=== PATIENT | male | born 1970 | race Caucasian/White ===

== ENCOUNTER 2019-04-23 01:29 | Day surgery (SDC) | payer OTHER, SELFPAY ==
[2019-04-16 14:53] VITALS: BMI 29.8
--- NOTE | 2019-04-21 15:24 | P.PNAN_ITS ---
Anes - Eval Pre Procedure Procedure: Operation Date: 04/23/19 11:00 Proposed Procedures p Colonoscopy - Leonel Kim MD Date/Time: 04/21/19 15:24 Pre Op Diagnosis: Abnormal Stool Patient Data Age: 49 Gender: M Height: 6 ft Weight: 99.79 kg Allergies Allergy/AdvReac Type Severity Reaction Status Date / Time No Known Allergies Allergy Unknown Verified 04/16/19 15:09 Home Medications Medication Instructions Recorded Confirmed Type albuterol sulfate [ProAir HFA] 1 inhalation INHALATION Q4-6H PRN 03/03/19 02/0 05/31 Rx #18 gm hydrocodone-acetaminophen 1 tablet PO Q6H PRN 03/03/19 04/16/19 History meloxicam 15 mg DAILY 03/03/19 04/16/19 History Patient hx anesthesia problems: none Family hx anesthesia problems: none PMFSH Past Medical History Medical History (Updated 04/21/19 @ 15:23 by Nani Alvarado CRNA) Bronchitis Chronic pain Chronic, continuous use of opioids No significant past medical history Obesity Surgical History Surgical History History of orthopedic surgery bilateral knees surgery,right hand Hx of tonsillectomy Social History Social History (Updated 04/21/19 @ 15:24 by Nani Alvarado CRNA) Smoking packs per day: 1 Smoking cigarettes per day: 20.0 Smoking status: Current every day smoker Tobacco type: cigarettes Alcohol intake: current Substance use: current Substance use type: opiates Exam Day of Procedure 04/21/19 15:24
[2019-04-23 09:58] VITALS: BP 128/89; PULSE 85; TEMP 36.3; O2SAT 99
[2019-04-23] MEDS: LACTATED RINGERS 1,000 ML 150 ML IV CONT (10:10)
--- NOTE | 2019-04-23 10:56 | P.CONGI_ITS ---
Assessment and Plan Additional Plan This is a 49-year-old white male patient seen in evaluation at the request of Dr. Hemal Grey, patient presents for screening colonoscopy. He states his current weight appetite bowel movements are normal. He denies any blood in his stools. He denies abdominal pain. His weight has remained stable. Family history is significant his mother had colon polyps as an outpatient patient had a cologuard test that was positive. He presents today for screening colonoscopy. Past medical history is significant for arthritis in his knees. Current medications include hydrocortisone. Meloxicam. And albuterol. No known medical allergies. Physical exam reveals patient to be alert. Oriented x3. HEENT exam unremarkable. He is anicteric. Lungs are clear to auscultation and percussion. Heart is without murmur or extra sounds. Abdominal exam bowel sounds are present soft nontender with no organomegaly. Digital external rectal exam. Impression 1. Neoplasia screening. advised because of age. 2. Positive: ColoGuard test. Suggest higher chance of having polyps. 3. Family history of colon polyps in mother, Plan is for screening colonoscopy to be performed. GI Consult Note Consult date/time: 04/23/19 10:56 HPI: Fernie Rees is a 49 year old male [facility] Past Medical History Medical History (Updated 04/21/19 @ 15:23 by Nani Alvarado CRNA) Bronchitis Chronic pain Chronic, continuous use of opioids No significant past medical history Obesity Surgical History Surgical History History of orthopedic surgery bilateral knees surgery,right hand Hx of tonsillectomy Social History Social History (Updated 04/21/19 @ 15:24 by Nani Alvarado CRNA) Smoking packs per day: 1 Smoking cigarettes per day: 20.0 Smoking status: Current every day smoker Tobacco type: cigarettes Alcohol intake: current Substance use: current Substance use type: opiates Meds Home Medications and Allergies Home Medications Medication Instructions Recorded Confirmed Type albuterol sulfate [ProAir HFA] 1 inhalation INHALATION Q4-6H PRN 03/03/19 04/16/19 Rx #18 gm hydrocodone-acetaminophen 1 tablet PO Q6H PRN 03/03/19 04/16/19 History meloxicam 15 mg DAILY 03/03/19 04/16/19 History Allergies Allergy/AdvReac Type Severity Reaction Status Date / Time No Known Allergies Allergy Unknown Verified 04/23/19 09:58 Vital Signs Vital Signs - 24 hr 04/23/19 09:58 Temperature 36.3 C L Pulse Rate 85 Blood Pressure 128/89 Pulse Oximetry 99
--- NOTE | 2019-04-23 10:58 | WPDANESEFPP ---
Anes - Eval Final PreProcedure Day of Procedure 04/23/19 10:58 Patient weight: obese Heart: regular rate and rhythm Lungs: clear to auscultation Airway: Mallampati scale class 1 and other (dentures) Neurological: alert and oriented Last oral intake: >/= 8 hours ASA classification: III Emergent: no Anesthetic plan: proceed Anesthesia type and monitoring: general GIVS and standard monitoring Informed Consent: The patient's anesthetic plan and its attendant risks and benefits were discussed with the patient/family/POA. Questions were solicited and answers provided to the satisfaction of the patient/family/POA.
[2019-04-23] MEDS: SIMETHICONE ORAL SUSPENSION 20 MG/0.3 ML 30 ML BOTTLE 0.6 ML IRRIGATION (11:31)
[2019-04-23 11:45] VITALS: BP 100/62; PULSE 72; RESP 21; O2SAT 100
[2019-04-23 11:55] VITALS: BP 110/65; PULSE 83; RESP 26; O2SAT 99
[2019-04-23 12:05] VITALS: BP 111/69; PULSE 73; RESP 19; O2SAT 100
== END 2019-04-23 12:16 | disposition home or self-care (01) ==
PROVIDERS: PCP Family Medicine; Visit Provider Internal Medicine Gastroenterology
PROC: 0DJD8ZZ Inspection of Lower Intestinal Tract, Via Natural or Artificial Opening Endoscopic (ICD-10-PCS; CPT 45378; principal; 2019-04-23 11:00)
DX: Z12.11 Encounter for screening for malignant neoplasm of colon (principal); K63.5 Polyp of colon; K62.1 Rectal polyp; K64.8 Other hemorrhoids; R19.5 Other fecal abnormalities; Z83.71 Family history of colonic polyps; G89.29 Other chronic pain; Z79.891 Long term (current) use of opiate analgesic; F17.210 Nicotine dependence, cigarettes, uncomplicated
CPT/HCPCS: 45385; 88305; J2704; J7120

== ENCOUNTER 2020-09-18 16:07 | Emergency (ER) | payer OTHER, SELFPAY ==
[2020-09-18 16:15] VITALS: BP 127/82; PULSE 79; RESP 18; TEMP 36.6; O2SAT 100
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
== END 2020-09-18 16:55 | disposition home or self-care (01) ==
PROVIDERS: Emergency Provider Nurse Practitioner Family
DX: S05.01XA Injury of conjunctiva and corneal abrasion without foreign body, right eye, initial encounter (principal); X58.XXXA Exposure to other specified factors, initial encounter; H11.31 Conjunctival hemorrhage, right eye; F17.210 Nicotine dependence, cigarettes, uncomplicated
CPT/HCPCS: 99213; A9270; G0463

== ENCOUNTER 2021-03-17 15:39 | Outpatient (CLI) | payer OTHER, SELFPAY ==
--- NOTE | ~2021-03-17 | CT_ITS ---
EXAMINATION: CT lung screening DATE: 03/17/2021 15:51 INDICATION: Encounter for screening for malignant neoplasm of respirator TECHNIQUE: Computed tomography (CT) of the chest was performed without intravenous contrast. Addition al 3D reconstructions utilizing coronal maximum intensity projection (MIP) were performed. Automated exposure control and iterative reconstruction technique were employed. The dose-length product was 19 8.85 mGy-cm. COMPARISON: None FINDINGS: Tiny calcified nodule in the left upper lobe consistent with old granulomatous disease. Additional 2 mm noncalcified left upper lobe nodule on series 4, image 31. No other larger pulmonary nodules, pulm onary edema or pleural effusion. Heart size is normal. Small amount of atherosclerotic coronary arter y calcification. No pericardial effusion. Thoracic aorta is normal in caliber. No pathologically enla rged thoracic lymphadenopathy. Visualized upper abdomen is unremarkable. Mild upper thoracic levocurv ature. Chronic appearing mild anterior wedging of several lower thoracic vertebral bodies with modera te spondylosis. IMPRESSION: 1. Lung-RADS category 2: Benign appearance or behavior. Continue annual screening with noncontrast lo w-dose chest CT in 12 months. Reviewed, dictated and finalized at location B. E HAND IMPRESSION: 1. Lung-RADS category 2: Benign appearance or behavior. Continue annual screeni ng with noncontrast low-dose chest CT in 12 months.
== END 2021-03-17 15:40 ==
LOC: MICIMG 15:40
PROVIDERS: PCP Family Medicine; Visit Provider Family Medicine
DX: Z12.2 Encounter for screening for malignant neoplasm of respiratory organs (principal); F17.210 Nicotine dependence, cigarettes, uncomplicated
CPT/HCPCS: 71271

== ENCOUNTER 2021-03-23 16:45 | Emergency (ER) | payer OTHER, SELFPAY ==
[2021-03-23 17:01] VITALS: BP 125/64; PULSE 81; RESP 20; TEMP 36.8; O2SAT 98
--- NOTE | 2021-03-23 17:07 | ED.GENADULT ---
HPI - General Adult General Chief complaint: Upper Respiratory Infection Stated complaint: Body Aches,Headache,Shortness of Breath Source: patient Mode of arrival: ambulatory Limitations: no limitations History of Present Illness HPI narrative: 51 y/o male. PMHx HLD, Chronic Pain Sx. Presents to [facility] this evening with acute complaints of nasal congestion and cough, as well as S[place]CLA[place] when he has a coughing fit . He endorses intermittent dyspnea, without chest pain, palpitations, edema. Denies fever, chills, body aches. No sore throat, otalgia. Client tells me he 'gets this once a year around this time from working outside in cold weather'. He is a daily ciagrette smoker. No additional acute c/o illness upon PE. Related Data Home Medications Medication Instructions Recorded Confirmed hydrocodone-acetaminophen 1 tablet PO Q6H PRN 03/03/19 03/23/21 meloxicam 15 mg PO DAILY 03/03/19 03/23/21 atorvastatin 20 mg PO DAILY 09/18/20 03/23/21 Allergies Allergy/AdvReac Type Severity Reaction Status Date / Time No Known Allergies Allergy Unknown Verified 03/23/21 17:05 Review of Systems Review of Systems: CONSTITUTIONAL: Denies fever, chills, sweats. SINCLAIR. EYES: Denies visual changes, redness, discharge. ENT: Positive rhinorrhea, congestion. No sore throat, otalgia. CARDIOVASCULAR: Denies chest pain, palpitations, edema. RESPIRATORY: Denies dyspnea, wheezing. Positive cough. GASTROINTESTINAL: Denies abdominal pain, nausea, vomiting, diarrhea. GENITOURINARY: Denies dysuria, hematuria, abnormal discharge SKIN: Denies rash or itching. MUSCULOSKELETAL: Denies acute back pain, joint pain, or myalgia. NEUROLOGIC: Denies numbness, or focal weakness. PSYCHIATRIC: Denies anxiety or depression. All systems reviewed & are unremarkable except as noted in HPI and below PMFSH Past Medical History Medical History Bronchitis Chronic pain Chronic, continuous use of opioids No significant past medical history Obesity Surgical History Surgical History History of orthopedic surgery bilateral knees surgery,right hand Hx of tonsillectomy Family History Family History Father Patient's father is Social History Social History Smoking packs per day: 1 Smoking cigarettes per day: 20.0 Smoking status: Current every day smoker Tobacco type: cigarettes Alcohol intake: current Substance use: current Substance use type: opiates Gender identity (if verbalized by the patient): Male Exam Narrative: GENERAL: This is a well-nourished, well-developed adult, in no apparent distress. HEAD: normocephalic, atraumatic. EYES: PERRL. Sclera clear/white. EARS: External ears normal, auditory canals clear and without drainage, TMs normal. NOSE: External nose normal. Positive Rhinorrhea, no obstruction, nares patent. THROAT: Mucous membranes moist, posterior pharynx erythematous. No exudates. NECK: Neck supple, non-tender without lymphadenopathy, masses or thyromegaly. CARDIOVASCULAR: Regular rate and rhythm without murmurs, gallops, or rubs. RESPIRATORY: Upper airway Rhonchi, cleared with cough. Breath sounds equal bilaterally. No wheezes, rales. . GASTROINTESTINAL: Abdomen soft, non-tender, nondistended. Bowel sounds are active. No guarding. SKIN: warm, intact with no suspicious lesions or rash, good texture and turgor. NEURO: Alert, active, and age appropriate. No focal neurologic deficits. EXTREMITIES: Negative. Course Course Level of Care: Express Care Visit Vital Signs Vital signs: Vital Signs Temperature 36.8 C 03/23/21 17:01 Pulse Rate 81 03/23/21 17:01 Respiratory Rate 20 03/23/21 17:01 Blood Pressure 125/64 03/23/21 17:01 Pulse Oximetry
== END 2021-03-23 17:28 | disposition home or self-care (01) ==
PROVIDERS: Emergency Provider Nurse Practitioner Adult Health; PCP Family Medicine
DX: U07.1 COVID-19 (principal); E66.9 Obesity, unspecified; Z68.44 Body mass index [BMI] 60.0-69.9, adult; F17.210 Nicotine dependence, cigarettes, uncomplicated
CPT/HCPCS: 87426; 99213; C9803; G0463

== ENCOUNTER 2021-05-19 07:14 | Outpatient (CLI) | payer OTHER, SELFPAY ==
--- NOTE | ~2021-05-19 | XR_ITS ---
EXAMINATION: XR shoulder LT min 2V DATE: 05/19/2021 07:34 INDICATION: Left shoulder pain. TECHNIQUE: 4 views of left shoulder were obtained. COMPARISON: Left shoulder radiographs 04/14/2012 FINDINGS: Bone alignment is normal. No fracture. There is mild osteoarthritis of glenohumeral joint a nd acromioclavicular joint. IMPRESSION: 1. Mild polyarticular osteoarthritis. Reviewed, dictated and finalized at location A. [employer] TE[employer]
== END 2021-05-19 07:15 | disposition home or self-care (01) ==
LOC: ANHIMG 07:18
PROVIDERS: PCP Family Medicine; Visit Provider Physician Assistant
DX: M19.012 Primary osteoarthritis, left shoulder (principal)
CPT/HCPCS: 73030

== ENCOUNTER 2021-05-21 10:29 | Outpatient (CLI) | payer OTHER, SELFPAY ==
--- NOTE | ~2021-05-21 | XR_ITS ---
EXAMINATION: XR lg joint inject/asp w image DATE: 05/21/2021 11:24 INDICATION: Left shoulder pain. TECHNIQUE: A time-out was performed to verify the patient's name, date of , and procedure to b e performed. The procedure including the risks, benefits, and alternatives was discussed with the pat ient. Risks discussed included bleeding and infection. The patient understood the risks and agreed to proceed. The skin overlying the left glenohumeral joint was prepped and draped in usual sterile fas hion. Anesthetic was administered with 1% lidocaine subcutaneously. A 22 G needle was advanced unde r fluoroscopic guidance into the joint. Injection of 1 mL of Omnipaque 240 confirmed intra-articular position of the needle. Subsequently, injectate consisting of 3 mL 1% lidocaine and 1 mL 40 mg/mL t riamcinolone was instilled. The needle was removed and the entry site was cleaned and dressed. Ther e were no immediate complications. Fluoroscopy exposure time was 0.1 minutes. The total number of mahesh ges was 2. FINDINGS: Real-time fluoroscopy demonstrates the needle in the left glenohumeral joint. Patient's alyse n prior to procedure:06/21. Patient's pain following the procedure: 04/23. IMPRESSION: 1. Fluoroscopy guided left glenohumeral joint injection of local anesthetic and steroid with decrease in the patient's presenting pain. Reviewed, dictated and finalized at location A. SIVE GRINDER
== END 2021-05-21 10:30 | disposition home or self-care (01) ==
LOC: ANHIMG 10:31
PROVIDERS: PCP Family Medicine; Visit Provider Physician Assistant
DX: M25.512 Pain in left shoulder (principal)
CPT/HCPCS: 20610; 77002; J3301; Q9966

== ENCOUNTER 2021-08-28 15:22 | Outpatient (CLI) | payer OTHER, SELFPAY ==
--- NOTE | ~2021-08-28 | MR_ITS ---
EXAMINATION: MR shoulder LT wo con DATE: 08/28/2021 16:23 INDICATION: Left shoulder pain. Loss of range of motion. No injury. TECHNIQUE: Magnetic resonance imaging (MRI) of the left shoulder was performed without intravenous co ntrast. Sequences included axial PD-weighted FS FSE, coronal oblique PD-weighted FS FSE and T2-weight ed FS FSE, and sagittal oblique T2-weighted FS FSE and T1-weighted FSE. COMPARISON: X-ray left shoulder 05/19/2021 FINDINGS: Coracoacromial arch: Type II acromion. Minimal acromial tip enthesopathy. Mild AC joint hypertrophy. Rotator cuff: 5 mm full-thickness tear in the anterior fibers of the supraspinatus tendon. Interstitial tear at the muscular tendinous junction of the supraspinatus. Abnormal signal within the supraspinatus and infra spinous. Infraspinatus, teres minor, and subscapularis are intact. Biceps tendon and glenoid labrum: Intact. Fluid: Small glenohumeral fluid. Moderate volume subacromial subdeltoid fluid. Bones/cartilage: No focal marrow lesion or edema. Mild cartilage thinning at the glenohumeral joint. IMPRESSION: 1. 5 mm full-thickness tear in the anterior fibers of the supraspinous tendon. Focal supraspinatus in terstitial tear. Superior cuff tendinopathy. 2. Moderate subacromial subdeltoid bursitis. Reviewed, dictated and finalized at location K. IMPRESSION: 1. 5 mm full-thickness tear in the anterior fibers of the supraspinous tendon. Focal supraspinatus interstitial tear. Superior cuff tendinopathy. 2. Moderate subacromial subdeltoid bursitis.
== END 2021-08-28 15:23 | disposition home or self-care (01) ==
PROVIDERS: PCP Family Medicine
DX: M25.512 Pain in left shoulder (principal); S46.812A Strain of other muscles, fascia and tendons at shoulder and upper arm level, left arm, initial encounter; M75.52 Bursitis of left shoulder
CPT/HCPCS: 73221

== ENCOUNTER 2021-09-24 14:15 | Outpatient (CLI) | payer OTHER, SELFPAY ==
--- NOTE | ~2021-09-24 | XR_ITS ---
XR chest 2V DATE: 09/24/2021 14:37 INDICATION: Preoperative evaluation for shoulder surgery TECHNIQUE: PA and lateral views COMPARISON: 03/17/2021 CT lung screening 2 view chest FINDINGS: Normal heart size. No hilar or mediastinal enlargement. Possible 7 mm and 8 mm lower lung nodules on the left. CT thorax is recommended. No pulmonary infiltrate or consolidation, pleural effusion or pulmonary vascular congestion or pneumo thorax is noted. IMPRESSION: Suspected 7 and 8 mm left lower lung pulmonary nodules; CT thorax is recommended. Reviewed, dictated and finalized at location A. IMPRESSION: Suspected 7 and 8 mm left lower lung pulmonary nodules; CT thorax i s recommended.
== END 2021-09-24 14:16 | disposition home or self-care (01) ==
LOC: ANHIMG 14:19
PROVIDERS: PCP Family Medicine; Visit Provider Family Medicine
DX: Z01.818 Encounter for other preprocedural examination (principal); R91.8 Other nonspecific abnormal finding of lung field
CPT/HCPCS: 71046

== ENCOUNTER 2021-10-12 13:44 | Outpatient (CLI) | payer OTHER, SELFPAY ==
--- NOTE | ~2021-10-12 | CT_ITS ---
EXAMINATION:CT diagnostic chest wo con DATE: 10/12/2021 15:08 INDICATION: Pulmonary nodules. Abnormal chest radiographs. TECHNIQUE: Computed tomography (CT) of the chest was performed without intravenous contrast. Automate d exposure control and iterative reconstruction technique were employed. The dose-length product (DLP ) was 260.77 mGy-cm. COMPARISON: Chest CT 03/17/2021, chest 2 views 09/24/2021 FINDINGS: A calcified left lung nodule is consistent with old granulomatous disease. There is a 3 mm nodule in left upper lobe, likely benign. No pleural effusion. The heart size is normal. There are co ronary artery calcifications. No pericardial effusion. There is a benign bone island in left seventh rib correlating with the chest radiograph finding. There is mild chronic anterior wedging of multiple vertebral bodies. IMPRESSION: 1. No evidence of malignancy. Reviewed, dictated and finalized at location A.
== END 2021-10-12 13:45 | disposition home or self-care (01) ==
PROVIDERS: PCP Family Medicine; Visit Provider Family Medicine
DX: R91.8 Other nonspecific abnormal finding of lung field (principal)
CPT/HCPCS: 71250

== ENCOUNTER 2022-06-02 13:08 | Outpatient (CLI) | payer OTHER, SELFPAY ==
--- NOTE | ~2022-06-02 | XR_ITS ---
EXAMINATION: XR lg joint inject/asp w image DATE: 06/02/2022 14:32 INDICATION: Left shoulder joint injection 8 months post rotator cuff repair TECHNIQUE: A time-out was performed to verify the patient's name, date of , and procedure to b e performed. The procedure including the risks, benefits, and alternatives was discussed with the pat ient. Risks discussed included bleeding and infection. The patient understood the risks and agreed to proceed. The skin overlying the rotator cuff interval of the left glenohumeral joint was prepped an d draped in usual sterile fashion. Anesthetic was administered with 1% lidocaine subcutaneously. A 22 G needle was advanced under fluoroscopic guidance into the joint. Injection of 1 mL of Omnipaque 240 confirmed intra-articular position of the needle. Subsequently 5 mm of 1% lidocaine was instille d. Washout of contrast was seen confirming intra-articular administration. The needle was removed and the entry site was cleaned and dressed. There were no immediate complications. Fluoroscopy exposure time was 0.2 minutes. The total number of images was 2. Total DAP was 0.735 Gycm^2 FINDINGS: Real-time fluoroscopy demonstrates the needle in the left glenohumeral joint. Patient's alyse n prior to procedure:/10. Patient's pain following the procedure: 05/21. IMPRESSION: 1. Successful left glenohumeral joint injection of 5 mL 1% lidocaine with partial decrease in the pat ient's presenting pain. Reviewed, dictated and finalized at location A. IMPRESSION: 1. Successful left glenohumeral joint injection of 5 mL 1% lidocaine with parti al decrease in the patient's presenting pain.
--- NOTE | ~2022-06-02 | XR_ITS ---
Left Knee Technique: AP, lateral, and sunrise views were obtained. Clinical History: Pain Findings: No fracture or dislocation is seen. Osseous alignment is anatomic. Minimal patellar spurrin g noted. Soft tissues are unremarkable. No joint effusion is seen. Impression: Minimal patellar spurring. Reviewed, dictated and finalized at location . Impression: Minimal patellar spurring.
== END 2022-06-02 13:09 | disposition home or self-care (01) ==
PROVIDERS: PCP Family Medicine
DX: M25.561 Pain in right knee (principal); M25.512 Pain in left shoulder; Z98.890 Other specified postprocedural states
CPT/HCPCS: 20610; 73564; 77002; Q9966

== ENCOUNTER 2022-08-29 09:44 | Outpatient (CLI) | payer OTHER, SELFPAY ==
--- NOTE | ~2022-08-29 | MR_ITS ---
MRI of the left shoulder Technique: Axial proton-density fat-sat images, coronal proton density fat-sat and T2 fat-sat images, and sagittal T1-weighted and T2 fat-sat images were acquired. Clinical History: Pain COMPARISON: 08/28/2021 Findings: There is moderate degenerative change at the AC joint, probable interval subacromial decomp ression since the prior exam. Coracoclavicular, coracoacromial, coracohumeral ligaments appear intact . There is evidence of prior rotator cuff repair surgery. There is recurrent full-thickness tear at the midportion of the supraspinatus tendon, with full-thickness tear measuring 0.9 x 0.9 cm in extent. T here is postoperative change versus severe tendinosis of the distal supraspinatus tendon. Infraspinat us tendon is intact, without partial or full-thickness tear. There is moderate to advanced distal ten dinosis. Subscapularis tendon is intact, with mild tendinosis. Tendon of the long head of the biceps is intact. No definite labral tear identified. Inferior glenohumeral ligament is intact. There is glenohumeral joint effusion, with fluid passing th rough the rotator cuff defect into the subacromial/subdeltoid bursa. No muscle atrophy or edema. No d egenerative change at the glenohumeral joint. Impression: Status post interval rotator cuff repair surgery, with recurrent full-thickness tear at the midportio n of the supraspinatus tendon measuring 0.9 x 0.9 cm. Severe tendinosis versus postoperative change of the distal supraspinatus tendon. Additional tendinos is of the subscapularis and infraspinatus tendons. Moderate degenerative change at the AC joint with evidence of interval subacromial decompression. Reviewed, dictated and finalized at [facility]. Impression: Status post interval rotator cuff repair surgery, with recurrent full-thickness tear at the midportion of the supraspinatus tendon measuring 0.9 x 0.9 cm. Severe tendinosis versus postoperative change of the distal supraspinatus tendo n. Additional tendinosis of the subscapularis and infraspinatus tendons. Moderate degenerative change at the AC joint with evidence of interval subacrom ial decompression.
--- NOTE | ~2022-08-29 | MR_ITS ---
MRI of the left knee Clinical history: Pain Technique: Coronal proton density and proton density-weighted images, sagittal proton-density and T2 fat-sat images, and axial proton-density fat-saturated images were acquired. Findings: Anterior and posterior cruciate ligaments are intact. Medial collateral ligament and the la teral collateral ligament complex are intact. Popliteus tendon is intact. Lateral meniscus is intact, without evidence of tear. There is complex tearing of the posterior horn of the medial meniscus extending into the body segment. There is grade 4 chondral lesion at the patellar apex with subchondral cystic change/reactive marrow edema. There is additional high-grade chondromalacia along the medial patellar facet. Femoral trochle ar cartilage is intact. Articular cartilage in the medial and lateral compartments is well preserved. Extensor mechanism is intact. No significant joint effusion. Tiny Amaya's cyst present. Impression: Complex tearing of the posterior horn and body of the medial meniscus. High-grade chondromalacia patella, as detailed above. Tiny Amaya's cyst. Reviewed, dictated and finalized at location . Impression: Complex tearing of the posterior horn and body of the medial meniscus. High-grade chondromalacia patella, as detailed above. Tiny Amaya's cyst.
== END 2022-08-29 09:45 | disposition home or self-care (01) ==
PROVIDERS: PCP Family Medicine
DX: S83.242A Other tear of medial meniscus, current injury, left knee, initial encounter (principal); M71.22 Synovial cyst of popliteal space [Baker], left knee; M22.42 Chondromalacia patellae, left knee; X58.XXXA Exposure to other specified factors, initial encounter
CPT/HCPCS: 73221; 73721

== ENCOUNTER 2023-03-24 14:01 | Outpatient (CLI) | payer OTHER, SELFPAY ==
--- NOTE | ~2023-03-24 | CT_ITS ---
Clinical Indication: Hemoptysis CT Scan of the Chest with and without Contrast: Technique: Contiguous sections were acquired throughout the chest prior to and following intravenous administration of 75 cc of Omnipaque 350. Dose reduction technique was used on this scan by utilizing automated exposure control and iterative reconstruction technique. The dose-length product (DLP) was 951.87 mGy-cm. COMPARISON: 10/12/2021 Findings: There is no evidence of any significant mediastinal, hilar or axillary lymphadenopathy. No large cent ral pulmonary embolus seen. There is no evidence of aortic dissection or aneurysm. There is no evidence of pleural or pericardial effusion. The lungs are clear. No pulmonary nodules or infiltrates are noted. Images through the upper abdomen reveal no abnormalities. Impression: No significant abnormality seen. Reviewed, dictated and finalized at [facility]. NESS AREA MANAGER Impression: No significant abnormality seen.
== END 2023-03-24 14:02 | disposition home or self-care (01) ==
PROVIDERS: PCP Family Medicine; Visit Provider Family Medicine
DX: R04.2 Hemoptysis (principal)
CPT/HCPCS: 71270; Q9967

== ENCOUNTER 2024-03-03 08:17 | Outpatient (CLI) | payer OTHER, SELFPAY ==
--- NOTE | ~2024-03-03 | CT_ITS ---
EXAMINATION:CT lung screening DATE: 03/03/2024 08:46 INDICATION: Personal history of nicotine dependence. Current smoker with 42 pack year history. TECHNIQUE: Computed tomography (CT) of the chest was performed without intravenous contrast. Automate d exposure control and iterative reconstruction technique were employed. The dose-length product (DLP ) was 232.84 mGy-cm. COMPARISON: Chest CT 03/24/2023 FINDINGS: There is a cluster of tree-in-bud opacities in right upper lobe, likely infection/inflammat ion. No pleural effusion. The heart size is normal. There are coronary artery calcifications. No shawn cardial effusion. There is mild bilateral gynecomastia. There is moderate spondylosis at thoracolumba r junction. There is mild chronic anterior wedging of multiple vertebral bodies. IMPRESSION: 1. Lung-RADS category 2: Benign appearance or behavior. Continue annual screening with noncontrast lo w-dose chest CT in 12 months. Reviewed, dictated and finalized at location A. ZINE PUBLISHER IMPRESSION: 1. Lung-RADS category 2: Benign appearance or behavior. Continue annual screeni ng with noncontrast low-dose chest CT in 12 months.
--- OUTSIDE RECORDS SUMMARY | 2024-03-10 06:55 | XMS_ITS | Referral Summary ---
Author Organization [facility] Address [address] [place] [address] Care Team Providers Care Green Building Architect Name Role Phone Hemal Grey MD Primary Care Provider [phone] Source Comments [facility],non-owned Affiliates and Associated Physician Practices is amultiple site organization consisting of ambulatory clinics and hospital sitesin [place], [place], [place] and [place]. This disclosure is being madepursuant to the Care Everywhere program and may not contain all information available regarding this patient. Last updated 17.[facility] [employer] Allergies No known active allergies Medications * Be aware that medications may not be up to date on this document. Alwaysverify current medications with the patient. Medication Sig Dispensed Refills Start Date End Date Status meloxicam (MOBIC) 15 MG tablet Take 1 tablet by mouth once daily 90 tablet 06/06/2019 Active albuterol HFA (PROVENTIL; VENTOLIN; PROAIR) 108 (90 Base) MCG/ACT inhaler INHALE 1 PUFF BY MOUTH EVERY 4 TO 6 HOURS NEEDED FOR SHORTNESS OF BREATH OR WHEEZING 01/26/2021 Active atorvastatin (LIPITOR) 20 MG tablet Take 1 (one) tablet by mouth once daily 08/06/2021 Active zolpidem (AMBIEN) 5 MG tabletIndications:S uperior glenoid labrum lesion of left shoulder, initial encounter,Complete tear of left rotator cuff, unspecified whether traumatic Take 1 (one) tablet by mouth nightly as needed for Insomnia 30 tablet 09/03/2021 Active Additional Information Patient not taking.Reported on 05/13/2022 traMADol (Ultram) 50 MG tablet Take 1 (one) tablet by mouth every 6 hours as needed for Pain 60 tablet 05/27/2022 Active Active Problems Problem Noted Date Diagnosed Date Biceps tendonitis on left 07/22/2022 Other specified complication of internal orthopedic prosthetic devices, implants and grafts, subsequent encounter 10/29/2021 Rotator cuff syndrome of left shoulder 2 Chronic left shoulder pain 07/21/2021 Therapeutic opioid induced constipation 01/30/20 21 Medial epicondylitis of elbow, left 04/02/2020 Bilateral primary osteoarthritis of knee 020 Long-term current use of opiate analgesic 2019 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 Chronic pain of both knees 06/13/2016 Social History Tobacco Use Types Packs/Day Years Used Date Smoking Tobacco: Every Day Smokeless Tobacco: Never Tobacco Cessation:Ready to Q uit: Not Asked; Counseling Given: Not Answered Sex and Gender Information Value Date Recorded Sex Assigned at Not on file Gender Identity Not on file Sexual Orientation Not on file Last Filed Vital Signs Vital Sign Reading Time Taken Comments Blood Pressure 132/74 04/05/2019 10:29 AM PARTY PLAN DEMONSTRATOR Pulse 86 04/05/2019 10:29 AM PARTY PLAN DEMONSTRATOR Temperature 36.8 ??C (98.3 ??F) 04/05/2019 10:[address] Respiratory Rate - - Oxygen Saturation 98% 04/05/2019 10:29 AM PARTY PLAN DEMONSTRATOR Inhaled Oxygen Concentration - - Weight 104.3 kg (230 lb) 05/13/2022 11:15 AM PARTY PLAN DEMONSTRATOR Height 185.4 cm (6' 1 ) 05/13/2022 11:15 AM PARTY PLAN DEMONSTRATOR Body Mass Index 30.34 05/13/2022 11:15 AM PARTY PLAN DEMONSTRATOR Plan of Treatment Not on file Care Teams Green Building Architect Relationship Specialty Start Date End Date Hemal Grey MD [address] [place] [address] [place] [id number] PCP - General Family Medicine 09/03/21
--- OUTSIDE RECORDS SUMMARY | 2024-03-10 06:55 | XMS_ITS | Encounter Summary ---
Author Organization [facility] Address [address] [place] [address] Care Team Providers Care Garbage Collector Supervisor Name Role Phone Unavailable Primary Care Provider Unavailabl e Reason for Visit * Reason Comments Upper Extremity Problem Lt shoulder pain - see form- Encounter Details Date Type Department Care Team (Late st Contact Info) Description 08/14/2021 8:30 AM CDT Office Visit [facility] - Orthopedic Surgery [address] [place] [id number] Salvador Jeffery MD [address] [place] [phone] Rotator cuff syndrome of left shoulder (Primary Dx); Biceps tendinitis of left shoulder Social History Tobacco Use Types Packs/Day Years Used Date Smoking Tobacco: Every Day Smokeless Tobacco: Never Sex and Gender Information Value Date Recorded Sex Assigned at Not on file Gender Identity Not on file Sexual Orientation Not on file documented as of this encounter Last Filed Vital Signs Vital Sign Reading Time Taken Comments Blood Pressure - - Pulse - - Temperature - - Respiratory Rate - - Oxygen Saturation - - Inhaled Oxygen Concentration - - Weight 102.1 kg (225 lb) 08/14/2021 8:31 AM CDT Height 185.4 cm (6' 1 ) 08/14/2021 8:31 AM CDT Body Mass Index 29.69 08/14/2021 8:31 AM CDT documented in this encounter Progress Notes * Salvador Jeffery MD - 08/14/2021 9:09 AM CDT Images from the original note were not included. Chief Complaint: Left shoulder pain History of Present Illness: The patient is 51 years old. She is he comes in for couple month history of left shoulder pain. His pain is insidious onset. 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 He is left-hand dominant. He now has issues with painand weakness with his arm out away from his body which is affecting his job. He did have an injection performed under image guidance which provided complete relief of his symptoms for a couple of weeks but his pain then returned. He has tried some home exercises with stretching and scapular stabilization without relief. He is also tried anti-inflammatory medications without relief. Past Medical History: Diagnosis Date ??? Bilateral primary osteoarthritis of knee 08/24/2019 ??? Hypolipidemia ??? longterm (current) use of opiate analgesic 08/24/2019 ??? Medial epicondylitis of elbow, left 04/02/2020 ??? Therapeutic opioid induced constipation 01/29/2021 Past Surgical History: Procedure Laterality Date ??? HAND OR FINGER(S) TENDON REPAIR 2009 ??? Wrist Fracture Repair Right Family history noncontributory Social History Socioeconomic History ??? Marital status: Spouse name: Not on file ??? Number of children: Not on file ??? Years of education: Not on file ??? Highest education level: Not on file Occupational History ??? Not on file Tobacco Use ??? Smoking status: Current Every Day Smoker ??? Smokeless tobacco: Never Used Substance and Sexual Activity ??? Alcohol use: Not on file ??? Drug use: Not on file ??? Sexual activity: Not on file Other Topics Concern ??? Not on file Social History Narrative ??? Not on file Social Determinants of Health Financial Resource Strain: Not on file Food Insecurity: Not on file Transportation Needs: Not on file Physical Activity: Not on file Stress: Not on file Social Connections: Not on file Intimate Partner Violence: Not on file Housing Stability: Not on file Current Outpatient Medications on File Prior to Visit Medication Sig Dispense Refill ??? albuterol HFA (PROVENTIL; VENTOLIN; PROAIR) 108 (90 Base) MCG/ACT inhaler INHALE 1 PUFF BY MOUTH EVERY 4 TO 6 HOURS NEEDED FOR SHORTNESS OF BREATH OR WHEEZING ??? atorvastatin (LIPITOR) 20 MG tablet Take 20 mg by mouth once daily ??? HYDROcodone-acetaminophen (NORCO) 7.5-325 MG tablet Take 1 tablet by mouth every 6 hours as needed ??? meloxicam (MOBIC) 15 MG tablet Take 1 tablet by mouth once daily 90 tablet 0 ??? meloxicam (MOBIC) 15 MG tablet TAKE 1 TABLET BY MOUTH EVERY DAY 90 tablet 1 ??? naloxone HCl (NARCAN) 4 MG/0.1ML nasal spray [place] 1 spray into the nose No current facility-administered medications on file prior to visit. No Known Allergies Review of Systems - 10 organ system review negative except left shoulder pain and weakness Physical Exam: Constitutional: Well developed, well nourished. No acute distress. HEENT: Atraumatic. Respiratory: Respirations are unlabored and even. No audible wheezes. Cardiovascular: Regular rate with palpable, symmetric radial pulses. Gastrointestinal: Non-tender abdomen to palpation. Lymphatic: No lymphedema is noted in the extremities. Psychiatric: The patient is cooperative and interacts appropriately during the exam. Alert and oriented x 3. Neurologic: No focal deficits. Skin: The skin is intact over the shoulder with no rashes. Extremity: Active Shoulder Range of Motion: Right: Forward Elevation 170 degrees Abduction 170 degrees External Rotation 60 degrees Internal Rotation T12 Left: Forward Elevation 160 degrees Abduction 150 degrees External Rotation 60 degrees Internal Rotation S1 The patient has - tenderness along the joint line, + tenderness along the biceps, - tenderness overthe acromion, - tenderness on the coracoid, + tenderness over Codman's point, + crepitus, + scapular dyskinesis, + Neer sign, + Gonzalez test, + Edgardo's test, - drop arm sign, + Speed test, + [place] test, - cross-body adduction test, + pain with abduction and external rotation, - Belly press, - BearHug test, is able to perform a Lift-off test, weak rotational strength, weak abduction strength. - apprehension sign, - instability. Distal neurocirculatory exam is intact. No flowsheet data found. No flowsheet data found. Sane Score (0-100): No flowsheet data found. Radiographs: 4 views of the left shoulder were obtained and reviewed including an AP, Grashey, Supraspinatus outlet view scapular Y, and axillary lateral. The xrays show well preserved joint spaces of the glenohumeral joint and acromioclavicular joint with no acute osseous abnormalities, fractures,or dislocations. The patient has a type 2 acromion. There are otherwise normal images. Assessment: Left shoulder pain with rotator cuff syndrome and suspected tear and biceps tendinitis Plan: I discussed the pathology and treatment options with the patient. At this point he has failedconservative management of injections, activity modifications, exercise, and anti-inflammatories. The neck step would be further evaluation with an MRI to evaluate for underlying rotator cuff or biceps pathologies. I will see the patient back after the MRI to discuss treatment options based on results. Salvador Jeffery MD Shoulder and Elbow Specialist [facility] [place] [address] main office [phone] for medical technician assistant [phone] for nurse [phone] for appointments documented in this encounter Plan of Treatment Not on file documented as of this encounter Visit Diagnoses Diagnosis Rotator cuff syndrome of left shoulder- Primary Disorders of bursae and tendons in shoulder region, unspecified Biceps tendinitis of left shoulder documented in this encounter
--- OUTSIDE RECORDS SUMMARY | 2024-03-10 06:55 | XMS_ITS | Encounter Summary ---
Author Organization [facility] Address [address] [place] [address] Care Team Providers Care Denitrator Name Role Phone Hemal Grey MD Primary Care Provider [phone] Reason for Visit * Reason Onset Date Comments Refill Request 11/04/2021 Encounter Details Date Type Department Care Team (Late st Contact Info) Description 11/04/2021 Refill [facility] - Orthopedic Surgery [address] [place] [id number] Salvador Jeffery MD [address] [place] [address] [phone] Refill Request Social History Tobacco Use Types Packs/Day Years Used Date Smoking Tobacco: Every Day Smokeless Tobacco: Never Sex and Gender Information Value Date Recorded Sex Assigned at Not on file Gender Identity Not on file Sexual Orientation Not on file documented as of this encounter Miscellaneous Notes * Telephone Encounter - Leonel Aponte LPN - 11/04/2021 11:07 AM CDT States [place] has been ineffective and he didn't orange picking supervisor the script. He respectfully asked for Percocet documented in this encounter Plan of Treatment Not on file documented as of this encounter Visit Diagnoses Diagnosis Complete tear of left rotator cuff, unspecified whether traumatic documented in this encounter Care Teams Denitrator Relationship Specialty Start Date End Date Hemal Grey MD [address] [place] [id number] PCP - General Family Medicine 09/03/21 documented as of this encounter
--- OUTSIDE RECORDS SUMMARY | 2024-03-10 06:55 | XMS_ITS | Clinical Summary ---
Author Organization [facility] Address [address] [place] [address] Care Team Providers Care Hand Potter Name Role Phone Hemal Grey MD Primary Care Provider [phone] Source Comments [facility],non-owned Affiliates and Associated Physician Practices is amultiple site organization consisting of ambulatory clinics and hospital sitesin [place], [place], [place] and [place]. This disclosure is being madepursuant to the Care Everywhere program and may not contain all information available regarding this patient. Last updated 17.[facility] [employer] Allergies No known active allergies Medications * [...] Comments Blood Pressure 132/74 04/05/2019 10:29 AM DICE TABLE PERSON Pulse 86 04/05/2019 10:29 AM DICE TABLE PERSON Temperature 36.8 ??C (98.3 ??F) 04/05/2019 10:[address] Respiratory Rate - - Oxygen Saturation 98% 04/05/2019 10:29 AM DICE TABLE PERSON Inhaled Oxygen Concentration - - Weight 104.3 kg (230 lb) 05/13/2022 11:15 AM DICE TABLE PERSON Height 185.4 cm (6' 1 ) 05/13/2022 11:15 AM DICE TABLE PERSON Body Mass Index 30.34 05/13/2022 11:15 AM DICE TABLE PERSON Plan of Treatment Health Maintenance Due Date Last Done Comments COLOGUARD (AGES 45-75) - COL ON CA SCREENING 1968 COLON MONITORING 1968 COLONOSCOPY - COLON CA SCREENING 1968 CT COLONOGRAPHY - COLON CA SCREENING 1968 Colorectal Cancer Screening 1968 FIT - COLON CA SCREENING 1968 FLEX SIG - COLON CA SCREENING 1968 PNEUMOCOCCAL VACCINE (1 of 2 - PCV) 1974 HIV SCREENING 1983 HEPATITIS C SCREENING 03/08/1986 DTAP/TDAP/TD VACCINES (1 - Tdap) 1987 HEPATITIS B VACCINE (1 of 3 - 19+ 3-dose series) 1987 ZOSTER VACCINE (1 of 2) 2018 SCREENING FOR DIABETES 08/14/2021 DEPRESSION SCREENING 03/14/2023 COVID-19 VACCINE (1 - 2023-2 5 season) 2023 INFLUENZA VACCINE (#1) 2023 HIB VACCINE Aged Out No longer eligi ble based on patient's age to complete this topic HPV VACCINE Aged Out No longer eligi ble based on patient's age to complete this topic MENINGOCOCCAL VACCINE Aged Out No pilar freddie eligible based on patient's age to complete this topic Care Teams Hand Potter Relationship Specialty Start Date End Date Hemal Grey MD [address] [place] [address] [place] [address] PCP - General Family Medicine 09/03/21
--- OUTSIDE RECORDS SUMMARY | 2024-03-10 06:55 | XMS_ITS | Encounter Summary ---
Author Organization [facility] Address [address] [facility] [place] [address] Care Team Providers Care Satellite Installation Technician Name Role Phone Hemal Grey MD Primary Care Provider [phone] Reason for Visit * Reason Comments Upper Extremity Problem LT Shoulder- Miles brittany 10/14/21 - patient stated he has not been getting any sleep for the past month. Pain level on today zero but last night it was a 7-8. Encounter Details Date Type Department Care Team (Late st Contact Info) Description 04/08/2022 10:10 AM GIN POLE OPERATOR Office Visit [facility] [address] [place] [address] [address] [place] [address] Salvador Jeffery MD [address] [place] [address] [phone] S/P rotator cuff repair (Primary Dx); Pain in joint of left shoulder Social History Tobacco Use Types Packs/Day Years Used Date Smoking Tobacco: Every Day Smokeless Tobacco: Never Tobacco Cessation:Ready to Q uit: Not Asked; Counseling Given: Not Answered Sex and Gender Information Value Date Recorded Sex Assigned at Not on file Gender Identity Not on file Sexual Orientation Not on file documented as of this encounter Progress Notes * Salvador Jeffery MD - 04/08/2022 5:18 PM CST Images from the original note were not included. Chief Complaint: left shoulder 5 month postop visit History of Present Illness: The patient is now 5 months status post a left shoulder rotator cuff repair. They are doing well and pain is controlled. They have continued to increase the use of their arm with range of motion activities and strengthening exercises. They have no complaints today. The patient is ready to begin regular and more advanced activities at this time. Past Medical History: Diagnosis Date ??? Bilateral primary osteoarthritis of knee 08/24/2019 ??? Hypolipidemia ??? long-term (current) use of opiate analgesic 08/24/2019 ??? Medial epicondylitis of elbow, left 04/02/2020 ??? Therapeutic opioid induced constipation 01/29/2021 Past Surgical History: Procedure Laterality Date ??? HAND OR FINGER(S) TENDON REPAIR 2009 ??? Wrist Fracture Repair Right Social History Socioeconomic History ??? Marital status: Spouse name: Not on file ??? Number of children: Not on file ??? Years of education: Not on file ??? Highest education level: Not on file Occupational History ??? Not on file Tobacco Use ??? Smoking status: Every Day ??? Smokeless tobacco: Never Substance and Sexual Activity ??? Alcohol use: Not on file ??? Drug use: Not on file ??? Sexual activity: Not on file Other Topics Concern ??? Not on file Social History Narrative ??? Not on file Social Determinants of Health Financial Resource Strain: Not on file Food Insecurity: Not on file Transportation Needs: Not on file Stress: Not on file Housing Stability: Not on file Current Outpatient Medications on File Prior to Visit Medication Sig Dispense Refill ??? albuterol HFA (PROVENTIL; VENTOLIN; PROAIR) 108 (90 Base) MCG/ACT inhaler INHALE 1 PUFF BY MOUTH EVERY 4 TO 6 HOURS NEEDED FOR SHORTNESS OF BREATH OR WHEEZING ??? atorvastatin (LIPITOR) 20 MG tablet Take 20 mg by mouth once daily ??? meloxicam (MOBIC) 15 MG tablet Take 1 tablet by mouth once daily 90 tablet 0 ??? zolpidem (AMBIEN) 5 MG tablet Take 1 (one) tablet by mouth nightly as needed for Insomnia 30 tablet 0 No current facility-administered medications on file prior to visit. No Known Allergies Physical exam: Constitutional: Well developed, well nourished. No acute distress. Lymphatic: No lymphedema is noted in the extremities. Neurologic: No focal deficits. Skin: The incision is healed with no signs of infection Extremity:Active Shoulder Range of Motion: Left: Forward Elevation 160 degrees Abduction 160 degrees External Rotation 60 degrees Internal Rotation T10 The patient has weakness with external rotation compared to the contralateral healthy side. Patientalso has positive Edgardo's test. Negative speed's test. The distal neurocirculatory exam is intact. No flowsheet data found. No flowsheet data found. Sane Score (0-100): No flowsheet data found. Radiographs: none were obtained today Assessment: 5 months status post a left shoulder rotator cuff repair with pain in his left shoulderthat is new compared to his last visit. Plan: At this time, the patient will continue with increased activity as tolerated. The patient mayresume normal activities without restrictions. I told the patient that they can continue to see improvements in strength and range of motion for up to one year postoperatively. To try and alleviate the inflammation in his shoulder, a steroid injection of the left shoulder was given today. The patient underwent the injection and tolerated it well. Physical therapy was also prescribed today. He will follow-up in 6 weeks for re-evaluation. Salvador Jeffery MD Shoulder and Elbow Specialist [facility] [address] main office [phone] for medical billing manager [phone] for nurse [phone] for appointments POLE OPERATOR documented in this encounter Procedure Notes * Salvador Jeffery MD - 04/08/2022 5:24 PM CSTAssociated Order(s): PROC ARTHROCENTESIS Procedure(s): MD DRAIN/INJECT LARGE JOINT/BURSA Pre-Procedure Diagnose(s): S/P rotator cuff repair; Pain in joint of left shoulder Post-Procedure Diagnose(s): S/P rotator cuff repair; Pain in joint of left shoulder Under sterile conditions using alcohol prep the left shoulder was injected using a mixture of 2 mL 9 mg Celestone (6 mg/cc) and 3 mL of 1% Lidocaine through a posterior approach with a 22g needle. The patient tolerated the procedure well. No complications occurred. A bandaid was applied. Appropriate post-injection instructions were given and questions answered. POLE OPERATOR documented in this encounter Plan of Treatment Not on file documented as of this encounter Procedures Procedure Name Priority Date/Time Associated Diagnosis Comments MD DRAIN/INJECT LARGE JOINT/BURSA Routine 04/08/2022 5:24 PM GIN POLE OPERATOR S/P rotator cuff repair Pain in joint of left shoulder documented in this encounter Results * MD DRAIN/INJECT LARGE JOINT/BURSA (04/08/2022 5:24 PM GIN POLE OPERATOR) Narrative Salvador Jeffery MD - 04/08/2022 5:24 PM GIN POLE OPERATOR Salvador Jeffery MD ? 04/08/2022 ??5:28 PM Under sterile conditions using alcohol prep the left shoulder was injected using a mixture of 2 mL 9 mg Celestone (6 mg/cc) ??and 3 mL of 1% Lidocaine through a posterior approach with a 22g needle. ??The patient tolerated the procedure well. ??No complications occurred. ??A bandaid was applied. ??Appropriate post-injection instructions were given and questions answered. Salvador Jeffery MD PROCEDURE/MINOR SURG ICAL ORDERABLES documented in this encounter Visit Diagnoses Diagnosis S/P rotator cuff repair- Primary Other postprocedural status Pain in joint of left shoulder Pain in joint, shoulder region documented in this encounter Administered Medications Inactive Administered Medications - up to 3 most recent administrations Medication Order MAR Action Action Date Dose Rate Site betamethasone acet & sod phos (Celestone) injection 12 mg 12 mg, Intra-articular, ONCE, 1 dose, On Magalys 04/08/22 at 1200 $ Given 04/08/2022 12:17 PM GIN POLE OPERATOR 12 mg Left Shoulder lidocaine (Xylocaine) 1 % injection Intra-articular, ONCE, 1 dose, On Magalys 04/08/22 at 1200 $ Given 04/08/2022 12:18 PM GIN POLE OPERATOR 3 mL Left Shoulder documented in this encounter Care Teams Satellite Installation Technician Relationship Specialty Start Date End Date Hemal Grey MD [address] [place] [address] PCP - General Family Medicine 09/03/21 documented as of this encounter
--- OUTSIDE RECORDS SUMMARY | 2024-03-10 06:55 | XMS_ITS | Encounter Summary ---
Author Organization [facility] Address [address] [place] [address] Care Team Providers Care Curriculum And Instruction Specialist Name Role Phone Hemal Grey MD Primary Care Provider [phone] Reason for Visit * Reason Comments Upper Extremity Problem LT SHOULDER - pa tient stated no concerns at this time. Encounter Details Date Type Department Care Team (Late st Contact Info) Description 02/18/2022 10:00 AM WATER GAS OPERATOR Office Visit [facility] [address] [place] [phone] Salvador Jeffery MD [address] [place] [phone] S/P left rotator cuff repair (Primary Dx) Social History Tobacco Use Types Packs/Day Years Used Date Smoking Tobacco: Every Day Smokeless Tobacco: Never Tobacco Cessation:Ready to Q uit: Not Asked; Counseling Given: Not Answered Sex and Gender Information Value Date Recorded Sex Assigned at Not on file Gender Identity Not on file Sexual Orientation Not on file documented as of this encounter Progress Notes * Salvador Jeffery MD - 02/18/2022 12:33 PM CST Images from the original note were not included. Chief Complaint: left shoulder 4 month postop visit History of Present Illness: The patient is now 4 months status post a left shoulder rotator cuff repair. They have continued to increase the use of their arm with range of motion activities and use for simple ADLs. He complains of minor left shoulder pain, but otherwise is doing well. The patient is ready to begin strengthening exercises. Past Medical History: Diagnosis Date ??? Bilateral primary osteoarthritis of knee 08/24/2019 ??? Hypolipidemia ??? 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 [...] mg by mouth once daily ??? HYDROcodone-acetaminophen (Cl[place]ax) 7.5-325 MG tablet Take 1 (one) tablet by mouth every 6 hours as needed pain 28 tablet 0 ??? meloxicam (MOBIC) 15 MG tablet Take 1 tablet by mouth once daily 90 tablet 0 ??? meloxicam (MOBIC) 15 MG tablet TAKE 1 TABLET BY MOUTH EVERY DAY 90 tablet 1 ??? naloxone HCl (NARCAN) 4 MG/0.1ML nasal spray [place] 1 spray into the nose ??? oxyCODONE-acetaminophen (Percocet) 5-325 MG tablet Take 1 (one) tablet to 2 (two) tablets by mouth every 6 hours as needed for Pain 48 tablet 0 ??? zolpidem (AMBIEN) 5 MG tablet Take 1 (one) tablet by mouth nightly as needed for Insomnia 30 tablet 0 No current facility-administered medications on file prior to visit. No Known Allergies Physical Exam: Constitutional: Well developed, well nourished. No acute distress. Lymphatic: No lymphedema is noted in the extremities. Neurologic: No focal deficits. Skin: The incision is healed with no signs of infection Extremity: Active Shoulder Range of Motion: Right: Forward Elevation 170 degrees Abduction 170 degrees External Rotation 60 degrees Internal Rotation L3 Left: Forward Elevation 140 degrees Abduction 140 degrees External Rotation 30 degrees Internal Rotation L3 The patient has good rotational strength with no instability. The distal neurocirculatory exam is intact. No flowsheet data found. No flowsheet data found. Sane Score (0-100): No flowsheet data found. Radiographs: none were obtained today Assessment: 4 months status post a left shoulder rotator cuff repair, decompression, debridement, and biceps tenodesis. Plan: At this time, the patient will work on additional stretching exercise and add strengthening exercises, which I have instructed today in the office. They will also go for some formal physical therapy instruction/treatments as well. They may gradually increase activity as tolerated by increase length of time and vigorousness of activities. He will go to PT for work conditioning to hopefully return to work in 6 weeks. I will see the patient back in 6 weeks to evaluate how the patient is progressing with the strengthening phase and make sure they are progressing appropriately. No xrays are needed on follow up. Salvador Jeffery MD Shoulder and Elbow Specialist [facility] [address] main office [phone] for medical device engineer [phone] for nurse [phone] for appointments R GAS OPERATOR documented in this encounter Plan of Treatment Not on file documented as of this encounter Visit Diagnoses Diagnosis S/P left rotator cuff repair- Primary documented in this encounter Care Teams Curriculum And Instruction Specialist Relationship Specialty Start Date End Date Hemal Grey MD [address] [place] [address] PCP - General Family Medicine 09/03/21 documented as of this encounter
--- OUTSIDE RECORDS SUMMARY | 2024-03-10 06:55 | XMS_ITS | Encounter Summary ---
Author Organization [facility] Address [address] [facility] [place] [address] Care Team Providers Care Powerhouse Oiler Name Role Phone Hemal Grey MD Primary Care Provider [phone] Reason for Visit * Reason Onset Date Comments MEDICATION REFILL 01/07/2022 Encounter Details Date Type Department Care Team (Late st Contact Info) Description 01/07/2022 Refill [facility] [address] [place] [address] Salvador Jeffery MD [address] [place] [address] [phone] MEDICATION REFILL Social History Tobacco Use Types Packs/Day Years Used Date Smoking Tobacco: Every Day Smokeless Tobacco: Never Sex and Gender Information Value Date Recorded Sex Assigned at Not on file Gender Identity Not on file Sexual Orientation Not on file documented as of this encounter Miscellaneous Notes * Telephone Encounter - Leonel Aponte LPN - 01/07/2022 10:49 AM CDT Refill Percocet documented in this encounter Plan of Treatment Not on file documented as of this encounter Visit Diagnoses Diagnosis Complete tear of left rotator cuff, unspecified whether traumatic documented in this encounter Care Teams Powerhouse Oiler Relationship Specialty Start Date End Date Hemal Grey MD [address] [place] [address] PCP - General Family Medicine 09/03/21 documented as of this encounter
--- OUTSIDE RECORDS SUMMARY | 2024-03-10 06:55 | XMS_ITS | Encounter Summary ---
Author Organization [facility] Address [address] [place] [address] Care Team Providers Care Software Engineer Web Applications Name Role Phone Hemal Grey MD Primary Care Provider [phone] Reason for Visit * Reason Onset Date Comments Refill Request 11/02/2021 Encounter Details Date Type Department Care Team (Late st Contact Info) Description 11/02/2021 Refill [facility] [address] [place] [address] Salvador Jeffery MD [address] [place] [address] [phone] Refill Request Social History Tobacco Use Types Packs/Day Years Used Date Smoking Tobacco: Every Day Smokeless Tobacco: Never Sex and Gender Information Value Date Recorded Sex Assigned at Not on file Gender Identity Not on file Sexual Orientation Not on file documented as of this encounter Miscellaneous Notes * Telephone Encounter - Leonel Aponte LPN - 11/02/2021 2:56 PM CDT Refill request documented in this encounter Plan of Treatment Not on file documented as of this encounter Visit Diagnoses Not on filedocumented in this encounter Care Teams Software Engineer Web Applications Relationship Specialty Start Date End Date Hemal Grey MD [address] [place] [address] PCP - General Family Medicine 09/03/21 documented as of this encounter
--- OUTSIDE RECORDS SUMMARY | 2024-03-10 06:55 | XMS_ITS | Encounter Summary ---
Author Organization [facility] Address [address] [facility] [place] [address] Care Team Providers Care Mutuel Cashier Name Role Phone Hemal Grey MD Primary Care Provider [phone] Reason for Visit * Reason Onset Date Comments Refill Request 11/02/2021 Patient would li ke a refill on his Oxycodone Encounter Details Date Type Department Care Team (Late st Contact Info) Description 11/02/2021 Telephone [facility] [address] [place] [address] Salvador Jeffery MD [address] [place] [address] Refill Request (Patient would like a refill on his Oxycodone) Social History Tobacco Use Types Packs/Day Years Used Date Smoking Tobacco: Every Day Smokeless Tobacco: Never Sex and Gender Information Value Date Recorded Sex Assigned at Not on file Gender Identity Not on file Sexual Orientation Not on file documented as of this encounter Plan of Treatment Not on file documented as of this encounter Visit Diagnoses Not on filedocumented in this encounter Care Teams Mutuel Cashier Relationship Specialty Start Date End Date Hemal Grey MD [address] [place] [address] PCP - General Family Medicine 09/03/21 documented as of this encounter
--- OUTSIDE RECORDS SUMMARY | 2024-03-10 06:55 | XMS_ITS | Encounter Summary ---
Author Organization [facility] Address [address] [facility] [place] [address] Care Team Providers Care Medical Assembly Name Role Phone Hemal Grey MD Primary Care Provider [phone] Reason for Visit * Reason Onset Date Comments Refill Request 05/27/2022 Encounter Details Date Type Department Care Team (Late st Contact Info) Description 05/27/2022 Refill [facility] [address] [place] [address] Salvador Jeffery MD [address] [place] [address] [phone] Refill Request Social History Tobacco Use Types Packs/Day Years Used Date Smoking Tobacco: Every Day Smokeless Tobacco: Never Sex and Gender Information Value Date Recorded Sex Assigned at Not on file Gender Identity Not on file Sexual Orientation Not on file documented as of this encounter Miscellaneous Notes * Telephone Encounter - Leonel Aponte LPN - 05/27/2022 12:24 PM CDT Will not refill [place] but tramadol at this time in effort to see if fluro guided injection is effective. * Telephone Encounter - Namita Roberson - 05/27/2022 9:25 AM CDT Current Provider name:shira Reason for call: patient needs a refill of medication of hydrocodone Patient Call Back number: [phone] documented in this encounter Plan of Treatment Not on file documented as of this encounter Visit Diagnoses Not on filedocumented in this encounter Care Teams Medical Assembly Relationship Specialty Start Date End Date Hemal Grey MD [address] [place] [address] PCP - General Family Medicine 09/03/21 documented as of this encounter
--- OUTSIDE RECORDS SUMMARY | 2024-03-10 06:55 | XMS_ITS | Encounter Summary ---
Author Organization [facility] Address [address] [place] [address] Care Team Providers Care Link And Link Knitting Machine Operator Name Role Phone Unavailable Primary Care Provider Unavailabl e Reason for Visit * Reason Onset Date Comments Returned Call 07/31/2019 Encounter Details Date Type Department Care Team (Late st Contact Info) Description 07/31/2019 Telephone [facility] Orthopedics [address] [place] [address], [address] [phone] Sarthak Holland, [facility] [address] [phone] Returned Call Social History Tobacco Use Types Packs/Day Years Used Date Smoking Tobacco: Every Day Smokeless Tobacco: Never Sex and Gender Information Value Date Recorded Sex Assigned at Not on file Gender Identity Not on file Sexual Orientation Not on file documented as of this encounter Miscellaneous Notes * Telephone Encounter - Breann Arnold - 07/31/2019 9:14 AM CDT Who is calling? Self What is the reason for call? Patient states he is retuning Sarthak's call. Per patient he was instructed to call and speak to him. On hold with Depaul with no luck. Patient is at work and will try toanswer his phone when he calls back. Expected Response from the Clinic? Callback [phone] documented in this encounter Plan of Treatment Not on file documented as of this encounter Visit Diagnoses Diagnosis Chronic pain of both knees- Primary documented in this encounter
--- OUTSIDE RECORDS SUMMARY | 2024-03-10 06:55 | XMS_ITS | Encounter Summary ---
Author Organization [facility] Address [address] [facility] [place] [address] Care Team Providers Care Chief Bank Examiner Name Role Phone Hemal Grey MD Primary Care Provider [phone] Reason for Visit * Reason Onset Date Comments Refill Request 12/02/2021 Encounter Details Date Type Department Care Team (Late st Contact Info) Description 12/02/2021 Refill [facility] [address] [place] [address] Salvador Jeffery MD [address] [place] [address] [phone] Refill Request Social History Tobacco Use Types Packs/Day Years Used Date Smoking Tobacco: Every Day Smokeless Tobacco: Never Sex and Gender Information Value Date Recorded Sex Assigned at Not on file Gender Identity Not on file Sexual Orientation Not on file documented as of this encounter Miscellaneous Notes * Telephone Encounter - Leonel Aponte LPN - 12/02/2021 12:13 PM CDT Refill request documented in this encounter Plan of Treatment Not on file documented as of this encounter Visit Diagnoses Diagnosis Complete tear of left rotator cuff, unspecified whether traumatic documented in this encounter Care Teams Chief Bank Examiner Relationship Specialty Start Date End Date Hemal Grey MD [address] [place] [address] PCP - General Family Medicine 09/03/21 documented as of this encounter
--- OUTSIDE RECORDS SUMMARY | 2024-03-10 06:55 | XMS_ITS | Encounter Summary ---
Author Organization [facility] Address [address] [facility] [place] [address] Care Team Providers Care Box Toe Cementer Name Role Phone Unavailable Primary Care Provider Unavailabl e Reason for Visit * Reason Onset Date Comments MEDICATION REFILL 07/30/2019 MEDICATION REFILL 11/12/2019 Encounter Details Date Type Department Care Team (Late st Contact Info) Description 07/30/2019 Refill [facility] [address] [place] [address] Mikie Parr MD [address] [place] [phone] MEDICATION REFILL; MEDICATION REFILL Social History Tobacco Use Types [...]
--- OUTSIDE RECORDS SUMMARY | 2024-03-10 06:55 | XMS_ITS | Encounter Summary ---
Author Organization [facility] Address [address] [facility] [place] [address] Care Team Providers Care Barrel Lapper Name Role Phone Hemal Grey MD Primary Care Provider [phone] Reason for Visit * Reason Onset Date Comments Follow-up 01/06/2022 Encounter Details Date Type Department Care Team (Late st Contact Info) Description 01/06/2022 Telephone [facility] [address] [place] [address] aSlvador Jeffery MD [address] [place] [address] Follow-up Social History Tobacco Use Types Packs/Day Years Used Date Smoking Tobacco: Every Day Smokeless Tobacco: Never Sex and Gender Information Value Date Recorded Sex Assigned at Not on file Gender Identity Not on file Sexual Orientation Not on file documented as of this encounter Miscellaneous Notes * Telephone Encounter - Leonel Aponte LPN - 01/06/2022 8:35 AM CDT Patient called and stated Vaughn is not really effective and he takes them at night and at night is when his shoulder bothers him most. He is approx 10 weeks post op and has a f/u appt with Dr. Jeffery tomorrow on 01/07/22. We discussed other OTC meds in addition to Vaughn and he stated they were 'not really' effective either. He stated he will discuss with Dr. Jeffery at tomorrow's visit his current post op shoulder pain. All questions were answered. documented in this encounter Plan of Treatment Not on file documented as of this encounter Visit Diagnoses Not on filedocumented in this encounter Care Teams Barrel Lapper Relationship Specialty Start Date End Date Hemal Grey MD [address] [place] [phone] PCP - General Family Medicine 09/03/21 documented as of this encounter
--- OUTSIDE RECORDS SUMMARY | 2024-03-10 06:55 | XMS_ITS | Encounter Summary ---
Author Organization [facility] Address [address] [facility] [place] [address] Care Team Providers Care Extension Worker Name Role Phone Unavailable Primary Care Provider Unavailabl e Reason for Visit * Reason Onset Date Comments Erroneous encounter-disregard 07/02/2019 Encounter Details Date Type Department Care Team (Late st Contact Info) Description 07/02/2019 Refill [facility] Orthopedics [id number] [place] [address], [address] [address] Mikie Parr MD [address] [address] Erroneous encounter-disregard Social History Tobacco Use Types Packs/Day Years [...]
--- OUTSIDE RECORDS SUMMARY | 2024-03-10 06:55 | XMS_ITS | Encounter Summary ---
Author Organization [facility] Health Address [address] [facility] [place] [address] Care Team Providers Care Electrostatic Paint Operator Name Role Phone Hemal Grey MD Primary Care Provider [phone] Reason for Visit * Reason Comments Upper Extremity Problem Lt shoulder pos 2wks- tightness- soreness and achiness- Encounter Details Date Type Department Care Team (Late st Contact Info) Description 10/29/2021 1:00 PM CDT Office Visit [facility] - Orthopedic Surgery [address] [place] [address], [address] [place] [address] Bo Dugan PA-C [address] [facility] [address] [place] [id number] Complete tear of left rotator cuff, unspecified whether traumatic (Primary Dx); Superior glenoid labrum lesion of left shoulder, initial encounter Social History Tobacco Use Types Packs/Day Years [...] - - Weight 102.1 kg (225 lb) 10/29/2021 12:58 PM CDT Height 185.4 cm (6' 1 ) 10/29/2021 12:58 PM CDT Body Mass Index 29.69 10/29/2021 12:58 PM CDT documented in this encounter Progress Notes * Bo Dugan PA-C - 10/29/2021 1:31 PM CDT Images from the original note were not included. Chief Complaint: left shoulder 2 week postop visit History of Present Illness: The patient is now 2 weeks status post a left shoulder rotator cuff repair, decompression, debridement, and biceps tenodesis. The patient is doing well and pain is controlled. They have continued to be in a brace with pendulums exercises, elbow, wrist, and hand motion. They have no complaints today. Past Medical History: Diagnosis Date ??? Bilateral primary osteoarthritis of knee 08/24/2019 ??? Hypolipidemia ??? 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 [...] mg by mouth once daily ??? HYDROcodone-acetaminophen ([place]) 7.5-325 MG tablet Take 1 tablet by mouth every 6 hours as needed pain ??? meloxicam (MOBIC) 15 MG tablet Take 1 tablet by mouth once daily 90 tablet 0 ??? meloxicam (MOBIC) 15 MG tablet TAKE 1 TABLET BY MOUTH EVERY DAY 90 tablet 1 ??? naloxone HCl (NARCAN) 4 MG/0.1ML nasal spray [place] 1 spray into the nose ??? oxyCODONE-acetaminophen (PERCOCET) 5-325 MG tablet Take 1 (one) tablet [...] focal deficits. Skin: The incision is healed well. The sutures are removed and steri-strips are placed. Extremity: The patient has adequate pendulums, with full elbow/wrist/hand motion. The distal neurocirculatory exam is intact Radiographs: none obtained today Assessment: 2 weeks status postop a left rotator cuff repair Plan: At this time, the patient will continue with brace immobilization, pendulums, elbow/wrist/hand motion. I will see the patient back in 4 weeks to initiate range of motion exercises with possibleformal physical therapy and wean out of the brace. We did not refill the patients pain medication today. No xrays are needed on follow up. Bo Dugan PA-C, ATC Department of Orthopaedic Surgery [facility] Orthopa[facility]ics [facility] [address] main office [phone] for medical recruiter [phone] for nurse [phone] for appointments documented in this encounter Plan of Treatment Not on file documented as of this encounter Visit Diagnoses Diagnosis Complete tear of left rotator cuff, unspecified whether traumatic- Primary Superior glenoid labrum lesion of left shoulder, initial encounter documented in this encounter Care Teams Electrostatic Paint Operator Relationship Specialty Start Date End Date Hemal Grey MD [address] [place] [address] PCP - General Family Medicine 09/03/21 documented as of this encounter
--- OUTSIDE RECORDS SUMMARY | 2024-03-10 06:55 | XMS_ITS | Encounter Summary ---
Author Organization [facility] Address [address] [facility] [place] [address] Care Team Providers Care Clinical Allergist Name Role Phone Unavailable Primary Care Provider Unavailabl e Reason for Visit * Reason Onset Date Comments MEDICATION REFILL 05/31/2019 Encounter Details Date Type Department Care Team (Late st Contact Info) Description 05/31/2019 Refill [facility] [address] [place] [address] Mikie Parr MD [address] [place] [phone] MEDICATION REFILL Social History Tobacco Use Types [...]
--- OUTSIDE RECORDS SUMMARY | 2024-03-10 06:55 | XMS_ITS | Encounter Summary ---
Author Organization [facility] Address [address] [place] [address] Care Team Providers Care Aircraft Restorer Name Role Phone Hemal Grey MD Primary Care Provider [phone] Reason for Visit * Reason Onset Date Comments Follow-up 01/19/2022 Encounter Details Date Type Department Care Team (Late st Contact Info) Description 01/19/2022 Telephone [facility] - Orthopedic Surgery [address] [place] [address] Salvador Jeffery MD [address] [place] [address] Follow-up Social History Tobacco Use Types Packs/Day Years Used Date Smoking Tobacco: Every Day Smokeless Tobacco: Never Sex and Gender Information Value Date Recorded Sex Assigned at Not on file Gender Identity Not on file Sexual Orientation Not on file documented as of this encounter Miscellaneous Notes * Telephone Encounter - Leonel Aponte LPN - 01/19/2022 10:12 AM CST Vel from [facility] where patient has a contract called and inquired aboutthe patient and his refills. She stated he has zero Oxycodone in his system as he tells her that 'he can't take it' and takes only [place]. Review of refills completed. No further discussion and the call ended. ICATIONS SUPPORT LEAD documented in this encounter Plan of Treatment Not on file documented as of this encounter Visit Diagnoses Not on filedocumented in this encounter Care Teams Aircraft Restorer Relationship Specialty Start Date End Date Hemal Grey MD [address] [place] [address] PCP - General Family Medicine 09/03/21 documented as of this encounter
--- OUTSIDE RECORDS SUMMARY | 2024-03-10 06:55 | XMS_ITS | Encounter Summary ---
Author Organization [facility] Address [address] [facility] [place] [address] Care Team Providers Care Template Layout Worker Name Role Phone Hemal Grey MD Primary Care Provider [phone] Reason for Visit * Reason Comments Upper Extremity Problem LT SHOULDER - pa suraj stated that he is still having pian in the shoulder, worse in the mornings. Encounter Details Date Type Department Care Team (Late st Contact Info) Description 01/07/2022 10:20 AM CDT Office Visit [facility] - Orthopedic Surgery [address] [place] [address] [phone] Salvador Jeffery MD [address] [place] [address] [phone] S/P left rotator cuff repair (Primary Dx) [...] Progress Notes * Salvador Jeffery MD - 01/07/2022 10:28 AM CDT Images from the original note were not included. Chief Complaint: left shoulder 3 month postop visit History of Present Illness: The patient is now 3 months status post a left shoulder rotator cuff repair. They are doing well and pain is controlled. They have continued to increase the use of their arm with range of motion activities and use for simple ADLs. They have no complaints today. The patient is ready to begin strengthening exercises. Past Medical History: Diagnosis Date ??? Bilateral primary osteoarthritis of knee 08/24/2019 ??? Hypolipidemia ??? jail (current) use of opiate analgesic 08/24/2019 ??? [...] mg by mouth once daily ??? HYDROcodone-acetaminophen ([place]) 7.5-325 MG tablet Take 1 (one) tablet by mouth every 6 hours as needed pain 28 tablet 0 ??? meloxicam (MOBIC) 15 MG tablet Take 1 tablet by mouth once daily 90 tablet 0 ??? meloxicam (MOBIC) 15 MG tablet TAKE 1 TABLET BY MOUTH EVERY DAY 90 tablet 1 ??? naloxone HCl (NARCAN) 4 MG/0.1ML nasal spray [place] 1 spray into the nose ??? oxyCODONE-acetaminophen [...] Shoulder Range of Motion: Right: Forward Elevation 120 degrees Abduction 120 degrees External Rotation 40 degrees Internal Rotation L5 The patient has good rotational strength with no instability. The distal neurocirculatory exam is intact. No flowsheet data found. No flowsheet data found. Sane Score (0-100): No flowsheet data found. Radiographs: none were obtained today Assessment: 3 months status post a left shoulder rotator cuff repair, decompression, debridement, and biceps tenodesis Plan: At this time, the patient will work on additional stretching exercise and add strengthening exercises, which I have instructed today in the office. They will also go for some formal physical therapy instruction/treatments as well. They may gradually increase activity as tolerated by increase length of time and vigorousness of activities. I will see the patient back in 6 weeks to evaluate how the patient is progressing with the strengthening phase and make sure they are progressing appropriately. No xrays are needed on follow up. Salvador Jeffery MD Shoulder and Elbow Specialist [facility] [address] main office [phone] for hospitalist medical director [phone] for nurse [phone] for appointments documented in this encounter Plan of Treatment Not on file documented as of this encounter Visit Diagnoses Diagnosis S/P left rotator cuff repair- Primary documented in this encounter Care Teams Template Layout Worker Relationship Specialty Start Date End Date Hemal Grey MD [address] [place] [address] [place] [address] PCP - General Family Medicine 09/03/21 documented as of this encounter
--- OUTSIDE RECORDS SUMMARY | 2024-03-10 06:55 | XMS_ITS | Encounter Summary ---
Author Organization [facility] Address [address] [facility] [place] [address] Care Team Providers Care Fourdrinier Tender Name Role Phone Hemal Grey MD Primary Care Provider [phone] Encounter Details Date Type Department Care Team (Late st Contact Info) Description 07/08/2022 Orders Only [facility] - Orthopedic Surgery [address] [place] [address], [address] [place] [address] Leonel Aponte LPN Pain in joint of left shoulder ; S/P rotator cuff repair Social History Tobacco Use Types Packs/Day Years Used Date Smoking Tobacco: Every Day Smokeless Tobacco: Never Sex and Gender Information Value Date Recorded Sex Assigned at Not on file Gender Identity Not on file Sexual Orientation Not on file documented as of this encounter Progress Notes * Leonel Aponte LPN - 07/08/2022 2:45 PM CDT Returned call to patient who stated the injection he received discussed at last office visit was ineffective. He wished to proceed to next steps as discussed of a Left shoulder MRI at [facility] in [facility]. Order and office notes faxed. documented in this encounter Plan of Treatment Not on file documented as of this encounter Visit Diagnoses Diagnosis Pain in joint of left shoulder- Primary Pain in joint, shoulder region S/P rotator cuff repair Other postprocedural status documented in this encounter Care Teams Fourdrinier Tender Relationship Specialty Start Date End Date Hemal Grey MD [address] [place] [address] PCP - General Family Medicine 09/03/21 documented as of this encounter
--- OUTSIDE RECORDS SUMMARY | 2024-03-10 06:55 | XMS_ITS | Encounter Summary ---
Author Organization [facility] Address [address] [place] [address] Care Team Providers Care Client Customer Manager Name Role Phone Unavailable Primary Care Provider Unavailabl e Reason for Visit * Reason Onset Date Comments MEDICATION REFILL 07/10/2019 Encounter Details Date Type Department Care Team (Late st Contact Info) Description 07/10/2019 Refill [facility] [address] [place] [address] Mikie Parr MD [address] [place] [phone] MEDICATION REFILL Social History Tobacco Use Types Packs/Day Years Used Date Smoking Tobacco: Every Day Smokeless Tobacco: Never Sex and Gender Information Value Date Recorded Sex Assigned at Not on file Gender Identity Not on file Sexual Orientation Not on file documented as of this encounter Miscellaneous Notes * Telephone Encounter - Breann Arnold - 07/10/2019 12:06 PM CDT Fernie Rees is in need of His Requested Prescriptions Pending Prescriptions Disp Refills ??? HYDROcodone-acetaminophen (NORCO) 7.5-325 MG tablet 120 tablet 0 Sig: Take 1 tablet by mouth every 4 hours as needed for Pain Person calling for the refill: Self Last office visit 04/05/2019 Next Appointment scheduled: Visit date not found Last Refill for this medication 07/02/2019 Does patient have any new allergies since last office visit? No Was the pharmacy verified? Yes If this is a controlled substance was the Last 4 of SSN verified? YES (If unable to verify last 4 of SSN transfer to the clinic for further review) documented in this encounter Plan of Treatment Not on file documented as of this encounter Visit Diagnoses Not on filedocumented in this encounter
--- OUTSIDE RECORDS SUMMARY | 2024-03-10 06:55 | XMS_ITS | Encounter Summary ---
Author Organization [facility] Address [address] [place] [address] Care Team Providers Care Residential Real Estate Sales Manager Name Role Phone Hemal Grey MD Primary Care Provider [phone] Reason for Visit * Reason Onset Date Comments Med Question 10/01/2021 Encounter Details Date Type Department Care Team (Late st Contact Info) Description 10/01/2021 Telephone [facility] - Orthopedic Surgery [address] [place] [address] Salvador Jeffery MD [address] [place] [address] Med Question Social History Tobacco Use Types Packs/Day Years Used Date Smoking Tobacco: Every Day Smokeless Tobacco: Never Sex and Gender Information Value Date Recorded Sex Assigned at Not on file Gender Identity Not on file Sexual Orientation Not on file documented as of this encounter Miscellaneous Notes * Telephone Encounter - Leonel Aponte LPN - 10/01/2021 1:03 PM CDT Patient is scheduled for 10/14/21 RCR and currently takes Fay through his pain management group forhis knees. The pain to his shoulder is becoming unbearable and gets no relief from the Fay. He inquired if he can get stronger medication. documented in this encounter Plan of Treatment Not on file documented as of this encounter Visit Diagnoses Diagnosis Complete tear of left rotator cuff, unspecified whether traumatic- Primary documented in this encounter Care Teams Residential Real Estate Sales Manager Relationship Specialty Start Date End Date Hemal Grey MD [address] [place] [address] PCP - General Family Medicine 09/03/21 documented as of this encounter
--- OUTSIDE RECORDS SUMMARY | 2024-03-10 06:55 | XMS_ITS | Encounter Summary ---
Author Organization [facility] Address [address] [facility] [place] [address] Care Team Providers Care Interior Wall Assembler Name Role Phone Hemal Grey MD Primary Care Provider [phone] Reason for Visit * Reason Onset Date Comments Refill Request 11/18/2021 Encounter Details Date Type Department Care Team (Late st Contact Info) Description 11/18/2021 Refill [facility] - Orthopedic Surgery [address] [place] [address], [place] [address] Leonel Aponte LPN Refill Request Social History Tobacco Use Types Packs/Day Years Used Date Smoking Tobacco: Every Day Smokeless Tobacco: Never Sex and Gender Information Value Date Recorded Sex Assigned at Not on file Gender Identity Not on file Sexual Orientation Not on file documented as of this encounter Miscellaneous Notes * Telephone Encounter - Leonel Aponte LPN - 11/18/2021 2:47 PM CDT REFILL REQUEST documented in this encounter Plan of Treatment Not on file documented as of this encounter Visit Diagnoses Diagnosis Complete tear of left rotator cuff, unspecified whether traumatic documented in this encounter Care Teams Interior Wall Assembler Relationship Specialty Start Date End Date Hemal Grye MD [address] [place] [address] PCP - General Family Medicine 09/03/21 documented as of this encounter
--- OUTSIDE RECORDS SUMMARY | 2024-03-10 06:55 | XMS_ITS | Encounter Summary ---
Author Organization [facility] Address [address] [facility] [place] [address] Care Team Providers Care Shells Inspector Name Role Phone Hemal Grey MD Primary Care Provider [phone] Reason for Visit * Reason Onset Date Comments Refill Request 01/05/2022 Encounter Details Date Type Department Care Team (Late st Contact Info) Description 01/05/2022 Refill [facility] - Orthopedic Surgery [address] [place] [address] Salvador Jeffery MD [address] [place] [address] [phone] Refill Request Social History Tobacco Use Types Packs/Day Years Used Date Smoking Tobacco: Every Day Smokeless Tobacco: Never Sex and Gender Information Value Date Recorded Sex Assigned at Not on file Gender Identity Not on file Sexual Orientation Not on file documented as of this encounter Miscellaneous Notes * Telephone Encounter - Leonel Aponte LPN - 01/05/2022 1:36 PM CDT Refill request documented in this encounter Plan of Treatment Not on file documented as of this encounter Visit Diagnoses Diagnosis Superior glenoid labrum lesion of left shoulder, initial encounter- Primary documented in this encounter Care Teams Shells Inspector Relationship Specialty Start Date End Date Hemal Grey MD [address] [place] [address] PCP - General Family Medicine 09/03/21 documented as of this encounter
--- OUTSIDE RECORDS SUMMARY | 2024-03-10 06:55 | XMS_ITS | Encounter Summary ---
Author Organization [facility] Address [address] [place] [address] Care Team Providers Care Puller Machine Name Role Phone Unavailable Primary Care Provider Unavailabl e Reason for Visit * Reason Onset Date Comments Med Question 08/02/2019 Encounter Details Date Type Department Care Team (Late st Contact Info) Description 08/02/2019 Telephone [facility] Orthopedics [address] [place] [address], [address] [address] Mikie Parr MD [address] [address] Med Question Social History Tobacco Use Types Packs/Day Years Used Date Smoking Tobacco: Every Day Smokeless Tobacco: Never Sex and Gender Information Value Date Recorded Sex Assigned at Not on file Gender Identity Not on file Sexual Orientation Not on file documented as of this encounter Miscellaneous Notes * Telephone Encounter - Tesfaye Weiner - 08/02/2019 8:31 AM CDT Who is calling? self What is the reason for call? Called stating he is unable to be seen by Dr. Wynn's office until 08/14/19. Requesting the following medication be filled until he is able to be seen. Per patient is completely out of medication. Expected Response from the Clinic? Call back documented in this encounter Plan of Treatment Not on file documented as of this encounter Visit Diagnoses Diagnosis Chronic pain of both knees- Primary documented in this encounter
--- OUTSIDE RECORDS SUMMARY | 2024-03-10 06:55 | XMS_ITS | Encounter Summary ---
Author Organization [facility] Address [address] [facility] [place] [address] Care Team Providers Care General Sales Manager Name Role Phone Hemal Grey MD Primary Care Provider [phone] Reason for Visit * Reason Onset Date Comments MEDICATION REFILL 12/14/2021 Encounter Details Date Type Department Care Team (Late st Contact Info) Description 12/14/2021 Refill [facility] - Orthopedic Surgery [address] [place] [address] Salvador Jeffery MD [address] [place] [address] [phone] MEDICATION REFILL Social History Tobacco Use Types Packs/Day Years Used Date Smoking Tobacco: Every Day Smokeless Tobacco: Never Sex and Gender Information Value Date Recorded Sex Assigned at Not on file Gender Identity Not on file Sexual Orientation Not on file documented as of this encounter Miscellaneous Notes * Telephone Encounter - Melo Amado - 12/14/2021 3:54 PM CDT Percocet rx. documented in this encounter Plan of Treatment Not on file documented as of this encounter Visit Diagnoses Diagnosis Complete tear of left rotator cuff, unspecified whether traumatic documented in this encounter Care Teams General Sales Manager Relationship Specialty Start Date End Date Hemal Grey MD [address] [place] [address] PCP - General Family Medicine 09/03/21 documented as of this encounter
--- OUTSIDE RECORDS SUMMARY | 2024-03-10 06:55 | XMS_ITS | Encounter Summary ---
Author Organization [facility] Address [address] [facility] [place] [address] Care Team Providers Care Reservoir Caretaker Name Role Phone Unavailable Primary Care Provider Unavailabl e Reason for Visit * Reason Onset Date Comments MEDICATION REFILL 07/02/2019 Encounter Details Date Type Department Care Team (Late st Contact Info) Description 07/02/2019 Refill [facility] [address] [place] [address] Mikie Parr MD [address] [place] [phone] MEDICATION REFILL Social History Tobacco Use Types Packs/Day Years Used Date Smoking Tobacco: Every Day Smokeless Tobacco: Never Sex and Gender Information Value Date Recorded Sex Assigned at Not on file Gender Identity Not on file Sexual Orientation Not on file documented as of this encounter Miscellaneous Notes * Telephone Encounter - Manasa Owen - 07/02/2019 9:05 AM CDT Fernie Rees is in need of His Requested Prescriptions Pending Prescriptions Disp Refills ??? HYDROcodone-acetaminophen ([place]) 7.5-325 MG tablet 30 tablet 0 Sig: Take 1 tablet by mouth every 8 hours as needed for Pain Person calling for the refill: Fernie Last office visit 04-05-2019 Next Appointment scheduled: Visit date not found Last Refill for this medication 06-12-2019 Does patient have any new allergies since last office visit? No Was the pharmacy verified? Yes If this is a controlled substance was the Last 4 of SSN verified? YES----[id number] Patient states has medication for 1 more day. documented in this encounter Plan of Treatment Not on file documented as of this encounter Visit Diagnoses Not on filedocumented in this encounter
--- OUTSIDE RECORDS SUMMARY | 2024-03-10 06:55 | XMS_ITS | Encounter Summary ---
Author Organization [facility] Address [address] [facility] [place] [address] Care Team Providers Care Electrical Development Engineer Name Role Phone Hemal Grey MD Primary Care Provider [phone] Reason for Visit * Reason Onset Date Comments Question 09/17/2021 Encounter Details Date Type Department Care Team (Late st Contact Info) Description 09/17/2021 Telephone [facility] - Orth[facility] Surgery [address] [place] [address] Salvador Jeffery MD [address] [place] [address] Question Social History Tobacco Use Types Packs/Day Years Used Date Smoking Tobacco: Every Day Smokeless Tobacco: Never Sex and Gender Information Value Date Recorded Sex Assigned at Not on file Gender Identity Not on file Sexual Orientation Not on file documented as of this encounter Miscellaneous Notes * Telephone Encounter - Leonel Aponte LPN - 09/17/2021 10:36 AM CDT Patient called and asked if he could receive a lifting restriction letter from this office for his employer. He is scheduled for shoulder surgery with Jose D on 10/14/21 and consultation with Kailee, restrictions for lifting is no lifting over 5lbs above the shoulder and no more that 10lbs below the shoulder. Letter completed and patient called. Will pick remover the letter. documented in this encounter Plan of Treatment Not on file documented as of this encounter Visit Diagnoses Not on filedocumented in this encounter Care Teams Electrical Development Engineer Relationship Specialty Start Date End Date Hemal Grey MD [address] [place] [address] PCP - General Family Medicine 09/03/21 documented as of this encounter
--- OUTSIDE RECORDS SUMMARY | 2024-03-10 06:55 | XMS_ITS | Encounter Summary ---
Author Organization [facility] Address [address] [facility] [place] [address] Care Team Providers Care Client Insights Consultant Name Role Phone Unavailable Primary Care Provider Unavailabl e Reason for Visit * Reason Onset Date Comments MEDICATION REFILL 05/04/2019 Encounter Details Date Type Department Care Team (Late st Contact Info) Description 05/04/2019 Refill [facility] [address] [place] [address] Mikie Parr MD [address] [place] [phone] MEDICATION REFILL Social History Tobacco Use Types [...]
--- OUTSIDE RECORDS SUMMARY | 2024-03-10 06:55 | XMS_ITS | Encounter Summary ---
Author Organization [facility] Address [address] [facility] [place] [address] Care Team Providers Care Liquor Establishment Manager Name Role Phone Hemal Grey MD Primary Care Provider [phone] Encounter Details Date Type Department Care Team (Late Contact [facility]) Description 09/03/2021 Orders Only [facility] - Orthopedic Surgery [address] [place] [address], [address] [place] [address] Leonel Aponte LPN Social History Tobacco Use Types Packs/Day Years Used Date Smoking Tobacco: Every Day Smokeless Tobacco: Never Sex and Gender Information Value Date Recorded Sex Assigned at Not on file Gender Identity Not on file Sexual Orientation Not on file documented as of this encounter Progress Notes * Leonel Aponte LPN - 09/03/2021 3:27 PM CDT Opened in error documented in this encounter Plan of Treatment Not on file documented as of this encounter Visit Diagnoses Not on filedocumented in this encounter Care Teams Liquor Establishment Manager Relationship Specialty Start Date End Date Hemal Grey MD [address] [place] [address] PCP - General Family Medicine 09/03/21 documented as of this encounter
--- OUTSIDE RECORDS SUMMARY | 2024-03-10 06:55 | XMS_ITS | Encounter Summary ---
Author Organization [facility] Address [address] [facility] [address] [place] [address] Care Team Providers Care Call Or Contact Centre Coach Name Role Phone Unavailable Primary Care Provider Unavailabl e Reason for Visit * Reason Onset Date Comments MEDICATION REFILL 06/04/2019 Encounter Details Date Type Department Care Team (Late st Contact Info) Description 06/04/2019 Refill [facility] [address] [place] [address] Mikie Parr MD [address] [place] [address] [address] [place] [phone] MEDICATION REFILL Social History Tobacco Use Types Packs/Day Years Used Date Smoking Tobacco: Every Day Smokeless Tobacco: Never Sex and Gender Information Value Date Recorded Sex Assigned at Not on file Gender Identity Not on file Sexual Orientation Not on file documented as of this encounter Miscellaneous Notes * Telephone Encounter - Yann Amaya - 06/04/2019 8:17 AM CDT Fernie Rees is in need of His Requested Prescriptions Pending Prescriptions Disp Refills ??? HYDROcodone-acetaminophen (NORCO) 7.5-325 MG tablet 120 tablet 0 Sig: Take 1 tablet by mouth every 4 hours as needed for Pain ??? meloxicam (MOBIC) 15 MG tablet 90 tablet 0 Sig: Take 1 tablet by mouth once daily Person calling for the refill: self Last office visit 04/05/19 Next Appointment scheduled: Visit date not found Last Refill for this medication 06/02/19 Does patient have any new allergies since [...]
--- OUTSIDE RECORDS SUMMARY | 2024-03-10 06:55 | XMS_ITS | Encounter Summary ---
Author Organization [facility] Address [address] [place] [address] Care Team Providers Care Hard Metals Engraver Hand Name Role Phone Hemal Grey MD Primary Care Provider [phone] Reason for Visit * Reason Onset Date Comments Refill Request 05/27/2022 Encounter Details Date Type Department Care Team (Late st Contact Info) Description 05/27/2022 Refill [facility] Orth[facility] Surgery [address] [place] [address] Salvador Jeffery MD [address] [place] [phone] Refill Request Social History Tobacco Use Types Packs/Day Years Used Date Smoking Tobacco: Every Day Smokeless Tobacco: Never Sex and Gender Information Value Date Recorded Sex Assigned at Not on file Gender Identity Not on file Sexual Orientation Not on file documented as of this encounter Miscellaneous Notes * Telephone Encounter - Leonel Aponte LPN - 05/27/2022 4:22 PM CDT Returned call to patient. He requested Pinckney. Inquired about fluro guided injection to which he stated it is scheduled on 06/02/22 at [facility]. I inquired about his pain management clinic andhe stated he is scheduled to begin/attend on 05/31/22. I informed him he might get approved Pinckney upto the injection and then decreased to Tramadol multimedia services coordinator and to address his chronic pain. He agreed. documented in this encounter Plan of Treatment Not on file documented as of this encounter Visit Diagnoses Diagnosis S/P rotator cuff repair- Primary Other postprocedural status documented in this encounter Care Teams Hard Metals Engraver Hand Relationship Specialty Start Date End Date Hemal Grey MD [address] [place] [address] PCP - General Family Medicine 09/03/21 documented as of this encounter
--- OUTSIDE RECORDS SUMMARY | 2024-03-10 06:55 | XMS_ITS | Encounter Summary ---
Author Organization [facility] Address [address] [facility] [place] [address] Care Team Providers Care Car Sales Associate Name Role Phone Hemal Grey MD Primary Care Provider [phone] Reason for Visit * Reason Comments Upper Extremity Problem Left shoulder f/ u- pt states his shoulder is sore and when he wakes up in the morning it is numb Encounter Details Date Type Department Care Team (Late st Contact Info) Description 11/26/2021 1:15 PM CDT Office Visit [facility] - [facility] [address] [place] [address], [address] [place] [address] Bo Dugan PA-C [address] [facility] [address] [place] [address] Complete tear of left rotator cuff, unspecified whether traumatic (Primary Dx) Social History Tobacco Use Types Packs/Day Years Used Date Smoking Tobacco: Every Day Smokeless Tobacco: Never Sex and Gender Information Value Date Recorded Sex Assigned at Not on file Gender Identity Not on file Sexual Orientation Not on file documented as of this encounter Progress Notes * Bo Dugan PA-C - 11/26/2021 1:28 PM CDT Images from the original note were not included. Chief Complaint: left shoulder 6 week postop visit History of Present Illness: The patient is now 6 weeks status post a left shoulder rotator cuff repair, decompression, debridement, and biceps tenodesis. They are doing well and pain is controlled. They have continued to be in a brace with pendulums exercises, elbow, wrist, and hand motion. They have no complaints today. The patient is ready to begin motion exercises. Past Medical History: Diagnosis Date ??? Bilateral primary osteoarthritis of knee 08/24/2019 ??? Hypolipidemia ??? half-way (current) use of opiate analgesic 08/24/2019 ??? [...] mg by mouth once daily ??? HYDROcodone-acetaminophen ([place]) 7.5-325 MG tablet Take 1 (one) tablet by mouth every 6 hours as needed pain 28 tablet 0 ??? meloxicam (MOBIC) 15 MG tablet Take 1 tablet by mouth once daily 90 tablet 0 ??? meloxicam (MOBIC) 15 MG tablet TAKE 1 TABLET BY MOUTH EVERY DAY 90 tablet 1 ??? naloxone HCl (NARCAN) 4 MG/0.1ML nasal spray [place] 1 spray into the nose ??? oxyCODONE-acetaminophen [...] healed with no signs of infection Extremity: The patient has adequate pendulums, with full elbow/wrist/hand motion. They have supine active assist forward elevation to 120 degrees. The distal neurocirculatory exam is intact. Radiographs: none were obtained today. Assessment: 6 weeks status post a left shoulder rotator cuff repair, decompression, debridement, and biceps tenodesis Plan: At this time, the patient will wean out of the brace and begin supine active assist forward elevation exercises, which I have instructed today in the office. They will also be sent for some formal physical therapy instruction/treatment. They may use their arm for simple daily life activities. They should not lift more than a pound or two with the arm. I will see the patient back in 6 weeks to initiate strengthening exercises and increase to activity as tolerated. No xrays are needed on follow up. Bo Dugan PA-C, ATC Department of Orthopaedic Surgery [facility] [address] main office [phone] for senior medical billing specialist [phone] for nurse [phone] for appointments documented in this encounter Plan of Treatment Not on file documented as of this encounter Visit Diagnoses Diagnosis Complete tear of left rotator cuff, unspecified whether traumatic- Primary documented in this encounter Care Teams Car Sales Associate Relationship Specialty Start Date End Date Hemal Grey MD [address] [place] [address] PCP - General Family Medicine 09/03/21 documented as of this encounter
--- OUTSIDE RECORDS SUMMARY | 2024-03-10 06:55 | XMS_ITS | Encounter Summary ---
Author Organization [facility] Address [address] [facility] [place] [address] Care Team Providers Care Activated Sludge Attendant Name Role Phone Unavailable Primary Care Provider Unavailabl e Reason for Visit * Reason Onset Date Comments MEDICATION REFILL 05/31/2019 Encounter Details Date Type Department Care Team (Late st Contact Info) Description 05/31/2019 Refill [facility] [address] [place] [address] Mikie Parr MD [address] [place] [phone] MEDICATION REFILL Social History Tobacco Use Types [...]
--- OUTSIDE RECORDS SUMMARY | 2024-03-10 06:55 | XMS_ITS | Encounter Summary ---
Author Organization [facility] Address [address] [facility] [place] [address] Care Team Providers Care Putty Tinter Maker Name Role Phone Unavailable Primary Care Provider Unavailabl e Reason for Visit * Reason Onset Date Comments MEDICATION REFILL 05/03/2019 MEDICATION REFILL 11/12/2019 Encounter Details Date Type Department Care Team (Late st Contact Info) Description 05/03/2019 Refill [facility] Medical [facility] [address] [address] Sarthak Holland, [facility] [address] [place] [address] [address] [place] [address] MEDICATION REFILL; MEDICATION REFILL Social History Tobacco Use Types Packs/Day Years Used Date Smoking Tobacco: Every Day Smokeless Tobacco: Never Sex and Gender Information Value Date Recorded Sex Assigned at Not on file Gender Identity Not on file Sexual Orientation Not on file documented as of this encounter Miscellaneous Notes * Telephone Encounter - AbidaLiya - 05/03/2019 2:36 PM CST . Fernie Rees is in need of Her Requested Prescriptions Pending Prescriptions Disp Refills ??? HYDROcodone-acetaminophen (NORCO) 7.5-325 MG tablet 120 tablet 0 Sig: Take 1 tablet by mouth every 4 hours as needed for Pain Person calling for the refill: SELF Last office visit 04/05/2019 Next Appointment scheduled: Visit date not found Last Refill for this medication [id number] Does patient have any new allergies since last office visit? No Was the pharmacy verified? Yes If this is a controlled substance was the Last 4 of SSN verified? YES (If unable to verify last 4 of SSN transfer to the clinic for further review) ING HEALTH TECHNICIAN documented in this encounter Plan of Treatment Not on file documented as of this encounter Visit Diagnoses Not on filedocumented in this encounter
--- OUTSIDE RECORDS SUMMARY | 2024-03-10 06:55 | XMS_ITS | Encounter Summary ---
Author Organization [facility] Address [address] [facility] [place] [address] Care Team Providers Care Boiler Maker Name Role Phone Hemal Grey MD Primary Care Provider [phone] Reason for Visit * Reason Comments Upper Extremity Problem 6 week L shoulde r f/u. Shoulder is getting better but patient has new lateral arm pain that extends from the shoulder to elbow. Injection from last time did not alleviate the pain. Encounter Details Date Type Department Care Team (Late st Contact Info) Description 05/13/2022 10:40 AM SIGN LANGUAGE INSTRUCTOR Office Visit [facility] - Orthopedic Surgery [address] [place] [address] [address] [place] [address] Salvador Jeffery MD [address] [place] [address] Pain in joint of left shoulder (Primary Dx); S/P rotator cuff repair Social History Tobacco [...] - Inhaled Oxygen Concentration - - Weight 104.3 kg (230 lb) 05/13/2022 11:15 AM SIGN LANGUAGE INSTRUCTOR Height 185.4 cm (6' 1 ) 05/13/2022 11:15 AM SIGN LANGUAGE INSTRUCTOR Body Mass Index 30.34 05/13/2022 11:15 AM SIGN LANGUAGE INSTRUCTOR documented in this encounter Progress Notes * Larissa Guerrero PA-C - 05/13/2022 11:19 AM CST Images from the original note were not included. Chief Complaint: left shoulder 6 month postop visit History of Present Illness: The patient is now 6 months status post a left shoulder arthroscopic rotator cuff repair with decompression, debridement, and biceps tenodesis on 10/14/21. Patient reports that his preoperative left anterior shoulder pain has improved since surgery but he continues to struggle with lateral shoulder pain that radiates down the lateral aspect of his arm. They have continued to increase the use of their arm with range of motion activities and strengthening exercises. Past Medical History: Diagnosis Date ??? Bilateral primary osteoarthritis of knee 08/24/2019 ??? Hypolipidemia ??? senior care (current) use of opiate analgesic 08/24/2019 ??? [...] ??? atorvastatin (LIPITOR) 20 MG tablet Take 1 (one) tablet by mouth once daily ??? meloxicam (MOBIC) 15 MG tablet Take 1 tablet by mouth once daily 90 tablet 0 ??? zolpidem (AMBIEN) 5 MG tablet Take 1 (one) tablet by mouth nightly as needed for Insomnia (Patient not taking: Reported on 05/13/2022) 30 tablet 0 No current facility-administered medications [...] degrees Internal Rotation T10 The patient has good rotational strength with no instability. The distal neurocirculatory exam is intact. No flowsheet data found. No flowsheet data found. Sane Score (0-100): No flowsheet data found. Radiographs: none were obtained today Assessment: 6 months status post a left shoulder arthroscopic rotator cuff repair with decompression, debridement, and biceps tenodesis on 10/14/21. Plan: At this time, the patient continues to have left shoulder pain. I will refer him for a fluro guided left shoulder intraarticular injection. The patient was instructed to call our office afterwards to discuss the results. Pending the results of the injection we will proceed with a left shoulder MRI arthrogram to investigate further. The patient may continue normal activities without restrictions. I told the patient that they can continue to see improvements in strength and range of motion for up to one year postoperatively. Follow up: Patient will call after fluoro injection to discuss results Larissa Guerrero PA-C Patient was seen and discussed with attending, Dr. Jose D [facility] [address] main office [phone] for ophthalmic medical assistant [phone] for nurse [phone] for appointments LANGUAGE INSTRUCTOR documented in this encounter Plan of Treatment Not on file documented as of this encounter Visit Diagnoses Diagnosis Pain in joint of left shoulder- Primary Pain in joint, shoulder region S/P rotator cuff repair Other postprocedural status documented in this encounter Care Teams Boiler Maker Relationship Specialty Start Date End Date Hemal Grey MD [address] [place] [address] PCP - General Family Medicine 09/03/21 documented as of this encounter
--- OUTSIDE RECORDS SUMMARY | 2024-03-10 06:55 | XMS_ITS | Encounter Summary ---
Author Organization [facility] Address [address] [facility] [place] [address] Care Team Providers Care Pbx Inspector Name Role Phone Unavailable Primary Care Provider Unavailabl e Encounter Details Date Type Department Care Team (Latest Contact Info) Description 08/14/2021 8:20 AM CDT - 08/14/2021 11:59 PM CDT Hospital Encounter [facility] [address] [address] Salvador Jeffery MD [address] [place] [address] Discharge Disposition: Home or Self Care Social History Tobacco Use Types Packs/Day Years Used Date Smoking Tobacco: Every Day Smokeless Tobacco: Never Sex and Gender Information Value Date Recorded Sex Assigned at Not on file Gender Identity Not on file Sexual Orientation Not on file documented as of this encounter Medications at Time of Discharge Medication Sig Dispensed Refills Start Date End Date albuterol HFA (PROVENTIL; VENTOLIN; PROAIR) 108 (90 Base) MCG/ACT inhaler INHALE 1 PUFF BY MOUTH EVERY 4 TO 6 HOURS NEEDED FOR SHORTNESS OF BREATH OR WHEEZING 01/26/2021 atorvastatin (LIPITOR) 20 MG tablet Take 1 (one) tablet by mouth once daily 08/06/2021 meloxicam (MOBIC) 15 MG tablet Take 1 tablet by mouth once daily 90 tablet 06/06/2019 HYDROcodone-acetaminop hen (NORCO) 7.5-325 MG tablet Take 1 tablet by mouth every 6 hours as needed 07/26/2021 09/24/2021 meloxicam (MOBIC) 15 MG tablet TAKE 1 TABLET BY MOUTH EVERY DAY 90 tablet 1 07/04/2018 04/08/2022 naloxone HCl (NARCAN) 4 MG/0.1ML nasal spray [place] 1 spray into the nose 05/29/2020 04/08/2022 documented as of this encounter Plan of Treatment Not on file documented as of this encounter Procedures Procedure Name Priority Date/Time Associated Diagnosis Comments XR SHOULDER LEFT 2VW OR MORE Routine 08/14/2021 8:26 AM CDT Left shoulder pain, unspecified chronicity documented in this encounter Results * XR SHOULDER LEFT 2VW OR MORE (08/14/2021 8:26 AM CDT) Anatomical Region Laterality Modality Upper Extremity Radiographic Kristen ging 08/14/2021 8:33 AM CDT Impressions 08/14/2021 9:02 AM CDT No acute osseous abnormality. Edited by Selena Ramírez on 08/14/2021 9:02 AM *Reading Radiologist: Melo Webster on 08/14/2021 at 9:02 AM Narrative 08/14/2021 9:02 AM CDT LEFT SHOULDER FOUR VIEWS INDICATION: Pain in left shoulder . FINDINGS: Four views of the left shoulder show no acute fracture, subluxation or dislocation. Procedure Note Melo Webster MD - 08/14/2021 LEFT SHOULDER FOUR VIEWS INDICATION: Pain in left shoulder . FINDINGS: Four views of the left shoulder show no acute fracture, subluxation or dislocation. IMPRESSION No acute osseous abnormality. Edited by Selena Ramírez on 08/14/2021 9:02 AM *Reading Radiologist: Melo Webster on 08/14/2021 at 9:02 AM Salvador Jeffery MD DIAGNOSTIC IMAGING O RDERABLES documented in this encounter Visit Diagnoses Diagnosis Left shoulder pain, unspecified chronicity documented in this encounter
--- OUTSIDE RECORDS SUMMARY | 2024-03-10 06:55 | XMS_ITS | Patient Health Summary ---
Author Organization [facility] Address [address] [facility] [place] [address] Care Team Providers Care Talent Acquisition Coordinator Name Role Phone Hemal Grey MD Primary Care Provider [phone] Note from [facility],non-owned Affiliates and Associated Physician Practices is amultiple site organization consisting of ambulatory clinics and hospital sitesin [place], [place] and [place]. This disclosure is being madepursuant to the Care Everywhere program and may not contain all information available regarding this patient. Last updated 17.[facility] Allergies No known active allergies Medications * Be aware that medications may not be up to date on this document. Alwaysverify current medications with the patient. * meloxicam (MOBIC) 15 MG tablet(Started 06/06/2019) Take 1 tablet by mouth once daily * albuterol HFA (PROVENTIL; VENTOLIN; PROAIR) 108 (90 Base) MCG/ACT inhaler (Started 01/26/2021) INHALE 1 PUFF BY MOUTH EVERY 4 TO 6 HOURS NEEDED FOR SHORTNESS OF BREATH OR WHEEZING * atorvastatin (LIPITOR) 20 MG tablet(Started 08/06/2021) Take 1 (one) tablet by mouth once daily * zolpidem (AMBIEN) 5 MG tablet(Started 09/03/2021) Take 1 (one) tablet by mouth nightly as needed for Insomnia * traMADol (Ultram) 50 MG tablet(Started 05/27/2022) Take 1 (one) tablet by mouth every 6 hours as needed for Pain Active Problems Problem Noted Date Diagnosed Date [...] Comments Blood Pressure 132/74 04/05/2019 10:29 AM MASS SPECTROSCOPIST Pulse 86 04/05/2019 10:29 AM MASS SPECTROSCOPIST Temperature 36.8 ??C (98.3 ??F) 04/05/2019 10:[address] Respiratory Rate - - Oxygen Saturation 98% 04/05/2019 10:29 AM MASS SPECTROSCOPIST Inhaled Oxygen Concentration - - Weight 104.3 kg (230 lb) 05/13/2022 11:15 AM MASS SPECTROSCOPIST Height 185.4 cm (6' 1 ) 05/13/2022 11:15 AM MASS SPECTROSCOPIST Body Mass Index 30.34 05/13/2022 11:15 AM MASS SPECTROSCOPIST Procedures * GA DRAIN/INJECT LARGE JOINT/BURSA(Performed 04/08/2022) Performed for S/P rotator cuff repair, Pain in joint of left shoulder * XR SHOULDER LEFT 2VW OR MORE(Performed 08/14/2021) Performed for Left shoulder pain, unspecified chronicity * XR KNEE BILAT 3VW(Performed 01/04/2019) Performed for Chronic pain of both knees * XR HAND RIGHT 3VW OR MORE(Performed 10/04/2017) Performed for Right hand pain * XR KNEE BILAT 3VW(Performed 10/04/2017) Performed for Chronic pain of both knees * XR KNEE BILAT 3VW(Performed 06/11/2016) Performed for Chronic pain of both knees Results * GA DRAIN/INJECT LARGE JOINT/BURSA (04/08/2022 5:24 PM MASS SPECTROSCOPIST) Narrative Salvador Jeffery MD - 04/08/2022 5:24 PM MASS SPECTROSCOPIST Salvador Jeffery MD ? 04/08/2022 ??5:28 PM [...] post-injection instructions were given and questions answered. aSlvador Jeffery MD PROCEDURE/MINOR SURG ICAL ORDERABLES * XR SHOULDER LEFT 2VW OR MORE [...] Salvador Jeffery MD DIAGNOSTIC IMAGING O RDERABLES * XR KNEE BILAT 3VW (01/04/2019 3:08 PM CDT) Only the most recent of3 resultswithin the time period is included. Anatomical Region Laterality Modality Lower Extremity Radiographic Kristen ging Narrative 01/04/2019 3:09 PM CDT Janene Morales ? 01/05/2019 ??9:56 AM Please see progress note for results. Mikie Parr MD DIAGNOSTIC IMAGING O RONN * XR HAND RIGHT 3VW OR MORE (10/04/2017 3:20 PM CDT) Anatomical Region Laterality Modality Wrist / Hand Radiographic Kristen ging Narrative 10/13/2017 10:36 AM CDT Day, Cass E ? 10/13/2017 10:36 AM SEE PROGRESS NOTES FOR RESULTS Mikie Parr MD DIAGNOSTIC IMAGING O RDESTEFANÍA Care Teams Talent Acquisition Coordinator Relationship Specialty Start Date End Date Hemal Grey MD [address] [place] [address] PCP - General Family Medicine 09/03/21
--- OUTSIDE RECORDS SUMMARY | 2024-03-10 06:55 | XMS_ITS | Encounter Summary ---
Author Organization [facility] Address [address] [facility] [place] [address] Care Team Providers Care Lighting Specialist Name Role Phone Hemal Grey MD Primary Care Provider [phone] Reason for Visit * Reason Onset Date Comments Follow-up 09/18/2021 Encounter Details Date Type Department Care Team (Late st Contact Info) Description 09/18/2021 Telephone [facility] - [facility] [address] [place] [address] Salvador Jeffery MD [address] [place] [address] Follow-up Social History Tobacco Use Types Packs/Day Years Used Date Smoking Tobacco: Every Day Smokeless Tobacco: Never Sex and Gender Information Value Date Recorded Sex Assigned at Not on file Gender Identity Not on file Sexual Orientation Not on file documented as of this encounter Miscellaneous Notes * Telephone Encounter - Leonel Aponte LPN - 09/18/2021 9:28 AM CDT Patient called and requested office notes be faxed to his work comp MD and gave fax # [phone] with Case # [id number]. He stated he 'screwed up' and should have went to his workman's comp doc first instead he came to Dr. Jose D first. He stated he is scheduled to see his work [employer] doc to obtain approval for his shoulder surgery on 10/14/21. Faxed documents as requested and requested from patient contact info for his [employer] company. documented in this encounter Plan of Treatment Not on file documented as of this encounter Visit Diagnoses Not on filedocumented in this encounter Care Teams Lighting Specialist Relationship Specialty Start Date End Date Hemal Grey MD [address] [place] [address] PCP - General Family Medicine 09/03/21 documented as of this encounter
--- OUTSIDE RECORDS SUMMARY | 2024-03-10 06:55 | XMS_ITS | Encounter Summary ---
Author Organization [facility] Address [address] [facility] [place] [address] Care Team Providers Care Tire Retreader Name Role Phone Hemal Grey MD Primary Care Provider [phone] Reason for Visit * Reason Comments Upper Extremity Problem L shoulder MRI Encounter Details Date Type Department Care Team (Late st Contact Info) Description 09/03/2021 1:10 PM CDT Office Visit [facility] [address] [place] [address] [address] [place] [address] Salvador Jeffery MD [address] [place] [address] Complete tear of left rotator cuff, unspecified [...] Progress Notes * Salvador Jeffery MD - 09/03/2021 1:01 PM CDT Images from the original note were not included. Chief Complaint: left Shoulder follow up History of Present Illness: Patient comes in for routine follow-up of the left shoulder s/p MRI. The patient has been managed with conservative treatment including activity modification, NSAIDs, physical therapy and injections. He states that the injection helped for about 2-3 weeks but then the pain came back with a vengeance. He recently obtained an MRI of the left shoulder from [facility]. He is having trouble sleeping in any position due to the pain and cannot perform his normal activities. At this point, their pain and function are not improving. Past Medical History: Diagnosis Date ??? Bilateral primary osteoarthritis of knee 08/24/2019 ??? Hypolipidemia ??? 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 Medial epicondylitis of elbow, left 04/02/2020 ??? Therapeutic opioid induced constipation 01/29/2021 Past Surgical History: Procedure Laterality Date ??? HAND OR FINGER(S) TENDON REPAIR 2009 ??? Wrist Fracture Repair Right Family history is noncontributory Social History Socioeconomic History ??? Marital [...] naloxone HCl (NARCAN) 4 MG/0.1ML nasal spray [place] 1 spray into the nose No current [...] rashes. Extremity: Active Shoulder Range of Motion: Left: Forward Elevation 160 degrees Abduction 150 degrees External Rotation 60 degrees Internal Rotation S1 There is tenderness along the biceps and Codman's point. The distal neurocirculatory exam is intact. No flowsheet data found. No flowsheet data found. Sane Score (0-100): No flowsheet data found. Radiographs: MRI of the left shoulder (Gibran) was reviewed and demonstrates signal enhancement along the biceps sheath indicative of tendinitis along with superior labral signal enhancement concerning for a SLAP lesion. The is an area of full-thickness supraspinatus tear at the distal insertion of the footprint anteriorly. There is no substantial retraction and minimal fatty infiltration of the muscle bellies. Assessment: left shoulder biceps tendinitis, SLAP lesion, rotator cuff tear Plan: I discussed the pathology and the treatment options with the patient including continued conservative management with injections, anti-inflammatory medications, therapy exercises, and activity modifications versus operative management. The patient has failed conservative management and has elected to proceed with a surgical procedure to reduce pain and improve function. The most reliable treatment option for this patient is a left shoulder arthroscopic rotator cuff repair with decompression, debridement, and biceps tenodesis. I discussed the surgery, perioperative course, risks/benefitswith the patient as detailed through a PowerPoint presentation. All questions were answered. The pat ient will undergo appropriate medical and/or cardiac clearance as indicated. The patient will be scheduled accordingly at [facility] on 10/14/21. Salvador Jeffery MD Shoulder and Elbow Specialist [facility] [address] main office [phone] for electromedical equipment technician [phone] for nurse [phone] for appointments documented in this encounter Plan of Treatment Not on file documented as of this encounter Visit Diagnoses Diagnosis Complete tear of left rotator cuff, unspecified whether traumatic- Primary Superior glenoid labrum lesion of left shoulder, initial encounter documented in this encounter Care Teams Tire Retreader Relationship Specialty Start Date End Date Hemal Grey MD [address] [place] [address] PCP - General Family Medicine 09/03/21 documented as of this encounter
--- OUTSIDE RECORDS SUMMARY | 2024-03-10 06:55 | XMS_ITS | Encounter Summary ---
Author Organization [facility] Address [address] [facility] [place] [address] Care Team Providers Care Group Therapy Counselor Name Role Phone Unavailable Primary Care Provider Unavailabl e Encounter Details Date Type Department Care Team (Late st Contact Info) Description 08/12/2021 Orders Only [facility] [address] [place] [address] [address] [place] [address] Salvador Jeffery MD [address] [place] [phone] Left shoulder pain, unspecified chronicity Social History Tobacco Use Types Packs/Day Years Used Date Smoking Tobacco: Every Day Smokeless Tobacco: Never Sex and Gender Information Value Date Recorded Sex Assigned at Not on file Gender Identity Not on file Sexual Orientation Not on file documented as of this encounter Plan of Treatment Not on file documented as of this encounter Results * XR SHOULDER LEFT [...] AM Salvador Jeffery MD DIAGNOSTIC IMAGING O RONN documented in this encounter Visit Diagnoses Diagnosis Left shoulder pain, unspecified chronicity- Primary Left shoulder pain, unspecified chronicity documented in this encounter
--- OUTSIDE RECORDS SUMMARY | 2024-03-10 06:55 | XMS_ITS | Encounter Summary ---
Author Organization [facility] Address [address] [place] [address] Care Team Providers Care Promotions Intern Name Role Phone Hemal Grey MD Primary Care Provider [phone] Reason for Visit * Reason Onset Date Comments Follow-up 01/20/2022 Encounter Details Date Type Department Care Team (Late st Contact Info) Description 01/20/2022 Telephone [facility] [address] [place] [address] Salvador Jeffery MD [address] [place] [address] Follow-up Social History Tobacco Use Types Packs/Day Years Used Date Smoking Tobacco: Every Day Smokeless Tobacco: Never Sex and Gender Information Value Date Recorded Sex Assigned at Not on file Gender Identity Not on file Sexual Orientation Not on file documented as of this encounter Miscellaneous Notes * Telephone Encounter - Leonel Aponte LPN - 01/20/2022 10:46 AM CST Called and stated he has zero Percocet in his drug urine sreen and they believe the percocet he is ordering from us and them are being diverted somehow. They called to us that they will call and notifiy him they will refill one more script and then no longer prescribe pain medication to him. REPAIR CLERK documented in this encounter Plan of Treatment Not on file documented as of this encounter Visit Diagnoses Not on filedocumented in this encounter Care Teams Promotions Intern Relationship Specialty Start Date End Date Hemal Grey MD [address] [place] [address] PCP - General Family Medicine 09/03/21 documented as of this encounter
--- OUTSIDE RECORDS SUMMARY | 2024-03-10 06:55 | XMS_ITS | Encounter Summary ---
Author Organization [facility] Address [address] [facility] [place] [address] Care Team Providers Care Actuary Manager Name Role Phone Hemal Grey MD Primary Care Provider [phone] Encounter Details Date Type Department Care Team (Late st Contact Info) Description 12/14/2021 Telephone [facility] [address] [place] [address] Jorje Jeffery MD Social History Tobacco Use Types Packs/Day Years Used Date Smoking Tobacco: Every Day Smokeless Tobacco: Never Sex and Gender Information Value Date Recorded Sex Assigned at Not on file Gender Identity Not on file Sexual Orientation Not on file documented as of this encounter Miscellaneous Notes * Telephone Encounter - Elizabeth Sim - 12/14/2021 3:27 PM CDT Mr. Rees is wanting a refill on his pain medication percocet. Send to Doris sutton in [facility]. documented in this encounter Plan of Treatment Not on file documented as of this encounter Visit Diagnoses Not on filedocumented in this encounter Care Teams Actuary Manager Relationship Specialty Start Date End Date Hemal Grey MD [address] [place] [address] PCP - General Family Medicine 09/03/21 documented as of this encounter
--- OUTSIDE RECORDS SUMMARY | 2024-03-10 06:56 | XMS_ITS | Encounter Summary ---
Author Organization [facility] Address [address] [place] [address] Care Team Providers Care Block Mechanic Name Role Phone Unavailable Primary Care Provider Unavailabl e Reason for Visit * Reason Onset Date Comments Question 03/04/2016 Encounter Details Date Type Department Care Team (Late st Contact Info) Description 03/04/2016 Telephone [facility] [address] [facility] [address] [place] [address] Mikie Parr MD [address] [place] [address] [address] [place] [address] Question Social History Tobacco Use Types Packs/Day Years Used Date Smoking Tobacco: Never Assessed Sex and Gender Information Value Date Recorded Sex Assigned at Not on file Gender Identity Not on file Sexual Orientation Not on file documented as of this encounter Miscellaneous Notes * Telephone Encounter - Kesha Huston - 03/04/2016 9:55 AM CST Patient stated he will pick Rx up in the office. Patient can be reached at [phone] SYBASE DEVELOPER documented in this encounter Plan of Treatment Not on file documented as of this encounter Visit Diagnoses Not on filedocumented in this encounter
--- OUTSIDE RECORDS SUMMARY | 2024-03-10 06:56 | XMS_ITS | Encounter Summary ---
Author Organization [facility] Address [address] [place] [address] Care Team Providers Care Director Of Consulting Services Name Role Phone Unavailable Primary Care Provider Unavailabl e Reason for Visit * Reason Onset Date Comments MEDICATION REFILL 02/24/2018 Encounter Details Date Type Department Care Team (Late st Contact Info) Description 02/24/2018 Refill [facility] [address] [place] [address] Mikie Parr MD [address] [place] [phone] MEDICATION REFILL Social History Tobacco Use Types [...]
--- OUTSIDE RECORDS SUMMARY | 2024-03-10 06:56 | XMS_ITS | Encounter Summary ---
Author Organization [facility] Address [address] [facility] [address] [place] [address] Care Team Providers Care Commercial Lines Account Manager Name Role Phone Unavailable Primary Care Provider Unavailabl e Reason for Visit * Reason Onset Date Comments MEDICATION REFILL 04/04/2017 Encounter Details Date Type Department Care Team (Late st Contact Info) Description 04/04/2017 Refill [facility] [address] [place] [address] Mikie Parr MD [address] [place] [phone] MEDICATION REFILL Social History Tobacco Use Types Packs/Day Years Used Date Smoking Tobacco: Every Day Sex and Gender Information Value Date Recorded Sex Assigned at Not on file Gender Identity Not on file Sexual Orientation Not on file documented as of this encounter Miscellaneous Notes * Telephone Encounter - Brayden, Manasa M - 04/04/2017 2:45 PM CST Fernie Rees is in need of His Requested Prescriptions Pending Prescriptions Disp Refills ??? HYDROcodone-acetaminophen (NORCO) 7.5-325 MG tablet 120 tablet 0 Sig: Take 1 tablet by mouth every 4 hours as needed for Pain Person calling for the refill: Fernie Last office visit 06-11-2016 Next Appointment scheduled: Visit date not found Last Refill for this medication 03-02-2017 Does patient have any new allergies since last office visit? NO Was the pharmacy verified? YES If this is a controlled substance was the Last 4 of SSN verified? 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
--- OUTSIDE RECORDS SUMMARY | 2024-03-10 06:56 | XMS_ITS | Encounter Summary ---
Author Organization [facility] Address [address] [place] [address] Care Team Providers Care Table Saw Operator Name Role Phone Unavailable Primary Care Provider Unavailabl e Reason for Visit * Reason Comments Pain Knee Bilateral knee pain Encounter Details Date Type Department Care Team (Late st Contact Info) Description 01/04/2019 2:40 PM CDT Office Visit [facility] [address] [place] [address] Mikie Parr MD [address] [place] [address] [address] [place] [phone] Chronic pain of both knees (Primary Dx); Patellofemoral chondrosis, unspecified laterality Social History Tobacco Use Types Packs/Day Years [...] - - Weight 104.3 kg (230 lb) 01/04/2019 3:06 PM CDT Height 185.4 cm (6' 1 ) 01/04/2019 3:06 PM CDT Body Mass Index 30.34 01/04/2019 3:06 PM CDT documented in this encounter Progress Notes * Mikie Parr MD - 01/05/2019 9:51 AM CDT Patient comes back in today for further follow-up. I have seen him in the past for painful left andright knees. I believe we did give him a cortisone injection previously which was about a year ago but did not give him more than a few days to weeks relief. 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 He also works quite a bit with [employer] and [employer]. He states that his knees bother him at the end of a long day's work. We have been using [place] to give him some relief for his pain as well as meloxicam. However he comes in today to discuss possible further treatment of the knees. 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 Past medical history, review of systems, allergies, medications, social and family history all reviewed today and verified on the intake form. On physical examination today the patient is alert oriented x3 in no acute distress. Mood is appropriate. Vital signs found to be stable. On examination today he walks with a fairly normal gait. He stands with good alignment of both leftand right knees. Range motion on both knees is 0 to about 140??. He has good ligamentous stability bilaterally. On flexion extension the knees he has some very minimal crepitance. Neurologic examination of the extremity is intact with normal strength to manual motor examination, intact sensation and normal reflexes. Vascular examination is intact as are is no significant swelling or peripheral edema and distal pulses are palpable. New x-rays were taken of the knees and are essentially within normal limits there is no evidence ofsevere arthrosis or injury. This man works at a heavy duty job where he is putting tremendous amount of stress on his knees. Most of his pain is anteriorly with lot ladder climbing and stair walking particularly when he has hadheavy loads. I think he probably has some mild generalized chondrosis due to over loading his knees. At this point I think the best thing for him is to continue on meloxicam. Have recommended perhaps some knee sleeves to help him. Also told him we could go ahead and give him a limited supply of [place] to use when he gets home after work. He understands that this is totally mechanical overload phenomenon as is knee x- rays look good he does not have any findings on clinical examination or symptoms suggestive of internal derangement. He will try the knee sleeves as well as continue anti-inflammatories and [place] on a p.r.n. Basis. Told him I would like to see him back in 6 months for follow-up. documented in this encounter Procedure Notes * Janene Morales - 01/04/2019 3:09 PM CDTAssociated Order(s): XR KNEE BILAT 3VW Please see progress note for results. documented in this encounter Plan of Treatment Not on file documented as of this encounter Procedures Procedure Name Priority Date/Time Associated Diagnosis Comments XR KNEE BILAT 3VW Routine 01/04/2019 3:0 8 PM CDT Chronic pain of both knees documented in this encounter Results * XR KNEE BILAT 3VW (01/04/2019 3:08 PM CDT) Anatomical Region Laterality Modality Lower Extremity Radiographic Kristen ging Narrative 01/04/2019 3:09 PM CDT Janene Morales ? 01/05/2019 ??9:56 AM Please see progress note for results. Mikie Parr MD DIAGNOSTIC IMAGING O RDERAMARGE documented in this encounter Visit Diagnoses Diagnosis Chronic pain of both knees- Primary Patellofemoral chondrosis, unspecified laterality Chronic pain of both knees documented in this encounter
--- OUTSIDE RECORDS SUMMARY | 2024-03-10 06:56 | XMS_ITS | Encounter Summary ---
Author Organization [facility] Address [address] [facility] [place] [address] Care Team Providers Care International Trade Analyst Name Role Phone Unavailable Primary Care Provider Unavailabl e Encounter Details Date Type Department Care Team (Latest Contact Info) Description 01/04/2019 3:10 PM CDT Ancillary Procedure [facility] Orthopedics - Radiology [address], [address] [place], [place] [id number] Mikie Parr MD [address] [facility] [address] [place] [phone] Chronic pain of both knees Social History Tobacco Use Types Packs/Day Years [...] results. Mikie Parr MD DIAGNOSTIC IMAGING O RDERABLES documented in this encounter Visit Diagnoses Diagnosis Chronic pain of both knees documented in this encounter
--- OUTSIDE RECORDS SUMMARY | 2024-03-10 06:56 | XMS_ITS | Encounter Summary ---
Author Organization [facility] Address [address] [facility] [place] [address] Care Team Providers Care On Call Pharmacy Technician Name Role Phone Unavailable Primary Care Provider Unavailabl e Reason for Visit * Reason Comments Pain Knee Bilateral Encounter Details Date Type Department Care Team (Late st Contact Info) Description 10/04/2017 2:40 PM CDT Office Visit [facility] Orthoped[facility] [address] [facility] [address] [place] [address] Mikie Parr MD [facility] [address] [phone] Chronic pain of both knees (Primary Dx); Right hand pain Social History Tobacco Use Types Packs/Day Years [...] - - Weight 104.3 kg (230 lb) 10/04/2017 1:58 PM CDT Height 185.4 cm (6' 1 ) 10/04/2017 1:58 PM CDT Body Mass Index 30.34 10/04/2017 1:58 PM CDT documented in this encounter Progress Notes * Mikie Parr MD - 10/13/2017 10:34 AM CDT Patient comes in for evaluation of right knee pain. This patient has known significant arthritis ofthe knee which we have been treating her with occasional nonsteroidal anti-inflammatories can't exercise with significant relief. Patient has had good relief for pain over the last few months but nowhaving significant increased pain with ambulation and even sleeping at night. Patient states that they have had increasing swelling in the knee with pain that is limiting their activities. They are also having pain at night and keeping the patient awake. Recently this patient has tried anti-inflammatories as well as rest without significant relief. The pain in the knee is limiting activities and the patient would like to consider a cortisone injection into the knee for relief. Patient has had acortisone injection in the past with good relief of her symptoms. Past medical history, review of systems, allergies, medications, social and family history all reviewed today and verified on the intake form. On physical examination today the patient is alert oriented x3 in no acute distress. Mood is appropriate. Vital signs found to be stable. Patient walks with a slightly antalgic type gait. Patient hasno back pain noted today in the skin in her lower extremities is intact. She can walk on toes and heels without difficulty. Overall alignment of the knee shows a varus deformity. Patient has joint line tenderness to palpation. There is a sjyr-ie-senpzhrg effusion noted with some slight swelling. Range motion is 5-110?? today limited due to pain. Ligamentous stability is intact. Patellofemoral joint tracks well without crepitance noted. Vascular examination shows distal pulses at the knee and ankle are intact.Neurologic examination of the extremity is intact with normal strength to manual motor examination, intact sensation and normal reflexes. Vascular examination is intact as are is no significant swelling or peripheral edema and distal pulses are palpable. Reviewed previous x-rays which does show significant arthritic changes. This patient has significant arthritis in the knee for which they have received pain relief with anti-inflammatories and exercise in the past. Anti- inflammatories and rest do not seem to be helping at this time. I think would be reasonable for them to have a cortisone injection into the knee. Aftersterilely prepping and draping the knee, the knee was aspirated of normal-appearing synovial fluid and an intra-articular injection was given with 80 mg of Kenalog and 3 mL of lidocaine. Patient tolerated the procedure well. Patient will call us if they are not better in the next week to 10 days. If they are not we will have the patient return for re-evaluation. Otherwise the patient will return on a p.r.n. basis While in the office he also complained of pain referable to his right thumb and specifically over the metacarpal area. He previously has had surgery to this area. He was worried that the hardware that was in there is loosen prominent and 1 to get something done for this. On exam today he has well-healed surgical scar. He has tenderness over the 1st metacarpal. Does feel also has prominence at the carpometacarpal joint. Otherwise his hand exam is fairly normal. X-rays were taken today and he has a plate and screws which apparently fixated a metacarpal fracture of the 1st metacarpal in the past. I suspect he has not had our hardware that may now be loosening up. In any regard he has been referred to a hand surgeon for this. documented in this encounter Procedure Notes * Cass Wolf - 10/04/2017 2:14 PM CDTAssociated Order(s): XR KNEE BILAT 3VW; XR HAND RIGHT 3VW OR MORE SEE PROGRESS NOTES FOR RESULTS documented in this encounter Plan of Treatment Scheduled Orders Name Type Priority Associated Diagnoses Orde r Schedule ASPIRATION- JOINT (SMALL/INTERMED/LULU R) Procedures Routine Chronic pain of both knees Ordered: 10/04/2017 documented as of this encounter Procedures Procedure Name Priority Date/Time Associated Diagnosis Comments XR KNEE BILAT 3VW Routine 10/04/2017 2:1 0 PM CDT Chronic pain of both knees documented in this encounter Results * XR HAND RIGHT 3VW OR MORE (10/04/2017 3:20 PM CDT) Anatomical Region Laterality Modality Wrist / Hand Radiographic Kristen ging Narrative 10/13/2017 10:36 AM CDT Cass Wolf ? 10/13/2017 10:36 AM SEE PROGRESS NOTES FOR RESULTS Mikie Parr MD DIAGNOSTIC IMAGING O RONN * XR KNEE BILAT 3VW (10/04/2017 2:10 PM CDT) Anatomical Region Laterality Modality Lower Extremity Radiographic Kristne ging Narrative 10/13/2017 10:36 AM CDT Cass Wolf ? 10/13/2017 10:36 AM SEE PROGRESS NOTES FOR RESULTS Mikie Parr MD DIAGNOSTIC IMAGING O RONN documented in this encounter Visit Diagnoses Diagnosis Chronic pain of both knees- Primary Right hand pain Pain in limb documented in this encounter Administered Medications Inactive Administered Medications - up to 3 most recent administrations Medication Order MAR Action Action Date Dose Rate Site lidocaine (XYLOCAINE MPF) 1 % injection Intra-articular, ONCE, 1 dose, On Tue10/04/17 at 1545 $ Given 10/04/2017 3:21 PM CDT Left Knee triamcinolone acetonide (KENALOG-40) injection 40 mg 40 mg, Intra-articular, ONCE, 1 dose, On Tue10/04/17 at 1545, Shake well before using. $ Given 10/04/2017 3:21 PM CDT 40 mg Left Knee documented in this encounter
--- OUTSIDE RECORDS SUMMARY | 2024-03-10 06:56 | XMS_ITS | Encounter Summary ---
Author Organization [facility] Address [address] [place] [address] Care Team Providers Care Transport Pilot Name Role Phone Unavailable Primary Care Provider Unavailabl e Reason for Visit * Reason Onset Date Comments MEDICATION REFILL 07/28/2017 Encounter Details Date Type Department Care Team (Late st Contact Info) Description 07/28/2017 Refill [facility] [address] [place] [address] [phone] Mikie Parr MD [address] [place] [address] [phone] MEDICATION REFILL Social History Tobacco Use Types Packs/Day Years Used Date Smoking Tobacco: Every Day Sex and Gender Information Value Date Recorded Sex Assigned at Not on file Gender Identity Not on file Sexual Orientation Not on file documented as of this encounter Miscellaneous Notes * Telephone Encounter - Li Benavides - 07/28/2017 1:17 PM CDT Fernie Rees is in need of HIS Requested Prescriptions Pending Prescriptions Disp Refills ??? meloxicam (MOBIC) 15 MG tablet 30 tablet 1 ??? HYDROcodone-acetaminophen (NORCO) 7.5-325 MG tablet 90 tablet 0 Sig: Take 1 tablet by mouth every 4 hours as needed for Pain Person calling for the refill: SELF Last office visit 06/11/17 Next Appointment scheduled: Visit date not found Last Refill for this medication 07/01/17 Does patient have any new allergies since [...]
--- OUTSIDE RECORDS SUMMARY | 2024-03-10 06:56 | XMS_ITS | Encounter Summary ---
Author Organization [facility] Address [address] [facility] [place] [address] Care Team Providers Care Leather Goods Maker Name Role Phone Unavailable Primary Care Provider Unavailabl e Reason for Visit * Reason Onset Date Comments MEDICATION REFILL 07/07/2016 Encounter Details Date Type Department Care Team (Late st Contact Info) Description 07/07/2016 Refill [facility] [address] [place] [phone] Mikie Parr MD [address] [place] [address] [phone] MEDICATION REFILL Social History Tobacco Use Types Packs/Day Years Used Date Smoking Tobacco: Every Day Sex and Gender Information Value Date Recorded Sex Assigned at Not on file Gender Identity Not on file Sexual Orientation Not on file documented as of this encounter Miscellaneous Notes * Telephone Encounter - Siena Kelly - 07/07/2016 1:18 PM CDT Fernie Rees No Known Allergies Requested Prescriptions Pending Prescriptions Disp Refills ??? HYDROcodone-acetaminophen (NORCO) 7.5-325 MG tablet 90 Tab 0 Sig: Take 1 Tab by mouth every 4 hours as needed for Pain Last Refill: 06/11/16 Last OV: Next OV: na documented in this encounter Plan of Treatment Not on file documented as of this encounter Visit Diagnoses Not on filedocumented in this encounter
--- OUTSIDE RECORDS SUMMARY | 2024-03-10 06:56 | XMS_ITS | Encounter Summary ---
Author Organization [facility] Address [address] [place] [address] Care Team Providers Care Cardiac Nurse Specialist Name Role Phone Unavailable Primary Care Provider Unavailabl e Reason for Visit * Reason Onset Date Comments MEDICATION REFILL 11/22/2017 Encounter Details Date Type Department Care Team (Late st Contact Info) Description 11/22/2017 Refill [facility] [address] [place] [address] [phone] Mikie Parr MD [address] [place] [address] [phone] MEDICATION REFILL Social History Tobacco Use Types Packs/Day Years Used Date Smoking Tobacco: Every Day Smokeless Tobacco: Never Sex and Gender Information Value Date Recorded Sex Assigned at Not on file Gender Identity Not on file Sexual Orientation Not on file documented as of this encounter Miscellaneous Notes * Telephone Encounter - Porsche Campoverde - 11/22/2017 11:03 AM CDT Fernie Rees is in need of His Requested Prescriptions Pending Prescriptions Disp Refills ??? HYDROcodone-acetaminophen (NORCO) 7.5-325 MG tablet 120 tablet 0 Sig: Take 1 tablet by mouth every 4 hours as needed for Pain ??? meloxicam (MOBIC) 15 MG tablet 30 tablet 1 Person calling for the refill: PATIENT Last office visit 10/04/17 Next Appointment scheduled: Visit date not found Last Refill for this medication 10/25/17, 07/29/17 Does patient have any new allergies since last office visit? No Was the pharmacy verified? Yes If this is a controlled substance was the Last 4 of SSN verified? YES, 6179 (If unable to verify last 4 of SSN transfer to the clinic for further review) documented in this encounter Plan of Treatment Not on file documented as of this encounter Visit Diagnoses Not on filedocumented in this encounter
--- OUTSIDE RECORDS SUMMARY | 2024-03-10 06:56 | XMS_ITS | Encounter Summary ---
Author Organization [facility] Address [address] [place] [address] Care Team Providers Care Ethanol Operations Manager Name Role Phone Unavailable Primary Care Provider Unavailabl e Reason for Visit * Reason Onset Date Comments MEDICATION REFILL 12/22/2017 Encounter Details Date Type Department Care Team (Late st Contact Info) Description 12/22/2017 Refill [facility] [address] [place] [phone] Mikie Parr MD [address] [place] [address] [address] [phone] MEDICATION REFILL Social History Tobacco Use Types Packs/Day Years Used Date Smoking Tobacco: Every Day Smokeless Tobacco: Never Sex and Gender Information Value Date Recorded Sex Assigned at Not on file Gender Identity Not on file Sexual Orientation Not on file documented as of this encounter Miscellaneous Notes * Telephone Encounter - Porsche Campoverde - 12/22/2017 8:51 AM CDT Fernie Rees is in need of His Requested Prescriptions Pending Prescriptions Disp Refills ??? HYDROcodone-acetaminophen (NORCO) 7.5-325 MG tablet 120 tablet 0 Sig: Take 1 tablet by mouth every 4 hours as needed for Pain Person calling for the refill: patient Last office visit 10/04/17 Next Appointment scheduled: Visit date not found Last Refill for this medication 11/24/17 Does patient have any new allergies since [...]
--- OUTSIDE RECORDS SUMMARY | 2024-03-10 06:56 | XMS_ITS | Encounter Summary ---
Author Organization [facility] Address [address] [place] [address] Care Team Providers Care Final Dressing Cutter Name Role Phone Unavailable Primary Care Provider Unavailabl e Reason for Visit * Reason Onset Date Comments MEDICATION REFILL 05/02/2018 Encounter Details Date Type Department Care Team (Late st Contact Info) Description 05/02/2018 Refill [facility] [address] [place] [address] Mikie Parr MD [address] [place] [address] [phone] MEDICATION REFILL Social History Tobacco Use Types Packs/Day Years Used Date Smoking Tobacco: Every Day Smokeless Tobacco: Never Sex and Gender Information Value Date Recorded Sex Assigned at Not on file Gender Identity Not on file Sexual Orientation Not on file documented as of this encounter Miscellaneous Notes * Telephone Encounter - Terrie Marrufo - 05/02/2018 10:06 AM CST Fernie Rees is in need of His Requested Prescriptions Pending Prescriptions Disp Refills ??? HYDROcodone-acetaminophen (NORCO) 7.5-325 MG tablet 120 tablet 0 Sig: Take 1 tablet by mouth every 4 hours as needed for Pain Person calling for the refill: self Last office visit 10.04.17 Next Appointment scheduled: Visit date not found Last Refill for this medication 04.24.18 Does patient have any new allergies since last office visit? No Was the pharmacy verified? Yes If this is a controlled substance was the Last 4 of SSN verified? YES (If unable to verify last 4 of SSN transfer to the clinic for further review) BLASTING SUPERVISOR documented in this encounter Plan of Treatment Not on file documented as of this encounter Visit Diagnoses Not on filedocumented in this encounter
--- OUTSIDE RECORDS SUMMARY | 2024-03-10 06:56 | XMS_ITS | Encounter Summary ---
Author Organization [facility] Address [address] [place] [address] Care Team Providers Care Foam Dispenser Name Role Phone Unavailable Primary Care Provider Unavailabl e Reason for Visit * Reason Comments Refill Request Encounter Details Date Type Department Care Team (Late st Contact Info) Description 09/03/2016 Refill [facility] [address] [place] [phone] Mikie Parr MD [address] [place] [phone] Refill Request Social History Tobacco Use Types [...]
--- OUTSIDE RECORDS SUMMARY | 2024-03-10 06:56 | XMS_ITS | Encounter Summary ---
Author Organization [facility] Address [address] [place] [address] Care Team Providers Care Dining Room Coordinator Name Role Phone Unavailable Primary Care Provider Unavailabl e Reason for Visit * Reason Onset Date Comments MEDICATION REFILL 02/28/2019 Encounter Details Date Type Department Care Team (Late st Contact Info) Description 02/28/2019 Refill [facility] [address] [place] [phone] Mikie Parr MD [address] [place] [address] [phone] MEDICATION REFILL Social History Tobacco Use Types Packs/Day Years Used Date Smoking Tobacco: Every Day Smokeless Tobacco: Never Sex and Gender Information Value Date Recorded Sex Assigned at Not on file Gender Identity Not on file Sexual Orientation Not on file documented as of this encounter Miscellaneous Notes * Telephone Encounter - Miriam Lindsey R - 02/28/2019 12:16 PM CST Fernie Rees is in need of His Requested Prescriptions Pending Prescriptions Disp Refills ??? HYDROcodone-acetaminophen (NORCO) 7.5-325 MG tablet 120 tablet 0 Sig: Take 1 tablet by mouth every 4 hours as needed for Pain Person calling for the refill: self Last office visit 01.04.19 Next Appointment scheduled: 03/15/2019 Last Refill for this medication 02.07.19 Does patient have any new allergies since last office visit? No Was the pharmacy verified? Yes If this is a controlled substance was the Last 4 of SSN verified? {YES (If unable to verify last 4 of SSN transfer to the clinic for further review) JOINER documented in this encounter Plan of Treatment Not on file documented as of this encounter Visit Diagnoses Diagnosis Chronic pain of both knees documented in this encounter
--- OUTSIDE RECORDS SUMMARY | 2024-03-10 06:56 | XMS_ITS | Encounter Summary ---
Author Organization [facility] Address [address] [place] [address] Care Team Providers Care Evaporator Repairer Name Role Phone Unavailable Primary Care Provider Unavailabl e Reason for Visit * Reason Onset Date Comments MEDICATION REFILL 05/02/2017 Encounter Details Date Type Department Care Team (Late st Contact Info) Description 05/02/2017 Refill [facility] [address] [place] [phone] Mikie Parr MD [address] [place] [phone] MEDICATION REFILL Social History Tobacco Use Types Packs/Day Years Used Date Smoking Tobacco: Every Day Sex and Gender Information Value Date Recorded Sex Assigned at Not on file Gender Identity Not on file Sexual Orientation Not on file documented as of this encounter Miscellaneous Notes * Telephone Encounter - Yann Amaya - 05/02/2017 3:53 PM CST Fernie Rees is in need of His Requested Prescriptions Pending Prescriptions Disp Refills ??? HYDROcodone-acetaminophen (NORCO) 7.5-325 MG tablet 120 tablet 0 Sig: Take 1 tablet by mouth every 4 hours as needed for Pain Person calling for the refill: Self Last office visit 06/11/16 Next Appointment scheduled: Visit date not found Last Refill for this medication 04/05/17 Does patient have any new allergies since last office visit? No Was the pharmacy verified? Yes If this is a controlled substance was the Last 4 of SSN verified? YES (If unable to verify last 4 of SSN transfer to the clinic for further review) STANT ATTORNEY GENERAL documented in this encounter Plan of Treatment Not on file documented as of this encounter Visit Diagnoses Diagnosis Chronic pain of both knees documented in this encounter
--- OUTSIDE RECORDS SUMMARY | 2024-03-10 06:56 | XMS_ITS | Encounter Summary ---
Author Organization [facility] Address [address] [place] [address] Care Team Providers Care Project/Production Manager Imaging Name Role Phone Unavailable Primary Care Provider Unavailabl e Reason for Visit * Reason Comments Refill Request Encounter Details Date Type Department Care Team (Late st Contact Info) Description 12/15/2018 Refill [facility] [address] [place] [phone] Mkiie Parr MD [address] [place] [address] [phone] Refill Request Social History Tobacco Use Types [...]
--- OUTSIDE RECORDS SUMMARY | 2024-03-10 06:56 | XMS_ITS | Encounter Summary ---
Author Organization [facility] Address [address] [place] [address] Care Team Providers Care Trawl Net Maker Name Role Phone Unavailable Primary Care Provider Unavailabl e Reason for Visit * Reason Onset Date Comments MEDICATION REFILL 03/02/2016 Encounter Details Date Type Department Care Team (Late st Contact Info) Description 03/02/2016 Refill [facility] [address] [place] [phone] Mikie Parr MD [address] [place] [address] [address] [place] [phone] MEDICATION REFILL Social History Tobacco Use Types Packs/Day Years Used Date Smoking Tobacco: Never Assessed Sex and Gender Information Value Date Recorded Sex Assigned at Not on file Gender Identity Not on file Sexual Orientation Not on file documented as of this encounter Miscellaneous Notes * Telephone Encounter - Kesha Huston - 03/02/2016 10:50 AM CST Patient called for refill Hydrocodone 7.5mg. Patient can be reached at [phone] ICATION SPECIALIST documented in this encounter Plan of Treatment Not on file documented as of this encounter Visit Diagnoses Not on filedocumented in this encounter
--- OUTSIDE RECORDS SUMMARY | 2024-03-10 06:56 | XMS_ITS | Encounter Summary ---
Author Organization [facility] Address [address] [place] [address] Care Team Providers Care Peanut Cleaner Name Role Phone Unavailable Primary Care Provider Unavailabl e Reason for Visit * Reason Comments Therapeutic Injection 33 Euflexxa bilate ral knee Encounter Details Date Type Department Care Team (Latest Contact Info) Description 03/29/2019 1:30 PM JAVA GRAILS DEVELOPER Office Visit [facility] [address] [place] [address] Sarthak Holland, BICYCLE SUBASSEMBLER-[address] [address] Primary osteoarthritis of both knees (Primary Dx) Social History Tobacco Use Types Packs/Day Years Used Date Smoking Tobacco: Every Day Smokeless Tobacco: Never Sex and Gender Information Value Date Recorded Sex Assigned at Not on file Gender Identity Not on file Sexual Orientation Not on file documented as of this encounter Last Filed Vital Signs Vital Sign Reading Time Taken Comments Blood Pressure 128/62 03/29/2019 12:35 PM JAVA GRAILS DEVELOPER Pulse 83 03/29/2019 12:35 PM JAVA GRAILS DEVELOPER Temperature 36.8 ??C (98.3 ??F) 03/29/2019 12:[address] Respiratory Rate - - Oxygen Saturation 96% 03/29/2019 12:35 PM JAVA GRAILS DEVELOPER Inhaled Oxygen Concentration - - Weight 104.3 kg (230 lb) 03/29/2019 12:35 PM JAVA GRAILS DEVELOPER Height 185.4 cm (6' 1 ) 03/29/2019 12:35 PM JAVA GRAILS DEVELOPER Body Mass Index 30.34 03/29/2019 12:35 PM JAVA GRAILS DEVELOPER documented in this encounter Progress Notes * Sarthak Holland APRN-CNP - 03/29/2019 3:11 PM CST Today's Date: 03/29/2019 Patient Name: Fernie Rees Sex: male Date of : 1970 Age: [age] year old Occupation/Company or school: [employer] Consulted / Referred By: No ref. provider found PCP: No primary care provider on file. Chief Complaint: Chief Complaint Patient presents with ??? Therapeutic Injection 33 Euflexxa bilateral knee Patient comes in today for his 2nd and 3rd in a series of 3 Hyaluronan injections. vacation ASSESSMENT PLAN: Orders: Orders Placed This Encounter ??? HI DRAIN/INJECT LARGE JOINT/BURSA ??? sodium hyaluronate prefilled syringe SOSY 20 mg Encounter Diagnosis Name Primary? Primary osteoarthritis of both knees Yes After discussing the treatment options with the patient, we elected to proceed with Procedure : an injection to the Inferior lateral aspect of Bilateral knee . The Bilateral was cleansed with Betadine and an alcohol swab. A well localized intra-articular injection was given with Hyaluronan using an inferior lateral approach. The Knee cleansed with alcohol swab, dried with cotton swab. Bandaids applied. Injection # 2nd on his right knee and 3rdleft knee of 3 Injections. Follow up in one week to receive the next joint fluid therapy injection. Ice to the injection site for 5 to 10 minutes tid X 48 hours, then as needed. Pt tolerated procedure well. If symptoms increase prior to the scheduled appointment then the patient should call [phone] to schedule an appointment and see us earlier. No follow-ups on file. VIRAL Nelson GRAILS DEVELOPER documented in this encounter Plan of Treatment Not on file documented as of this encounter Visit Diagnoses Diagnosis Primary osteoarthritis of both knees- Primary Primary localized osteoarthrosis, lower leg documented in this encounter Administered Medications Inactive Administered Medications - up to 3 most recent administrations Medication Order MAR Action Action Date Dose Rate Site sodium hyaluronate prefilled syringe SOSY 20 mg 20 mg, Intra-articular, ONCE, 1 dose, On Magalys 03/29/19 at 1300 $ Given 03/29/2019 12:40 PM JAVA GRAILS DEVELOPER 20 mg Other see comments documented in this encounter
--- OUTSIDE RECORDS SUMMARY | 2024-03-10 06:56 | XMS_ITS | Encounter Summary ---
Author Organization [facility] Address [address] [place] [address] Care Team Providers Care Cardiopulmonary Technologist Name Role Phone Unavailable Primary Care Provider Unavailabl e Reason for Visit * Reason Onset Date Comments MEDICATION REFILL 04/03/2019 Encounter Details Date Type Department Care Team (Late st Contact Info) Description 04/03/2019 Refill [facility] [address] [place] [address] Mikie Parr MD [address] [place] [phone] MEDICATION REFILL Social History Tobacco Use Types Packs/Day Years Used Date Smoking Tobacco: Every Day Smokeless Tobacco: Never Sex and Gender Information Value Date Recorded Sex Assigned at Not on file Gender Identity Not on file Sexual Orientation Not on file documented as of this encounter Miscellaneous Notes * Telephone Encounter - Supriya Alvarado - 04/03/2019 10:35 AM CST Fernie Rees is in need of HIS Requested Prescriptions Pending Prescriptions Disp Refills ??? HYDROcodone-acetaminophen (NORCO) 7.5-325 MG tablet 120 tablet 0 Sig: Take 1 tablet by mouth every 4 hours as needed for Pain Person calling for the refill: SELF Last office visit 03-29-2019 Next Appointment scheduled: 04/05/2019 Last Refill for this medication 03-01-2019 Does patient have any new allergies since last office visit? No Was the pharmacy verified? Yes If this is a controlled substance was the Last 4 of SSN verified? YES SOFTWARE ENGINEER documented in this encounter Plan of Treatment Not on file documented as of this encounter Visit Diagnoses Not on filedocumented in this encounter
--- OUTSIDE RECORDS SUMMARY | 2024-03-10 06:56 | XMS_ITS | Encounter Summary ---
Author Organization [facility] Address [address] [place] [address] Care Team Providers Care Dry Wall Installations Mechanic Name Role Phone Unavailable Primary Care Provider Unavailabl e Reason for Visit * Reason Onset Date Comments MEDICATION REFILL 02/22/2018 Encounter Details Date Type Department Care Team (Late st Contact Info) Description 02/22/2018 Refill [facility] Medical [facility] [address] [place] [address] Mikie Parr MD [address] [place] [address] [address] [place] [phone] MEDICATION REFILL Social History Tobacco Use Types Packs/Day Years Used Date Smoking Tobacco: Every Day Smokeless Tobacco: Never Sex and Gender Information Value Date Recorded Sex Assigned at Not on file Gender Identity Not on file Sexual Orientation Not on file documented as of this encounter Miscellaneous Notes * Telephone Encounter - Ernestine Silva - 02/22/2018 8:59 AM CST Fernie Rees is in need of {his Requested Prescriptions Pending Prescriptions Disp Refills ??? HYDROcodone-acetaminophen (NORCO) 7.5-325 MG tablet 120 tablet 0 Sig: Take 1 tablet by mouth every 4 hours as needed for Pain Person calling for the refill: patient Last office visitunsure Next Appointment scheduled: Visit date not found Last Refill for this medication 01/23/18 Does patient have any new allergies since last office visit? no Was the pharmacy verified? Yes #[id number] UP MOLD TECHNICIAN documented in this encounter Plan of Treatment Not on file documented as of this encounter Visit Diagnoses Diagnosis Chronic pain of both knees documented in this encounter
--- OUTSIDE RECORDS SUMMARY | 2024-03-10 06:56 | XMS_ITS | Encounter Summary ---
Author Organization [facility] Address [address] [facility] [place] [address] Care Team Providers Care Rn Private Duty Name Role Phone Unavailable Primary Care Provider Unavailabl e Reason for Visit * Reason Comments Refill Request Encounter Details Date Type Department Care Team (Late st Contact Info) Description 07/04/2018 Refill [facility] Orthopedics [address] [phone] Mikie Parr MD [facility] [address] [phone] Refill Request Social History Tobacco Use [...]
--- OUTSIDE RECORDS SUMMARY | 2024-03-10 06:56 | XMS_ITS | Encounter Summary ---
Author Organization [facility] Address [address] [place] [address] Care Team Providers Care Environmental Technology Professor Name Role Phone Unavailable Primary Care Provider Unavailabl e Reason for Visit * Reason Onset Date Comments MEDICATION REFILL 03/02/2017 Encounter Details Date Type Department Care Team (Late st Contact Info) Description 03/02/2017 Refill [facility] [address] [place] [address] Mikie Parr MD [address] [place] [phone] MEDICATION REFILL Social History Tobacco Use Types Packs/Day Years Used Date Smoking Tobacco: Every Day Sex and Gender Information Value Date Recorded Sex Assigned at Not on file Gender Identity Not on file Sexual Orientation Not on file documented as of this encounter Miscellaneous Notes * Telephone Encounter - Ernestine Silva - 03/02/2017 10:59 AM CST Fernie Rees No Known Allergies Requested Prescriptions Pending Prescriptions Disp Refills ??? meloxicam (MOBIC) 15 MG tablet 3 Sig: Take 1 tablet by mouth once daily ??? HYDROcodone-acetaminophen (NORCO) 7.5-325 MG tablet 120 tablet 0 Sig: Take 1 tablet by mouth every 4 hours as needed for Pain Last Refill: 02/03/17 Last OV: unsure Next OV:unsure ESS DESIGN CHEMICAL ENGINEER documented in this encounter Plan of Treatment Not on file documented as of this encounter Visit Diagnoses Diagnosis Chronic pain of both knees documented in this encounter
--- OUTSIDE RECORDS SUMMARY | 2024-03-10 06:56 | XMS_ITS | Encounter Summary ---
Author Organization [facility] Address [address] [place] [address] Care Team Providers Care Beef Breaker Name Role Phone Unavailable Primary Care Provider Unavailabl e Reason for Visit * Reason Onset Date Comments MEDICATION REFILL 02/07/2019 Encounter Details Date Type Department Care Team (Late st Contact Info) Description 02/07/2019 Refill [facility] Medical [facility] [address] [place] [address] Mikie Parr MD [address] [place] [phone] MEDICATION REFILL Social History Tobacco Use Types [...]
--- OUTSIDE RECORDS SUMMARY | 2024-03-10 06:56 | XMS_ITS | Encounter Summary ---
Author Organization [facility] Address [address] [place] [address] Care Team Providers Care Reconciliation Clerk Name Role Phone Unavailable Primary Care Provider Unavailabl e Reason for Visit * Reason Onset Date Comments MEDICATION REFILL 03/02/2019 Encounter Opened In Error 03/02/2019 Encounter Details Date Type Department Care Team (Late st Contact Info) Description 03/02/2019 Refill [facility] [address] [place] [address] Mikie Parr MD [address] [place] [phone] MEDICATION REFILL; Encounter Opened In Error Social History Tobacco Use Types Packs/Day Years Used Date Smoking Tobacco: Every Day Smokeless Tobacco: Never Sex and Gender Information Value Date Recorded Sex Assigned at Not on file Gender Identity Not on file Sexual Orientation Not on file documented as of this encounter Miscellaneous Notes * Telephone Encounter - Jessica Arreaga - 03/02/2019 1:40 PM CST Fernie Rees encounter was opened in error. Please disregard any activity associated with this encounter. RING SHED HAND documented in this encounter Plan of Treatment Not on file documented as of this encounter Visit Diagnoses Diagnosis ERRONEOUS ENCOUNTER--DISREGARD- Primary Chronic pain of both knees documented in this encounter
--- OUTSIDE RECORDS SUMMARY | 2024-03-10 06:56 | XMS_ITS | Encounter Summary ---
Author Organization [facility] Address [address] [place] [address] Care Team Providers Care Scaffold Setter Name Role Phone Unavailable Primary Care Provider Unavailabl e Reason for Visit * Reason Onset Date Comments MEDICATION REFILL 10/30/2018 Encounter Details Date Type Department Care Team (Late st Contact Info) Description 10/30/2018 Refill [facility] [address] [place] [address] Mikie Parr MD [address] [place] [phone] MEDICATION REFILL Social History Tobacco Use Types Packs/Day Years Used Date Smoking Tobacco: Every Day Smokeless Tobacco: Never Sex and Gender Information Value Date Recorded Sex Assigned at Not on file Gender Identity Not on file Sexual Orientation Not on file documented as of this encounter Miscellaneous Notes * Telephone Encounter - Breann Arnold - 10/30/2018 10:29 AM CDT Fernie Rees is in need of His Requested Prescriptions Pending Prescriptions Disp Refills ??? HYDROcodone-acetaminophen (NORCO) 7.5-325 MG tablet 120 tablet 0 Sig: Take 1 tablet by mouth every 4 hours as needed for Pain Person calling for the refill: Self Last office visit 10/04/17 Next Appointment scheduled: Visit date not found Last Refill for this medication 09/29/18 Does patient have any new allergies since [...]
--- OUTSIDE RECORDS SUMMARY | 2024-03-10 06:56 | XMS_ITS | Encounter Summary ---
Author Organization [facility] Address [address] [place] [address] Care Team Providers Care Riffler Tender Name Role Phone Unavailable Primary Care Provider Unavailabl e Reason for Visit * Reason Onset Date Comments MEDICATION REFILL 04/24/2018 Encounter Details Date Type Department Care Team (Late st Contact Info) Description 04/24/2018 Refill [facility] [address] [place] [phone] Mikie Parr MD [address] [place] [phone] MEDICATION REFILL Social History Tobacco Use Types Packs/Day Years Used Date Smoking Tobacco: Every Day Smokeless Tobacco: Never Sex and Gender Information Value Date Recorded Sex Assigned at Not on file Gender Identity Not on file Sexual Orientation Not on file documented as of this encounter Miscellaneous Notes * Telephone Encounter - Samira Velasquez RN - 04/24/2018 4:06 PM CST Called pt and advised him we would only authorize a one week supply in abscense of Dr. Parr. ING HOUSE LABORER * Telephone Encounter - Lalitha Valentino - 04/24/2018 8:54 AM CST Fernie Rees is in need of His Requested Prescriptions Pending Prescriptions Disp Refills ??? HYDROcodone-acetaminophen (NORCO) 7.5-325 MG tablet 90 tablet 0 Sig: Take 1 tablet by mouth every 4 hours as needed for Pain Person calling for the refill: The patient Last office visit 10/04/17 Next Appointment scheduled: Visit date not found Last Refill for this medication 03/23/18 Does patient have any new allergies since last office visit? No Was the pharmacy verified? Yes If this is a controlled substance was the Last 4 of SSN verified? YES (If unable to verify last 4 of SSN transfer to the clinic for further review) ING HOUSE LABORER documented in this encounter Plan of Treatment Not on file documented as of this encounter Visit Diagnoses Not on filedocumented in this encounter
--- OUTSIDE RECORDS SUMMARY | 2024-03-10 06:56 | XMS_ITS | Encounter Summary ---
Author Organization [facility] Address [address] [place] [address] Care Team Providers Care Pest Control Service Representative Name Role Phone Unavailable Primary Care Provider Unavailabl e Reason for Visit * Reason Onset Date Comments MEDICATION REFILL 01/09/2019 Encounter Details Date Type Department Care Team (Late st Contact Info) Description 01/09/2019 Refill [facility] [address] [place] [address] Mikie Parr MD [address] [place] [phone] MEDICATION REFILL Social History Tobacco Use Types [...]
--- OUTSIDE RECORDS SUMMARY | 2024-03-10 06:56 | XMS_ITS | Encounter Summary ---
Author Organization [facility] Address [address] [place] [address] Care Team Providers Care Lye Treater Name Role Phone Unavailable Primary Care Provider Unavailabl e Reason for Visit * Reason Onset Date Comments MEDICATION REFILL 01/23/2018 Encounter Details Date Type Department Care Team (Late st Contact Info) Description 01/23/2018 Refill [facility] [address] [place] [address] Mikie Parr MD [address] [place] [address] 400 [place] [phone] MEDICATION REFILL Social History Tobacco Use Types Packs/Day Years Used Date Smoking Tobacco: Every Day Smokeless Tobacco: Never Sex and Gender Information Value Date Recorded Sex Assigned at Not on file Gender Identity Not on file Sexual Orientation Not on file documented as of this encounter Miscellaneous Notes * Telephone Encounter - Jason Rawlsgaby Camacho - 01/23/2018 10:19 AM CST Fernie Rees is in need of His Requested Prescriptions Pending Prescriptions Disp Refills ??? meloxicam (MOBIC) 15 MG tablet 30 tablet 0 Sig: Take 1 tablet by mouth once daily ??? HYDROcodone-acetaminophen (NORCO) 7.5-325 MG tablet 120 tablet 0 Sig: Take 1 tablet by mouth every 4 hours as needed for Pain Person calling for the refill: Self Last office visit 10/04/17 Next Appointment scheduled: Visit date not found Last Refill for this medication 12/22/17 Does patient have any new allergies since last office visit? No Was the pharmacy verified? Yes If this is a controlled substance was the Last 4 of SSN verified? YES STANT SPEECH LANGUAGE PATHOLOGIST documented in this encounter Plan of Treatment Not on file documented as of this encounter Visit Diagnoses Not on filedocumented in this encounter
--- OUTSIDE RECORDS SUMMARY | 2024-03-10 06:56 | XMS_ITS | Encounter Summary ---
Author Organization [facility] Address [address] [place] [address] Care Team Providers Care Blower Mechanic Name Role Phone Unavailable Primary Care Provider Unavailabl e Reason for Visit * Reason Comments Therapeutic Injection #2 Euflexxa shot Encounter Details Date Type Department Care Team (Latest Contact Info) Description 03/22/2019 11:15 AM CARE NURSE RN Office Visit [facility] [address] [place] [address] Sarthak Holland, TRUCK DRIVER INSTRUCTOR-[address] [address] Primary osteoarthritis of both knees [...] Sign Reading Time Taken Comments Blood Pressure 128/64 03/22/2019 11:16 AM CARE NURSE RN Pulse 79 03/22/2019 11:16 AM CARE NURSE RN Temperature 36.7 ??C (98 ??F) 03/22/2019 11:16 AM CARE NURSE RN Respiratory Rate - - Oxygen Saturation 98% 03/22/2019 11:16 AM CARE NURSE RN Inhaled Oxygen Concentration - - Weight 104.3 kg (230 lb) 03/22/2019 11:16 AM CARE NURSE RN Height 185.4 cm (6' 1 ) 03/22/2019 11:16 AM CARE NURSE RN Body Mass Index 30.34 03/22/2019 11:16 AM CARE NURSE RN documented in this encounter Progress Notes * Sarthak Holland, GIOVANNY-TECHNICAL MANAGER - 03/22/2019 12:23 PM CST Today's Date: 03/22/2019 Patient Name: Fernie Rees Sex: male Date of : 1970 Age: [age] year old Occupation/Company or school: [email or web address] Consulted / Referred By: No ref. provider found PCP: No primary care provider on file. Chief Complaint: Chief Complaint Patient presents with ??? Therapeutic Injection #2 Euflexxa shot Patient comes in today for his 1st and 2nd in a series of 3 Hyaluronan injections. ??? HYDROcodone-acetaminophen (NORCO) 7.5-325 MG tablet ??? HYDROcodone-acetaminophen (NORCO) 7.5-325 MG tablet ??? HYDROcodone-acetaminophen (NORCO) 7.5-325 MG tablet ??? HYDROcodone-acetaminophen (NORCO) 7.5-325 MG tablet ??? meloxicam (MOBIC) 15 MG tablet ??? meloxicam (MOBIC) 15 MG tablet On physical examination today the patient is alert oriented Ox3 in no acute distress. Mood is appropriate. Blood pressure 128/64, pulse 79, temperature 98 ??F (36.7 ??C), height 1.854 m (6' 1 ), weight 104.3 kg (230 lb), SpO2 98 %. ASSESSMENT PLAN: Orders: Orders Placed This Encounter ??? GA DRAIN/INJECT LARGE JOINT/BURSA ??? sodium hyaluronate prefilled [...] with cotton swab. Bandaids applied. Injection # 1st on his right knee and 2nd on his left knee of 3 Injections. Follow up in one week to receive the next joint fluid therapy injection. Ice to the injection site for 5 to 10 minutes tid X 48 hours, then as needed. Pt tolerated procedure well. If symptoms increase prior to the scheduledappointment then the patient should call [phone] to schedule an appointment and see us earlier. Return in about 1 week (around 03/29/2019) for Orthovisc injection. VIRAL Nelson 03/22/2019 NURSE RN documented in this encounter Plan of Treatment [...] mg, Intra-articular, ONCE, 1 dose, On Magalys 03/22/19 at 1215 $ Given 03/22/2019 11:52 AM CARE NURSE RN 20 mg Other see comments documented in this encounter
--- OUTSIDE RECORDS SUMMARY | 2024-03-10 06:56 | XMS_ITS | Encounter Summary ---
Author Organization [facility] Address [address] [place] [address] Care Team Providers Care Home Restoration Service Supervisor Name Role Phone Unavailable Primary Care Provider Unavailabl e Reason for Visit * Reason Onset Date Comments MEDICATION REFILL 03/29/2016 Encounter Details Date Type Department Care Team (Late st Contact Info) Description 03/29/2016 Refill [facility] Medical Group [address] [place] [address] Mikie Parr MD [address] [place] [phone] MEDICATION REFILL Social History Tobacco Use Types Packs/Day Years Used Date Smoking Tobacco: Never Assessed Sex and Gender Information Value Date Recorded Sex Assigned at Not on file Gender Identity Not on file Sexual Orientation Not on file documented as of this encounter Miscellaneous Notes * Telephone Encounter - Vale Mott Y - 03/29/2016 11:19 AM CST Patient is requesting for this script to be mailed to his current address in [facility]. The patient is requesting his previous anti-inflammatory medication as well. No records of this in [facility]. Fernie Rees Allergies not on file Requested Prescriptions Pending Prescriptions Disp Refills ??? HYDROcodone-acetaminophen (NORCO) 7.5-325 MG tablet 90 Tab 0 Sig: Take 1 Tab by mouth every 4 hours as needed for Pain Last Refill: 03/03/2016 Last OV: Patient's records are not showing Next OV: None NG CREW FOREMAN documented in this encounter Plan of Treatment Not on file documented as of this encounter Visit Diagnoses Not on filedocumented in this encounter
--- OUTSIDE RECORDS SUMMARY | 2024-03-10 06:56 | XMS_ITS | Encounter Summary ---
Author Organization [facility] Address [address] [place] [address] Care Team Providers Care Breaker Oiler Name Role Phone Unavailable Primary Care Provider Unavailabl e Reason for Visit * Reason Comments Pain Knee bilateral Encounter Details Date Type Department Care Team (Late st Contact Info) Description 06/11/2016 8:20 AM CDT Office Visit [facility] Orth[facility] [address] [facility] [address] [place] [phone] Mikie Parr MD [address] [place] [phone] Chronic pain of both knees (Primary Dx) Social History Tobacco Use Types Packs/Day Years Used Date Smoking Tobacco: Every Day Sex and Gender Information Value Date Recorded Sex Assigned at Not on file Gender Identity Not on file Sexual Orientation Not on file documented as of this encounter Last Filed Vital Signs Vital Sign Reading Time Taken Comments Blood Pressure - - Pulse 79 06/11/2016 8:34 AM CDT Temperature - - Respiratory Rate - - Oxygen Saturation - - Inhaled Oxygen Concentration - - Weight 104.3 kg (230 lb) 06/11/2016 8:34 AM CDT Height 185.4 cm (6' 1 ) 06/11/2016 8:34 AM CDT Body Mass Index 30.34 06/11/2016 8:34 AM CDT documented in this encounter Progress Notes * Mikie Parr MD - 06/13/2016 6:02 PM CDT Patients Name:Fernie Rees Today's date: 06/13/2016 Date of Service: 06/11/2016 Subjective: Patient is a pleasant 46-year-old man who comes in with complaint of bilateral knee pain. 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 Specifically he has had 2 take 100 lb pain versus and walker couple us flights of steps with thumbduring the course of his employment. He had to do this for couple weeks and thereafter he noted that his knees on both left and right side were bothering him considerably. He did take some Naprosyn for this which helped but once he went back to work the next day his knees again began to bother him.He states that the particularly cause problems when he went up and down stairs with these concrete pavers and this is cause considerable pain for him. He denies any locking or giving way in the kneesand states he has had little swelling. He denies any previous knee injuries or significant knee problems. PMH and PFSH: The patient???s medications, medication allergies, Past Medical and Surgical History,pertinent Family History, Social History and ten point Review of Systems was reviewed by me with the patient per the registration sheet dated today.?? It was then signed today and scanned into the electronic record. Patient Active Problem List Diagnosis Date Noted ??? Chronic pain of both knees 06/13/2016 Priority: Not Prioritized No past medical history on file. No past surgical history on file. (Not in a hospital admission) No Known Allergies History Substance Use Topics ??? Smoking status: Current Every Day Smoker ??? Smokeless tobacco: Not on file ??? Alcohol use: Not on file No family history on file. Objective: PHYSICAL EXAM: CONSTITUTIONAL: The pt's vital signs were taken by my dental assistant medical assistant, recorded in the chart and reviewed by me. The pt's body habitus is mildly obese. The pt otherwise appears well-developed, well-nourished and is A+Ox3 NAD PSYCHIATRIC: The patient is alert and oriented to person, place, date and situation. The patient has normal affect. GAIT AND STATION: Normal without gait assistive devices. EYES: PERRL; EOM intact HEENT: Hearing normal to voice, oropharynx: good. ABDOMEN: non tender to palpitation, normal bowel sounds LEFT KNEE: Skin color, texture, turgor normal. No rashes or lesions. neutral Deformity. No effusion. Tenderness to palpation over the entire joint line. Active Range of Motion: Extension 0, Flexion 130. positive crepitation of patellofemoral joint with flexion/extension. Strength: 5/5 quadriceps. 5/5 Hamstrings. Good ligamentous stability is noted. RIGHT KNEE: Skin color, texture, turgor normal. No rashes or lesions. neutral Deformity. No effusion. Tenderness to palpation over the entire joint line. Active Range of Motion: Extension 0, Flexion 130. positive crepitation of patellofemoral joint with flexion/extension. Strength: 5/5 quadriceps. 5/5 Hamstrings. Good ligamentous stability is noted. CALVES/LYMPHATIC: Negative Aurelia's sign. No cords or calf tenderness. NEURO: Reflexes: normal CARDIOVASCULAR: swelling: none. Symmetric distal pulses Imaging Review Standing AP, lateral and sunrise views were taken of both knees today. On the right knee he does not show any evidence of significant degenerative or traumatic changes. On the left knee he does not show any evidence of significant degenerative or traumatic changes. Assessment: I think this bandage just had severe over use high load to the knee with resultant pain. This may represent very early arthrotomy was marked and a overload to the knees. Recommended nonsteroidal anti-inflammatories. Also gave him a prescription for pain medication to help him sleep at night. I haveasked him to see me back if not improved in 4-6 weeks. 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 I will therefore see him back in 4-6 weeks otherwise I will see him back p.r.n. Patient is a 46 y.o. 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 Plan: documented in this encounter Procedure Notes * Cass Wolf - 06/11/2016 8:52 AM CDTAssociated Order(s): XR KNEE BILAT 3 VIEWS SEE PROGRESS NOTES FOR RESULTS documented in this encounter Plan of Treatment Not on file documented as of this encounter Procedures Procedure Name Priority Date/Time Associated Diagnosis Comments XR KNEE BILAT 3VW Routine 06/11/2016 8:4 3 AM CDT Chronic pain of both knees documented in this encounter Results * XR KNEE BILAT 3 VIEWS (06/11/2016 8:43 AM CDT) Anatomical Region Laterality Modality Lower Extremity Radiographic Kristen ging Narrative 06/13/2016 6:10 PM CDT Day, Cass E ? 06/13/2016 ??6:10 PM SEE PROGRESS NOTES FOR RESULTS Mikie Parr MD DIAGNOSTIC IMAGING O RONN documented in this encounter Visit Diagnoses Diagnosis Chronic pain of both knees- Primary documented in this encounter
--- OUTSIDE RECORDS SUMMARY | 2024-03-10 06:56 | XMS_ITS | Encounter Summary ---
Author Organization [facility] Address [address] [place] [address] Care Team Providers Care J2Ee Programmer Name Role Phone Unavailable Primary Care Provider Unavailabl e Reason for Visit * Reason Comments Refill Request Encounter Details Date Type Department Care Team (Late st Contact Info) Description 10/05/2016 Refill [facility] Medical Group [address] [place] [address] Mikie Parr MD [address] [place] [phone] Refill Request Social History Tobacco Use [...]
--- OUTSIDE RECORDS SUMMARY | 2024-03-10 06:56 | XMS_ITS | Encounter Summary ---
Author Organization [facility] Address [address] [facility] [place] [address] Care Team Providers Care Electroencephalograph Technologist Name Role Phone Unavailable Primary Care Provider Unavailabl e Reason for Visit * Reason Onset Date Comments MEDICATION REFILL 10/25/2017 Encounter Details Date Type Department Care Team (Late st Contact Info) Description 10/25/2017 Refill [facility] Orthoped[facility] [address] [facility] [address] [place] [phone] Mikie Parr MD [address] [place] [phone] MEDICATION REFILL Social History Tobacco Use Types Packs/Day Years Used Date Smoking Tobacco: Every Day Smokeless Tobacco: Never Sex and Gender Information Value Date Recorded Sex Assigned at Not on file Gender Identity Not on file Sexual Orientation Not on file documented as of this encounter Miscellaneous Notes * Telephone Encounter - Princess Efrem - 10/25/2017 11:04 AM CDT Fernie Rees is in need of His Requested Prescriptions Pending Prescriptions Disp Refills ??? HYDROcodone-acetaminophen (NORCO) 7.5-325 MG tablet 120 tablet 0 Sig: Take 1 tablet by mouth every 4 hours as needed for Pain Person calling for the refill: patient Last office visit 10/04/17 Next Appointment scheduled: Visit date not found Last Refill for this medication 09/23/17 Does patient have any new allergies since [...]
--- OUTSIDE RECORDS SUMMARY | 2024-03-10 06:56 | XMS_ITS | Encounter Summary ---
Author Organization [facility] Address [address] [place] [address] Care Team Providers Care Wastewater Engineer Name Role Phone Unavailable Primary Care Provider Unavailabl e Reason for Visit * Reason Onset Date Comments MEDICATION REFILL 01/08/2019 Encounter Details Date Type Department Care Team (Late st Contact Info) Description 01/08/2019 Refill [facility] [address] [place] [phone] Mikie Parr MD [address] [place] [address] [address] [place] [phone] MEDICATION REFILL Social History Tobacco Use Types Packs/Day Years Used Date Smoking Tobacco: Every Day Smokeless Tobacco: Never Sex and Gender Information Value Date Recorded Sex Assigned at Not on file Gender Identity Not on file Sexual Orientation Not on file documented as of this encounter Miscellaneous Notes * Telephone Encounter - Mariela Mejia Atif - 01/08/2019 11:43 AM CDT Fernie Rees is in need of His Requested Prescriptions Pending Prescriptions Disp Refills ??? HYDROcodone-acetaminophen (NORCO) 7.5-325 MG tablet 120 tablet 0 Sig: Take 1 tablet by mouth every 4 hours as needed for Pain Person calling for the refill: self Last office visit 01/04/19 Next Appointment scheduled: Visit date not found Last Refill for this medication 12/29/18 Does patient have any new allergies since [...]
--- OUTSIDE RECORDS SUMMARY | 2024-03-10 06:56 | XMS_ITS | Encounter Summary ---
Author Organization [facility] Address [address] [facility] [place] [address] Care Team Providers Care Historical Records Administrator Name Role Phone Unavailable Primary Care Provider Unavailabl e Reason for Visit * Reason Onset Date Comments MEDICATION REFILL 11/29/2018 Encounter Details Date Type Department Care Team (Late st Contact Info) Description 11/29/2018 Refill [facility] Medical Group [address] [place] [phone] Mikie Parr MD [address] [place] [phone] MEDICATION REFILL Social History Tobacco Use Types Packs/Day Years Used Date Smoking Tobacco: Every Day Smokeless Tobacco: Never Sex and Gender Information Value Date Recorded Sex Assigned at Not on file Gender Identity Not on file Sexual Orientation Not on file documented as of this encounter Miscellaneous Notes * Telephone Encounter - Breann Arnold - 11/29/2018 9:35 AM CDT Fernie Rees is in need of His Requested Prescriptions No prescriptions requested or ordered in this encounter Person calling for the refill: Self Last office visit 10/04/18 Next Appointment scheduled: Visit date not found Last Refill for this medication 10/31/18 Does patient have any new allergies since [...]
--- OUTSIDE RECORDS SUMMARY | 2024-03-10 06:56 | XMS_ITS | Encounter Summary ---
Author Organization [facility] Address [address] [facility] [address] [address] Care Team Providers Care Refrigerating Oiler Name Role Phone Unavailable Primary Care Provider Unavailabl e Reason for Visit * Reason Onset Date Comments MEDICATION REFILL 11/02/2016 Encounter Details Date Type Department Care Team (Late st Contact Info) Description 11/02/2016 Refill [facility] Medical Group [address] [place] [phone] Mikie Parr MD [address] [place] [phone] MEDICATION REFILL Social History Tobacco Use Types [...]
--- OUTSIDE RECORDS SUMMARY | 2024-03-10 06:56 | XMS_ITS | Encounter Summary ---
Author Organization [facility] Address [address] [facility] [place] [address] Care Team Providers Care Rheumatologist Name Role Phone Unavailable Primary Care Provider Unavailabl e Reason for Visit * Reason Onset Date Comments MEDICATION REFILL 02/07/2019 Encounter Details Date Type Department Care Team (Late st Contact Info) Description 02/07/2019 Refill [facility] Medical Group [address] [place] [address] Mikie Parr MD [address] [place] [phone] MEDICATION REFILL Social History Tobacco Use Types Packs/Day Years Used Date Smoking Tobacco: Every Day Smokeless Tobacco: Never Sex and Gender Information Value Date Recorded Sex Assigned at Not on file Gender Identity Not on file Sexual Orientation Not on file documented as of this encounter Miscellaneous Notes * Telephone Encounter - BraydenManuelachuck Camacho - 02/07/2019 2:49 PM CST Fernie Rees is in need of His Requested Prescriptions Pending Prescriptions Disp Refills ??? HYDROcodone-acetaminophen (NORCO) 7.5-325 MG tablet 30 tablet 0 Sig: Take 1 tablet by mouth every 8 hours as needed for Pain Person calling for the refill: Fernie Last office visit 01-04-2019 Next Appointment scheduled: Visit date not found Last Refill for this medication 01-09-2019 Does patient have any new allergies since last office visit? No Was the pharmacy verified? Yes If this is a controlled substance was the Last 4 of SSN verified? YES---[id number] Patient states has enough medication for today and tomorrow. 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
--- OUTSIDE RECORDS SUMMARY | 2024-03-10 06:56 | XMS_ITS | Encounter Summary ---
Author Organization [facility] Address [address] [place] [address] Care Team Providers Care Worm Farm Laborer Name Role Phone Unavailable Primary Care Provider Unavailabl e Reason for Visit * Reason Onset Date Comments MEDICATION REFILL 03/23/2018 Encounter Details Date Type Department Care Team (Late st Contact Info) Description 03/23/2018 Refill [facility] Medical Group [address] [place] [phone] Mikie Parr MD [address] [place] [phone] MEDICATION REFILL Social History Tobacco Use Types Packs/Day Years Used Date Smoking Tobacco: Every Day Smokeless Tobacco: Never Sex and Gender Information Value Date Recorded Sex Assigned at Not on file Gender Identity Not on file Sexual Orientation Not on file documented as of this encounter Miscellaneous Notes * Telephone Encounter - Yann Amaya - 03/23/2018 11:16 AM CST Fernie Rees is in need of His Requested Prescriptions Pending Prescriptions Disp Refills ??? HYDROcodone-acetaminophen (NORCO) 7.5-325 MG tablet 90 tablet 0 Sig: Take 1 tablet by mouth every 4 hours as needed for Pain Person calling for the refill: SELF Last office visit 10/04/17 Next Appointment scheduled: Visit date not found Last Refill for this medication 02/22/18 Does patient have any new allergies since last office visit? No Was the pharmacy verified? Yes If this is a controlled substance was the Last 4 of SSN verified? YES (If unable to verify last 4 of SSN transfer to the clinic for further review) D ADMINISTRATOR documented in this encounter Plan of Treatment Not on file documented as of this encounter Visit Diagnoses Not on filedocumented in this encounter
--- OUTSIDE RECORDS SUMMARY | 2024-03-10 06:56 | XMS_ITS | Encounter Summary ---
Author Organization [facility] Address [address] [facility] [place] [address] Care Team Providers Care Delivery Director Name Role Phone Unavailable Primary Care Provider Unavailabl e Reason for Visit * Reason Onset Date Comments MEDICATION REFILL 01/31/2017 Encounter Details Date Type Department Care Team (Late st Contact Info) Description 01/31/2017 Refill [facility] Medical Group [address] [place] [address] Mikie Parr MD [address] [place] [phone] MEDICATION REFILL Social History Tobacco Use Types [...]
--- OUTSIDE RECORDS SUMMARY | 2024-03-10 06:56 | XMS_ITS | Encounter Summary ---
Author Organization [facility] Address [address] [place] [address] Care Team Providers Care Baller Tender Name Role Phone Unavailable Primary Care Provider Unavailabl e Reason for Visit * Reason Onset Date Comments MEDICATION REFILL 06/30/2017 Encounter Details Date Type Department Care Team (Late st Contact Info) Description 06/30/2017 Refill [facility] Medical Group [address] [place] [phone] Mikie Parr MD [address] [place] [phone] MEDICATION REFILL Social History Tobacco Use Types Packs/Day Years Used Date Smoking Tobacco: Every Day Sex and Gender Information Value Date Recorded Sex Assigned at Not on file Gender Identity Not on file Sexual Orientation Not on file documented as of this encounter Miscellaneous Notes * Telephone Encounter - Porsche Campoverde - 06/30/2017 12:23 PM CDT Fernie Rees is in need of His Requested Prescriptions Pending Prescriptions Disp Refills ??? HYDROcodone-acetaminophen (NORCO) 7.5-325 MG tablet 90 tablet 0 Sig: Take 1 tablet by mouth every 4 hours as needed for Pain Person calling for the refill: patient Last office visit 06/11/16 Next Appointment scheduled: Visit date not found Last Refill for this medication 06/01/17 Does patient have any new allergies since [...]
--- OUTSIDE RECORDS SUMMARY | 2024-03-10 06:56 | XMS_ITS | Encounter Summary ---
Author Organization [facility] Address [address] [place] [address] Care Team Providers Care Atm Mechanic Name Role Phone Unavailable Primary Care Provider Unavailabl e Reason for Visit * Reason Onset Date Comments MEDICATION REFILL 12/14/2018 Encounter Details Date Type Department Care Team (Late st Contact Info) Description 12/14/2018 Refill [facility] Medical Group [address] [place] [address] Mikie Parr MD [address] [place] [address] [address] [place] [phone] MEDICATION REFILL Social History Tobacco Use Types Packs/Day Years Used Date Smoking Tobacco: Every Day Smokeless Tobacco: Never Sex and Gender Information Value Date Recorded Sex Assigned at Not on file Gender Identity Not on file Sexual Orientation Not on file documented as of this encounter Miscellaneous Notes * Telephone Encounter - Brayden Manasa Camacho - 12/14/2018 3:31 PM CDT Fernie Rees is in need of His Requested Prescriptions Pending Prescriptions Disp Refills ??? meloxicam (MOBIC) 15 MG tablet 30 tablet 0 Sig: Take 1 tablet by mouth once daily ??? HYDROcodone-acetaminophen (NORCO) 7.5-325 MG tablet 42 tablet 0 Sig: Take 1 tablet by mouth every 4 hours as needed for Pain Person calling for the refill: Fernie Last office visit 10-04-2018 Next Appointment scheduled: Visit date not found Last Refill for this medication 07-04-2018---meloxical & 11-30-2018 hydrocodone Does patient have any new allergies since last office visit? No Was the pharmacy verified? Yes If this is a controlled substance was the Last 4 of SSN verified? YES-----[id number] documented in this encounter Plan of Treatment Not on file documented as of this encounter Visit Diagnoses Not on filedocumented in this encounter
--- OUTSIDE RECORDS SUMMARY | 2024-03-10 06:56 | XMS_ITS | Encounter Summary ---
Author Organization [facility] Address [address] [place] [address] Care Team Providers Care Patient Account Representative Name Role Phone Unavailable Primary Care Provider Unavailabl e Reason for Visit * Reason Onset Date Comments MEDICATION REFILL 08/02/2018 Encounter Details Date Type Department Care Team (Late st Contact Info) Description 08/02/2018 Refill [facility] Medical [facility] [address] [place] [address] Mikie Parr MD [address] [place] [phone] MEDICATION REFILL Social History Tobacco Use Types Packs/Day Years Used Date Smoking Tobacco: Every Day Smokeless Tobacco: Never Sex and Gender Information Value Date Recorded Sex Assigned at Not on file Gender Identity Not on file Sexual Orientation Not on file documented as of this encounter Miscellaneous Notes * Telephone Encounter - Nya Obregonamy Kirkland - 08/02/2018 9:07 AM CDT Fernie Rees is in need of His Requested Prescriptions Pending Prescriptions Disp Refills ??? HYDROcodone-acetaminophen (NORCO) 7.5-325 MG tablet 42 tablet 0 Sig: Take 1 tablet by mouth every 4 hours as needed for Pain Person calling for the refill: self Last office visit 10/04/17 Next Appointment scheduled: Visit date not found Last Refill for this medication 07/04/18 Does patient have any new allergies since [...]
--- OUTSIDE RECORDS SUMMARY | 2024-03-10 06:56 | XMS_ITS | Encounter Summary ---
Author Organization [facility] Address [address] [place] [address] Care Team Providers Care Radiology Technician Name Role Phone Unavailable Primary Care Provider Unavailabl e Reason for Visit * Reason Onset Date Comments MEDICATION REFILL 02/07/2019 Encounter Details Date Type Department Care Team (Late st Contact Info) Description 02/07/2019 Refill [facility] Medical Group [address] [place] [address] Mikie Parr MD [address] [place] [phone] MEDICATION REFILL Social History Tobacco Use Types [...]
--- OUTSIDE RECORDS SUMMARY | 2024-03-10 06:56 | XMS_ITS | Encounter Summary ---
Author Organization [facility] Address [address] [place] [address] Care Team Providers Care Steam Trap Worker Name Role Phone Unavailable Primary Care Provider Unavailabl e Reason for Visit * Reason Onset Date Comments MEDICATION REFILL 09/29/2018 Encounter Details Date Type Department Care Team (Late st Contact Info) Description 09/29/2018 Refill [facility] Medical Group [address] [place] [phone] Mikie Parr MD [address] [place] [phone] MEDICATION REFILL Social History Tobacco Use Types Packs/Day Years Used Date Smoking Tobacco: Every Day Smokeless Tobacco: Never Sex and Gender Information Value Date Recorded Sex Assigned at Not on file Gender Identity Not on file Sexual Orientation Not on file documented as of this encounter Miscellaneous Notes * Telephone Encounter - Breann Arnold - 09/29/2018 8:05 AM CDT Fernie Rees is in need of His Requested Prescriptions Pending Prescriptions Disp Refills ??? HYDROcodone-acetaminophen (NORCO) 7.5-325 MG tablet 120 tablet 0 Sig: Take 1 tablet by mouth every 4 hours as needed for Pain Person calling for the refill: Self Last office visit 10/04/17 Next Appointment scheduled: Visit date not found Last Refill for this medication 09/01/18 Does patient have any new allergies since [...]
--- OUTSIDE RECORDS SUMMARY | 2024-03-10 06:56 | XMS_ITS | Encounter Summary ---
Author Organization [facility] Address [address] [place] [address] Care Team Providers Care Assembler Handbags Name Role Phone Unavailable Primary Care Provider Unavailabl e Reason for Visit * Reason Onset Date Comments MEDICATION REFILL 06/01/2017 Encounter Details Date Type Department Care Team (Late st Contact Info) Description 06/01/2017 Refill [facility] [address] [place] [address] Mikie Parr MD [address] [place] [address] [phone] MEDICATION REFILL Social History Tobacco Use Types Packs/Day Years Used Date Smoking Tobacco: Every Day Sex and Gender Information Value Date Recorded Sex Assigned at Not on file Gender Identity Not on file Sexual Orientation Not on file documented as of this encounter Miscellaneous Notes * Telephone Encounter - Li Benavides - 06/01/2017 1:00 PM CDT Fernie Rees is in need of HIS Requested Prescriptions No prescriptions requested or ordered in this encounter Person calling for the refill: self Last office visit 06/11/16 Next Appointment scheduled: Visit date not found Last Refill for this medication 05/03/17 Does patient have any new allergies since last office visit? NO Was the pharmacy verified? yes If this is a controlled substance was the Last 4 of SSN verified? NO (If unable to verify last 4 of SSN transfer to the clinic for further review) documented in this encounter Plan of Treatment Not on file documented as of this encounter Visit Diagnoses Diagnosis Chronic pain of both knees documented in this encounter
--- OUTSIDE RECORDS SUMMARY | 2024-03-10 06:56 | XMS_ITS | Encounter Summary ---
Author Organization [facility] Address [address] [facility] [place] [address] Care Team Providers Care It Admin Name Role Phone Unavailable Primary Care Provider Unavailabl e Reason for Visit * Reason Onset Date Comments MEDICATION REFILL 12/01/2016 Encounter Details Date Type Department Care Team (Late st Contact Info) Description 12/01/[address] [facility] [address] [place] [address] Mikie Parr MD [address] [place] [address] [phone] MEDICATION REFILL Social History Tobacco Use Types Packs/Day Years Used Date Smoking Tobacco: Every Day Sex and Gender Information Value Date Recorded Sex Assigned at Not on file Gender Identity Not on file Sexual Orientation Not on file documented as of this encounter Miscellaneous Notes * Telephone Encounter - Yann Amaya - 12/01/2016 12:12 PM CDT Fernie Rees No Known Allergies Requested Prescriptions Pending Prescriptions Disp Refills ??? HYDROcodone-acetaminophen (NORCO) 7.5-325 MG tablet 90 Tab 0 Sig: Take 1 Tab by mouth every 4 hours as needed for Pain Last Refill: 11/02/16 Last OV: 06/11/16 Next OV:na documented in this encounter Plan of Treatment Not on file documented as of this encounter Visit Diagnoses Not on filedocumented in this encounter
--- OUTSIDE RECORDS SUMMARY | 2024-03-10 06:56 | XMS_ITS | Encounter Summary ---
Author Organization [facility] Address [address] [facility] [place] [address] Care Team Providers Care Geospatial Analyst Name Role Phone Unavailable Primary Care Provider Unavailabl e Reason for Visit * Reason Onset Date Comments MEDICATION REFILL 05/17/2016 MEDICATION REFILL 11/12/2019 Encounter Details Date Type Department Care Team (Late st Contact Info) Description 05/17/2016 Refill [facility] [address] [place] [address] Mikie Parr MD [address] [place] [phone] MEDICATION REFILL; MEDICATION REFILL Social History Tobacco Use Types Packs/Day Years Used Date Smoking Tobacco: Never Assessed Sex and Gender Information Value Date Recorded Sex Assigned at Not on file Gender Identity Not on file Sexual Orientation Not on file documented as of this encounter Miscellaneous Notes * Telephone Encounter - Dionna Waller - 05/17/2016 8:31 AM CST Fernie Rees Allergies not on file Requested Prescriptions Pending Prescriptions Disp Refills ??? HYDROcodone-acetaminophen (NORCO) 7.5-325 MG tablet 90 Tab 0 Sig: Take 1 Tab by mouth every 4 hours as needed for Pain Last Refill: 03/30/16 Last OV: Next OV: UNTING ASSISTANT documented in this encounter Plan of Treatment Not on file documented as of this encounter Visit Diagnoses Not on filedocumented in this encounter
--- OUTSIDE RECORDS SUMMARY | 2024-03-10 06:56 | XMS_ITS | Encounter Summary ---
Author Organization [facility] Address [address] [place] [address] Care Team Providers Care Microstrategy Architect Name Role Phone Unavailable Primary Care Provider Unavailabl e Reason for Visit * Reason Onset Date Comments MEDICATION REFILL 08/05/2016 Encounter Details Date Type Department Care Team (Late st Contact Info) Description 08/05/2016 Refill [facility] [address] [address] Mikie Parr MD [address] [place] [address] [address] [place] [phone] MEDICATION REFILL Social History Tobacco Use Types Packs/Day Years Used Date Smoking Tobacco: Every Day Sex and Gender Information Value Date Recorded Sex Assigned at Not on file Gender Identity Not on file Sexual Orientation Not on file documented as of this encounter Miscellaneous Notes * Telephone Encounter - Li Benavides - 08/05/2016 3:46 PM CDT Fernie Cabrera No Known Allergies Requested Prescriptions No prescriptions requested or ordered in this encounter Last Refill: 07/07/16 Last OV: 06/13/16 Next OV: documented in this encounter Plan of Treatment Not on file documented as of this encounter Visit Diagnoses Not on filedocumented in this encounter
--- OUTSIDE RECORDS SUMMARY | 2024-03-10 06:56 | XMS_ITS | Encounter Summary ---
Author Organization [facility] Address [address] [place] [address] Care Team Providers Care Chief Nuclear Medicine Technologist Name Role Phone Unavailable Primary Care Provider Unavailabl e Reason for Visit * Reason Onset Date Comments MEDICATION REFILL 09/23/2017 Encounter Details Date Type Department Care Team (Late st Contact Info) Description 09/23/2017 Refill [facility] [address] [place] [address] Mikie Parr MD [address] [place] [address] [phone] MEDICATION REFILL Social History Tobacco Use Types Packs/Day Years Used Date Smoking Tobacco: Every Day Sex and Gender Information Value Date Recorded Sex Assigned at Not on file Gender Identity Not on file Sexual Orientation Not on file documented as of this encounter Miscellaneous Notes * Telephone Encounter - Lalitha Valentino - 09/23/2017 9:19 AM CDT Fernie Rees is in need of His Requested Prescriptions Pending Prescriptions Disp Refills ??? HYDROcodone-acetaminophen (NORCO) 7.5-325 MG tablet 120 tablet 0 Sig: Take 1 tablet by mouth every 4 hours as needed for Pain Person calling for the refill:The patient Last office visit 06/11/16 Next Appointment scheduled: Visit date not found Last Refill for this medication 08/26/17 Does patient have any new allergies since [...]
--- OUTSIDE RECORDS SUMMARY | 2024-03-10 06:56 | XMS_ITS | Encounter Summary ---
Author Organization [facility] Address [address] [place] [address] Care Team Providers Care Shell Sieve Operator Name Role Phone Unavailable Primary Care Provider Unavailabl e Reason for Visit * Reason Comments Refill Request Encounter Details Date Type Department Care Team (Late st Contact Info) Description 01/04/2017 Refill [facility] [address] [place] [address] Mikie Parr MD [address] [place] [phone] Refill Request Social History Tobacco Use [...]
--- OUTSIDE RECORDS SUMMARY | 2024-03-10 06:56 | XMS_ITS | Encounter Summary ---
Author Organization [facility] Address [address] [facility] [place] [address] Care Team Providers Care Supervisor Fish Processing Name Role Phone Unavailable Primary Care Provider Unavailabl e Reason for Visit * Reason Onset Date Comments MEDICATION REFILL 07/03/2018 Encounter Details Date Type Department Care Team (Late st Contact Info) Description 07/03/2018 Refill [facility] [address] [facility] [address] [place] [phone] Mikie Parr MD [address] [place] [phone] MEDICATION REFILL Social History Tobacco Use Types Packs/Day Years Used Date Smoking Tobacco: Every Day Smokeless Tobacco: Never Sex and Gender Information Value Date Recorded Sex Assigned at Not on file Gender Identity Not on file Sexual Orientation Not on file documented as of this encounter Miscellaneous Notes * Telephone Encounter - Mariela Mejia - 07/03/2018 8:27 AM CDT Fernie Rees is in need of His Requested Prescriptions Pending Prescriptions Disp Refills ??? HYDROcodone-acetaminophen (NORCO) 7.5-325 MG tablet 120 tablet 0 Sig: Take 1 tablet by mouth every 4 hours as needed for Pain ??? meloxicam (MOBIC) 15 MG tablet 30 tablet 1 Sig: Take 1 tablet by mouth once daily Person calling for the refill: self Last office visit 10/04/17 Next Appointment scheduled: Visit date not found Last Refill for this medication 05/30/18 Does patient have any new allergies since [...]
--- OUTSIDE RECORDS SUMMARY | 2024-03-10 06:56 | XMS_ITS | Encounter Summary ---
Author Organization [facility] Address [address] [facility] [place] [address] Care Team Providers Care Palm Gatherer Name Role Phone Unavailable Primary Care Provider Unavailabl e Reason for Visit * Reason Comments Therapeutic Injection #1 Euflexxa bilate ral knee inj. Encounter Details Date Type Department Care Team (Latest Contact Info) Description 03/15/2019 1:30 PM SUPERVISOR RESEARCH SHOP Office Visit [facility] Medical [address] [address] Sarthak Holland APRN-[address] [address] Primary osteoarthritis of left knee (Primary Dx) Social History Tobacco Use Types Packs/Day Years Used Date Smoking Tobacco: Every Day Smokeless Tobacco: Never Sex and Gender Information Value Date Recorded Sex Assigned at Not on file Gender Identity Not on file Sexual Orientation Not on file documented as of this encounter Last Filed Vital Signs Vital Sign Reading Time Taken Comments Blood Pressure 132/76 03/15/2019 1:31 PM SUPERVISOR RESEARCH SHOP Pulse 88 03/15/2019 1:31 PM SUPERVISOR RESEARCH SHOP Temperature 36.8 ??C (98.2 ??F) 03/15/2019 1:31 PM CS T Respiratory Rate - - Oxygen Saturation 99% 03/15/2019 1:31 PM SUPERVISOR RESEARCH SHOP Inhaled Oxygen Concentration - - Weight 104.3 kg (230 lb) 03/15/2019 1:31 PM SUPERVISOR RESEARCH SHOP Height 185.4 cm (6' 1 ) 03/15/2019 1:31 PM SUPERVISOR RESEARCH SHOP Body Mass Index 30.34 03/15/2019 1:31 PM SUPERVISOR RESEARCH SHOP documented in this encounter Progress Notes * Sarthak Holland, GIOVANNY-CRATE BUILDER - 03/15/2019 1:39 PM CST Today's Date: 03/15/2019 Patient Name: Fernie Rees Sex: male Date of : 1970 Age: [age] year old Occupation/Company or school: [employer] Consulted / Referred By: No ref. provider found PCP: No primary care provider on file. Chief Complaint: Chief Complaint Patient presents with ??? Therapeutic Injection #1 Euflexxa bilateral knee inj. Patient comes in today for his 1 in a series of 3 Hyaluronan injections. ??? HYDROcodone-acetaminophen (NORCO) 7.5-325 MG tablet ??? HYDROcodone-acetaminophen (NORCO) 7.5-325 MG tablet ??? HYDROcodone-acetaminophen (NORCO) 7.5-325 MG tablet ??? HYDROcodone-acetaminophen (NORCO) 7.5-325 MG tablet ??? meloxicam (MOBIC) 15 MG tablet ??? meloxicam (MOBIC) 15 MG tablet On physical examination today the patient is alert oriented Ox3 in no acute distress. Mood is appropriate. Blood pressure 132/76, pulse 88, temperature 98.2 ??F (36.8 ??C), height 1.854 m (6' 1 ), weight 104.3 kg (230 lb), SpO2 99 %. ASSESSMENT PLAN: Orders: Orders Placed This Encounter ??? AR DRAIN/INJECT LARGE JOINT/BURSA ??? sodium hyaluronate prefilled syringe SOSY 20 mg Encounter Diagnosis Name Primary? Primary osteoarthritis of left knee Yes After discussing the treatment options with the patient, we elected to proceed with Procedure : an injection to the Inferior lateral aspect of Left knee . The Left was cleansed with Betadine and an alcohol swab. A well localized intra- articular injectionwas given with Hyaluronan using an inferior lateral approach. The Knee cleansed with alcohol swab, dried with cotton swab. Bandaids applied. Injection #1 of 3 Injections. Follow up in one week to receive the next joint fluid therapy injection. Ice to the injection site for 5 to 10 minutes tid X 48 hours, then as needed. Pt tolerated procedure well. If symptoms increase prior to the scheduled appointment then the patient should call [phone] to schedule an appointment and see us earlier. Return in about 1 week (around 03/22/2019) for Orthovisc injection. VIRAL Nelson 03/15/2019 RVISOR RESEARCH SHOP documented in this encounter Plan of Treatment Not on file documented as of this encounter Visit Diagnoses Diagnosis Primary osteoarthritis of left knee- Primary Primary localized osteoarthrosis, lower leg documented in this encounter Administered Medications Inactive Administered Medications - up to 3 most recent administrations Medication Order MAR Action Action Date Dose Rate Site sodium hyaluronate prefilled syringe SOSY 20 mg 20 mg, Intra-articular, ONCE, 1 dose, On Magalys 03/15/19 at 1430 $ Given 03/15/2019 2:05 PM SUPERVISOR RESEARCH SHOP 20 mg Left Knee documented in this encounter
--- OUTSIDE RECORDS SUMMARY | 2024-03-10 06:56 | XMS_ITS | Encounter Summary ---
Author Organization [facility] Address [address] [place] [address] Care Team Providers Care Medical Records Clerk Name Role Phone Unavailable Primary Care Provider Unavailabl e Reason for Visit * Reason Onset Date Comments MEDICATION REFILL 05/29/2018 Encounter Details Date Type Department Care Team (Late st Contact Info) Description 05/29/2018 Refill [facility] [address] [place] [address] Mikie Parr MD [address] [place] [phone] MEDICATION REFILL Social History Tobacco Use Types Packs/Day Years Used Date Smoking Tobacco: Every Day Smokeless Tobacco: Never Sex and Gender Information Value Date Recorded Sex Assigned at Not on file Gender Identity Not on file Sexual Orientation Not on file documented as of this encounter Miscellaneous Notes * Telephone Encounter - Terrie Marrufo - 05/29/2018 8:13 AM CDT Fernie Rees is in need of His Requested Prescriptions Pending Prescriptions Disp Refills ??? HYDROcodone-acetaminophen (NORCO) 7.5-325 MG tablet 120 tablet 0 Sig: Take 1 tablet by mouth every 4 hours as needed for Pain ??? meloxicam (MOBIC) 15 MG tablet 30 tablet 0 Sig: Take 1 tablet by mouth once daily Person calling for the refill: self Last office visit 7.24.18 Next Appointment scheduled: Visit date not found Last Refill for this medication 05.02.18 Does patient have any new allergies since last office visit? No Was the pharmacy verified? Yes If this is a controlled substance was the Last 4 of SSN verified? YES (If unable to verify last 4 of SSN transfer to the clinic for further review) PT AWARE PROVIDER NOT IN TODAY AND 24/48 HR RULE. documented in this encounter Plan of Treatment Not on file documented as of this encounter Visit Diagnoses Not on filedocumented in this encounter
--- OUTSIDE RECORDS SUMMARY | 2024-03-10 06:56 | XMS_ITS | Encounter Summary ---
Author Organization [facility] Address [address] [place] [address] Care Team Providers Care Graffiti Cleaner Name Role Phone Unavailable Primary Care Provider Unavailabl e Reason for Visit * Reason Onset Date Comments MEDICATION REFILL 10/05/2016 Encounter Details Date Type Department Care Team (Late st Contact Info) Description 10/05/[address] [facility] [address] [place] [address] Mikie Parr MD [address] [place] [phone] MEDICATION REFILL Social History Tobacco Use Types [...]
--- OUTSIDE RECORDS SUMMARY | 2024-03-10 06:56 | XMS_ITS | Encounter Summary ---
Author Organization [facility] Address [address] [place] [address] Care Team Providers Care Carpentry Specialist Name Role Phone Unavailable Primary Care Provider Unavailabl e Reason for Visit * Reason Onset Date Comments MEDICATION REFILL 08/31/2018 Encounter Details Date Type Department Care Team (Late st Contact Info) Description 08/31/2018 Refill [facility] [address] [place] [address] Mikie Parr MD [address] [place] [phone] MEDICATION REFILL Social History Tobacco Use Types Packs/Day Years Used Date Smoking Tobacco: Every Day Smokeless Tobacco: Never Sex and Gender Information Value Date Recorded Sex Assigned at Not on file Gender Identity Not on file Sexual Orientation Not on file documented as of this encounter Miscellaneous Notes * Telephone Encounter - Mariela Mejia - 08/31/2018 2:07 PM CDT Fernie Rees is in need of His Requested Prescriptions Pending Prescriptions Disp Refills ??? HYDROcodone-acetaminophen (NORCO) 7.5-325 MG tablet 120 tablet 0 Sig: Take 1 tablet by mouth every 4 hours as needed for Pain Person calling for the refill: self Last office visit 08/02/18 Next Appointment scheduled: Visit date not found Last Refill for this medication 08/02/18 Does patient have any new allergies since [...]
--- OUTSIDE RECORDS SUMMARY | 2024-03-10 06:56 | XMS_ITS | Encounter Summary ---
Author Organization [facility] Address [address] [place] [address] Care Team Providers Care Drill Press Set Up Operator Name Role Phone Unavailable Primary Care Provider Unavailabl e Reason for Visit * Reason Onset Date Comments MEDICATION REFILL 12/28/2018 Encounter Details Date Type Department Care Team (Late st Contact Info) Description 12/28/2018 Refill [facility] [address] [place] [address] Mikie Parr MD [address] [place] [address] [address] [place] [phone] MEDICATION REFILL Social History Tobacco Use Types Packs/Day Years Used Date Smoking Tobacco: Every Day Smokeless Tobacco: Never Sex and Gender Information Value Date Recorded Sex Assigned at Not on file Gender Identity Not on file Sexual Orientation Not on file documented as of this encounter Miscellaneous Notes * Telephone Encounter - Breann Arnold - 12/28/2018 11:53 AM CDT . Fernie Rees is in need of His Requested Prescriptions Pending Prescriptions Disp Refills ??? HYDROcodone-acetaminophen (NORCO) 7.5-325 MG tablet 120 tablet 0 Sig: Take 1 tablet by mouth every 4 hours as needed for Pain Person calling for the refill: Self Last office visit 10/04/17 Next Appointment scheduled: Visit date not found Last Refill for this medication 12/15/18 Does patient have any new allergies since [...]
--- OUTSIDE RECORDS SUMMARY | 2024-03-10 06:56 | XMS_ITS | Encounter Summary ---
Author Organization [facility] Address [address] [facility] [place] [address] Care Team Providers Care Foundry Worker General Name Role Phone Unavailable Primary Care Provider Unavailabl e Reason for Visit * Reason Onset Date Comments MEDICATION REFILL 01/03/2017 Encounter Details Date Type Department Care Team (Late st Contact Info) Description 01/03/2017 Refill [facility] [address] [place] [address] Mikie Parr MD [address] [place] [phone] MEDICATION REFILL Social History Tobacco Use Types Packs/Day Years Used Date Smoking Tobacco: Every Day Sex and Gender Information Value Date Recorded Sex Assigned at Not on file Gender Identity Not on file Sexual Orientation Not on file documented as of this encounter Miscellaneous Notes * Telephone Encounter - Chula Escudero - 01/03/2017 1:58 PM CDT Fernie Rees No Known Allergies Requested Prescriptions Pending Prescriptions Disp Refills ??? HYDROcodone-acetaminophen (NORCO) 7.5-325 MG tablet 90 tablet 0 Sig: Take 1 tablet by mouth every 4 hours as needed for Pain Last Refill: 12/01/2016 Last OV: 06/11/2016 Next OV:none documented in this encounter Plan of Treatment Not on file documented as of this encounter Visit Diagnoses Not on filedocumented in this encounter
--- OUTSIDE RECORDS SUMMARY | 2024-03-10 06:56 | XMS_ITS | Encounter Summary ---
Author Organization [facility] Address [address] [place] [address] Care Team Providers Care Rubber Goods Cutter Finisher Name Role Phone Unavailable Primary Care Provider Unavailabl e Reason for Visit * Reason Onset Date Comments Question 01/10/2019 Encounter Details Date Type Department Care Team (Late st Contact Info) Description 01/10/2019 Telephone [facility] [facility] [address] [place] [address] Mikie Parr MD [address] [place] [phone] Question Social History Tobacco Use Types Packs/Day Years Used Date Smoking Tobacco: Every Day Smokeless Tobacco: Never Sex and Gender Information Value Date Recorded Sex Assigned at Not on file Gender Identity Not on file Sexual Orientation Not on file documented as of this encounter Miscellaneous Notes * Telephone Encounter - Ronna Rome - 01/25/2019 11:35 AM CST Called and let the patient know the specialtly parmacy will be calling him to verify the medicationand to send it to Dr. Murphy office. NTIFIC INFORMATICS ANALYST * Telephone Encounter - Supriya Alvarado - 01/10/2019 2:50 PM CDT Who is calling? Self What is the reason for call? Pt stated he received a call from a Pharmacy about his injections. He said they are going to send the injection medicine to Dr. Parr. The insurance company said they wouldn't pay form them. He wants to know if this is accurate Expected Response from the Clinic? Call back @ [phone] documented in this encounter Plan of Treatment Not on file documented as of this encounter Visit Diagnoses Not on filedocumented in this encounter
--- OUTSIDE RECORDS SUMMARY | 2024-03-10 06:56 | XMS_ITS | Encounter Summary ---
Author Organization [facility] Address [address] [place] [address] Care Team Providers Care Story Writer Name Role Phone Unavailable Primary Care Provider Unavailabl e Reason for Visit * Reason Onset Date Comments MEDICATION REFILL 08/26/2017 Encounter Details Date Type Department Care Team (Late st Contact Info) Description 08/26/2017 Refill [facility] [address] [place] [address] Mikie Parr MD [address] [place] [phone] MEDICATION REFILL Social History Tobacco Use Types Packs/Day Years Used Date Smoking Tobacco: Every Day Sex and Gender Information Value Date Recorded Sex Assigned at Not on file Gender Identity Not on file Sexual Orientation Not on file documented as of this encounter Miscellaneous Notes * Telephone Encounter - Porsche Campoverde - 08/26/2017 11:30 AM CDT Fernie Rees is in need of His Requested Prescriptions Pending Prescriptions Disp Refills ??? HYDROcodone-acetaminophen (NORCO) 7.5-325 MG tablet 90 tablet 0 Sig: Take 1 tablet by mouth every 4 hours as needed for Pain Person calling for the refill: PATIENT Last office visit 05/28/17 Next Appointment scheduled: Visit date not found Last Refill for this medication 07/29/17 Does patient have any new allergies [...]
--- OUTSIDE RECORDS SUMMARY | 2024-03-10 06:56 | XMS_ITS | Encounter Summary ---
Author Organization [facility] Address [address] [place] [address] Care Team Providers Care Guest History Clerk Name Role Phone Unavailable Primary Care Provider Unavailabl e Reason for Visit * Reason Comments Therapeutic Injection #3 Euflexxa right knee injection Encounter Details Date Type Department Care Team (Latest Contact Info) Description 04/05/2019 1:45 PM COATER Office Visit [facility] [address] [place] [id number] Sarthak Holland, PARKING METER MECH[employer]IC-[address] [address] Osteoarthritis of right knee, unspecified osteoarthritis type (Primary Dx) Social History Tobacco Use Types Packs/Day Years Used Date Smoking Tobacco: Every Day Smokeless Tobacco: Never Sex and Gender Information Value Date Recorded Sex Assigned at Not on file Gender Identity Not on file Sexual Orientation Not on file documented as of this encounter Last Filed Vital Signs Vital Sign Reading Time Taken Comments Blood Pressure 132/74 04/05/2019 10:29 AM COATER Pulse 86 04/05/2019 10:29 AM COATER Temperature 36.8 ??C (98.3 ??F) 04/05/2019 10:[address] Respiratory Rate - - Oxygen Saturation 98% 04/05/2019 10:29 AM COATER Inhaled Oxygen Concentration - - Weight 104.3 kg (230 lb) 04/05/2019 10:29 AM COATER Height 185.4 cm (6' 1 ) 04/05/2019 10:29 AM COATER Body Mass Index 30.34 04/05/2019 10:29 AM COATER documented in this encounter Progress Notes * Sarthak Holland, GIOVANNY-CAVING GUIDE - 04/05/2019 12:15 PM CST Today's Date: 04/05/2019 Patient Name: Fernie Rees Sex: male Date of : 1970 Age: [age] year old Occupation/Company or school: [employer] Consulted / Referred By: No ref. provider found PCP: No primary care provider on file. Chief Complaint: Chief Complaint Patient presents with ??? Therapeutic Injection #3 Euflexxa right knee injection Patient comes in today for his 3 in a series of 3 Hyaluronan injections. ??? HYDROcodone-acetaminophen (NORCO) 7.5-325 MG tablet ??? HYDROcodone-acetaminophen (NORCO) 7.5-325 MG tablet ??? HYDROcodone-acetaminophen (NORCO) 7.5-325 MG tablet ??? HYDROcodone-acetaminophen (NORCO) 7.5-325 MG tablet ??? meloxicam (MOBIC) 15 MG tablet ??? meloxicam (MOBIC) 15 MG tablet On physical examination today the patient is alert oriented Ox3 in no acute distress. Mood is appropriate. Blood pressure 132/74, pulse 86, temperature 98.3 ??F (36.8 ??C), height 1.854 m (6' 1 ), weight 104.3 kg (230 lb), SpO2 98 %. ASSESSMENT PLAN: Orders: Orders Placed This Encounter ??? [place] DRAIN/INJECT LARGE JOINT/BURSA ??? sodium hyaluronate prefilled syringe SOSY 20 mg Encounter Diagnosis Name Primary? Osteoarthritis of right knee, unspecified osteoarthritis type Yes After discussing the treatment options with the patient, we elected to proceed with Procedure : an injection to the Inferior lateral aspect of Right knee . The Right was cleansed with Betadine and an alcohol swab. A well localized intra-articular injection was given with Hyaluronan using an inferior lateral approach. The Knee cleansed with alcohol swab,dried with cotton swab. Bandaids applied. Injection #3 of 3 Injections. Follow up in one week to receive the next joint fluid therapy injection. Ice to the injection site for 5 to 10 minutes tid X 48 hours, then as needed. Pt tolerated procedure well. If symptoms increase prior to the scheduled appointment then the patient should call [phone] to schedule an appointment and see us earlier. Return in about 4 weeks (around 05/03/2019). VIRAL Nelson 04/05/2019 ER documented in this encounter Plan of Treatment Not on file documented as of this encounter Visit Diagnoses Diagnosis Osteoarthritis of right knee, unspecified osteoarthritis type- Primary documented in this encounter Administered Medications Inactive Administered Medications - up to 3 most recent administrations Medication Order MAR Action Action Date Dose Rate Site sodium hyaluronate prefilled syringe SOSY 20 mg 20 mg, Intra-articular, ONCE, 1 dose, On Magalys 04/05/19 at 1100 $ Given 04/05/2019 10:59 AM COATER 20 mg Righ t Knee documented in this encounter
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
--- OUTSIDE RECORDS SUMMARY | 2024-03-10 06:57 | XMS_ITS | Encounter Summary ---
Author Organization [facility] Address [address] [place] [address] Care Team Providers Care Audio Production Manager Name Role Phone Unknown, Notinfile Primary Care Provider Unavail able Reason for Visit * Reason Comments Med Refill Knee Pain Bilateral Encounter Details Date Type Department Care Team (Latest Contact Info) Description 07/21/2021 3:30 PM CDT Office Visit [facility] Pain Management at [address] [address] Valeriano Manzanares LIDAR TECHNICIAN [address] [facility] [address] [place] [address] Bilateral primary osteoarthritis of knee (Primary Dx); Chronic pain of both knees; Long-term current use of opiate analgesic; Therapeutic opioid induced constipation; Chronic left shoulder pain; Chronic right shoulder pain Social History Tobacco Use Types Packs/Day Years Used Date Smoking Tobacco: Every Day Cigarettes 1 35 Smokeless Tobacco: Never Comments:already trying Alcohol Use Standard Drinks/Week Comments Yes 0 (1 standard drink = 0.6 oz pur e alcohol) Sex and Gender Information Value Date Recorded Sex Assigned at Not on file 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 Gender Identity Not on file Sexual Orientation Not on file documented as of this encounter Last Filed Vital Signs Vital Sign Reading Time Taken Comments Blood Pressure 131/79 07/21/2021 3:27 PM CDT Pulse 84 07/21/2021 3:27 PM CDT Temperature - - Respiratory Rate - - Oxygen Saturation 99% 07/21/2021 3:27 PM CDT Inhaled Oxygen Concentration - - Weight 102.4 kg (225 lb 12.8 oz) 07/21/2021 3:27 PM CDT Height 185.4 cm (6' 0.99 ) 07/21/2021 3:27 PM CD T Body Mass Index 29.8 07/21/2021 3:27 PM CDT documented in this encounter Ordered Prescriptions Prescription Sig Dispense Quantity Refills Last Filled Start Date End Date HYDROcodone-acetam inophen (NORCO) 7.5-325 mg per tabletIndications: Pain Take 1 tablet by mouth every 6 (six) hours as needed for pain 120 tablet 08/25/2021 09/22/2021 HYDROcodone-acetam inophen (NORCO) 7.5-325 mg per tabletIndications: Pain Take 1 tablet by mouth every 6 (six) hours as needed for pain 120 tablet 07/26/2021 08/25/2021 documented in this encounter Progress Notes * Valeriano Manzanares NP - 07/21/2021 3:30 PM CDT Patient Name: Fernie Rees : 1970 Today's Date: 07/21/2021 PCP: Unknown, Notinfile Referring: Valeriano Manzanares NP Chief Complaint Patient presents with ??? Med Refill ??? Knee Pain Bilateral HPI Patient is return to the office with complaints of ongoing chronic bilateral knee pain. Pain variesfrom sharp stabbing pending his activity. Naturally weight-bearing activity and work activity can exacerbate his condition. Pain currently rated 6 on 10 scale. On typical day pain can range from 4-8.In addition patient suffer from left shoulder pain. He recently had shoulder injection which provided help for approximately 2 weeks but then pain returned. Pain is quite severe particularly at nightregardless of position that he assumes. Help Continues with his medication management with benefit.Denies interest in pursuing more advanced procedures or surgical consult orthopedist. No developingweakness is noted in lower extremities. No side effects reported with his medication use. No Known Allergies Past Medical History: Diagnosis Date ??? Arthritis ??? GERD (gastroesophageal reflux disease) Past Surgical History: Procedure Laterality Date ??? HAND SURGERY ??? ORIF WRIST FRACTURE Right Social History Socioeconomic History ??? Marital status: Unknown Spouse name: Not on file ??? Number of children: Not on file ??? Years of education: Not on file ??? Highest education level: Not on file Occupational History ??? Not on file Tobacco Use ??? Smoking status: Current Every Day Smoker Packs/day: 1.00 Years: 35.00 Pack years: 35.00 ??? Smokeless tobacco: Never Used ??? Tobacco comment: already trying Substance and Sexual Activity ??? Alcohol use: Yes ??? Drug use: Never ??? Sexual activity: Not on file Other [...] on file Housing Stability: Not on file Family History Problem Relation Age of Onset ??? Stroke Other ??? Kidney disease Other ??? Cancer Other ??? Lung disease Other HOME MEDICATIONS : albuterol HFA (PROVENTIL HFA,VENTOLIN HFA,PROAIR HFA) 90 mcg/actuation inhaler atorvastatin (LIPITOR) 10 mg tablet HYDROcodone-acetaminophen (NORCO) 7.5-325 mg per tablet meloxicam (MOBIC) 15 mg tablet naloxone (NARCAN) 4 mg/actuation spray,non-aerosol Review of Systems Review of Systems Constitutional: Negative. HENT: Negative for sinus pain and sore throat. Eyes: Negative for pain and visual disturbance. Respiratory: Negative. Negative for apnea, choking and stridor. Cardiovascular: Negative. Gastrointestinal: Negative for abdominal pain, blood in stool, constipation and nausea. Genitourinary: Negative for difficulty urinating and dysuria. Musculoskeletal: Positive for arthralgias, gait problem, joint swelling and myalgias. Skin: Negative for color change. Hematological: Negative. Psychiatric/Behavioral: Negative. Physical Exam Vitals: 07/21/21 1527 BP: 131/79 BP Location: Right arm Patient Position: Sitting Pulse: 84 SpO2: 99% Weight: 102.4 kg (225 lb 12.8 oz) Height: 185.4 cm (6' 0.99 ) Body mass index is 29.8 kg/m??. Physical Exam Vitals and nursing note reviewed. Constitutional: General: He is not in acute distress. Appearance: Normal appearance. He is well-developed. He is not diaphoretic. HENT: Head: Normocephalic and atraumatic. Eyes: Conjunctiva/sclera: Conjunctivae normal. Musculoskeletal: General: No tenderness or deformity. Right lower leg: No edema. Left lower leg: No edema. Comments: Tenderness on palpation of bilateral knees. Mild discomfort with active range of motion at end ranges of extension and flexion. Painful arc on abduction of left shoulder. Gonzalez test positive. Speeds test positive Skin: General: Skin is warm and dry. Neurological: General: No focal deficit present. Mental Status: He is alert and oriented to person, place, and time. Sensory: No sensory deficit. Motor: No weakness or abnormal muscle tone. Coordination: Coordination normal. Deep Tendon Reflexes: Reflexes normal. Psychiatric: Mood and Affect: Mood normal. Behavior: Behavior normal. Thought Content: Thought content normal. Judgment: Judgment normal. Review of Data: Clinical evaluation forms were reviewed including the PEG Scale Assessing Pain Intensity and Interference with score of 5 Current Opioid Misuse Measure (COMM) reviewed with score of 1 (> or equal to 9 is higher risk ofopioid misuse) [place] Prescription Drug Monitoring Reviewed and was consistent with office guidelines and policies. Most recent Urine Toxicology findings reviewed. Assessment Problem List Gastrointestinal and Abdominal Therapeutic opioid induced constipation Mental Health Long-term current use of opiate analgesic Musculoskeletal and Injuries Bilateral primary osteoarthritis of knee - Primary Chronic pain of both knees Chronic left shoulder pain Plan Pre-hypertension/Hypertension: The patient has been informed that they may have pre-hypertension orhypertension based on a blood pressure reading in the office today. I recommend that the patient call their primary care provider or a physician of their choice this week to arrange follow up for further evaluation of possible pre-hypertension or hypertension. I have also recommended that they try weight loss and exercise for management. Presentation and functional status unchanged since his last visit here in office. Patient does havenewer complaint being his left shoulder. Findings consistent with subacromial impingement syndrome.Patient is scheduled to follow- up with his orthopedist in very near future. He did have recent subacromial bursa injection which did help but only for short period time. Review of documentation showsno evidence of inappropriate use of his medication. Medication allows for continued mobility function and employment full-time. We will provided with refills for the upcoming 2 months and follow-up with him at that time or sooner if needed. \ Goals of Treatment: Treat underlying pathology, improve pain control, improve function and quality of life. Use of Medications: The pain management contract has been reviewed. Questions solicited and answered, and the patient endorses a clear understanding. The patient understands random toxicology screening and prescription drug monitoring will be used. Instructed to take the smallest effective dose of opioid medication. Ri sks/side-effects of opioid medications, if utilizing, have been reviewed including: drowsiness, tolerance, addiction, abuse, constipation, nausea, vomiting, itching, dizziness, allergic reaction, respiratory depression, lack of benefit, endocrine abnormalities, low testosterone, sexual dysfunction,or . If utilizing, risks/side-effects of NSAID???s and potential for gastrointestinal bleeding, gastritis/esophagitis, and increased cardiac risk reviewed. Risks/side-effects of Gabapentin, Lyrica, and other potential sedative medications, if utilizing, have been reviewed including drowsiness,sedation, dizziness, fluid retention, weight gain, respiratory depression, and . The patient has been instructed to take every medication appropriately, storing and disposing properly, never sharing medication. The patient has been instructed on opioid medications, including but not limited to: do not combine with other medications such as benzodiazepines, alcohol, muscle relaxers, or other depressant medications. Patient instructed to avoid driving and operating heavy machinery. UDS screens will be performed to assess for medication, metabolites, other medications, and illicit substances. Results may be discussed at the next visit. This dictation was performed using M*Modal dictation. There may be some wave solder offbearer variances which are not appreciated or corrected in this note. documented in this encounter Plan of Treatment Not on file documented as of this encounter Visit Diagnoses Diagnosis Bilateral primary osteoarthritis of knee- Primary Chronic pain of both knees Long-term current use of opiate analgesic Encounter for long-term (current) use of other medications Therapeutic opioid induced constipation Chronic left shoulder pain Pain in joint, shoulder region Chronic right shoulder pain Pain in joint, shoulder region documented in this encounter Discontinued Medications Medication Sig Discontinue Reason Start Date End Da te HYDROcodone-acetaminophe n (NORCO) 7.5-325 mg per tabletIndications:Pain Take 1 tablet by mouth every 6 (six) hours as needed for pain Reorder 06/29/2021 07/21/2021 documented as of this encounter Care Teams Audio Production Manager Relationship Specialty Start Date End Date Unknown, Notinfile PCP - General 08/08/19 documented as of this encounter
--- OUTSIDE RECORDS SUMMARY | 2024-03-10 06:57 | XMS_ITS | Encounter Summary ---
Author Organization [facility] Address [address] [place] [address] Care Team Providers Care Supervisor Riveting Name Role Phone Unknown, Notinfile Primary Care Provider Unavail able Reason for Visit * Reason Onset Date Comments medication issue 01/20/2022 Encounter Details Date Type Department Care Team (Late st Contact Info) Description 01/20/2022 Telephone [facility] Center [address] [place], [place] [id number] Cathy Harper RN medication issue Social History Tobacco Use Types Packs/Day Years Used Date Smoking Tobacco: Every Day Cigarettes 1 35 Smokeless Tobacco: Never Comments:already trying Alcohol Use Standard Drinks/Week Comments Yes 0 (1 standard drink = 0.6 oz pur e alcohol) Sex and Gender Information Value Date Recorded Sex Assigned at Not on file 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 Asked if the patient was requesting the refills and was informed that he was requesting oxycodone from them. Patient has told us that the oxycodone makes him nauseated and he is not using them. He says that a family member has been picking them up from the pharmacy but his is not taking them. He has gotten 7prescriptions for oxycodone since September after surgery. Informed Leonel that it was okay to get post-operative pain medication but we instruct the patient not to take the hydrocodone that we prescribe while taking the oxycodone. Since the patient has had continuous refills of oxycodone, we will give the patient one last prescription for hydrocodone and will not be giving further refills. LY MANAGER documented in this encounter Plan of Treatment Not on file documented as of this encounter Visit Diagnoses Not on filedocumented in this encounter Care Teams Supervisor Riveting Relationship Specialty Start Date End Date Unknown, Notinfile PCP - General 08/08/19 documented as of this encounter
--- OUTSIDE RECORDS SUMMARY | 2024-03-10 06:57 | XMS_ITS | Encounter Summary ---
Author Organization [facility] Address [facility] [facility] [place] [address] [place] [address] Care Team Providers Care Environmental Studies Department Chair Name Role Phone Unavailable Primary Care Provider Unavailabl e Encounter Details Date Type Department Care Team (Late st Contact Info) Description 04/29/2010 Abstract [facility] Imaging [address] [place] [address] Sarah Guzmán, APNP [address] [place] [address] Social History Tobacco Use Types Packs/Day Years Used Date Smoking Tobacco: Never Assessed Sex and Gender Information Value Date Recorded Sex Assigned at Not on file Legal Sex Male 6:07 PM CDT Gender Identity Not on file Sexual Orientation Not on file documented as of this encounter Plan of Treatment Not on file documented as of this encounter Visit Diagnoses Diagnosis Cough documented in this encounter
--- OUTSIDE RECORDS SUMMARY | 2024-03-10 06:57 | XMS_ITS | Clinical Summary ---
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 Gender Identity Not on file Sexual Orientation Not on file Plan of Treatment Health Maintenance Due Date Last Done Comments Hepatitis C Virus (HCV) Screening 1970 Hepatitis B Immunization (1 of 3 - 19+ 3-dose series) 1987 Colonoscopy 2013 Colorectal Cancer Screening 2013 Cologuard 2018 Immunochemical Fecal Occult Blood 2018 Zoster Immunization (1 of 2) 2018 SARS-COV-2 Immunization ( season) 2022 PSA Discussion 2023 Influenza Immunization (Seas on Ended) 2023 12/05/2019, 03/27/2018 DTaP/Tdap/Td Immunization Discontinued 03/27/2019 TdaP Immunization Completed 03/27/2019 Meningococcal Immunization (ACWY) Aged Out No longer eligible based on patient's age to complete this topic Pneumococcal Immunization Combined Aged Out No longer eligible based on patient's age to complete this topic Rotavirus Immunization Aged Out No lo nger eligible based on patient's age to complete this topic
--- OUTSIDE RECORDS SUMMARY | 2024-03-10 06:57 | XMS_ITS | Encounter Summary ---
Author Organization [facility] Address [address] [place] [id number] Care Team Providers Care Residential Director Name Role Phone Unavailable Primary Care Provider Unavailabl e Encounter Details Date Type Department Care Team (Late st Contact Info) Description 03/23/2021 Lab Requisition [facility] Department of Public Health Community Testing [facility] [address] [place] [address] Gustavo Benoit MD [address] [place] [address] [address] [place], [place] [id number] Social History Tobacco Use Types Packs/Day Years Used Date Smoking Tobacco: Never Assessed Sex and Gender Information Value Date Recorded Sex Assigned at Not on file 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
--- OUTSIDE RECORDS SUMMARY | 2024-03-10 06:57 | XMS_ITS | Encounter Summary ---
Author Organization [facility] Address [facility] [facility] [place] [address] [place] [address] Care Team Providers Care Credit Reporter Name Role Phone Unavailable Primary Care Provider Unavailabl e Encounter Details Date Type Department Care Team (Late st Contact Info) Description 07/11/2009 Abstract [facility] CONVERSION [address] [place] [address] Anastacio James MD Social History Tobacco Use Types Packs/Day [...]
--- OUTSIDE RECORDS SUMMARY | 2024-03-10 06:57 | XMS_ITS | Clinical Summary ---
Author Organization [facility] Address [address] [place] [address]. [place] [address] [place] [address] Care Team Providers Care Ob Gyn Name Role Phone None, Provider MD Primary Care Provider Unavaila ble Allergies No known active allergies Social History Tobacco Use Types Packs/Day Years [...] Mass Index 29.69 07/31/2021 4:59 PM CDT Plan of Treatment Health Maintenance Due Date Last Done Comments Colorectal Cancer Screening Colonoscopy (10 Years) 1968 Annual Physical 1971 Hepatitis C 1986 Hepatitis B Vaccines (1 of 3 - 19+ 3-dose series) 1987 Zoster Vaccines (1 of 2) 2018 COVID-19 Vaccine (2023-2 5 season) 2023 Influenza Adult (#1) 2023 12/05/2019, 03/27/2018 DTaP, Tdap and Td Vaccines ( 2 - Td or Tdap) 03/27/2029 03/27/2019 Meningococcal Vaccine Aged Out No pilar freddie eligible based on patient's age to complete this topic Pneumococcal Vaccine: Pediatrics (0 to 5 Years) and At-Risk Patients (6 to 64 Years) Aged Out No longer eligible b ased on patient's age to complete this topic RSV Immunizations Under 20 Months Aged Out No longer eligible b ased on patient's age to complete this topic Insurance Advance Directives Documents on File Type Date Recorded Patient Owner Expl anation Legal Documents 11/19/2021 11:39 AM COMPLET ED BILLING REQUEST FOR [employer] Care Teams Ob Gyn Relationship Specialty Start Date End Date None, Provider, PCP - General 07/31/21
--- OUTSIDE RECORDS SUMMARY | 2024-03-10 06:57 | XMS_ITS | Encounter Summary ---
Author Organization [facility] Address [address] [place] [address] Care Team Providers Care Short Goods Drier Name Role Phone Unknown, Notinfile Primary Care Provider Unavail able Reason for Visit * Reason Comments Follow-up Encounter Details Date Type Department Care Team (Latest Contact Info) Description 11/24/2021 9:30 AM CDT Office Visit [facility] Pain Management at [address] [address] Valeriano Manzanares, SPECIAL DAY CLASS TEACHER 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 Gender Identity Not on file Sexual Orientation Not on file documented as of this encounter Last Filed Vital Signs Vital Sign Reading Time Taken Comments Blood Pressure 151/95 11/24/2021 9:28 AM CDT Pulse 103 11/24/2021 9:28 AM CDT Temperature - - Respiratory Rate - - Oxygen Saturation 98% 11/24/2021 9:28 AM CDT Inhaled Oxygen Concentration - - Weight 105.1 kg (231 lb 9.6 oz) 11/24/2021 9:28 AM CDT Height 185.4 cm (6' 0.99 ) 11/24/2021 9:28 AM CD T Body Mass Index 30.56 11/24/2021 9:28 AM CDT documented in this encounter Ordered Prescriptions Prescription Sig Dispense Quantity Refills Last Filled Start Date End Date HYDROcodone-acetam inophen (NORCO) 7.5-325 mg per tablet Take 1 tablet by mouth every 6 (six) hours as needed for pain 120 tablet 12/24/2021 01/20/2022 HYDROcodone-acetam inophen (NORCO) 7.5-325 mg per tablet Take 1 tablet by mouth every 6 (six) hours as needed for pain 120 tablet 11/24/2021 12/24/2021 documented in this encounter Progress Notes * Valeriano Manzanares NP - 11/24/2021 9:30 AM CDT Patient Name: Fernie Rees : 1970 Today's Date: 11/24/2021 PCP: Unknown, Notinfile Referring: Valeriano Manzanares NP Chief Complaint Patient presents with Follow-up HPI Patient is returning with complaints of ongoing chronic bilateral knee pain. Pain varies from achiness to sharp and stabbing depending on use. Pain is currently rated 4 on 10 scale. He is denying anychange in his condition since his last visit aside from the fact that he has been off work due to recent left shoulder surgery. As result his pain in bilateral knees has slightly decreased as result of not working. In addition patient has complaints of left shoulder pain which is gradually improving although it remains in a sling with limited mobility following surgery nearly 4-6 weeks ago. He is hopeful he canremove sling later this week and begin physical therapy. He had extensive left shoulder surgery He continues with the hydrocodone averaging 4 per day with benefit. He does state that he was prescribed oxycodone by his orthopedist following his surgery in September. He states that he does not like taking the oxycodone as it causes nausea and has discontinued its use. His most recent prescription which was picked up by family member was taken to the police station for proper disposal. He is attempting to quit smoking. No Known Allergies Past Medical History: Diagnosis Date Arthritis GERD (gastroesophageal reflux disease) Past Surgical History: Procedure Laterality Date HAND SURGERY ORIF WRIST FRACTURE Right Social History Tobacco Use Smoking status: Every Day Packs/day: 1.00 Years: 35.00 Pack years: 35.00 Types: Cigarettes Smokeless tobacco: Never Tobacco comments: already trying Substance and Sexual Activity Drug use: Never Sexual activity: None Alcohol Use: Not on file Family History Problem Relation Age of Onset Stroke Other Kidney disease Other Cancer Other Lung disease Other HOME MEDICATIONS : albuterol HFA (PROVENTIL HFA,VENTOLIN HFA,PROAIR HFA) 90 mcg/actuation inhaler atorvastatin (LIPITOR) 10 mg tablet HYDROcodone-acetaminophen (NORCO) 7.5-325 mg per tablet meloxicam (MOBIC) 15 mg tablet naloxone (NARCAN) 4 mg/actuation spray,non-aerosol Review of Systems Review of Systems Musculoskeletal: Positive for arthralgias, joint swelling and myalgias. Neurological: Negative for weakness and numbness. Physical Exam Vitals: 11/24/21 0928 BP: 151/95 BP Location: Right arm Patient Position: Sitting Pulse: 103 SpO2: 98% Weight: 105.1 kg (231 lb 9.6 oz) Height: 185.4 cm (6' 0.99 ) Body mass index is 30.56 kg/m??. Physical Exam Vitals and nursing note [...] at end ranges of extension and flexion. Mild discomfort with active range of motion of bilateral knees. No restriction noted. Skin: General: Skin is warm and dry. Neurological: General: No focal deficit present. Mental Status: He is alert and oriented to person, place, and time. Sensory: No sensory deficit. Motor: No weakness or abnormal muscle tone. Coordination: Coordination normal. Deep Tendon Reflexes: Reflexes normal. Psychiatric: Mood and Affect: Mood normal. Behavior: Behavior normal. Thought Content: Thought content normal. Judgment: Judgment normal. Assessment Problem List Mental Health Long-term current use of opiate analgesic Musculoskeletal and Injuries Bilateral primary osteoarthritis of knee Chronic pain of both knees - Primary Chronic left shoulder pain Plan Pre-hypertension/Hypertension: The [...] try weight loss and exercise for management. Tobacco Screening: Fernie Rees was screened for tobacco use. Patient is a tobacco user. Patient was briefly counseledabout the risks of tobacco use and the benefits of stopping. Patient has been advised to quit, and if that fails, to discuss pharmacological options with their family doctor. No change in patient's overall condition with regards his knee since his last visit. No decline in function. Symptoms are slightly improved due to not currently working due to left shoulder surgery. We discussed his medication use and patient was instructed to avoid getting any future oxycodone prescriptions filled by his orthopedist if he wishes us to continue with hydrocodone in the future, if appropriate, for his bilateral knee pain. We will obtain urine toxicology screen today and provide him with refills for the upcoming 2 months. Follow-up at that time or sooner if necessary. Goals of Treatment: Treat underlying pathology, improve [...] using M*Modal dictation. 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 documented in this encounter Plan of Treatment Not on file documented as of this encounter Visit Diagnoses Diagnosis Chronic pain of both knees- Primary Bilateral primary osteoarthritis of knee Long-term current use of opiate analgesic Encounter for long-term (current) use of other medications Chronic left shoulder pain Pain in joint, shoulder region documented in this encounter Discontinued Medications Medication Sig Discontinue Reason Start Date End Da te HYDROcodone-acetaminophe n (NORCO) 7.5-325 mg per tablet Take 1 tablet by mouth every 6 (six) hours as needed Reorder 11/02/2021 11/24/2021 documented as of this encounter Historical Medications * This list may reflect changes made after this encounter. HYDROcodone-aceta minophen (NORCO) 7.5-325 mg per tablet Take 1 tablet by mouth every 6 (six) hours as needed 11/02/2021 11/24/2021 added in this encounter Care Teams Short Goods Drier Relationship Specialty Start Date End Date Unknown, Notinfile PCP - General 08/08/19 documented as of this encounter
--- OUTSIDE RECORDS SUMMARY | 2024-03-10 06:57 | XMS_ITS | Encounter Summary ---
Author Organization [facility] Address Formerly [facility], [id number] [facility] [place] [address] [place] [address] Care Team Providers Care Salesperson Trailers [employer] Name Role Phone None, Provider Primary Care Provider Unavaila ble Encounter Details Date Type Department Care Team (Latest Contact Info) Description 07/31/2021 Travel Social History Tobacco Use Types Packs/Day Years [...] PM CDT documented as of this encounter Plan of Treatment Not on file documented as of this encounter Visit Diagnoses Not on filedocumented in this encounter Care Teams Salesperson Trailers And Motor [employer] Relationship Specialty Start Date End Date None, Provider, PCP - General 07/31/21 documented as of this encounter
--- OUTSIDE RECORDS SUMMARY | 2024-03-10 06:57 | XMS_ITS | Encounter Summary ---
Author Organization [facility] Address [address] [place] [address] Care Team Providers Care Desktop Support Specialist Name Role Phone Unknown, Notinfile Primary Care Provider Unavail able Reason for Visit * Reason Comments Knee Pain Bilateral Encounter Details Date Type Department Care Team (Latest Contact Info) Description 09/22/2021 3:30 PM CDT Office Visit [facility] Pain Management at [address] [address] Valeriano Manzanares, COMMUNITY MUSIC THERAPIST [address] [address] [place] [address] Long-term current use of opiate analgesic (Primary Dx); Bilateral primary osteoarthritis of knee; Chronic pain of both knees; Chronic right shoulder pain; Chronic left shoulder pain; Rotator cuff syndrome of left shoulder Social History Tobacco Use Types Packs/Day Years Used Date Smoking Tobacco: Every Day Cigarettes 1 35 Smokeless Tobacco: Never Comments:already trying Alcohol Use Standard Drinks/Week Comments Yes 0 (1 standard drink = 0.6 oz pur e alcohol) Sex and Gender Information Value Date Recorded Sex Assigned at Not on file 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 Gender Identity Not on file Sexual Orientation Not on file documented as of this encounter Last Filed Vital Signs Vital Sign Reading Time Taken Comments Blood Pressure 141/82 09/22/2021 3:11 PM CDT Pulse 91 09/22/2021 3:11 PM CDT Temperature - - Respiratory Rate - - Oxygen Saturation 100% 09/22/2021 3:11 PM CDT Inhaled Oxygen Concentration - - Weight 103.1 kg (227 lb 6.4 oz) 09/22/2021 3:11 PM CDT Height 185.4 cm (6' 0.99 ) 09/22/2021 3:11 PM CD T Body Mass Index 30.01 09/22/2021 3:11 PM CDT documented in this encounter Ordered Prescriptions Prescription Sig Dispense Quantity Refills Last Filled Start Date End Date HYDROcodone-acetam inophen (NORCO) 7.5-325 mg per tabletIndications: Pain Take 1 tablet by mouth every 6 (six) hours as needed for pain 120 tablet 10/22/2021 11/21/2021 HYDROcodone-acetam inophen (NORCO) 7.5-325 mg per tabletIndications: Pain Take 1 tablet by mouth every 6 (six) hours as needed for pain 120 tablet 09/22/2021 10/22/2021 documented in this encounter Progress Notes * Valeriano Manzanares NP - 09/22/2021 3:30 PM CDT Patient Name: Fernie Rees : 1970 Today's Date: 09/22/2021 PCP: Unknown, Notinfile Referring: Valeriano Manzanares NP Chief Complaint Patient presents with ??? Knee Pain Bilateral HPI Patient is presenting complaints of ongoing chronic bilateral knee pain. Overall he is denying any significant change in his knee symptomatology or function since his last visit. Pain varies from moderate to severe in intensity and is present on daily basis being exacerbated with work activity and prolonged standing walking. He does well with the hydrocodone averaging 4 per day with benefit. He is denying any adverse side effects with the use of the medication. In addition patient complains of continued ongoing chronic left shoulder pain. 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 He is denying any paresthesia further into the extremity. Recent shoulder injection provided minimal benefit with regards to symptomatology. He has had updated advanced imaging of the shoulder and is anticipating surgical repair. Pain in shoulder is moderate in intensity at present time and limits his functional ability. Patient requesting refill of his hydrocodone. No Known Allergies Past Medical History: Diagnosis [...] mcg/actuation inhaler atorvastatin (LIPITOR) 10 mg tablet meloxicam (MOBIC) 15 mg tablet naloxone (NARCAN) 4 mg/actuation spray,non-aerosol HYDROcodone-acetaminophen (NORCO) 7.5-325 mg per tablet HYDROcodone-acetaminophen (NORCO) 7.5-325 mg per tablet HYDROcodone-acetaminophen (NORCO) 7.5-325 mg per tablet Review of Systems Review of Systems Constitutional: [...] and myalgias. Skin: Negative for color change. Neurological: Positive for weakness. Negative for numbness. Hematological: Negative. Psychiatric/Behavioral: Negative. Physical Exam Vitals: 09/22/21 1511 BP: 141/82 BP Location: Right arm Patient Position: Sitting Pulse: 91 SpO2: 100% Weight: 103.1 kg (227 lb 6.4 oz) Height: 185.4 cm (6' 0.99 ) Body mass index is 30.01 kg/m??. Physical Exam Vitals and nursing note [...] shoulder. Gonzalez test positive. Speeds test positive Mild discomfort with active range of motion [...] to 9 is higher risk ofopioid misuse) [place] and [place] Prescription Drug Monitoring Reviewed and was consistent with office guidelines and policies. Most recent Urine Toxicology findings reviewed. Assessment Problem List Mental Health Long-term current use of opiate analgesic - Primary Musculoskeletal and Injuries Bilateral primary osteoarthritis of knee Relevant Medications HYDROcodone-acetaminophen (NORCO) 7.5-325 mg per tablet HYDROcodone-acetaminophen (NORCO) 7.5-325 mg per tablet (Start on 10/22/2021) Chronic pain of both knees Relevant Medications HYDROcodone-acetaminophen (NORCO) 7.5-325 mg per tablet HYDROcodone-acetaminophen (NORCO) 7.5-325 mg per tablet (Start on 10/22/2021) Chronic right shoulder pain Relevant Medications HYDROcodone-acetaminophen (NORCO) 7.5-325 mg per tablet HYDROcodone-acetaminophen (NORCO) 7.5-325 mg per tablet (Start on 10/22/2021) Chronic left shoulder pain Rotator cuff syndrome of left shoulder Plan Pre-hypertension/Hypertension: The patient has been informed [...] try weight loss and exercise for management. Overall status of patient is unchanged with regards his chronic knee pain. No decline in function is noted any appears to be utilizing his medication appropriately. We will obtain urine toxicology screen here today. In addition he continues to suffer from left shoulder pain and apparently has a rotator cuff tear which will require surgical intervention. Since injury occurred at work this is probable work comp injury and he understands that we are unable to participate in any care regarding the left shoulder. He will continue to follow the advise of his orthopedist. Goals of Treatment: Treat underlying pathology, improve [...] using M*Modal dictation. There may be some beverage manager variances which are not appreciated or corrected in this note. documented in this encounter Plan of Treatment Not on file documented as of this encounter Visit Diagnoses Diagnosis Long-term current use of opiate analgesic- Primary Encounter for long-term (current) use of other medications Bilateral primary osteoarthritis of knee Chronic pain of both knees Chronic right shoulder pain Pain in joint, shoulder region Chronic left shoulder pain Pain in joint, shoulder region Rotator cuff syndrome of left shoulder documented in this encounter Discontinued Medications Medication Sig Discontinue Reason Start Date End Da te HYDROcodone-acetaminophe n (NORCO) 7.5-325 mg per tabletIndications:Pain Take 1 tablet by mouth every 6 (six) hours as needed for pain Reorder 08/25/2021 09/22/2021 documented as of this encounter Care Teams Desktop Support Specialist Relationship Specialty Start Date End Date Unknown, Notinfile PCP - General 08/08/19 documented as of this encounter
--- OUTSIDE RECORDS SUMMARY | 2024-03-10 06:57 | XMS_ITS | Referral Summary ---
Author Organization [facility] Medical [facility] Building [address] Address [address] [place] [address] Care Team Providers Care Policy Change Clerk Name Role Phone Unknown, Notinfile Primary Care Provider Unavail able Allergies No known active allergies Medications atorvastatin (LIPITOR) 10 mg tablet Take 10 mg by mouth daily Active naloxone (NARCAN) 4 mg/actuation spray,non-aeros ol Administer 1 spray into affected nostril(s) as needed for opioid reversal Call 911. Administer a single spray in one nostril. Repeat every 3 minutes as needed if no or minimal response. 2 each 1 1 Active Additional Information Patient not taking.Reported on 01/19/2022 albuterol HFA (PROVENTIL HFA,VENTOLIN HFA,PROAIR HFA) 90 mcg/actuation inhaler INHALE 1 PUFF BY MOUTH EVERY 4 TO 6 HOURS NEEDED FOR SHORTNESS OF BREATH OR WHEEZING 1 Active HYDROcodone-cristine taminophen (NORCO) 7.5-325 mg per tablet Take 1 tablet by mouth every 6 (six) hours as needed for pain 42 tablet 2 Active meloxicam (MOBIC) 15 mg tabletIndicatio ns:Chronic right shoulder pain,Chronic pain of both knees Take 1 tablet (15 mg total) by mouth daily 90 tablet 11 3 Active Active Problems Problem Noted Date Diagnosed Date Rotator cuff syndrome of left shoulder 2 Chronic left shoulder pain 07/21/2021 Therapeutic opioid induced constipation 01/30/20 21 Medial epicondylitis of elbow, left 04/02/2020 Bilateral primary osteoarthritis of knee 06/12/2 020 Chronic pain of both knees 08/24/2019 Long-term current use of opiate analgesic 2019 Chronic right shoulder pain 08/24/2019 Social History Tobacco Use Types Packs/Day Years Used Date Smoking Tobacco: Every Day Cigarettes 1 35 Smokeless Tobacco: Never Tobacco Cessation:Ready to Q uit: Not Asked; Counseling Given: Not Answered Comments:already trying Alcohol Use Standard Drinks/Week Comments Yes 0 (1 standard drink = 0.6 oz pur e alcohol) Personal Safety Answer Date Recorded Getting School Help Needed Not on file 03/05 Sex and Gender Information Value Date Recorded Sex Assigned at Not on file 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 Gender Identity Not on file Sexual Orientation Not on file Last Filed Vital Signs Vital Sign Reading Time Taken Comments Blood Pressure 157/91 03/23/2022 12:57 PM AUTOMATIC HEAD SAWYER Pulse 90 03/23/2022 12:57 PM AUTOMATIC HEAD SAWYER Temperature 36.6 ??C (97.8 ??F) 05/29/2020 3:09 PM CD T Respiratory Rate 17 05/28/2021 3:13 PM CDT Oxygen Saturation 98% 03/23/2022 12: 57 PM AUTOMATIC HEAD SAWYER Inhaled Oxygen Concentration - - Weight 104.9 kg (231 lb 4.8 oz) 023 12:57 PM AUTOMATIC HEAD SAWYER Height 185.4 cm (6' 0.99 ) 03/23/2022 1 2:57 PM AUTOMATIC HEAD SAWYER Body Mass Index 30.52 03/23/2022 12:57 PM AUTOMATIC HEAD SAWYER Plan of Treatment Not on file Insurance [facility] HMO/PPO Address: [facility] [address] [place] [address] Care Teams Policy Change Clerk Relationship Specialty Start Date End Date Unknown, Notinfile PCP - General 08/08/19
--- OUTSIDE RECORDS SUMMARY | 2024-03-10 06:57 | XMS_ITS | Clinical Summary ---
Author Organization [facility] Building B Address [address] [place] [address] Care Team Providers Care Md Pediatric Allergist Name Role Phone Unknown, Notinfile Primary Care [...] analgesic 2019 Chronic right shoulder pain 08/24/2019 Surgical History Surgery Date Site/Laterality Comments ORIF WRIST FRACTURE Right HAND SURGERY Medical History Medical History Date Comments GERD (gastroesophageal reflux disease) Arthritis Family History Medical History Relation Name Comments Cancer Other Kidney disease Other Lung disease Other Stroke Other Relation Name Status Comments Other Social History Tobacco Use Types Packs/Day Years [...] on file 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 Gender Identity Not on file Sexual Orientation Not on file Obstetrics History Last Filed Vital Signs Vital Sign Reading Time Taken Comments Blood Pressure 157/91 03/23/2022 12:57 PM TELECOMMUNICATOR Pulse 90 03/23/2022 12:57 PM TELECOMMUNICATOR Temperature 36.6 ??C (97.8 ??F) 05/29/2020 3:09 PM CD T Respiratory Rate 17 05/28/2021 3:13 PM CDT Oxygen Saturation 98% 03/23/2022 12: 57 PM TELECOMMUNICATOR Inhaled Oxygen Concentration - - Weight 104.9 kg (231 lb 4.8 oz) 023 12:57 PM TELECOMMUNICATOR Height 185.4 cm (6' 0.99 ) 03/23/2022 1 2:57 PM TELECOMMUNICATOR Body Mass Index 30.52 03/23/2022 12:57 PM TELECOMMUNICATOR Plan of Treatment Health Maintenance Due Date Last Done Comments Colon Cancer Screening-Colonoscopy 1970 Depression Screening 1970 Hepatitis C Screening 1970 Prostate Cancer Screening-PSA 1970 Pneumococcal vaccine <65 (1 of 2 - PCV) 1974 Hepatitis B Screening 1986 Regular Well Visit/Exam 18-64 1986 Zoster Vaccine (1 of 2) 2018 Influenza Vaccine (#1) 2023 03/27/2018 DTaP/Tdap/Td Vaccine (2 - Td or Tdap) 03/27/2029 Insurance [facility] Care Teams Md Pediatric Allergist Relationship Specialty Start Date End Date Unknown, Notinfile PCP - General 08/08/19
--- OUTSIDE RECORDS SUMMARY | 2024-03-10 06:57 | XMS_ITS | Encounter Summary ---
Author Organization [facility] Address [address] [place] [address] Care Team Providers Care Phone Technician Name Role Phone Unknown, Notinfile Primary Care Provider Unavail able Reason for Visit * Reason Comments Follow-up Encounter Details Date Type Department Care Team (Latest Contact Info) Description 01/19/2022 9:30 AM SUPERVISOR BYPRODUCTS Office Visit [facility] Pain Management at [address] [id number] Valeriano Manzanares, AIR AND WATER TESTER [address] [facility] [address] [place] [address] Chronic pain of both knees (Primary Dx); Long-term current use of opiate analgesic; Bilateral primary osteoarthritis of knee; Chronic left shoulder pain; Rotator cuff syndrome [...] on file Legal Sex Male 8:49 AM SUPERVISOR BYPRODUCTS Gender Identity Not on file Sexual Orientation Not on file documented as of this encounter Last Filed Vital Signs Vital Sign Reading Time Taken Comments Blood Pressure 148/78 01/19/2022 9:37 AM SUPERVISOR BYPRODUCTS Pulse 84 01/19/2022 9:37 AM SUPERVISOR BYPRODUCTS Temperature - - Respiratory Rate - - Oxygen Saturation 99% 01/19/2022 9:37 AM SUPERVISOR BYPRODUCTS Inhaled Oxygen Concentration - - Weight 105.3 kg (232 lb 1.6 oz) 01/19/2022 9:37 AM SUPERVISOR BYPRODUCTS Height 185.4 cm (6' 0.99 ) 01/19/2022 9:37 AM CS T Body Mass Index 30.63 01/19/2022 9:37 AM SUPERVISOR BYPRODUCTS documented in this encounter Progress Notes * Valeriano Manzanares NP - 01/19/2022 9:30 AM CST Patient Name: Fernie Rees : 1970 Today's Date: 01/19/2022 PCP: Unknown, Notinfile Referring: Valeriano Manzanares NP Chief Complaint Patient presents with Follow-up HPI Patient returned with complaints of bilateral knee pain. Pain varies from achy sharp to stabbing. Pain is positional and often aggravated with excessive weight-bearing activity. Doing yd work, playing with his children can exacerbate his symptomatology to a degree. Currently pain is rated 4 on 10 scale. He continues to take the hydrocodone as directed with benefit. He denies side effects aside from occasional constipation. Patient endorses ongoing left shoulder pain. He continues to participate in physical therapy and does report noting slow improvement with his range of motion and function. He continues to endorse discomfort and pain in the shoulder. Patient admits to having obtain several refills of oxycodone from his orthopedic surgeon since his last visit. He does continue endorse that his picks up the pain medication at the pharmacy and due to his intolerance of the oxycodone he typically will take it to the police station for proper disposal. He denies use of the oxycodone. No Known Allergies Past Medical History: Diagnosis [...] for weakness and numbness. Physical Exam Vitals: 01/19/22 0937 BP: 148/78 BP Location: Left arm Patient Position: Sitting Pulse: 84 SpO2: 99% Weight: 105.3 kg (232 lb 1.6 oz) Height: 185.4 cm (6' 0.99 ) Body mass index is 30.63 kg/m??. Physical Exam Vitals and nursing note reviewed. Constitutional: General: He is not in acute distress. Appearance: Normal appearance. He is well-developed. He is not diaphoretic. HENT: Head: Normocephalic and atraumatic. Eyes: Conjunctiva/sclera: Conjunctivae normal. Musculoskeletal: General: No tenderness or deformity. Right lower leg: No edema. Left lower leg: No edema. Skin: General: Skin is warm and dry. [...] Misuse Measure (COMM) reviewed with score of 2 (> or equal to 9 is higher risk ofopioid misuse) [facility] Prescription Drug Monitoring Reviewed and was consistent with office guidelines and policies. Most recent Urine Toxicology findings reviewed. Assessment Problem List Mental Health Long-term current use of opiate analgesic Musculoskeletal and Injuries Bilateral primary osteoarthritis of knee Chronic pain of both knees - Primary Chronic left shoulder pain Rotator cuff syndrome [...] try weight loss and exercise for management. Patient continues to endorse 75% improvement with use of his pain medication to address the chronicbilateral knee pain associated with the osteoarthritis. Most recent urine toxicology screen showed no presence of oxycodone. However it was noted that he has obtain 3 prescriptions from his orthopedist for oxycodone. This dictation was performed using M*Modal dictation. There may be some concaver variances which are not appreciated or corrected in this note. RVISOR [employer]PRODUCTS documented in this encounter Plan of Treatment Not on file documented as of this encounter Visit Diagnoses Diagnosis Chronic pain of both knees- Primary Long-term current use of opiate analgesic Encounter for long-term (current) use of other medications Bilateral primary osteoarthritis of knee Chronic left shoulder pain Pain in joint, shoulder region Rotator cuff syndrome of left shoulder documented in this encounter Care Teams Phone Technician Relationship Specialty Start Date End Date Unknown, Notinfile PCP - General 08/08/19 documented as of this encounter
--- OUTSIDE RECORDS SUMMARY | 2024-03-10 06:57 | XMS_ITS | Encounter Summary ---
Author Organization [facility] Address [facility] [place] [address] [place] [address] Care Team Providers Care Automation Mechanic Name Role Phone Unavailable Primary Care Provider Unavailabl e Encounter Details Date Type Department Care Team (Late st Contact Info) Description 12/12/2008 Abstract [facility] Emergency Room [address] [place] [address] Social History Tobacco Use Types Packs/Day Years [...]
--- OUTSIDE RECORDS SUMMARY | 2024-03-10 06:57 | XMS_ITS | Encounter Summary ---
Author Organization [facility] Address [facility] [facility] [place] [place] [address] [place] [address] Care Team Providers Care Summer Camp Counselor Name Role Phone Unavailable Primary Care Provider Unavailabl e Encounter Details Date Type Department Care Team (Late st Contact Info) Description 02/05/2009 Abstract [facility] CONVERSION [address], [place] [id number] Dane Nathan MD Social History Tobacco Use Types Packs/Day [...]
--- OUTSIDE RECORDS SUMMARY | 2024-03-10 06:57 | XMS_ITS | Encounter Summary ---
Author Organization [facility] Address [address] [place] [address] Care Team Providers Care Digital Operations Analyst Name Role Phone Unavailable Primary Care Provider Unavailabl e Encounter Details Date Type Department Care Team (Late st Contact Info) Description 03/23/2021 12:00 PM FINISHING RANGE FEEDER Rapid Evaluation [place] [facility] [address] [address] Social History Tobacco Use Types Packs/Day Years Used Date Smoking Tobacco: Never Assessed Sex and Gender Information Value Date Recorded Sex Assigned at Not on file Legal Sex Male 11:44 AM FINISHING RANGE FEEDER Gender Identity Not on file Sexual Orientation Not on file documented as of this encounter Plan of Treatment Not on file documented as of this encounter Visit Diagnoses Not on filedocumented in this encounter
--- OUTSIDE RECORDS SUMMARY | 2024-03-10 06:58 | XMS_ITS | Encounter Summary ---
Author Organization [facility] Address [address] [place] [address] Care Team Providers Care Polisher Sand Name Role Phone Unknown, Notinfile Primary Care Provider Unavail able Reason for Visit * Reason Comments Knee Pain Med Management Encounter Details Date Type Department Care Team (Late st Contact Info) Description 03/30/2021 3:52 PM SHOP HELPER - 03/30/2021 11:59 PM SHOP HELPER Hospital Encounter [facility] [address] [place], [place] [id number] [place] [id number] [facility] [address] [place] [address] [place] [address] [facility] [address] [place], [place] [id number] [place] [phone] [id number] Bilateral primary osteoarthritis of knee (Primary Dx); Chronic pain of both knees; Therapeutic opioid induced constipation Discharge Disposition: Discharge to home or self care Social History Tobacco Use Types Packs/Day Years Used Date Smoking Tobacco: Every Day Cigarettes 1 35 Smokeless Tobacco: Never Comments:already trying Alcohol Use Standard Drinks/Week Comments Yes 0 (1 standard drink = 0.6 oz pur e alcohol) Sex and Gender Information Value Date Recorded Sex Assigned at Not on file Legal Sex Male 8:49 AM SHOP HELPER Gender Identity Not on file Sexual Orientation Not on file documented as of this encounter Last Filed Vital Signs Vital Sign Reading Time Taken Comments Blood Pressure 156/92 03/30/2021 4:03 PM SHOP HELPER Pulse 92 03/30/2021 4:03 PM SHOP HELPER Temperature - - Respiratory Rate 16 03/30/2021 4:03 PM SHOP HELPER Oxygen Saturation 99% 03/30/2021 4:03 PM SHOP HELPER Inhaled Oxygen Concentration - - Weight - - Height - - Body Mass Index - - documented in this encounter Medications at Time of Discharge albuterol HFA (PROVENTIL HFA,VENTOLIN HFA,PROAIR HFA) 90 mcg/actuation inhaler INHALE 1 PUFF BY MOUTH EVERY 4 TO 6 HOURS NEEDED FOR SHORTNESS OF BREATH OR WHEEZING 01/26/2021 atorvastatin (LIPITOR) 10 mg tablet Take 10 mg by mouth daily naloxone (NARCAN) 4 mg/actuation spray,non-aeroso l Administer 1 spray into affected nostril(s) as needed for opioid reversal Call 911. Administer a single spray in one nostril. Repeat every 3 minutes as needed if no or minimal response. 2 each 1 05/29/2020 methylnaltrexone (Relistor) 150 mg tablet Take 450 mg by mouth daily before breakfast 90 tablet 2 01/29/2021 2 HYDROcodone-acet aminophen (NORCO) 7.5-325 mg per tabletIndication s:Pain Take 1 tablet by mouth every 6 (six) hours as needed for pain 120 tablet 04/01/2021 2 HYDROcodone-acet aminophen (NORCO) 7.5-325 mg per tabletIndication s:Pain Take 1 tablet by mouth every 6 (six) hours as needed for pain 120 tablet 05/01/2021 2 ketorolac (SPRIX) nasal Administer 1 spray into each nostril every 6 (six) hours 5 each 1 05/29/2020 2 meloxicam (MOBIC) 15 mg tablet Take 1 tablet (15 mg total) by mouth daily 90 tablet 1 12/02/2020 2 documented as of this encounter Discharge Disposition Disposition Code Departure Means Destination Discharge to home or self care documented in this encounter Progress Notes * Valeriano Manzanares, BLOCKER AND CUTTER CONTACT LENS - 03/30/2021 4:00 PM CST Patient Name: Fernie Rees : 1970 Today's Date: 03/30/2021 PCP: Kar Streeter Referring: No ref. provider found Chief Complaint Patient presents with ??? Knee Pain ??? Med Management HPI Patient returned complaints of bilateral knee pain. Pain varies from achiness to sharp stabbing pain in leads based on activity level. At present pain is rated 4 on 10 scale. Since his last visit he is denying any significant change in his overall health condition, in particular his knees. Pain is present daily and typically worse with his work activity. He continues with the hydrocodone as directed. He is not obtain a prescription for the Relistor. He states that his constipation has somewhat spontaneously improved and he is having bowel movements on a regular daily basis with minimal difficulty. He is requesting refill of the pain medication. Medication helps reduce symptoms by reported 80%. No Known Allergies Past Medical History: Diagnosis [...] ??? Lung disease Other HOME MEDICATIONS : atorvastatin (LIPITOR) 10 mg tablet HYDROcodone-acetaminophen (NORCO) 7.5-325 mg per tablet meloxicam (MOBIC) 15 mg tablet naloxone (NARCAN) 4 mg/actuation spray,non-aerosol albuterol HFA (PROVENTIL HFA,VENTOLIN HFA,PROAIR HFA) 90 mcg/actuation inhaler ketorolac (SPRIX) nasal methylnaltrexone (Relistor) 150 mg tablet Review of Systems Review of Systems Constitutional: Negative. HENT: Negative for sinus pain and sore throat. Eyes: Negative for pain and visual disturbance. Respiratory: Negative. Negative for apnea, choking and stridor. Cardiovascular: Negative. Gastrointestinal: Negative for abdominal pain, blood in stool, constipation and nausea. Genitourinary: Negative for difficulty urinating and dysuria. Musculoskeletal: Positive for arthralgias, back pain, gait problem, joint swelling and myalgias. Skin: Negative for color change. Neurological: Negative for weakness and numbness. Hematological: Negative. Psychiatric/Behavioral: Negative. Physical Exam Vitals: 03/30/21 1603 BP: 156/92 Pulse: 92 Resp: 16 SpO2: 99% There is no height or weight on file to calculate BMI. Physical Exam Vitals and nursing note reviewed. [...] at end ranges of extension and flexion. Skin: General: Skin is warm and dry. [...] Pain Intensity and Interference with score of 4 Current Opioid Misuse Measure (COMM) reviewed with score of 0 (> or equal to 9 is higher risk ofopioid misuse) [place] [facility] [place] Prescription Drug Monitoring Reviewed and was consistent with office guidelines and policies. Most recent Urine Toxicology findings reviewed. Assessment Problem List Musculoskeletal and Injuries Bilateral primary osteoarthritis of knee - Primary Chronic pain of both knees Plan Pre-hypertension/Hypertension: The patient has been informed [...] try weight loss and exercise for management. Options are limited to medication management at the present time. We have discussed in the past injection therapy, geniculate nerve blocks and geniculate nerve ablation however patient seems to be relatively happy with the improvement he notes with his medication. We will obtain urine toxicology screen today to verify for compliancy with our prescribing guidelines and follow up with this gentleman in 2 months, sooner if necessary. This dictation was performed using M*Modal dictation. There may be some counter hand variances which are not appreciated or corrected in this note. HELPER documented in this encounter Plan of Treatment Not on file documented as of this encounter Visit Diagnoses Diagnosis Bilateral primary osteoarthritis of knee- Primary Chronic pain of both knees Therapeutic opioid induced constipation documented in this encounter Historical Medications * This list may reflect changes made after this encounter. albuterol HFA (PROVENTIL HFA,VENTOLIN HFA,PROAIR HFA) 90 mcg/actuation inhaler INHALE 1 PUFF BY MOUTH EVERY 4 TO 6 HOURS NEEDED FOR SHORTNESS OF BREATH OR WHEEZING 01/26/2021 added in this encounter Care Teams Polisher Sand Relationship Specialty Start Date End Date Unknown, Notinfile PCP - General 08/08/19 documented as of this encounter
--- OUTSIDE RECORDS SUMMARY | 2024-03-10 06:58 | XMS_ITS | Encounter Summary ---
Author Organization [facility] Address [address] [place] [address] Care Team Providers Care Cherry Cutter Name Role Phone Unknown, Notinfile Primary Care Provider Unavail able Reason for Visit * Diagnostic Imaging (Routine) - Closed Specialty Diagnoses / Procedures Referred By Daniel diehl Referred To Contact Diagnoses Chronic right shoulder pain Procedures XR Shoulder Right 4 Views Ann Marie Menard MD Phone: tel: fax: Referral ID Status Reason Start Date Expiration Date Visits Re quested Visits Authorized [id number] Closed 10/22/2019 11/20/2020 1 1 Encounter Details Date Type Department Care Team (Latest Contact Info) Description 10/22/2019 2:43 PM CDT - 10/22/2019 11:59 PM CDT Hospital Encounter [facility] Orthopedics and Sports Medicine [address] [place] [phone] Discharge Disposition: Discharge to home or self care Social History Tobacco Use Types Packs/Day Years Used Date Smoking Tobacco: Every Day Cigarettes 1 35 Smokeless Tobacco: Never Comments:already trying Alcohol Use Standard Drinks/Week Comments Yes 0 (1 standard drink = 0.6 oz pur e alcohol) Sex and Gender Information Value Date Recorded Sex Assigned at Not on file Legal Sex Male 8:49 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 Gender Identity Not on file Sexual Orientation Not on file documented as of this encounter Medications at Time of Discharge atorvastatin (LIPITOR) 10 mg tablet Take 10 mg by mouth daily HYDROcodone-aceta minophen (NORCO) 7.5-325 mg per tablet TK 1 T PO TID FOR 20 DAYS 08/08/2019 05/29/2020 HYDROcodone-aceta minophen (NORCO) 7.5-325 mg per tabletIndications :Pain Take 1 tablet by mouth every 6 (six) hours as needed for pain 120 tablet 11/23/2019 11/21/2019 HYDROcodone-aceta minophen (NORCO) 7.5-325 mg per tabletIndications :Pain Take 1 tablet by mouth every 6 (six) hours as needed for pain 120 tablet 10/23/2019 11/21/2019 HYDROcodone-aceta minophen (NORCO) 7.5-325 mg per tabletIndications :Pain Take 1 tablet by mouth every 6 (six) hours as needed for pain 120 tablet 09/21/2019 01/11/2020 meloxicam (MOBIC) 15 mg tablet Take 15 mg by mouth daily 07/04/2018 12/02/2020 documented as of this encounter Discharge Disposition Disposition Code Departure Means Destination Discharge to home or self care documented in this encounter Plan of Treatment Not on file documented as of this encounter Procedures Procedure Name Priority Date/Time Associated Diagnosis Comments XR SHOULDER RIGHT 2 OR MORE VIEWS Schedule Routine, Read Routine (OP Routine) 10/22/2019 3:14 PM CDT Subacromial impingement of right shoulder documented in this encounter Results * XR Shoulder Right 4 Views (10/22/2019 3:14 PM CDT) Anatomical Region Laterality Modality Upper Extremities, Shoulder Right Radi ographic Imaging Narrative 10/22/2019 3:14 PM CDT Interpretation right shoulder xray 4 views: Upon my review of the images, negative for fracture or dislocation, no periosteal reaction or bone destruction. ??Mild degenerative changes of the glenohumeral joint. ??Mild subacromial osteophyte. us Ann Marie Menard MD IMG XR PROCEDURES Laura l Result documented in this encounter Visit Diagnoses Not on filedocumented in this encounter Care Teams Cherry Cutter Relationship Specialty Start Date End Date Unknown, Notinfile PCP - General 08/08/19 documented as of this encounter
--- OUTSIDE RECORDS SUMMARY | 2024-03-10 06:58 | XMS_ITS | Encounter Summary ---
Author Organization [facility] Healthcare Address [address] [place] [address] Care Team Providers Care Mold Chipper Name Role Phone Unknown, Notinfile Primary Care Provider Unavail able Reason for Visit * Reason Comments Follow-up Knee Pain Encounter Details Date Type Department Care Team (Late st Contact Info) Description 11/21/2019 10:27 AM CDT - 11/21/2019 11:59 PM CDT Hospital Encounter [facility] [address] [place] [address] [place] [address] 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 Gender Identity Not on file Sexual Orientation Not on file documented as of this encounter Last Filed Vital Signs Vital Sign Reading Time Taken Comments Blood Pressure 120/80 11/21/2019 11:05 AM CDT Pulse 65 11/21/2019 11:05 AM CDT Temperature 36.6 ??C (97.8 ??F) 11/21/2019 11:05 AM C DT Respiratory Rate 19 11/21/2019 11:05 AM CDT Oxygen Saturation 99% 11/21/2019 11:05 AM CDT Inhaled Oxygen Concentration - - Weight - [...] needed for pain 120 tablet 09/21/2019 01/11/2020 HYDROcodone-aceta minophen (NORCO) 7.5-325 mg per tabletIndications :Pain Take 1 tablet by mouth every 6 (six) hours as needed for pain 120 tablet 12/22/2019 01/11/2020 HYDROcodone-aceta minophen (NORCO) 7.5-325 mg per tabletIndications :Pain Take 1 tablet by mouth every 6 (six) hours as needed for pain 120 tablet 11/22/2019 04/02/2020 meloxicam (MOBIC) 15 mg tablet Take 15 mg by mouth daily 07/04/2018 12/02/2020 documented as of this encounter Ordered Prescriptions Prescription Sig Dispense Quantity Refills Last Filled Start Date End Date HYDROcodone-acetam inophen (NORCO) 7.5-325 mg per tabletIndications: Pain Take 1 tablet by mouth every 6 (six) hours as needed for pain 120 tablet 11/22/2019 04/02/2020 HYDROcodone-acetam inophen (NORCO) 7.5-325 mg per tabletIndications: Pain Take 1 tablet by mouth every 6 (six) hours as needed for pain 120 tablet 12/22/2019 01/11/2020 documented in this encounter Discharge Disposition Disposition Code Departure Means Destination Discharge to home or self care documented in this encounter Progress Notes * Geovanny Zapata MD - 11/21/2019 10:30 AM CDT Patient Name: Fernie Rees : 1970 Today's Date: 11/22/2019 PCP: Notinfile Unknown Referring: No ref. provider found Chief Complaint Patient presents with ??? Follow-up ??? Knee Pain HPI Fernie Rees is a 49 y.o. male seen for return visit. He presents with ongoing bilateral knee pain.The pain is described as frequent aching. It rates 3/10 on the numeric pain scale. Provocative factors include lifting heavy objects, stairs, and working. Alleviating factors include rest. Patient denies any motor weakness or bowel/bladder issues. He states he has been managing his pain well with his current medication regimen, and would like to continue this regimen as- is. He denies any medication side effects. He states he is currently awaiting testosterone level results. Therapeutic modalities attempted to date include injections and oral medication (Hydrocodone and Meloxicam). He was made aware about spurs in the past. No Known Allergies Past Medical History: Diagnosis Date ??? Arthritis ??? GERD (gastroesophageal reflux disease) Patient Active Problem List Diagnosis ??? Bilateral primary osteoarthritis of knee ??? Chronic pain of both knees ??? Long-term current use of opiate analgesic ??? Chronic right shoulder pain Past Surgical History: Procedure Laterality Date ??? HAND SURGERY ??? ORIF WRIST FRACTURE Right Social History Socioeconomic History ??? Marital status: Unknown Spouse name: Not on file ??? Number of children: Not on file ??? Years of education: Not on file ??? Highest education level: Not on file Tobacco Use ??? Smoking status: Current Every Day Smoker Packs/day: 1.00 Years: 35.00 Pack years: 35.00 ??? Smokeless tobacco: Never Used ??? Tobacco comment: already trying Substance and Sexual Activity ??? Alcohol use: Yes ??? Drug use: Never Family History Problem Relation Age of Onset ??? Stroke Other ??? Kidney disease Other ??? Cancer Other ??? Lung disease Other HOME MEDICATIONS : atorvastatin (LIPITOR) 10 mg tablet HYDROcodone-acetaminophen (NORCO) 7.5-325 mg per tablet HYDROcodone-acetaminophen (NORCO) 7.5-325 mg per tablet meloxicam (MOBIC) 15 mg tablet HYDROcodone-acetaminophen (NORCO) 7.5-325 mg per tablet HYDROcodone-acetaminophen (NORCO) 7.5-325 mg per tablet Review of Systems Review of Systems Constitutional: Negative. Negative for chills, fever and unexpected weight change. HENT: Negative. Negative for hearing loss, nosebleeds and sore throat. Eyes: Negative. Negative for discharge and redness. Respiratory: Negative. Negative for cough, chest tightness, shortness of breath and wheezing. Cardiovascular: Negative. Negative for chest pain and palpitations. Gastrointestinal: Negative. Negative for abdominal distention and vomiting. Endocrine: Negative. Negative for polydipsia and polyuria. Genitourinary: Positive for frequency. Negative for difficulty urinating and urgency. Musculoskeletal: Positive for arthralgias. Skin: Negative. Negative for color change and rash. Allergic/Immunologic: Negative. Negative for environmental allergies and immunocompromised state. Neurological: Negative. Negative for dizziness and seizures. Hematological: Negative. Negative for adenopathy. Does not bruise/bleed easily. Psychiatric/Behavioral: Negative. Negative for confusion, decreased concentration and hallucinations. All other systems reviewed and are negative. Physical Exam Vitals: 11/21/19 1105 BP: 120/80 Pulse: 65 Resp: 19 Temp: 97.8 ??F (36.6 ??C) SpO2: 99% Estimated body mass index is 29.42 kg/m?? as calculated from the following: Height as of 10/22/19: 185.4 cm (6' 1 ). Weight as of 10/22/19: 101.2 kg (223 lb). Physical Exam Vitals signs and nursing note reviewed. Constitutional: Appearance: He is well-developed. HENT: Head: Normocephalic and atraumatic. Eyes: Conjunctiva/sclera: Conjunctivae normal. Pupils: Pupils are equal, round, and reactive to light. Neck: Musculoskeletal: Neck supple. Trachea: No tracheal deviation. Cardiovascular: Rate and Rhythm: Normal rate. Pulmonary: Effort: Pulmonary effort is normal. Abdominal: Palpations: Abdomen is soft. Musculoskeletal: Normal range of motion. Right shoulder: He exhibits normal range of motion. Right knee: He exhibits normal range of motion. Left knee: He exhibits normal range of motion. Comments: There is full ROM at right shoulder, but pain with abduction >30 degrees Skin: General: Skin is dry. Neurological: Mental Status: He is alert and oriented to person, place, and time. Cranial Nerves: No cranial nerve deficit. Sensory: No sensory deficit. Psychiatric: Speech: Speech normal. Behavior: Behavior normal. Tobacco Screening: Fernie Rees was screened for tobacco use. Patient is a tobacco user. Patient was briefly counseledabout the risks of tobacco use and the benefits of stopping. Patient has been advised to quit, and if that fails, to discuss pharmacological options with their family doctor. Review of Data: PEG and COMM questionnaires were reviewed with scores of 13 & 1, respectively. Most recent urine toxicology screen was reviewed, along with local prescription drug monitoring program. Assessment Encounter Diagnoses Name Primary? Bilateral primary osteoarthritis of knee Yes ??? Chronic pain of both knees ??? Chronic right shoulder pain ??? Long-term current use of opiate analgesic Plan Fernie is here today with continued ongoing pain issues primarily affecting shoulders and knees. He continues to work and be quite active and notes that medication provides him both subjective and functional improvement and there are no side effect issues. We discussed some alternative measures whichwould obviously include potential surgical referral verses injection therapy or potentially even more advanced intervention however for now he declines and would like to continue with medication management as is. He was given prescription today for [place] 7.5/325 with 120 tablets per month and we will see him back in 2 months or of course earlier if needed. Goals of Treatment: Treat underlying pathology, improve pain control, improve function, and quality of life. Use of Medications: [...] may be discussed at the next visit. Dirt Bike Racer: Dirt Bike Racer done with Fluency Direct: variances and inaccuracies may occur. Dictations not proofread. Problem list pertinent to today???s visit reviewed, but entire patient problem list not reviewed today. This note is prepared by Randy Dhaliwal, acting as a scribe for Herminio Zapata MD. I electronically signed this note at 1:31 PM on 11/22/2019. I, Herminio Zapata, have personally performed the services described in the documentation , reviewed the documentation as recorded by the scribe in my presence, and it accurately and completely records my words and actions though there are potential variances in recording and lead informatica developer. Dictated not proofread. documented in this encounter Plan of Treatment Not on file documented as of this encounter Visit Diagnoses Diagnosis Bilateral primary osteoarthritis of knee- Primary Chronic pain of both knees Chronic right shoulder pain Pain in joint, shoulder region Long-term current use of opiate analgesic Encounter for long-term (current) use of other medications documented in this encounter Discontinued Medications Medication Sig Discontinue Reason Start Date End Da te HYDROcodone-acetaminophe n (NORCO) 7.5-325 mg per tabletIndications:Pain Take 1 tablet by mouth every 6 (six) hours as needed for pain Reorder 11/23/2019 11/21/2019 HYDROcodone-acetaminophe n (NORCO) 7.5-325 mg per tabletIndications:Pain Take 1 tablet by mouth every 6 (six) hours as needed for pain Reorder 10/23/2019 11/21/2019 documented as of this encounter Care Teams Mold Chipper Relationship Specialty Start Date End Date Unknown, Notinfile PCP - General 08/08/19 documented as of this encounter
--- OUTSIDE RECORDS SUMMARY | 2024-03-10 06:58 | XMS_ITS | Encounter Summary ---
Author Organization [facility] Healthcare Address [address] [place] [address] Care Team Providers Care Sales Clerk Supervisor Name Role Phone Unknown, Notinfile Primary Care Provider Unavail able Reason for Visit * Reason Comments Initial Consult Knee Pain Shoulder Pain Encounter Details Date Type Department Care Team (Late st Contact Info) Description 08/24/2019 1:21 PM CDT - 08/24/2019 11:59 PM CDT Hospital Encounter [facility] [address] [place], [place] [id number] [place] [address] 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 Gender Identity Not on file Sexual Orientation Not on file documented as of this encounter Last Filed Vital Signs Vital Sign Reading Time Taken Comments Blood Pressure 110/66 08/24/2019 1:22 PM CDT Pulse 80 08/24/2019 1:22 PM CDT Temperature 36.7 ??C (98 ??F) 08/24/2019 1:22 PM CDT Respiratory Rate 18 08/24/2019 1:22 PM CDT Oxygen Saturation 98% 08/24/2019 1:22 PM CDT Inhaled Oxygen Concentration - - Weight - - Height - - Body Mass Index - - documented in this encounter Medications at Time of Discharge HYDROcodone-aceta minophen (NORCO) 7.5-325 mg per tablet TK 1 T PO TID FOR 20 DAYS 08/08/2019 05/29/2020 HYDROcodone-aceta minophen (NORCO) 7.5-325 mg per tabletIndications :Pain Take 1 tablet by mouth every 6 (six) hours as needed for pain 120 tablet 08/24/2019 09/21/2019 meloxicam (MOBIC) 15 mg tablet Take 15 mg by mouth daily 07/04/2018 12/02/2020 documented as of this encounter Ordered Prescriptions Prescription Sig Dispense Quantity Refills Last Filled Start Date End Date HYDROcodone-acetam inophen (NORCO) 7.5-325 mg per tabletIndications: Pain Take 1 tablet by mouth every 6 (six) hours as needed for pain 120 tablet 08/24/2019 09/21/2019 documented in this encounter Discharge Disposition Disposition Code Departure Means Destination Discharge to home or self care documented in this encounter Progress Notes * Geovanny Zapata MD - 08/24/2019 1:45 PM CDT Patient Name: Fernie Rees : 1970 Today's Date: 08/24/2019 PCP: Kar Streeter Referring: STEPHANIE Red Chief Complaint Patient presents with ??? Initial Consult ??? Knee Pain ??? Shoulder Pain HPI Fernie Rees is a 49 y.o. male seen in consultation today for STEPHANIE Red. He presents with right shoulder pain with a radicular component to the right sided neck and bilateral knee pain. His pain began 7-8 years ago and has been worsening The pain is described as constant burning, aching,and jabbing. It rates 8/10 on the numeric pain scale. Provocative factors include lifting heavy objects and stairs. Alleviating factors include rest. Patient denies any motor weakness or bowel/bladder issues. Therapeutic modalities attempted to date include injections and oral medication (Hydrocodone and Meloxicam). He was made aware about spurs in the past. He is interested in medication management at this time. No Known Allergies Past Medical History: Diagnosis Date ??? Arthritis ??? GERD (gastroesophageal reflux disease) Patient Active Problem List Diagnosis ??? Bilateral primary osteoarthritis of knee ??? Chronic pain of both knees ??? Long-term current use of opiate analgesic ??? Chronic right shoulder pain Past Surgical History: Procedure Laterality Date ??? ORIF WRIST FRACTURE Right Social History Socioeconomic History ??? Marital status: Unknown Spouse name: Not on file ??? Number of children: Not on file ??? Years of education: Not on file ??? Highest education level: Not on file Tobacco Use ??? Smoking status: Current Every Day Smoker Packs/day: 1.00 Years: 35.00 Pack years: 35.00 ??? Tobacco comment: already trying No family history on file. HOME MEDICATIONS : meloxicam (MOBIC) 15 mg tablet HYDROcodone-acetaminophen (NORCO) 7.5-325 mg per tablet HYDROcodone-acetaminophen (NORCO) 7.5-325 mg per tablet meloxicam (MOBIC) 15 mg tablet Review of Systems Review of [...] reviewed and are negative. Physical Exam Vitals: 08/24/19 1322 BP: 110/66 Pulse: 80 Resp: 18 Temp: 98 ??F (36.7 ??C) SpO2: 98% There is no height or weight on file to calculate BMI. Physical Exam Vitals signs and nursing note [...] knee: He exhibits normal range of motion. Skin: General: Skin is dry. Neurological: Mental Status: He is alert and oriented to person, place, and time. Cranial Nerves: No cranial nerve deficit. Sensory: No sensory deficit. Psychiatric: Speech: Speech normal. Behavior: Behavior normal. Tobacco Screening: Ferine Rees was screened for tobacco use. Patient is a tobacco user. Patient was briefly counseledabout the risks of tobacco use and the benefits of stopping. Patient has been advised to quit, and if that fails, to discuss pharmacological options with their family doctor. Review of Data: SOAPP-R and PHQ-9 questionnaires were reviewed. Most recent urine toxicology screen was reviewed, along with local prescription drug monitoring program. Assessment Encounter Diagnoses Name Primary? Long-term current use of opiate analgesic Yes ??? Bilateral primary osteoarthritis of knee ??? Chronic right shoulder pain Plan Fernie and I discussed how to manage his pain long-term from here. At this point he has tried and failed rest, physical therapy, a variety of alternative medications including Tylenol, anti-inflammatories, gabapentin, and still has significant pain. I think it is pretty clear that on x-rays that I reviewed that there is some mild degenerative change though nothing severe. We discussed trying to avoid opioids in this situation as much as possible but he notes significant need for an benefit from medication. 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 We will get him prescription for [place] 7.5/325 with 120 tablets though I do not plan to escalate dosing in the future. I am concerned that [place] may be a bit expensive however we discussed some opioid rotation and I think in the future trying that medication may be of great benefit as we would be able to wean him down some from the opioid dosing and hopefully this would still provide good improvement. Locks a Cam also works exceedingly well for him which he utilizes in conjunction with the hydrocodone at this point. For now we will see Lupe back in 1 month or of course earlier if needed. Goals [...] may be discussed at the next visit. Digital Photographic Printer: Digital Photographic Printer done with Fluency Direct: variances and inaccuracies may occur. Dictations not proofread. Problem list pertinent to today???s visit reviewed, but entire patient problem list not reviewed today. This note is prepared by Coral Stephens, acting as a scribe for Herminio Zapata MD. I electronically signed this note at 3:32 PM on 08/24/2019. I, Herminio Zapata, have personally performed the services described in the documentation , reviewed the documentation as recorded by the scribe in my presence, and it accurately and completely records my words and actions though there are potential variances in recording and guest relations associate. Dictated not proofread. documented in this encounter Miscellaneous Notes * Addendum Note - Wanda Falk RN - 08/24/2019 1:45 PM CDTEncounter addended by: Wanda Falk RN on: 08/27/2019 6:44 AM Actions taken: Procedure log completed, Charge Capture section accepted documented in this encounter Plan of Treatment Not on file documented as of this encounter Visit Diagnoses Diagnosis Long-term current use of opiate analgesic- Primary Encounter for long-term (current) use of other medications Bilateral primary osteoarthritis of knee Chronic right shoulder pain Pain in joint, shoulder region documented in this encounter Discontinued Medications Medication Sig Discontinue Reason Start Date End Da te meloxicam (MOBIC) 15 mg tablet TK 1 T PO QD Duplicate order 08/02/2019 08/24/2019 documented as of this encounter Historical Medications * This list may reflect changes made after this encounter. HYDROcodone-aceta minophen (NORCO) 7.5-325 mg per tablet TK 1 T PO TID FOR 20 DAYS 08/08/2019 05/29/2020 meloxicam (MOBIC) 15 mg tablet TK 1 T PO QD 08/02/2019 08/24/2019 meloxicam (MOBIC) 15 mg tablet Take 15 mg by mouth daily 07/04/2018 12/02/2020 added in this encounter Care Teams Sales Clerk Supervisor Relationship Specialty Start Date End Date Unknown, Notinfile PCP - General 08/08/19 documented as of this encounter
--- OUTSIDE RECORDS SUMMARY | 2024-03-10 06:58 | XMS_ITS | Encounter Summary ---
Author Organization [facility] Healthcare Address [address] [place] [address] Care Team Providers Care Wind Turbine Mechanical Engineer Name Role Phone Unknown, Notinfile Primary Care Provider Unavail able Reason for Visit * Reason Comments Follow-up Encounter Details Date Type Department Care Team (Late st Contact Info) Description 10/03/2020 1:00 PM CDT - 10/03/2020 11:59 PM CDT Hospital Encounter [facility] [address] [place] [address] [place] [id number] [facility] [address] [place] [address] [place] [address] [facility] [address] [place] [address] Chronic pain of both knees (Primary Dx); [...] on file 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 2 each 1 05/29/2020 HYDROcodone-acet aminophen (NORCO) 7.5-325 mg per tabletIndication s:Pain Take 1 tablet by mouth every 6 (six) hours as needed for pain 120 tablet 11/02/2020 1 HYDROcodone-acet aminophen (NORCO) 7.5-325 mg per tabletIndication s:Pain Take 1 tablet by mouth every 6 (six) hours as needed for pain 120 tablet 10/03/2020 1 ketorolac (SPRIX) nasal Administer 1 spray into each nostril every 6 (six) hours 5 each 1 05/29/2020 2 meloxicam (MOBIC) 15 mg tablet Take 15 mg by mouth daily 07/04/2018 1 documented as of this encounter Discharge Disposition Disposition Code Departure Means Destination Discharge to home or self care documented in this encounter Progress Notes * Valeriano Manzanares, REFRACTORY PRODUCTS SUPERVISOR - 10/03/2020 1:00 PM CDT Patient Name: Fernie Rees : 1970 Today's Date: 10/03/2020 PCP: Unknown, Notinfile Referring: No ref. provider found Chief Complaint Patient presents with ??? Follow-up HPI Patient returned with complaints of continued ongoing bilateral knee pain. Pain rated 4 on 10 scaledescribed as achy which can become sharp based on activity level. He continues work full-time and symptoms are typically worse on days of work. Overall no change in his condition since his last visit. In addition he does have left shoulder pain although that is improved since his last visit. No Known Allergies Past Medical History: Diagnosis [...] Social Determinants of Health Financial Resource Strain: ??? Difficulty of Paying Living Expenses: Food Insecurity: ??? Worried About Running Out of Food in the Last Year: ??? Ran Out of Food in the Last Year: Transportation Needs: ??? Lack of Transportation (Medical): ??? Lack of Transportation (Non-Medical): Physical Activity: ??? Days of Exercise per Week: ??? Minutes of Exercise per Session: Stress: ??? Feeling of Stress : Social Connections: ??? Frequency of Communication with Friends and Family: ??? Frequency of Social Gatherings with Friends and Family: ??? Attends Mu-Ism Services: ??? Active Member of Clubs or Organizations: ??? Attends Club or Organization Meetings: ??? Marital Status: Intimate Partner Violence: ??? Fear of Current or Ex-Partner: ??? Emotionally Abused: ??? Physically Abused: ??? Sexually Abused: Family History Problem Relation Age of Onset ??? Stroke Other ??? Kidney disease Other ??? Cancer Other ??? Lung disease Other HOME MEDICATIONS : atorvastatin (LIPITOR) 10 mg tablet HYDROcodone-acetaminophen (NORCO) 7.5-325 mg per tablet HYDROcodone-acetaminophen (NORCO) 7.5-325 mg per tablet ketorolac (SPRIX) nasal meloxicam (MOBIC) 15 mg tablet naloxone (NARCAN) [...] arthralgias, gait problem, joint swelling and myalgias. Negative for back pain. Skin: Negative for color change. Neurological: Negative for weakness and numbness. Hematological: Negative. Psychiatric/Behavioral: Negative. Physical Exam Vitals: 10/03/20 1340 BP: 127/90 Pulse: 86 Resp: 18 SpO2: 98% There is no height or [...] edema. Left lower leg: No edema. Comments: Active shoulder range of motion on the right is unrestricted and nonpainful. Gonzalez testmildly positive. Tenderness on palpation supraspinatus tendon on right. Skin: General: Skin is warm and dry. [...] Misuse Measure (COMM) reviewed with score of 3 (> or equal to 9 is higher risk ofopioid misuse) [place] and [place] Prescription Drug Monitoring Reviewed and was consistent with office guidelines and policies. Most recent Urine Toxicology findings reviewed. Assessment Problem List Musculoskeletal and Injuries Bilateral primary osteoarthritis of knee Chronic pain of both knees - Primary Chronic right shoulder pain Plan Pre-hypertension/Hypertension: The patient has [...] weight loss and exercise for management. Patient suffers from osteoarthritis of bilateral knees. Findings are consistent with this diagnosis. There is no noted decline in his overall function. I reviewed his urine toxicology screen which did reveal codeine. He readily admits knowledge of this finding stating that he was having a cough during the time of his last urine toxicology screen. He took his son's cough medicine which had codeinein it. Prior to this incident, there has not been any indication of inappropriate use of his medication. We did review our office guidelines regarding opioid pain medication and he understands that future discrepancies may result in us discontinuing his pain medication. He voices understanding. Follow-up in 2 months. This dictation was performed using M*Modal dictation. There may be some donor relations manager variances which are not appreciated or corrected in this note. documented in this encounter Plan of Treatment Not on file documented as of this encounter Visit Diagnoses Diagnosis Chronic pain of both knees- Primary Bilateral primary osteoarthritis of knee Chronic right shoulder pain Pain in joint, shoulder region documented in this encounter Care Teams Wind Turbine Mechanical Engineer Relationship Specialty Start Date End Date Unknown, Notinfile PCP - General 08/08/19 documented as of this encounter
--- OUTSIDE RECORDS SUMMARY | 2024-03-10 06:58 | XMS_ITS | Encounter Summary ---
Author Organization [facility] Healthcare Address [address] [place] [address] Care Team Providers Care Classics Professor Name Role Phone Unknown, Notinfile Primary Care Provider Unavail able Reason for Visit * Reason Comments Med Management Encounter Details Date Type Department Care Team (Late st Contact Info) Description 01/31/2020 7:45 AM FORMING DEPARTMENT END FINDER - 01/31/2020 11:59 PM FORMING DEPARTMENT END FINDER Hospital Encounter [facility] [address] [place] [address] [place] [address] [facility] [address] [place] [address] [place] [address] [facility] [address] [place] [address] Long-term current use of opiate analgesic (Primary Dx); Bilateral primary osteoarthritis of knee; Chronic pain of both knees; Chronic right shoulder pain Discharge Disposition: Discharge [...] on file Legal Sex Male 8:49 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 FINDER Gender Identity Not on file Sexual Orientation Not on file documented as of this encounter Last Filed Vital Signs Vital Sign Reading Time Taken Comments Blood Pressure 124/65 01/31/2020 7:56 AM FORMING DEPARTMENT END FINDER Pulse 75 01/31/2020 7:56 AM FORMING DEPARTMENT END FINDER Temperature 36 ??C (96.8 ??F) 01/31/2020 7:56 AM FORMING DEPARTMENT END FINDER Respiratory Rate 18 01/31/2020 7:56 AM FORMING DEPARTMENT END FINDER Oxygen Saturation 98% 01/31/2020 7:56 AM FORMING DEPARTMENT END FINDER Inhaled Oxygen Concentration - - Weight - - Height - - Body Mass Index - - documented in this encounter Medications at Time of Discharge atorvastatin (LIPITOR) 10 mg tablet Take 10 mg by mouth daily methylnaltrexone (Relistor) 150 mg tablet Take 450 mg by mouth daily 90 tablet 2 01/31/2020 04/30/2020 HYDROcodone-aceta minophen (NORCO) 7.5-325 mg per tablet TK 1 T PO TID FOR 20 DAYS 08/08/2019 05/29/2020 HYDROcodone-aceta minophen (NORCO) 7.5-325 mg per tabletIndications :Pain Take 1 tablet by mouth every 6 (six) hours as needed for pain 120 tablet 11/22/2019 04/02/2020 HYDROcodone-aceta minophen (NORCO) 7.5-325 mg per tabletIndications :Pain Take 1 tablet by mouth every 6 (six) hours as needed for pain 105 tablet 03/21/2020 04/02/2020 HYDROcodone-aceta minophen (NORCO) 7.5-325 mg per tabletIndications :Pain Take 1 tablet by mouth every 6 (six) hours as needed for pain 105 tablet 02/18/2020 05/29/2020 meloxicam (MOBIC) 15 mg tablet Take 15 mg by mouth daily 07/04/2018 12/02/2020 documented as of this encounter Ordered Prescriptions Prescription Sig Dispense Quantity Refills Last Filled Start Date End Date methylnaltrexone (Relistor) 150 mg tablet Take 450 mg by mouth daily 90 tablet 2 01/31/2020 04/30/2020 HYDROcodone-acetam inophen (NORCO) 7.5-325 mg per tabletIndications: Pain Take 1 tablet by mouth every 6 (six) hours as needed for pain 105 tablet 02/19/2020 01/31/2020 HYDROcodone-acetam inophen (NORCO) 7.5-325 mg per tabletIndications: Pain Take 1 tablet by mouth every 6 (six) hours as needed for pain 105 tablet 03/21/2020 01/31/2020 documented in this encounter Discharge Disposition Disposition Code Departure Means Destination Discharge to home or self care documented in this encounter Progress Notes * Valeriano Manzanares, SENIOR SOUS CHEF - 01/31/2020 8:30 AM CST Patient Name: Fernie Rees : 1970 Today's Date: 01/31/2020 PCP: Unknown, Notinfile Referring: No ref. provider found Chief Complaint Patient presents with ??? Med Management HPI Patient presenting with complaints of bilateral knee pain. Quality pain is described as achy with occasional sharpness. 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 Pain is present daily and rated 3 on 10 scale. He continues with his pain medication with benefit. He denies side effects aside from occasional constipation. Does inquire about treatment for the constipation as at home [id number] remedies have failed to help him. He also asked for slight increase in his medication. No Known Allergies Past Medical History: Diagnosis [...] file Occupational History ??? Not on file Social Needs ??? Financial resource strain: Not on file ??? Food insecurity Worry: Not on file Inability: Not on file ??? Transportation needs Medical: Not on file Non-medical: Not on file Tobacco Use ??? Smoking status: Current Every Day Smoker Packs/day: 1.00 Years: 35.00 Pack years: 35.00 ??? Smokeless tobacco: Never Used ??? Tobacco comment: already trying Substance and Sexual Activity ??? Alcohol use: Yes ??? Drug use: Never ??? Sexual activity: Not on file Lifestyle ??? Physical activity Days per week: Not on file Minutes per session: Not on file ??? Stress: Not on file Relationships ??? Social connections Talks on phone: Not on file Gets together: Not on file Attends adventism service: Not on file Active member of club or organization: Not on file Attends meetings of clubs or organizations: Not on file Relationship status: Not on file ??? Intimate partner violence Fear of current or ex partner: Not on file Emotionally abused: Not on file Physically abused: Not on file Forced sexual activity: Not on file Other Topics Concern ??? Not on file Social History Narrative ??? Not on file Family History Problem Relation [...] tablet HYDROcodone-acetaminophen (NORCO) 7.5-325 mg per tablet methylnaltrexone (Relistor) 150 mg tablet Review of [...] Hematological: Negative. Psychiatric/Behavioral: Negative. Physical Exam Vitals: 01/31/20 0756 BP: 124/65 Pulse: 75 Resp: 18 Temp: 96.8 ??F (36 ??C) SpO2: 98% There is no height or weight on file to calculate BMI. Physical Exam Vitals signs and nursing note reviewed. Constitutional: General: He is not in acute distress. Appearance: Normal appearance. He is well-developed. He is not diaphoretic. HENT: Head: Normocephalic and atraumatic. Eyes: Conjunctiva/sclera: Conjunctivae normal. Musculoskeletal: General: Tenderness present. No deformity. Right lower leg: No edema. Left lower leg: No edema. Comments: Active range of motion with resistant spinal and knees reveals some discomfort resisted extension. Tenderness of medial joint space bilaterally. Skin: General: Skin is warm and dry. [...] normal. Judgment: Judgment normal. Assessment Problem List Nervous Chronic pain of both knees Relevant Medications HYDROcodone-acetaminophen (NORCO) 7.5-325 mg per tablet (Start on 03/21/2020) HYDROcodone-acetaminophen (NORCO) 7.5-325 mg per tablet (Start on 02/19/2020) Chronic right shoulder pain Relevant Medications HYDROcodone-acetaminophen (NORCO) 7.5-325 mg per tablet (Start on 03/21/2020) HYDROcodone-acetaminophen (NORCO) 7.5-325 mg per tablet (Start on 02/19/2020) Musculoskeletal Bilateral primary osteoarthritis of knee Relevant Medications HYDROcodone-acetaminophen (NORCO) 7.5-325 mg per tablet (Start on 03/21/2020) HYDROcodone-acetaminophen (NORCO) 7.5-325 mg per tablet (Start on 02/19/2020) Other Long-term current use of opiate analgesic - Primary Plan Pre-hypertension/Hypertension: The patient has been informed [...] discuss pharmacological options with their family doctor. Presentation along with radiographic findings of mild joint space narrowing consistent with mild osteoarthritis of bilateral knees. Patient does have strenuous job which seems to exacerbate his symptomatology. Will provide him with refills of his medication for the upcoming 2 months. I do not anticipate as increasing his pain medication in the near future. We will follow up with her in 2 months. We will obtain urine toxicology screen today as well. Follow-up in 2 months or sooner if necessary. This dictation was performed using M*Modal dictation. There may be some construction area manager variances which are not appreciated or corrected in this note. ING DEPARTMENT END FINDER documented in this encounter Miscellaneous Notes * Addendum Note - Mihaela Flores RN - 01/31/2020 8:30 AM CSTEncounter addended by: Mihaela Flores RN on: 01/31/2020 9:24 AM Actions taken: Charge Capture section accepted, Procedure log completed ING DEPARTMENT END FINDER documented in this encounter Plan of Treatment [...] (six) hours as needed for pain Reorder 01/11/2020 01/31/2020 HYDROcodone-acetaminophe n (NORCO) 7.5-325 mg per tabletIndications:Pain Take 1 tablet by mouth every 6 (six) hours as needed for pain Reorder 01/21/2020 01/31/2020 documented as of this encounter Care Teams Classics Professor Relationship Specialty Start Date End Date Unknown, Notinfile PCP - General 08/08/19 documented as of this encounter
--- OUTSIDE RECORDS SUMMARY | 2024-03-10 06:58 | XMS_ITS | Encounter Summary ---
Author Organization [facility] Address [address] [facility] [address] [place] [id number] Care Team Providers Care Document Improvement Specialist Name Role Phone Unknown, Notinfile Primary Care Provider Unavail able Reason for Referral * Diagnostic Imaging (Routine) - Closed Specialty Diagnoses / Procedures Referred By Daniel diehl Referred To Contact Diagnoses Chronic right shoulder pain Procedures XR Shoulder Right 4 Views Ann Marie Menard MD Phone: tel: fax: Referral ID Status Reason Start Date Expiration Date Visits Re quested Visits Authorized [id number] Closed 10/22/2019 11/20/2020 1 1 Reason for Visit * Reason Comments Pain * Consultation (Routine) - Closed Specialty Diagnoses / Procedures Referred By Daniel diehl Referred To Contact Orthopedic Surgery Diagnoses Chronic right shoulder pain Geovanny Zapata MD Phone: tel: fax: Ann Marie Menard MD Phone: tel: fax: Referral ID Status Reason Start Date Expiration Date V isits Requested Visits Authorized [id number] Closed Specialty Services Required 09/21/2019 04/01/2021 1 1 Encounter Details Date Type Department Care Team (Latest Contact Info) Description 10/22/2019 3:00 PM CDT Office Visit [facility] Orthopedics and Sports Medicine [address] [place] [phone] Ann Marie Menard MD [address] [place] [address] Subacromial impingement of right shoulder Social History Tobacco Use Types Packs/Day Years Used Date Smoking Tobacco: Every Day Cigarettes 1 35 Smokeless Tobacco: Never Comments:already trying Alcohol Use Standard Drinks/Week Comments Yes 0 (1 standard drink = 0.6 oz pur e alcohol) Sex and Gender Information Value Date Recorded Sex Assigned at Not on file 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 Gender Identity Not on file Sexual Orientation Not on file documented as of this encounter Last Filed Vital Signs Vital Sign Reading Time Taken Comments Blood Pressure 152/78 10/22/2019 2:54 PM CDT Pulse 85 10/22/2019 2:54 PM CDT Temperature - - Respiratory Rate - - Oxygen Saturation - - Inhaled Oxygen Concentration - - Weight 101.2 kg (223 lb) 10/22/2019 2:54 PM CDT Height 185.4 cm (6' 1 ) 10/22/2019 2:54 PM CDT Body Mass Index 29.42 10/22/2019 2:54 PM CDT documented in this encounter Progress Notes * Ann Marie Menard MD - 10/22/2019 3:00 PM CDT NEW PATIENT VISIT Subjective CHIEF COMPLAINT He had concerns including Pain of the Right Shoulder. HISTORY OF PRESENT ILLNESS Fernie is a well-appearing 49-year-old man with a pleasant affect in no acute distress who presents today with complaints of right arm pain for 1 year, the pain has gotten worse over the last 6 months.He is uncertain what started the pain, but the pain is sharp, burning, moderate, activity related. Use of his arm makes the pain worse, relaxing makes the pain better. He is taking Encinal for knee pain, he also takes meloxicam. He is left-hand dominant. Has intermittent numbness and tingling in his entire hand. Does not report any pain in his neck or history with his neck. Pain Assessment Pain Assessment: 0-10 Pain Score: 5 - Moderate pain Pain Location: Shoulder Pain Orientation: Right Pain Descriptors: Sharp, Burning Pain Frequency: With movement/cough PAST MEDCIAL HISTORY He has a past medical history of Arthritis and GERD (gastroesophageal reflux disease). He also has no past medical history of Hypertension. PAST SURGICAL HISTORY He has a past surgical history that includes ORIF wrist fracture (Right) and Hand surgery. MEDICATIONS He has a current medication list which includes the following prescription(s): atorvastatin, hydrocodone-acetaminophen, hydrocodone-acetaminophen, hydrocodone- acetaminophen, hydrocodone-acetaminophen, and meloxicam. ALLERGIES He has No Known Allergies. SOCIAL HISTORY He reports that he has been smoking. He has a 35.00 pack-year smoking history. He has never used smokeless tobacco. He reports current alcohol use. He reports that he does not use drugs. FAMILY HISTORY His family history includes Cancer in an other family member; Kidney disease in an other family member; Lung disease in an other family member; Stroke in an other family member. REVIEW OF SYSTEMS Review of Systems Constitutional: Negative for activity change, appetite change, chills and fever. HENT: Negative for congestion, dental problem, ear pain, hearing loss and voice change. Eyes: Negative for pain and visual disturbance. Respiratory: Negative for apnea, cough, chest tightness and shortness of breath. Cardiovascular: Negative for chest pain, palpitations and leg swelling. Gastrointestinal: Negative for blood in stool, constipation, diarrhea, nausea and vomiting. Endocrine: Negative for cold intolerance and heat intolerance. Genitourinary: Negative for difficulty urinating and hematuria. Skin: Negative for color change, rash and wound. Allergic/Immunologic: Negative for environmental allergies. Neurological: Negative for dizziness, syncope, numbness and headaches. Hematological: Negative for adenopathy. Does not bruise/bleed easily. Psychiatric/Behavioral: Negative for confusion. The patient is not nervous/anxious and is not hyperactive. Objective PHYSICAL EXAM BP 152/78 Pulse 85 Ht 185.4 cm (6' 1 ) Wt 101.2 kg (223 lb) BMI 29.42 kg/m?? Right shoulder Inspection The patient has normal inspection of the right shoulder. Palpation The patient has normal palpation of the right shoulder. Range of motion The patient has normal range of motion of the right shoulder. The patient has pain with range of motion of the right shoulder. Stability Th patient has normal stability of the right shoulder. Strength Shoulder abduction: 4/5 Internal rotation: 4/5 External rotation 4/5 Scapular stabilizers: 4/5 Supraspinatus: 4/5 Lower trapezius: 4/5 Deltoid: 4/5 Bicep: 4/5 Neurovascular The patient has normal vascular on the right side of his body. He has normal sensation on the right side of his body. Tests Cross arm: positive Hawkin's test: positive Edgardo's: positive Emanuel's: positive Left shoulder The patient has normal inspection, palpation, range of motion, strength, and stability of the left shoulder. REVIEW OF X-RAYS/STUDIES/LABS XR Shoulder Right 4 Views Interpretation right shoulder xray 4 views: Upon my review of the images, negative for fracture or dislocation, no periosteal reaction or bone destruction. Mild degenerative changes of the glenohumeral joint. Mild subacromial osteophyte. Assessment/Plan Fernie was seen today for pain. Diagnoses and all orders for this visit: Subacromial impingement of right shoulder - Ambulatory referral to Orthopedic Surgery - XR Shoulder Right 4 Views Procedures PLAN Reviewed xray images with Mr. Rees. Referred to [facility] in [place] for further evaluation and treatment. Continue current pain regimen as previously prescribed. Ice or heat for 20 minutes as needed for pain and swelling. RTC in 6 weeks for repeat evaluation, sooner if symptoms get worse. He is in full und erstanding and in agreement with the plan, and all of his questions were answered. Loading Inspector completed by using [employer] Direct speaking software, therefore, transcriptionvariances may occur. MALLORY Correa MD documented in this encounter Miscellaneous Notes * Addendum Note - Mio Hay ATC - 10/22/2019 3:00 PM CDTAddended by: MIO HAY on: 10/23/2019 07:22 AM Modules accepted: Orders documented in this encounter Plan of Treatment [...] Result documented in this encounter Visit Diagnoses Diagnosis Subacromial impingement of right shoulder documented in this encounter Historical Medications * This list may reflect changes made after this encounter. atorvastatin (LIPITOR) 10 mg tablet Take 10 mg by mouth daily added in this encounter Orders Outpatient Referral Count Last Ordered Date Fir st Ordered Date AMB REFERRAL TO ORTHOPEDIC SURGERY 1 2019 documented in this encounter Care Teams Document Improvement Specialist Relationship Specialty Start Date End Date Unknown, Notinfile PCP - General 08/08/19 documented as of this encounter
--- OUTSIDE RECORDS SUMMARY | 2024-03-10 06:58 | XMS_ITS | Encounter Summary ---
Author Organization [facility] Healthcare Address [address] [place] [address] Care Team Providers Care Aerial Gunner Superintendent Name Role Phone Unknown, Notinfile Primary Care Provider Unavail able Reason for Visit * Reason Comments Med Management Encounter Details Date Type Department Care Team (Late st Contact Info) Description 04/02/2020 3:00 PM FOOD AND BEVERAGE CHECKER - 04/02/2020 11:59 PM FOOD AND BEVERAGE CHECKER Hospital Encounter [facility] [address] [phone] [place] [id number] [facility] [address] [phone] [place] [address] [facility] [address] [place] [address] Long-term current use of opiate analgesic (Primary Dx); Bilateral primary osteoarthritis of knee; Chronic pain of both knees; Chronic right shoulder pain; Medial epicondylitis of elbow, left Discharge Disposition: Discharge to home or self care Social History Tobacco Use Types Packs/Day Years Used Date Smoking Tobacco: Every Day Cigarettes 1 35 Smokeless Tobacco: Never Comments:already trying Alcohol Use Standard Drinks/Week Comments Yes 0 (1 standard drink = 0.6 oz pur e alcohol) Sex and Gender Information Value Date Recorded Sex Assigned at Not on file Legal Sex Male 8:49 AM FOOD AND BEVERAGE CHECKER Gender Identity Not on file Sexual Orientation Not on file documented as of this encounter Last Filed Vital Signs Vital Sign Reading Time Taken Comments Blood Pressure 147/94 04/02/2020 3:27 PM FOOD AND BEVERAGE CHECKER Pulse 84 04/02/2020 3:27 PM FOOD AND BEVERAGE CHECKER Temperature 36.3 ??C (97.3 ??F) 04/02/2020 3:27 PM CS T Respiratory Rate 18 04/02/2020 3:27 PM FOOD AND BEVERAGE CHECKER Oxygen Saturation 99% 04/02/2020 3:27 PM FOOD AND BEVERAGE CHECKER Inhaled Oxygen Concentration - - Weight - [...] needed for pain 105 tablet 02/18/2020 05/29/2020 HYDROcodone-aceta minophen (NORCO) 7.5-325 mg per tabletIndications :Pain Take 1 tablet by mouth every 6 (six) hours as needed for pain 120 tablet 05/15/2020 08/04/2020 HYDROcodone-aceta minophen (NORCO) 7.5-325 mg per tabletIndications :Pain Take 1 tablet by mouth every 6 (six) hours as needed for pain 105 tablet 04/19/2020 05/19/2020 meloxicam (MOBIC) 15 mg tablet Take 15 mg by mouth daily 07/04/2018 12/02/2020 documented as of this encounter Ordered Prescriptions Prescription Sig Dispense Quantity Refills Last Filled Start Date End Date HYDROcodone-acetam inophen (NORCO) 7.5-325 mg per tabletIndications: Pain Take 1 tablet by mouth every 6 (six) hours as needed for pain 105 tablet 04/19/2020 05/19/2020 HYDROcodone-acetam inophen (NORCO) 7.5-325 mg per tabletIndications: Pain Take 1 tablet by mouth every 6 (six) hours as needed for pain 120 tablet 05/15/2020 08/04/2020 documented in this encounter Discharge Disposition Disposition Code Departure Means Destination Discharge to home or self care documented in this encounter Progress Notes * Valeriano Manzanares, BASE MANAGER - 04/02/2020 3:00 PM CST Patient Name: Fernie Rees : 1970 Today's Date: 04/02/2020 PCP: Syl, Kar Referring: No ref. provider found Chief Complaint Patient presents with ??? Med Management HPI Patient presenting with complaints bilateral knee pain. Pain varies from achiness to sharp type pain based on activity level. Pain rated 6 on 10 scale. Pain exacerbated with work activities such as climbing stairs as well. Aside from this there is no change in his overall symptomatology. He continues taking hydrocodone averaging 3-4 per day with benefit. In addition patient has complaints of left elbow pain. He points to the medial aspect of left elbowas side of his pain. No radicular component noted. Elbow can be exacerbated by lifting. No Known Allergies Past Medical History: Diagnosis [...] file Gets together: Not on file Attends protestant service: Not on file Active member of [...] per tablet meloxicam (MOBIC) 15 mg tablet methylnaltrexone (Relistor) 150 mg tablet HYDROcodone-acetaminophen (NORCO) 7.5-325 mg per tablet HYDROcodone-acetaminophen (NORCO) 7.5-325 mg per tablet HYDROcodone-acetaminophen (NORCO) 7.5-325 mg per tablet HYDROcodone-acetaminophen (NORCO) 7.5-325 mg per tablet Review of Systems Review of Systems Musculoskeletal: Positive for arthralgias, gait problem, joint swelling and myalgias. Physical Exam Vitals: 04/02/20 1527 BP: 147/94 Pulse: 84 Resp: 18 Temp: 97.3 ??F (36.3 ??C) SpO2: 99% There is no height or [...] (NORCO) 7.5-325 mg per tablet (Start on 05/15/2020) HYDROcodone-acetaminophen (NORCO) 7.5-325 mg per tablet (Start on 04/19/2020) Chronic right shoulder pain Relevant Medications HYDROcodone-acetaminophen (NORCO) 7.5-325 mg per tablet (Start on 05/15/2020) HYDROcodone-acetaminophen (NORCO) 7.5-325 mg per tablet (Start on 04/19/2020) Musculoskeletal Bilateral primary osteoarthritis of knee Relevant Medications HYDROcodone-acetaminophen (NORCO) 7.5-325 mg per tablet (Start on 05/15/2020) HYDROcodone-acetaminophen (NORCO) 7.5-325 mg per tablet (Start on 04/19/2020) Medial epicondylitis of elbow, left Other Long-term current use of opiate analgesic - Primary Plan Subjective and objective findings consistent with bilateral knee pain, bilateral knee osteoarthritis. In addition patient has new condition with diagnosis of medial epicondylitis of left elbow. We reviewed treatment options for this condition consisting of injection therapy, transverse friction massage, elbow bracing, anti-inflammatory medication and proper use of ice. Patient will pursue these options and if he fails to improve he will pursue the injection therapy. Review most recent urine toxicology screen and state prescription drug monitoring site were consistent with our office guidelines. We will provide him with a refill of his medication and follow up with him in 2 months or sooner if necessary. This dictation was performed using M*Modal dictation. There may be some code clerk variances which are not appreciated or corrected in this note. AND BEVERAGE CHECKER documented in this encounter Plan of Treatment Not on file documented as of this encounter Visit Diagnoses Diagnosis Long-term current use of opiate analgesic- Primary Encounter for long-term (current) use of other medications Bilateral primary osteoarthritis of knee Chronic pain of both knees Chronic right shoulder pain Pain in joint, shoulder region Medial epicondylitis of elbow, left documented in this encounter Discontinued Medications Medication Sig Discontinue Reason Start Date End Da te HYDROcodone-acetaminophe n (NORCO) 7.5-325 mg per tabletIndications:Pain Take 1 tablet by mouth every 6 (six) hours as needed for pain Reorder 11/22/2019 04/02/2020 HYDROcodone-acetaminophe n (NORCO) 7.5-325 mg per tabletIndications:Pain Take 1 tablet by mouth every 6 (six) hours as needed for pain Reorder 03/21/2020 04/02/2020 documented as of this encounter Care Teams Aerial Gunner Superintendent Relationship Specialty Start Date End Date Unknown, Notinfile PCP - General 08/08/19 documented as of this encounter
--- OUTSIDE RECORDS SUMMARY | 2024-03-10 06:58 | XMS_ITS | Encounter Summary ---
Author Organization [facility] Healthcare Address [address] [place] [address] Care Team Providers Care Fixing Carpenter Name Role Phone Unknown, Notinfile Primary Care Provider Unavail able Reason for Visit * Reason Comments Follow-up Encounter Details Date Type Department Care Team (Late st Contact Info) Description 01/29/2021 2:15 PM PROFESSOR OF PHYSICAL EDUCATION - 01/29/2021 11:59 PM PROFESSOR OF PHYSICAL EDUCATION Hospital Encounter [facility] [address] [place] [address] [place] [address] [facility] [address] [place] [address] [place] [address] [facility] [address] [place] [address] Long-term current use of opiate analgesic (Primary Dx); Bilateral primary osteoarthritis of knee; Chronic pain of both knees; Chronic right shoulder pain; Therapeutic opioid induced constipation Discharge Disposition: Discharge [...] on file Legal Sex Male 8:49 AM PROFESSOR OF PHYSICAL EDUCATION Gender Identity Not on file Sexual Orientation Not on file documented as of this encounter Last Filed Vital Signs Vital Sign Reading Time Taken Comments Blood Pressure 141/80 01/29/2021 2:57 PM PROFESSOR OF PHYSICAL EDUCATION Pulse 86 01/29/2021 2:57 PM PROFESSOR OF PHYSICAL EDUCATION Temperature - - Respiratory Rate 18 01/29/2021 2:57 PM PROFESSOR OF PHYSICAL EDUCATION Oxygen Saturation 99% 01/29/2021 2:57 PM PROFESSOR OF PHYSICAL EDUCATION Inhaled Oxygen Concentration - - Weight - [...] hours as needed for pain 120 tablet 01/29/2021 1 HYDROcodone-acet aminophen (NORCO) 7.5-325 mg per tabletIndication s:Pain Take 1 tablet by mouth every 6 (six) hours as needed for pain 120 tablet 03/04/2021 1 ketorolac (SPRIX) nasal Administer 1 spray into each nostril every 6 (six) hours 5 each 1 05/29/2020 2 meloxicam (MOBIC) 15 mg tablet Take 1 tablet (15 mg total) by mouth daily 90 tablet 1 12/02/2020 2 documented as of this encounter Ordered Prescriptions Prescription Sig Dispense Quantity Refills Last Filled Start Date End Date methylnaltrexone (Relistor) 150 mg tablet Take 450 mg by mouth daily before breakfast 90 tablet 2 01/29/2021 2 documented in this encounter Discharge Disposition Disposition Code Departure Means Destination Discharge to home or self care documented in this encounter Progress Notes * Valeriano Manzanares, WOMEN'S MINISTRY DIRECTOR - 01/29/2021 3:00 PM CST Patient Name: Fernie Rees : 1970 Today's Date: 01/29/2021 PCP: Kar Streeter Referring: No ref. provider found Chief Complaint Patient presents with ??? Follow-up HPI Since patient's last visit he continues to endorse chronic bilateral knee pain. Pain is present a daily basis and typically is achy which can become quite sharp with his work activity. He continues to work full-time. Pain is rated 6 on 10 scale. He is utilizing hydrocodone with significant benefit.He does request refill. In addition he shares with me that he has developed some constipation whichhe believes is related to his pain medication. He inquires about appropriate medication. No Known Allergies Past Medical History: [...] per tablet meloxicam (MOBIC) 15 mg tablet ketorolac (SPRIX) nasal naloxone (NARCAN) 4 mg/actuation spray,non-aerosol Review of [...] Hematological: Negative. Psychiatric/Behavioral: Negative. Physical Exam Vitals: 01/29/21 1457 BP: 141/80 BP Location: Right arm Patient Position: Sitting Pulse: 86 Resp: 18 SpO2: 99% There is no height or [...] normal. Judgment: Judgment normal. Assessment Problem List Gastrointestinal and Abdominal Therapeutic opioid induced constipation Mental Health Long-term current use of opiate analgesic - Primary Musculoskeletal and Injuries Bilateral primary osteoarthritis of knee Chronic pain of both knees Chronic right shoulder pain Plan Pre-hypertension/Hypertension: The [...] discuss pharmacological options with their family doctor. We will continue medication management for this gentleman the hydrocodone to be use Q 6 hours p.r.n. for pain. Due to patient's travel and work we will allow him to fill his medication 1 day early. Due to early refill of this upcoming prescription his next prescription will be filled 1 daily later.In addition we will provide him with a prescription for Relistor to be utilized as directed for constipation. He is to increase his water intake as well. We will follow up with him in 2 months, sooner if needed. This dictation was performed using M*Modal dictation. There may be some floor grinder variances which are not appreciated or corrected in this note. ESSOR OF PHYSICAL EDUCATION documented in this encounter Plan of Treatment Not on file documented as of this encounter Visit Diagnoses Diagnosis Long-term current use of opiate analgesic- Primary Encounter for long-term (current) use of other medications Bilateral primary osteoarthritis of knee Chronic pain of both knees Chronic right shoulder pain Pain in joint, shoulder region Therapeutic opioid induced constipation documented in this encounter Care Teams Fixing Carpenter Relationship Specialty Start Date End Date Unknown, Notinfile PCP - General 08/08/19 documented as of this encounter
--- OUTSIDE RECORDS SUMMARY | 2024-03-10 06:58 | XMS_ITS | Encounter Summary ---
Author Organization [facility] Healthcare Address [address] [place] [address] Care Team Providers Care Senior Cytogenetics Laboratory Director Name Role Phone Unknown, Notinfkaren Primary Care Provider Unavail able Encounter Details Date Type Department Care Team (Late st Contact Info) Description 09/04/2020 Telephone [facility] [address] [place], [place] [phone] [place] [address] [facility] [address] [place], [place] [phone] Social History Tobacco Use Types Packs/Day Years Used Date Smoking Tobacco: Every Day Cigarettes 1 35 Smokeless Tobacco: Never Comments:already trying Alcohol Use Standard Drinks/Week Comments Yes 0 (1 standard drink = 0.6 oz pur e alcohol) Sex and Gender Information Value Date Recorded Sex Assigned at Not on file Legal Sex Male 8:49 AM CONFERENCE RESERVATIONIST Gender Identity Not on file Sexual Orientation Not on file documented as of this encounter Miscellaneous Notes * Telephone Encounter - Ifeoma Adamson - 09/04/2020 1:33 PM CDT PATIENT CALLED STATED HE FILLED HIS LAST RX ON 08/04 AND THIS NEW RX STATES EARLIEST FILL DATE 09/08 BELIEVES THIS IS IN ERROR. WANTING TO KNOW IF HE'S ABLE TO FILL documented in this encounter Plan of Treatment Not on file documented as of this encounter Visit Diagnoses Not on filedocumented in this encounter Care Teams Senior Cytogenetics Laboratory Director Relationship Specialty Start Date End Date Unknown, Kar PCP - General 08/08/19 documented as of this encounter
--- OUTSIDE RECORDS SUMMARY | 2024-03-10 06:58 | XMS_ITS | Encounter Summary ---
Author Organization [facility] Healthcare Address [address] [place] [address] Care Team Providers Care Assistant City Attorney Name Role Phone Unknown, Notinfile Primary Care Provider Unavail able Encounter Details Date Type Department Care Team (Late st Contact Info) Description 12/30/2020 Telephone [facility] [address] [place], [place] [phone] [place] [address] [facility] [address] [place], [place] [phone] Social History Tobacco Use Types Packs/Day Years Used Date Smoking Tobacco: Every Day Cigarettes 1 35 Smokeless Tobacco: Never Comments:already trying Alcohol Use Standard Drinks/Week Comments Yes 0 (1 standard drink = 0.6 oz pur e alcohol) Sex and Gender Information Value Date Recorded Sex Assigned at Not on file Legal Sex Male 8:49 AM COLLABORATIVE TEACHER Gender Identity Not on file Sexual Orientation Not on file documented as of this encounter Miscellaneous Notes * Telephone Encounter - Cathy Harper RN - 12/30/2020 8:39 AM CDT Called patient's pharmacy to let them know that he cannot fill his meds early. I called the patientto let him know. * Telephone Encounter - Latasha Rawls - 12/30/2020 8:13 AM CDT WANTS TO KNOW IF HE COULD REHABILITATION DIRECTOR HIS HYDROCODONE TODAY. documented in this encounter Plan of Treatment Not on file documented as of this encounter Visit Diagnoses Not on filedocumented in this encounter Care Teams Assistant City Attorney Relationship Specialty Start Date End Date Unknown, Notinfile PCP - General 08/08/19 documented as of this encounter
--- OUTSIDE RECORDS SUMMARY | 2024-03-10 06:58 | XMS_ITS | Encounter Summary ---
Author Organization [facility] Healthcare Address [address] [place] [address] Care Team Providers Care Potato Peeling Machine Operator Name Role Phone Unknown, Notinfile Primary Care Provider Unavail able Reason for Referral * Consultation (Routine) - Closed Specialty Diagnoses / Procedures Referred By Daniel diehl Referred To Contact Orthopedic Surgery Diagnoses Chronic right shoulder pain Geovanny Zapata MD Phone: tel: fax: Ann Marie Menard MD Phone: tel: fax: Referral ID Status Reason Start Date Expiration Date V isits Requested Visits Authorized [id number] Closed Specialty Services Required 09/21/2019 04/01/2021 1 1 Question Answer Please select the performing region: [facility] [[id number]] Please select the performing department: [facility] [[id number]] To provider: FRANCESCA NANCE [[id number]] # of visits: 1 Comments Right shoulder pain Reason for Visit * Reason Comments Follow-up Knee Pain Shoulder Pain Encounter Details Date Type Department Care Team (Late st Contact Info) Description 09/21/2019 11:32 AM CDT - 09/21/2019 11:59 PM CDT Hospital Encounter [facility] [address] [place] [address] [place] [address] [facility] [address] [place] [address] Long-term current use of opiate analgesic (Primary Dx); Chronic pain of both knees; Bilateral primary osteoarthritis of knee; Chronic right shoulder pain Discharge Disposition: Discharge to home or self care Social History Tobacco Use Types Packs/Day Years Used Date Smoking Tobacco: Every Day Cigarettes 1 35 Comments:already trying Sex and Gender Information Value Date Recorded Sex Assigned at Not on file Legal Sex Male 8:49 AM DIE CUTTER APPRENTICE Gender Identity Not on file Sexual Orientation Not on file documented as of this encounter Last Filed Vital Signs Vital Sign Reading Time Taken Comments Blood Pressure 127/75 09/21/2019 11:33 AM CDT Pulse 99 09/21/2019 11:33 AM CDT Temperature 37.1 ??C (98.7 ??F) 09/21/2019 11:33 AM C DT Respiratory Rate 20 09/21/2019 11:33 AM CDT Oxygen Saturation 100% 09/21/2019 11:33 AM CDT Inhaled Oxygen Concentration - - [...] needed for pain 120 tablet 09/21/2019 01/11/2020 HYDROcodone-acetam inophen (NORCO) 7.5-325 mg per tabletIndications: Pain Take 1 tablet by mouth every 6 (six) hours as needed for pain 120 tablet 09/23/2019 09/21/2019 HYDROcodone-acetam inophen (NORCO) 7.5-325 mg per tabletIndications: Pain Take 1 tablet by mouth every 6 (six) hours as needed for pain 120 tablet 10/23/2019 11/21/2019 HYDROcodone-acetam inophen (NORCO) 7.5-325 mg per tabletIndications: Pain Take 1 tablet by mouth every 6 (six) hours as needed for pain 120 tablet 11/23/2019 11/21/2019 documented in this encounter Discharge Disposition Disposition Code Departure Means Destination Discharge to home or self care documented in this encounter Progress Notes * Geovanny Zapata MD - 09/21/2019 2:00 PM CDT Patient Name: Fernie Rees : 1970 Today's Date: 09/21/2019 PCP: Kar Unknown Referring: No ref. provider found Chief Complaint Patient presents with ??? Follow-up ??? Knee Pain ??? Shoulder Pain HPI Fernie Rees is a 49 y.o. male seen for return visit. He presents with right shoulder pain with a radicular component to the right sided neck and also bilateral knee pain. His pain began 7-8 years ago and has been worsening The pain is described as intermittent burning, aching, and jabbing. It rates 8/10 on the numeric pain scale. Provocative factors include lifting heavy objects and stairs. Alleviating factors include rest. Patient denies any motor weakness or bowel/bladder issues. His pain isalso exacerbated by driving and putting his hands on the wheel. He would like to see an orthopedic surgeon for his shoulder. Therapeutic modalities attempted to date include injections and oral medication (Hydrocodone and Meloxicam). He was made aware about spurs in the past. He is interested in medication management at this time. He is going to be out of medication early. No Known Allergies Past Medical History: Diagnosis [...] years: 35.00 ??? Tobacco comment: already trying History reviewed. No pertinent family history. HOME MEDICATIONS : HYDROcodone-acetaminophen (NORCO) 7.5-325 mg per tablet HYDROcodone-acetaminophen [...] reviewed and are negative. Physical Exam Vitals: 09/21/19 1133 BP: 127/75 Pulse: 99 Resp: 20 Temp: 98.7 ??F (37.1 ??C) SpO2: 100% There is no height or weight on [...] discuss pharmacological options with their family doctor. Pre-hypertension/Hypertension: The patient has been informed that [...] try weight loss and exercise for management. Review of Data: PEG and COMM questionnaires were reviewed. Most recent urine toxicology screen was reviewed, along with local prescription drug monitoring program. Assessment Encounter Diagnoses Name Primary? Long-term current use of opiate analgesic Yes ??? Chronic pain of both knees ??? Bilateral primary osteoarthritis of knee ??? Chronic right shoulder pain Plan Fernie returns today with persistent ongoing bilateral knee pain for which he notes hydrocodone continues to provide him good relief without any side effect issues. He has a very active job and again notes that this allows him to active at work as well. We again reviewed trying to utilize the medication as sparingly as possibly. That said, he has a new additional complain of right shoulder limitation in activity secondary to pain. This could represent rotator cuff irritation. At this point I am going to refer him to Dr. Nance for his expertise to see if there is something that could be done from a surgical standpoint to alleviate some of these issues. For now he would like to continue with medication management as is and was given prescription for Parker 7.5/325 with 120 tablets per month and will plan to see him back in 2 months of course earlier if needed. Goals of [...] may be discussed at the next visit. Sanding Machine Buffer: Sanding Machine Buffer done with Fluency Direct: variances and inaccuracies may occur. Dictations not proofread. Problem list pertinent to today???s visit reviewed, but entire patient problem list not reviewed today. This note is prepared by Coral Stephens, acting as a scribe for Herminio Zapata MD. I electronically signed this note at 2:11 PM on 09/21/2019. I, Herminio Zapata, have personally performed the services described in the documentation , reviewed the documentation as recorded by the scribe in my presence, and it accurately and completely records my words and actions though there are potential variances in recording and anesthesia director. Dictated not proofread. documented in this encounter Plan of Treatment Scheduled Referrals Name Type Priority Associated Diagnoses Order Schedule Ambulatory referral to Orthopedic Surgery Outpatient Referral Routine Chronic right shoulder pain Expected: 10/05/2019 (Approximate), Expires: 09/20/2020 documented as of this encounter Visit Diagnoses Diagnosis Long-term current use of opiate analgesic- Primary Encounter for long-term (current) use of other medications Chronic pain of both knees Bilateral primary osteoarthritis of knee Chronic right shoulder pain Pain in joint, shoulder region documented in this encounter Discontinued Medications Medication Sig Discontinue Reason Start Date End Da te HYDROcodone-acetaminophe n (NORCO) 7.5-325 mg per tabletIndications:Pain Take 1 tablet by mouth every 6 (six) hours as needed for pain Reorder 08/24/2019 09/21/2019 HYDROcodone-acetaminophe n (NORCO) 7.5-325 mg per tabletIndications:Pain Take 1 tablet by mouth every 6 (six) hours as needed for pain Reorder 09/23/2019 09/21/2019 documented as of this encounter Care Teams Potato Peeling Machine Operator Relationship Specialty Start Date End Date Unknown, Notinfile PCP - General 08/08/19 documented as of this encounter
--- OUTSIDE RECORDS SUMMARY | 2024-03-10 06:58 | XMS_ITS | Encounter Summary ---
Author Organization [facility] Healthcare Address [address] [place] [address] Care Team Providers Care Deckhand Name Role Phone Unknown, Notinfile Primary Care Provider Unavail able Encounter Details Date Type Department Care Team (Late st Contact Info) Description 01/11/2020 8:03 AM CDT - 01/11/2020 11:59 PM CDT Hospital Encounter 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 Gender Identity Not on file Sexual Orientation [...] hours as needed for pain 120 tablet 01/11/2020 01/31/2020 HYDROcodone-aceta minophen (NORCO) 7.5-325 mg per tabletIndications :Pain Take 1 tablet by mouth every 6 (six) hours as needed for pain 120 tablet 01/21/2020 01/31/2020 meloxicam (MOBIC) 15 mg tablet Take 15 mg by mouth daily 07/04/2018 12/02/2020 documented as of this encounter Ordered Prescriptions Prescription Sig Dispense Quantity Refills Last Filled Start Date End Date HYDROcodone-acetam inophen (NORCO) 7.5-325 mg per tabletIndications: Pain Take 1 tablet by mouth every 6 (six) hours as needed for pain 120 tablet 01/21/2020 01/31/2020 HYDROcodone-acetam inophen (NORCO) 7.5-325 mg per tabletIndications: Pain Take 1 tablet by mouth every 6 (six) hours as needed for pain 120 tablet 01/11/2020 01/31/2020 documented in this encounter Discharge Disposition Disposition Code Departure Means Destination Discharge to home or self care documented in this encounter Progress Notes * Valeriano Manzanares, CYANIDE POT HARDENER - 01/11/2020 8:15 AM CDT Patient Name: Fernie Rees : 1970 Today's Date: 01/11/2020 PCP: Kar Unknown Referring: No ref. provider found No chief complaint on file. HPI Patient returning for tele medicine encounter. Staff discussed nature and details regarding a tele medicine encounter and he wishes to proceed. Patient continues to have bilateral knee pain. Pain varies from mild to approaching severe based onhis activity level. He continues to work. Ascending and descending stairs can exacerbate his condition. He is denying any motor weakness or overall change in his condition. Continues with the hydrocodone with benefit. He Denies side effects. No Known Allergies Past Medical History: Diagnosis [...] file Gets together: Not on file Attends zoroastrianism service: Not on file Active member of [...] change. Hematological: Negative. Psychiatric/Behavioral: Negative. Physical Exam There were no vitals filed for this visit. There is no height or weight on [...] List Nervous Chronic pain of both knees - Primary Musculoskeletal Bilateral primary osteoarthritis of knee Other Long-term current use of opiate analgesic Plan Today's visit was a audio only tele medicine encounter with length of visit to 15 minutes. Obviously, tell meds encounter creates some limitations in evaluating the patient adequately. However based on information obtained from our communicating today, there is no change in his clinical status and no decline in his functional ability. He continues using hydrocodone on a regular basis with benefit. He is denying side effects and there is no indication of inappropriate use. We will provide him with a refill of his hydrocodone. He is to be scheduled for 30 day follow-up. This dictation was performed using M*Modal dictation. 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 documented in this encounter Miscellaneous Notes * Addendum Note - Mihaela Flores RN - 01/11/2020 8:15 AM CDTEncounter addended by: Mihaela Flores RN on: 01/11/2020 12:08 PM Actions taken: Charge Capture section accepted documented in this encounter Plan of Treatment Not on file documented as of this encounter Visit Diagnoses Diagnosis Chronic pain of both knees- Primary Bilateral primary osteoarthritis of knee Long-term current use of opiate analgesic Encounter for long-term (current) use of other medications Chronic right shoulder pain Pain in joint, shoulder region documented in this encounter Discontinued Medications Medication Sig Discontinue Reason Start Date End Da te HYDROcodone-acetaminophe n (NORCO) 7.5-325 mg per tabletIndications:Pain Take 1 tablet by mouth every 6 (six) hours as needed for pain Reorder 09/21/2019 01/11/2020 HYDROcodone-acetaminophe n (NORCO) 7.5-325 mg per tabletIndications:Pain Take 1 tablet by mouth every 6 (six) hours as needed for pain Reorder 12/22/2019 01/11/2020 documented as of this encounter Care Teams Deckhand Relationship Specialty Start Date End Date Unknown, Notinfile PCP - General 08/08/19 documented as of this encounter
--- OUTSIDE RECORDS SUMMARY | 2024-03-10 06:58 | XMS_ITS | Encounter Summary ---
Author Organization [facility] Healthcare Address [address] [place] [address] Care Team Providers Care Clinical Applications Manager Name Role Phone Unknown, Notinfile Primary Care Provider Unavail able Reason for Visit * Reason Comments Follow-up Shoulder Pain Encounter Details Date Type Department Care Team (Late st Contact Info) Description 05/29/2020 2:59 PM CDT - 05/29/2020 11:59 PM CDT Hospital Encounter [facility] [address] [place], [place] [id number] [place] [id number] [facility] [address] [place] [address] Long-term current use of opiate analgesic (Primary Dx); Chronic pain of both knees; Bilateral primary osteoarthritis of knee; Chronic right shoulder pain; Medial epicondylitis of [...] on file 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 Gender Identity Not on file Sexual Orientation Not on file documented as of this encounter Last Filed Vital Signs Vital Sign Reading Time Taken Comments Blood Pressure 101/79 05/29/2020 3:09 PM CDT Pulse 90 05/29/2020 3:09 PM CDT Temperature 36.6 ??C (97.8 ??F) 05/29/2020 3:09 PM CD T Respiratory Rate 18 05/29/2020 3:09 PM CDT Oxygen Saturation 100% 05/29/2020 3:09 PM CDT Inhaled Oxygen Concentration - - [...] as needed for pain 120 tablet 05/15/2020 1 HYDROcodone-acet aminophen (NORCO) 7.5-325 mg per tabletIndication s:Pain Take 1 tablet by mouth every 6 (six) hours as needed for pain 120 tablet 07/12/2020 1 HYDROcodone-acet aminophen (NORCO) 7.5-325 mg per tablet Take 1 tablet by mouth every 6 (six) hours as needed for pain 120 tablet 06/12/2020 1 ketorolac (SPRIX) nasal Administer 1 spray into each nostril every 6 (six) hours 5 each 1 05/29/2020 2 meloxicam (MOBIC) 15 mg tablet Take 15 mg by mouth daily 07/04/2018 1 documented as of this encounter Ordered Prescriptions Prescription Sig Dispense Quantity Refills Last Filled Start Date End Date naloxone (NARCAN) 4 mg/actuation spray,non-aerosol Administer 1 spray into affected nostril(s) as needed for opioid reversal Call 911. Administer a single spray in one nostril. Repeat every 3 minutes as needed if no or minimal response. 2 each 1 05/29/2020 ketorolac (SPRIX) nasal Administer 1 spray into each nostril every 6 (six) hours 5 each 1 05/29/2020 2 HYDROcodone-acetam inophen (NORCO) 7.5-325 mg per tablet Take 1 tablet by mouth every 6 (six) hours as needed for pain 120 tablet 06/12/2020 1 HYDROcodone-acetam inophen (NORCO) 7.5-325 mg per tabletIndications: Pain Take 1 tablet by mouth every 6 (six) hours as needed for pain 120 tablet 07/12/2020 1 documented in this encounter Discharge Disposition Disposition Code Departure Means Destination Discharge to home or self care documented in this encounter Progress Notes * Geovanny Zapata MD - 05/29/2020 4:00 PM CDT Patient Name: Fernie Rees : 1970 Today's Date: 05/29/2020 PCP: Syl, Kar Referring: No ref. provider found Chief Complaint Patient presents with ??? Follow-up ??? 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 He states when he is not performing this job, his chronic pain is relatively manageable with medication regimen. He reports moderate improvement of pain with hydrocodone use, and would like to continue this regimen as is. He denies any medication side effects. He is interested in trying Sprix nasal spray. No Known Allergies Past Medical History: Diagnosis Date ??? Arthritis ??? GERD (gastroesophageal reflux disease) Patient Active Problem List Diagnosis ??? Bilateral primary osteoarthritis of knee ??? Chronic pain of both knees ??? Long-term current use of opiate analgesic ??? Chronic right shoulder pain ??? Medial epicondylitis of elbow, left Past Surgical History: Procedure Laterality Date ??? [...] 7.5-325 mg per tablet Review of Systems Positive for right shoulder arthralgia. Physical Exam Vitals: 05/29/20 1509 BP: 101/79 Pulse: 90 Resp: 18 Temp: 97.8 ??F (36.6 ??C) SpO2: 100% Estimated body mass index is 29.42 kg/m?? as calculated from the following: Height as of 10/22/19: 185.4 cm (6' 1 ). Weight as of 10/22/19: 101.2 kg (223 lb). No apparent distress Alert and oriented Normal respiratory effort Abdomen not distended Assessment Encounter Diagnoses Name Primary? Chronic pain of both knees ??? Bilateral primary osteoarthritis of knee ??? Chronic right shoulder pain ??? Long-term current use of opiate analgesic Yes ??? Medial epicondylitis of elbow, left Medical Decision Making / Plan: VAS reviewed with score of: 6/10 PEG Scale Assessing Pain Intensity and Interference reviewed with score of: 5.33 Current Opioid Misuse Measure (COMM) reviewed with score of : 2 (> or equal to 9 is higher risk of opioid misuse) [facility] Prescription Drug Monitoring Reviewed and appropriate. Urine Toxicology Review (01/31/20): This shows primary medication hydrocodone and expected metabolites which is appropriate. Plan: Fernie Tolbert returns today with persistent ongoing multi site pain issues. This includes shoulder pain and pain of both knees. We have reviewed some options and obviously this could include injection therapy or surgical referral but for now he declines. He continues to work very labor intensive job and in fact has had to do a fair amount of [employer] work recently which is certainly going to cause some disruption. Overall, medication continues to provide him benefit. We will get him prescription forNorco 7.5/325 with 120 tablets per month. He tried to utilize 105 tablets per month but noted that this did not provide sufficient improvement. We are also going to add in a prescription for intranasal Toradol (sprix) for days of significant flare-up of pain. Consequently, for now we will plan to see him back in 2 months as he was given 2 months of medications of course earlier if needed. Goals of Treatment: Treat underlying pathology, improve pain control, improve function and quality of life. Use of Medications: The pain management contract has been previously reviewed. Questions solicited and answered, and the patient endorses a clear understanding. The patient understands random toxicology screening and prescription drug monitoring will be used. Instructed to take the smallest effective dose of opioid medication. Risks/side-effects of opioid medications, if utilizing, have been reviewed including: drowsiness, tolerance, addiction, abuse, constipation, nausea, vomiting, itching, dizziness, allergic reaction, respiratory depression, lack of benefit, endocrine abnormalities, low testosterone, sexual dysfunction, or . If utilizing, risks/side-effects of NSAID???s and potential for gastrointestinal bleeding, gastritis/esophagitis, and increased cardiac risk reviewed. Risks/side-effects of Gabapentin, Lyrica, and other potential sedative medications, if utilizing, have been reviewed including drowsiness, sedation, dizziness, fluid retention, weight gain, respiratory depression, and . If utilizing medications, the patient has been instructed to take every [...] may be discussed at the next visit. Tobacco Screening: Fernie Rees was screened for tobacco use. Patient is a tobacco user. Patient was briefly counseledabout the risks of tobacco use and the benefits of stopping. Patient has been advised to quit, and if that fails, to discuss pharmacological options with their family doctor. Solar Project Coordination Specialist: Solar Project Coordination Specialist done with [employer]ency Direct: variances and inaccuracies may occur. Dictations not proofread. Problem list pertinent to today???s visit reviewed, but entire patient problem list not reviewed today. This note is prepared by Randy Dhaliwal, acting as a scribe for Geovanny Zapata MD. I electronically signed this note at 4:17 PM on 05/29/20. I, Herminio Zapata, have personally performed the services described in the documentation , reviewed the documentation as recorded by the scribe in my presence, and it accurately and completely records my words and actions though there are potential variances in recording and customer care manager. Dictated not proofread. documented in this encounter [...] HYDROcodone-acetaminophe n (NORCO) 7.5-325 mg per tablet TK 1 T PO TID FOR 20 DAYS Reorder 08/08/2019 05/29/2020 HYDROcodone-acetaminophe n (NORCO) 7.5-325 mg per tabletIndications:Pain Take 1 tablet by mouth every 6 (six) hours as needed for pain Reorder 02/18/2020 05/29/2020 documented as of this encounter Care Teams Clinical Applications Manager Relationship Specialty Start Date End Date Unknown, Notinfile PCP - General 08/08/19 documented as of this encounter
--- OUTSIDE RECORDS SUMMARY | 2024-03-10 06:58 | XMS_ITS | Encounter Summary ---
Author Organization [facility] Healthcare Address [address] [place] [address] Care Team Providers Care Gear Technician Name Role Phone Unknown, Notinfile Primary Care Provider Unavail able Reason for Visit * Reason Comments Follow-up Med Management Knee Pain bilateral Shoulder Pain right Encounter Details Date Type Department Care Team (Late st Contact Info) Description 08/04/2020 11:44 AM CDT - 08/04/2020 11:59 PM CDT Hospital Encounter [facility] [address] [place] [address] [place] [id number] [facility] [address] [place] [address] [place] [address] [facility] [address] [place] [address] Long-term current use of opiate analgesic (Primary [...] on file 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 Gender Identity Not on file Sexual Orientation Not on file documented as of this encounter Last Filed Vital Signs Vital Sign Reading Time Taken Comments Blood Pressure 143/89 08/04/2020 1:23 PM CDT Pulse 94 08/04/2020 1:23 PM CDT Temperature - - Respiratory Rate 16 08/04/2020 1:23 PM CDT Oxygen Saturation 99% 08/04/2020 1:23 PM CDT Inhaled Oxygen Concentration - - [...] hours as needed for pain 120 tablet 08/04/2020 1 HYDROcodone-acet aminophen (NORCO) 7.5-325 mg per tabletIndication s:Pain Take 1 tablet by mouth every 6 (six) hours as needed for pain 120 tablet 09/08/2020 1 ketorolac (SPRIX) nasal Administer 1 spray into each nostril every 6 (six) hours 5 each 1 05/29/2020 2 meloxicam (MOBIC) 15 mg tablet Take 15 mg by mouth daily 07/04/2018 1 documented as of this encounter Discharge Disposition Disposition Code Departure Means Destination Discharge to home or self care documented in this encounter Progress Notes * Valeriano Manzanares, CENTRAL COMMUNICATIONS SPECIALIST - 08/04/2020 1:00 PM CDT Patient Name: Fernie Rees : 1970 Today's Date: 08/04/2020 PCP: Unknown, Notinfile Referring: No ref. provider found Chief Complaint Patient presents with ??? Follow-up ??? Med Management ??? Knee Pain bilateral ??? Shoulder Pain right HPI Patient presents with complaints of bilateral knee pain right shoulder pain his knee pain is described as being constantly achy and occasionally sharp based on the activity that he performs at work. Overall no change in his knee condition. Pain typically is rated as moderate in intensity. In addition he has ongoing complaints of right shoulder pain. He typically sleeps prone with the shoulders abducted underneath the pillow. This can exacerbate his condition. He denies any weakness inthe extremity. Shoulder does not affect his ability to perform his activities at work. Continues with his [place] averaging 4 per day with benefit. He is denying any side effects with the use of the medication. No Known Allergies Past Medical History: [...] Gatherings with Friends and Family: ??? Attends Sabianism Services: ??? Active Member of Clubs or [...] Review of Systems Musculoskeletal: Positive for arthralgias, back pain, joint swelling and myalgias. Neurological: Negative for weakness and numbness. Physical Exam Vitals: 08/04/20 1323 BP: 143/89 BP Location: Right arm Patient Position: Sitting Pulse: 94 Resp: 16 SpO2: 99% There is no [...] to 9 is higher risk ofopioid misuse) [place] and [place] Prescription Drug Monitoring Reviewed and was consistent with office guidelines and policies. Most recent Urine Toxicology findings reviewed. Assessment Problem List Nervous Chronic pain of both knees Chronic right shoulder pain Musculoskeletal Bilateral primary osteoarthritis of knee Other [...] try weight loss and exercise for management. Findings from exam with right shoulder are suggestive of impingement syndrome, possible mild tendinitis. He also suffers from chronic bilateral knee pain with associated degenerative joint disease. We will continue with medication as done in the past. Review of above document shows no indication ofinappropriate use. Since he is leaving town on work out in, we will along refilled this prescription 4 days early. Subsequent prescription will be filled 4 days later. Follow-up in 2 months or soonernecessary. This dictation was performed using M*Modal dictation. There may be some supervisor denture department variances which are not appreciated or corrected [...] 6 (six) hours as needed for pain Duplicate order 05/15/2020 08/04/2020 HYDROcodone-acetaminophe n (NORCO) 7.5-325 mg per tablet Take 1 tablet by mouth every 6 (six) hours as needed for pain Duplicate order 06/12/2020 08/04/2020 documented as of this encounter Care Teams Gear Technician Relationship Specialty Start Date End Date Unknown, Notinfile PCP - General 08/08/19 documented as of this encounter
--- OUTSIDE RECORDS SUMMARY | 2024-03-10 06:58 | XMS_ITS | Encounter Summary ---
Author Organization [facility] Healthcare Address [address] [place] [address] Care Team Providers Care Academic Records Specialist Name Role Phone Unknown, Notinfile Primary Care Provider Unavail able Encounter Details Date Type Department Care Team (Late st Contact Info) Description 01/31/2020 Orders Only [facility] [address] [place], [place] [phone] [place] [address] [facility] [address] [place], [place] [phone] Bilateral primary osteoarthritis of knee; Chronic pain of both knees; Chronic right shoulder pain Social History Tobacco Use Types Packs/Day Years Used Date Smoking Tobacco: Every Day Cigarettes 1 35 Smokeless Tobacco: Never Comments:already trying Alcohol Use Standard Drinks/Week Comments Yes 0 (1 standard drink = 0.6 oz pur e alcohol) Sex and Gender Information Value Date Recorded Sex Assigned at Not on file 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 Gender Identity Not on file Sexual Orientation Not on file documented as of this encounter Ordered Prescriptions Prescription Sig Dispense Quantity Refills Last Filled Start Date End Date HYDROcodone-acetam inophen (NORCO) 7.5-325 mg per tabletIndications: Pain Take 1 tablet by mouth every 6 (six) hours as needed for pain 105 tablet 02/18/2020 05/29/2020 HYDROcodone-acetam inophen (NORCO) 7.5-325 mg per tabletIndications: Pain Take 1 tablet by mouth every 6 (six) hours as needed for pain 105 tablet 03/21/2020 04/02/2020 documented in this encounter Plan of Treatment Not on file documented as of this encounter Visit Diagnoses Diagnosis Bilateral primary osteoarthritis of knee Chronic pain of both knees Chronic right shoulder pain Pain in joint, shoulder region documented in this encounter Discontinued Medications Medication Sig Discontinue Reason Start Date End Da te HYDROcodone-acetaminophe n (NORCO) 7.5-325 mg per tabletIndications:Pain Take 1 tablet by mouth every 6 (six) hours as needed for pain Reorder 03/21/2020 01/31/2020 HYDROcodone-acetaminophe n (NORCO) 7.5-325 mg per tabletIndications:Pain Take 1 tablet by mouth every 6 (six) hours as needed for pain Reorder 02/19/2020 01/31/2020 documented as of this encounter Care Teams Academic Records Specialist Relationship Specialty Start Date End Date Unknown, Notinfile PCP - General 08/08/19 documented as of this encounter
--- OUTSIDE RECORDS SUMMARY | 2024-03-10 06:58 | XMS_ITS | Encounter Summary ---
Author Organization [facility] Healthcare Address [address] [place] [address] Care Team Providers Care Special Education Superintendent Name Role Phone Unknown, Notinfile Primary Care Provider Unavail able Reason for Visit * Reason Comments Follow-up Encounter Details Date Type Department Care Team (Late st Contact Info) Description 12/02/2020 1:10 PM CDT - 12/02/2020 11:59 PM CDT Hospital Encounter [facility] [address] [place] [address] [place] [id number] [facility] [address] [place] [address] [place] [address] [facility] [address] [place] [address] Medial epicondylitis of elbow, left (Primary Dx); Long-term current use of opiate analgesic; Chronic pain of both knees; Bilateral primary [...] on file 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 Gender Identity Not on file Sexual Orientation Not on file documented as of this encounter Last Filed Vital Signs Vital Sign Reading Time Taken Comments Blood Pressure 138/85 12/02/2020 1:14 PM CDT Pulse 82 12/02/2020 1:14 PM CDT Temperature - - Respiratory Rate 17 12/02/2020 1:14 PM CDT Oxygen Saturation 98% 12/02/2020 1:14 PM CDT Inhaled Oxygen Concentration - - [...] hours as needed for pain 120 tablet 01/01/2021 1 HYDROcodone-acet aminophen (NORCO) 7.5-325 mg per tabletIndication s:Pain Take 1 tablet by mouth every 6 (six) hours as needed for pain 120 tablet 12/02/2020 1 ketorolac (SPRIX) nasal Administer 1 spray into each nostril every 6 (six) hours 5 each 1 05/29/2020 2 meloxicam (MOBIC) 15 mg tablet Take 1 tablet (15 mg total) by mouth daily 90 tablet 1 12/02/2020 2 documented as of this encounter Ordered Prescriptions Prescription Sig Dispense Quantity Refills Last Filled Start Date End Date meloxicam (MOBIC) 15 mg tablet Take 1 tablet (15 mg total) by mouth daily 90 tablet 1 12/02/2020 06/29/2021 documented in this encounter Discharge Disposition Disposition Code Departure Means Destination Discharge to home or self care documented in this encounter Progress Notes * Valeriano Manzanares NP - 12/02/2020 2:15 PM CDT Patient Name: Fernie Rees : 1970 Today's Date: 12/02/2020 PCP: Unknown, Notinfile Referring: No ref. provider found Chief Complaint Patient presents with ??? Follow-up HPI Patient returned with ongoing complaints of chronic bilateral knee pain. Pain varies from achiness sharp at times. Intensity of pain is 4 on 10 scale. Overall he is denying any change in his subjective complaints or overall functional ability since his last visit. He utilizes meloxicam and hydrocodone to help manage his symptoms. He is requesting refill. No Known Allergies Past Medical History: Diagnosis [...] Strain: ??? Difficulty of Paying Living Expenses: Not on file Food Insecurity: ??? Worried About Running Out of Food in the Last Year: Not on file ??? Ran Out of Food in the Last Year: Not on file Transportation Needs: ??? Lack of Transportation (Medical): Not on file ??? Lack of Transportation (Non-Medical): Not on file Physical Activity: ??? Days of Exercise per Week: Not on file ??? Minutes of Exercise per Session: Not on file Stress: ??? Feeling of Stress : Not on file Social Connections: ??? Frequency of Communication with Friends and Family: Not on file ??? Frequency of Social Gatherings with Friends and Family: Not on file ??? Attends Denominational Services: Not on file ??? Active Member of Clubs or Organizations: Not on file ??? Attends Club or Organization Meetings: Not on file ??? Marital Status: Not on file Intimate Partner Violence: ??? Fear of Current or Ex-Partner: Not on file ??? Emotionally Abused: Not on file ??? Physically Abused: Not on file ??? Sexually Abused: Not on file Family History Problem Relation [...] Hematological: Negative. Psychiatric/Behavioral: Negative. Physical Exam Vitals: 12/02/20 1314 BP: 138/85 Pulse: 82 Resp: 17 SpO2: 98% There is no height or [...] Pain Intensity and Interference with score of 6 Current Opioid Misuse Measure (COMM) reviewed with score of 1 (> or equal to 9 is higher risk ofopioid misuse) [place] and [place] Prescription Drug Monitoring Reviewed and was consistent with office guidelines and policies. Most recent Urine Toxicology findings reviewed. Assessment Problem List Mental Health Long-term current use of opiate analgesic Musculoskeletal and Injuries Bilateral primary osteoarthritis of knee Chronic pain of both knees Medial epicondylitis of elbow, left - Primary Plan Pre-hypertension/Hypertension: The patient has [...] discuss pharmacological options with their family doctor. Plan is to continue medication management as in the past. 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 With that in mind hopefully we can decrease his medication to some degree in the near future. We will follow up with this gentleman in 2 months orsooner if necessary. Will provide refills of meloxicam as well. We discussed the risk and benefits of meloxicam and patient will be conservative with the use of the medication. Also recommended that he consider using Voltaren gel on her knees when pain is not quite as severe rather than the oral anti-inflammatory. Urine toxicology screen will be obtained today. Follow-up as scheduled. This dictation was performed using M*Modal dictation. There may be some ski topper variances which are not appreciated or corrected in this note. Cosigned by Geovanny Zapata MD at 12/02/2020 2:30 PM CDT documented in this encounter Plan of Treatment Not on file documented as of this encounter Visit Diagnoses Diagnosis Medial epicondylitis of elbow, left- Primary Long-term current use of opiate analgesic Encounter for long-term (current) use of other medications Chronic pain of both knees Bilateral primary osteoarthritis of knee Chronic right shoulder pain Pain in joint, shoulder region documented in this encounter Discontinued Medications Medication Sig Discontinue Reason Start Date End Da te meloxicam (MOBIC) 15 mg tablet Take 15 mg by mouth daily Reorder 07/04/2018 12/02/2020 documented as of this encounter Care Teams Special Education Superintendent Relationship Specialty Start Date End Date Unknown, Notinfile PCP - General 08/08/19 documented as of this encounter
--- OUTSIDE RECORDS SUMMARY | 2024-03-10 06:58 | XMS_ITS | Encounter Summary ---
Author Organization [facility] Healthcare Address [address] [place] [address] Care Team Providers Care Deputy Coroner Investigator Name Role Phone Unknown, Notinfile Primary Care Provider Unavail able Reason for Visit * Reason Comments Knee Pain Med Management Encounter Details Date Type Department Care Team (Late st Contact Info) Description 05/28/2021 3:03 PM CDT - 05/28/2021 11:59 PM CDT Hospital Encounter [facility] [address] [place] [address] [place] [id number] [facility] [address] [place] [address] [place] [address] [facility] [address] [place] [address] Chronic pain of both knees (Primary Dx); Bilateral primary osteoarthritis of knee Discharge Disposition: Discharge to home or self care Social History Tobacco Use Types Packs/Day Years Used Date Smoking Tobacco: Every Day Cigarettes 1 35 Smokeless Tobacco: Never Comments:already trying Alcohol Use Standard Drinks/Week Comments Yes 0 (1 standard drink = 0.6 oz pur e alcohol) Sex and Gender Information Value Date Recorded Sex Assigned at Not on file 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 Gender Identity Not on file Sexual Orientation Not on file documented as of this encounter Last Filed Vital Signs Vital Sign Reading Time Taken Comments Blood Pressure 143/89 05/28/2021 3:13 PM CDT Pulse 95 05/28/2021 3:13 PM CDT Temperature - - Respiratory Rate 05/28/2021 3:13 PM CDT Oxygen Saturation 96% 05/28/2021 3:13 PM CDT Inhaled Oxygen Concentration - - [...] hours as needed for pain 120 tablet 05/30/2021 2 HYDROcodone-acet aminophen (NORCO) 7.5-325 mg per tabletIndication s:Pain Take 1 tablet by mouth every 6 (six) hours as needed for pain 120 tablet 06/29/2021 2 meloxicam (MOBIC) 15 mg tablet Take 1 tablet (15 mg total) by mouth daily 90 tablet 1 12/02/2020 2 documented as of this encounter Discharge Disposition Disposition Code Departure Means Destination Discharge to home or self care documented in this encounter Progress Notes * Valeriano Manzanares, SANDER MACHINE - 05/28/2021 3:30 PM CDT Patient Name: Fernie Rees : 1970 Today's Date: 05/28/2021 PCP: Unknown, Notinfile Referring: No ref. provider found Chief Complaint Patient presents with ??? Knee Pain ??? Med Management HPI Patient is return to the office with complaints of ongoing chronic bilateral knee pain. Pain variesfrom sharp stabbing pending his activity. Naturally weight-bearing activity and work activity can exacerbate his condition. Continues with his medication management with benefit. Denies interest in pu rsuing more advanced procedures or surgical consult orthopedist. No developing weakness is noted inlower extremities. No side effects reported with his [...] mg tablet naloxone (NARCAN) 4 mg/actuation spray,non-aerosol ketorolac (SPRIX) nasal Review of Systems Review of Systems Constitutional: [...] Hematological: Negative. Psychiatric/Behavioral: Negative. Physical Exam Vitals: 05/28/21 1513 BP: 143/89 Pulse: 95 Resp: 17 SpO2: 96% There is no height or weight on [...] to 9 is higher risk ofopioid misuse) [place] and [place] Prescription Drug Monitoring Reviewed and was consistent with office guidelines and policies. Most recent Urine Toxicology findings reviewed. Assessment Problem List Musculoskeletal and Injuries Bilateral primary osteoarthritis of knee Chronic pain of both knees - Primary Plan Pre-hypertension/Hypertension: The patient has [...] since his last visit here in office. Review of documentation shows no evidence of inappropriate use of his medication. Medication allows for continued mobility function and employment full-time. We will provided with refills for the upcoming 2 months andfollow-up with him at that time or sooner [...] using M*Modal dictation. 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 documented in this encounter Plan of Treatment Not on file documented as of this encounter Visit Diagnoses Diagnosis Chronic pain of both knees- Primary Bilateral primary osteoarthritis of knee documented in this encounter Discontinued Medications Medication Sig Discontinue Reason Start Date End Da te ketorolac (SPRIX) nasal Administer 1 spray into each nostril every 6 (six) hours Therapy completed 05/29/2020 05/28/2021 documented as of this encounter Care Teams Deputy Coroner Investigator Relationship Specialty Start Date End Date Unknown, Notinfile PCP - General 08/08/19 documented as of this encounter
--- OUTSIDE RECORDS SUMMARY | 2024-03-10 06:59 | XMS_ITS | Continuity of Care Document ---
Author Organization [facility] Address [address] [place] [address] Phone Care Team Providers Care Physician Practice Manager Name Role Phone Conversion MD, Doctor Unavailable Unavailabl e Advance Directives Directive Yes / No Effective Date File Name No Information Encounters Encounter Description Practice Location Reason(s) For Visit Diagnoses Date Provider Providers Copied on Encounter [facility], [address], [place], [place], [id number], [place] tel:[phone] [facility] LIPOID DISORDERSSYNCOPE AND COLLAPSELUMBAGO Jun-2 2-200 4 Conversion Doctor. [address] [place] [address], [phone], . Family History Family Member Type Diagnosis Age At Onset No Information Payers Payer name Insurance type Covered democrat ID Authoriza tion(s) No Information Social History Type Description Quantity Date Captured Comments Sex Male Smoking Status No Information Chief Complaint And Reason For Visit No Information Reason For Referral Reason For Referral No Information History Of Present Illness Encounter Date Complaint History Of Prese nt Illness No Information Functional Status Date Functional Assessmen t No Information Instructions Date Instruction Additional Infor mation No Information Assessments Type Assessment Date No Information Patient Care Teams Name Effective Dates (start - stop) Status Members No Information
--- OUTSIDE RECORDS SUMMARY | 2024-03-10 06:59 | XMS_ITS | Continuity of Care Document ---
Author Organization [facility] Address [address] [place] [address] Phone Care Team Providers Care Polytechnic Registrar Name Role Phone Samira Girard Unavailable Unavailabl e Allergies, Adverse Reactions, Alerts Substance Reaction Status Criticality No Known Allergies Active No Inform ation Medications Medication Instructions Dosage Effective Dates (start - stop) Status Comments Tylenol-Codeine #3 300 mg-30 mg tablet Take 1-2 every 4-6 hours as needed for pain - Active Tylenol-Codeine #3 300 mg-30 mg tablet Take 1-2 every 4-6 hours as needed for pain - No Longer Active Procedures Procedure Date X-ray exam finger(s), minimum 2 views Se Global/Postop followup visit Remove Deep Implant X-ray exam finger(s), minimum 2 views Au X-ray exam hand, 3+ views Office/outpatient visit,[facility] 2018 Advance Directives Directive Yes / No Effective Date File Name No Information Encounters Encounter Description Practice Location Reason(s) For Visit Diagnoses Date Provider Providers Copied on Encounter [email or web address], [address] [facility], [place], [place], [id number], [place] tel:[phone] [email or web address] Right thumb (chief complaint) Other specified complication of internal orthopedic graft, subsequent encounter 9 Brody Hogan. [address] [facility], [address], [place], [place], [address], [place]. tel:[phone] [facility], [address] [facility] [address], [place], [place], [id number], [place] tel:[phone] [facility] No Information Elgin De León. [address] [facility], [address], [place], [place], [address], [place]. tel:[phone] [facility], [address] [facility] [address], [place], [place], [address], [place] tel:[phone] [facility] No Information Elgin De León. [address] [facility], [address], [place], [place], [address], [place]. tel:[phone] Office/outpat ient visit,[facility], [facility], [address] [facility] [address], [place], [place], [address], [place] tel:[phone] [facility] right hand (chief complaint) Pain in right handOther specified complication of internal orthopedic implant, initial encounter Elgin De León. [address] [facility], [address], [place], [place], [address], [place]. tel:[phone] Family History Family Member Type Diagnosis Age At Onset No Information Payers Payer name Insurance type Covered democrat ID Cedricberto panchitojaneth(s) [facility] CI [id number] Social History Type Description Quantity Date Captured Comments Alcohol Use Details Unknown Caffeine Use Details Unknown Tobacco Use Status Smoking Status Current every day smoker Non-Smoking Tobacco Use Details : No Details Available : No Details Available Sex Male Vital Signs Date / Time: Height Weight BMI Pulse Rate Blood Pressure Temperature Respiratory Rate Body Surface Area Head Circumference Head Circ. Percentile Wt./Samson. Percentile BMI percentile Pulse Ox Inhaled Ox 8:36 AM 73.00 in 104.326 kg (230.00 lbs) 30.3 4 kg/m eter (2) Chief Complaint And Reason For Visit From encounter dated '11/24/2018 08:30'. Right thumb (chief complaint). Description: Fernie is 2 weeks out from removal of deep buried symptomatic hardware of the right hand on November 07, 2018. 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 He returns for follow-up. Reason For Referral Reason For Referral No Information Plan Of Treatment Date Type Action Status Referral Ordered: X-ray exam finger(s), minimum 2 views RT ordered Referral Ordered: X-ray exam hand, 3+ views RT ordered History Of Present Illness Encounter Date Complaint History Of Prese nt Illness Right thumb Fernie is 2 weeks out from removal of deep buried symptomatic hardware of the right hand on November 07, 2018. 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 He returns for follow-up. right hand Fernie presents to the office today on November 07, 2018. He is here because of right hand pain. Fernie was last seen in the office 8 years ago on November 19, 2010 when he was 6 weeks out from open reduction and internal fixation of a right thumb metacarpal fracture on October 07, 2010. Fernie was doing well at that time, and he was released from care. Fernie reports today that he had not had any difficulties with his right hand until 6 months ago. He started to develop some pain at the base of the right thumb. He then noticed an increase in pain about one month ago, and he developed some swelling at the base of the right thumb. Fernie feels like a screw has come loose. He presents today for further evaluation and treatment of his right hand pain. Functional Status Date Functional Assessmen t No Information Instructions Date Instruction Additional Infor mation No Information Assessments Type Assessment Date assessment Other specified comp lication of internal orthopedic graft, subsequent encounter impression The sutures were rem daniela in the office today. I recommended that he try to rest the thumb for a few days to help alleviate the pain. He may slowly advance his activities as tolerated. He will return to the office as needed. He may call with any questions or concerns. Patient Care Teams Name Effective Dates (start - stop) Status Members No Information
== END 2024-03-03 08:18 | disposition home or self-care (01) ==
PROVIDERS: PCP Family Medicine; Visit Provider Family Medicine
DX: Z12.2 Encounter for screening for malignant neoplasm of respiratory organs (principal); Z87.891 Personal history of nicotine dependence
CPT/HCPCS: 71271

== ENCOUNTER 2024-04-21 12:52 | Emergency (ER) | payer OTHER, SELFPAY ==
--- NOTE | 2024-04-21 13:09 | ED.URI ---
HPI - URI/Sore Throat General Chief Complaint: Upper Respiratory Infection Stated Complaint: bodyaches,SINCLAIR Time Seen by Provider: 04/21/24 13:09 Source: patient, RN notes reviewed and old records reviewed Mode of arrival: ambulatory Limitations: no limitations History of Present Illness HPI Narrative: Patient presents with complaints of flu-like symptoms that have been present for about 4 days. He reports that he has been sleeping much more than usual, has not been taking any medication for his symptoms. He is not in any distress, including respiratory distress. Related Data Allergies Allergy/AdvReac Type Severity Reaction Status Date / Time No Known Allergies Allergy Unknown Verified 04/21/24 12:56 Review of Systems Review of Systems: All systems reviewed & are unremarkable except as noted in HPI and below Constitutional: Constitutional: Reports no additional constitutional complaints, Reports body ache(s), Reports chills, Reports daytime sleepiness, Reports fever(s), Reports headache(s), Reports lethargy and Reports night sweats ENT: Reports system reviewed and no additional complaints, except as documented, Reports nasal congestion, Reports nasal discharge and Reports sore throat Cardiovascular: Cardiovascular: Reports no additional cardiovascular complaints Respiratory: Respiratory: Reports no additional respiratory complaints, Reports cough and Reports wheezing Gastrointestinal: Gastrointestinal: Reports no additional gastrointestinal complaints PMFSH Past Medical History Medical History Nicotine dependence, cigarettes, with unspecified nicotine-induced disorders Atherosclerotic heart disease of [place] coronary artery without angina pectoris Simple chronic bronchitis Personal history of colonic polyps Hyperlipidemia Surgical History Surgical History History of repair of left rotator cuff October, History of orthopedic surgery bilateral knees surgery,right hand Hx of tonsillectomy Family History Family History Father Patient's father is Social History Social History Smoking packs per day: 1 Smoking cigarettes per day: 20.0 Smoking status: Current every day smoker Tobacco type: cigarettes Alcohol intake: never Substance use: current Substance use type: opiates Lack of Transportation: No Lack of Food: Never True Current Housing: I Have Housing Concerned About Future Housing: No Difficulty Paying Gas/Electric Bills: No Difficulty Paying for Meds: No Currently Unemployed: No Education: High School Diploma/GED Difficulty w/ Childcare or Family Care: No Living arrangements: with family Occupation/Education: occupation Gender identity (if verbalized by the patient): Male Sexual Orientation (if Verbalized by the Patient): Straight or Heterosexual Comments At the time of my signature, I reviewed and agree with the nursing past medical, surgical, social, and family history. There is no relevant family history pertinent to the patient complaint. Exam Const: General: cooperative, no acute distress, alert and awake Orientation/consciousness: oriented to person, oriented to place and oriented to time HENMT: Head: normal to inspection Ears: TM's normal bilaterally Mouth: Yes moist mucous membranes Resp: Effort & Inspection: normal respiratory effort and able to speak in complete sentences Auscultation: clear to auscultation bilaterally, no crackles, no rales, no rhonchi and wheezes (Mild, scattered) Cardio: Palpation: normal PMI Rate: regular rate Rhythm: regular rhythm Heart sounds: S1 normal heart sound present and S2 normal heart sound present Neuro: General: oriented to person, oriented to place and oriented to time Cranial nerves: Yes CN's II-XII intact bilaterally Psych: Appearance: grossly normal Thought process: Normal thought process present Insight: Good insight present (Psych) Judgement: Good judgement present (Psych) Course Course Level of Care: Express Care Visit Vital Signs Vital signs: Reviewed MDM - URI/Sore Throat MDM Narrative Medical decision making narrative: Patient with 4 days of symptoms, influenza positive. Treat symptomatically. Start prednisone burst, cough medicine, inhaler Discharge instructions reviewed with patient, as well as provided in writing per nursing staff. The instructions also include specific and strict return/GO TO THE ER as well as f/u information. All questions have been answered, and the patient deny any further questions with discharge and discharge plan. Some parts of this dictation were generated by voice recognition software and may contain typographical and/or grammatical inaccuracies. Differential Diagnosis Differential diagnosis: Likely upper respiratory infection, otitis media, viral infection and influenza Medical Records Attestation: I reviewed the patient's medical records. Lab Data Attestation: I reviewed the patient's lab results. Discharge Plan Discharge Clinical Impression: Influenza Patient Disposition: Home, Self-Care Condition: Stable Instructions: Antibiotic Form, Influenza (ED) Additional Instructions: Take medications as prescribed. Follow-up with primary care provider. Emergency department for new or worse symptoms Patient Language: Citizen Of [place] Prescriptions: New prednisone 50 mg tablet 50 mg PO DAILY Qty: 5 0RF albuterol sulfate [Ventolin HFA] 90 mcg/actuation HFA aerosol inhaler 2 puff inhalation QID PRN (Reason: shortness of breath or wheezing) Qty: 8.5 0RF benzonatate 200 mg capsule 200 mg PO TID PRN (Reason: cough) Qty: 30 0RF Follow-up/Referrals: Hemal Grey MD [Primary Care Provider] - 2 Weeks Time of Disposition: 14:09
[2024-04-21 13:11] VITALS: BP 118/68; PULSE 87; RESP 16; TEMP 36.5; O2SAT 97
[2024-04-21 13:30] LABS: EDINFLUASCREEN Positive (Negative); EDINFLUBSCREEN Negative (Negative)
== END 2024-04-21 14:15 | disposition home or self-care (01) ==
PROVIDERS: Emergency Provider Nurse Practitioner Family; PCP Family Medicine
DX: J10.1 Influenza due to other identified influenza virus with other respiratory manifestations (principal); F17.210 Nicotine dependence, cigarettes, uncomplicated; I25.10 Atherosclerotic heart disease of native coronary artery without angina pectoris; E78.5 Hyperlipidemia, unspecified
CPT/HCPCS: 87804; 99213; G0463

== ENCOUNTER 2024-06-08 00:27 | Day surgery (SDC) | payer OTHER, SELFPAY ==
[2024-05-31 15:53] VITALS: BMI 29.0
--- OUTSIDE RECORDS SUMMARY | 2024-06-08 00:30 | XMS_ITS | Clinical Summary ---
Author Organization [facility] Address [address] [place] [address] Care Team Providers Care District Administrative Assistant Name Role Phone Hemal Grey MD Primary Care Provider [phone] Source Comments [facility],non-owned Affiliates and Associated Physician Practices is amultiple site organization consisting of ambulatory clinics and hospital sitesin [place], [place], [place] and [place]. This disclosure is being madepursuant to the Care Everywhere program and may not contain all information available regarding this patient. Last updated 17.[facility] [employer] Allergies No known active allergies Medications * [...] Comments Blood Pressure 132/74 04/05/2019 10:29 AM OVER SHORT AND DAMAGE CLERK Pulse 86 04/05/2019 10:29 AM OVER SHORT AND DAMAGE CLERK Temperature 36.8 C (98.3 F) 04/05/2019 10:29 AM OVER SHORT AND DAMAGE CLERK Respiratory Rate - - Oxygen Saturation 98% 04/05/2019 10:29 AM OVER SHORT AND DAMAGE CLERK Inhaled Oxygen Concentration - - Weight 104.3 kg (230 lb) 05/13/2022 11:15 AM OVER SHORT AND DAMAGE CLERK Height 185.4 cm (6' 1 ) 05/13/2022 11:15 AM OVER SHORT AND DAMAGE CLERK Body Mass Index 30.34 05/13/2022 11:15 AM OVER SHORT AND DAMAGE CLERK Plan of Treatment Health Maintenance Due Date Last Done Comments COLOGUARD (AGES 45-75) - COL ON CA SCREENING 1968 COLON MONITORING 1968 COLONOSCOPY - COLON CA SCREENING 1968 CT COLONOGRAPHY - COLON CA SCREENING 1968 Colorectal Cancer Screening 1968 FIT - COLON CA SCREENING 1968 FLEX SIG - COLON CA SCREENING 1968 HIV SCREENING 1983 HEPATITIS C SCREENING 03/08/1986 DTAP/TDAP/TD VACCINES (1 - Tdap) 1987 HEPATITIS B VACCINE (1 of 3 - 19+ 3-dose series) 1987 PNEUMOCOCCAL VACCINE 50+ (1 of 2 - PCV) 1987 PNEUMOCOCCAL VACCINE (1 of 2 - PCV) 1987 ZOSTER VACCINE (1 of 2) 2018 SCREENING FOR DIABETES 08/14/2021 COVID-19 VACCINE (1 - 2023-2 5 season) 2023 INFLUENZA VACCINE (#1) 2023 DEPRESSION SCREENING 03/14/2024 HIB VACCINE Aged Out No longer eligi ble based on patient's age to complete this topic HPV VACCINE Aged Out No longer eligi ble based on patient's age to complete this topic MENINGOCOCCAL (Group B) VACC INE SHARED DECISION-MAKING Aged Out No longer eligibl e based on patient's age to complete this topic MENINGOCOCCAL GROUPS A/C/Y/W VACCINE Aged Out No longer eligible b ased on patient's age to complete this topic Care Teams District Administrative Assistant Relationship Specialty Start Date End Date Hemal Grey MD [address] [place] [address] PCP - General Family Medicine 09/03/21
--- OUTSIDE RECORDS SUMMARY | 2024-06-08 00:30 | XMS_ITS | Clinical Summary ---
Author Organization [facility] Address [facility] [place] [address] Care Team Providers Care Recreation Technician Name Role Phone None, Provider MD Primary [...] 78 07/31/2021 4:59 PM CDT Temperature 36.6 C (97.9 F) 07/31/2021 4:59 PM CDT Respiratory Rate 18 07/31/2021 4:59 PM CDT [...] - Td or Tdap) 03/27/2029 03/27/2019 Meningococcal B Vaccine Aged Out No l onger eligible based on patient's age to complete this topic Meningococcal Vaccine Aged Out No pilar freddie [...] patient's age to complete this topic Insurance [employer] Advance Directives Documents on File Type Date Recorded Patient Porter Head Expl anation Legal Documents 11/19/2021 11:39 AM COMPLET ED BILLING REQUEST FOR [employer] Care Teams Recreation Technician Relationship Specialty Start Date End Date None, Provider, PCP - General 07/31/21
--- OUTSIDE RECORDS SUMMARY | 2024-06-08 00:30 | XMS_ITS ---
Author Organization [facility] Address [address] [place] [address] Care Team Providers Care Explosives Operator Name Role Phone Tara Germain Primary Care Provider [phone] Malika Huizar Unavailable [phone] Allergies No Known Allergies Results Component Value Reference Range Notes 12 Panel Urine Drug Screen Reviewed date:05/14/2024 02:53:49 PM Interpretation: Performing Lab: Notes/Report: THC neg TAMY neg MOP (OPI) neg AMP neg MET neg BAR neg BZO neg MDMA neg MTD neg OXY neg PCP neg BUP POS REASON FOR VISIT walk in Medications Medication SIG (Take, Route, Frequency, Duration) Notes Start Date End Date Status HYDROcodone-Acetaminophen 10-325 MG 1 tablet as needed Orally every 6 hrs Not-Taking Buprenorphine HCl-Naloxone HCl 8-2 MG 1 film under the tongue and allow to dissolve Sublingual Three times a day for 16 days 05/14/2024 Active Social History Tobacco Use: Social History Observation Description Date Details (start date - stop date) Never Smoker NA - NA Sex Assigned At : Social History Observation Description Sex Assigned At Male Tobacco Control (Standard) Question Answer Notes Tobacco use: Nonsmoker AUDIT-C (Standard) Question Answer Notes Did you have a drink containing alcohol in the p ast year? No Points 0 Interpretation Negative Vital Signs Oximetry 98 % 05/14/2024 BMI 29.6 kg/m2 05/14/2024 Respiratory Rate 18 /min 05/14/2024 Height 72 in 05/14/2024 Weight 218 lb 4 oz lbs 05/14/2024 Blood pressure systolic 132 mm Hg 05/15/19 25 Blood pressure diastolic 68 mm Hg 025 Heart Rate 94 /min 05/14/2024 Encounters Encounter Location Date Provider Diagnosis [address] [place] [address] 05/14/2024 Malika Huizar Opioid use disorder F11.99 and Nutritional counseling Z71.3 Assessments Encounter Date Diagnosis (ICD Code) Assessment Notes Treatment Notes Treatment Clinical Notes Section Notes 05/14/2024 Opioid use disorder (ICD-10 - F11.99) 05/14/2024 Nutritional counseling (ICD-10 - Z71.3) 05/14/2024 Other Discussed MAR program expectations. Cannot continue to receive prescription for both buprenorphine and hydrocodone. Notifiy prescribing physician of decision to begin buprenorphine treatment. Cannot continue to fill prescriptions for hydrocodone or other opioids. Patient agrees to take medication as prescribed. Discussed medication side effects, adverse effects, risks, benefits, as well as interactions. Encouraged non-use of opioids and other illicit substances. Has naloxone. Discontinuing buprenorphine increases the risk of overdose upon return to illicit opioid use. Use of alcohol or benzodiazepines with buprenorphine increases the risk of overdose and . Education provided about safe storage of medications. Encouraged participation in recovery groups/counseling services. Contact office with questions or concerns. Patient may self-administe r their own medications or may self-administe r their own oral medications per [place] Protocol. Plan Of Treatment Medication Medication Name Sig Start Date Stop Date Notes Buprenorphine HCl-Naloxone H Cl 4-1 MG 1 film under the tongue and allow to dissolve Sublingual four times per day 04/17/2024 Buprenorphine HCl-Naloxone H Cl 8-2 MG 1 film under the tongue and allow to dissolve Sublingual Three times a day for 16 days 05/14/2024 Treatment Notes Assessment Notes Other Discussed MAR program expectations. Cannot continue to receive prescription for both buprenorphine and hydrocodone. Notifiy prescribing physician of decision to begin buprenorphine treatment. Cannot continue to fill prescriptions for hydrocodone or other opioids. Patient agrees to take medication as prescribed. Discussed medication side effects, adverse effects, risks, benefits, as well as interactions. Encouraged non-use of opioids and other illicit substances. Has naloxone. Discontinuing buprenorphine increases the risk of overdose upon return to illicit opioid use. Use of alcohol or benzodiazepines with buprenorphine increases the risk of overdose and . Education provided about safe storage of medications. Encouraged participation in recovery groups/counseling services. Contact office with questions or concerns. Next Appt Details Follow Up: 2 Weeks, Reason: MAR f/u Progress Notes * Mat CARRERO:1970 ([age] yo M)Acc No.[id number]:05/14/2024 Patient: Fernie SHORT Provider: Cristy Huizar, MSN, PRESCHOOL ASSISTANT DIRECTOR, PMP- :1970 A ge:54 Y S ex:Male Date:05/14/2024 Address:[address] [place], [place] [id number] Pcp:Tara Germain Subjective: * Chief Complaints: * W alk in * HPI: D epression Screening: PHQ-9 L ittle interest or pleasure in doing things N ot at all, F eeling down, depressed, or hopeless N ot at all, T rouble falling or staying asleep, or sleeping too much N ot at all, F eeling tired or having little energy N ot at all, P oor appetite or overeating N ot at all, F eeling bad about yourself or that you are a failure, or have let yourself or your family down N ot at all, T rouble concentrating on things, such as reading the newspaper or watching television N ot at all, M oving or speaking so slowly that other people could have noticed; or the opposite, being so fidgety or restless that you have been moving around a lot more than usual N ot at all, T houghts that you would be better off or of hurting yourself in some way N ot at all, T otal Score 0 . S creening: [place] Suicide Severity Rating Scale (LF) D o you want to initiate with S creener form, 1 . Wish to be : Have you wished you were or wished you could go to sleep and not wake up? N o, 2 . Suicidal Thoughts: Have you actually had any thoughts of killing yourself? N o, 6 . Suicide Behavior Question: Have you ever done anything,started to do anything, or prepared to end your life? N o, I nterpretation: L ow Risk. C SSRS Interpretation and Follow Up Plan: CSSRS Interpretation and Follow Up Plan C SSRS Screen documented using SF Y es, R isk Disposition from SF L ow - No Follow Up Plan Required, F ollow Up Plan N o Follow Up Plan required at this time.. P reventative Health and Wellness follow-up: Action Plans for Clinical Quality Measures: C olorectal Cancer Screening: N ot addressed during this visit. See notes for details., H IV Screening:?Not addressed during this visit. See notes for details.. . M AR follow-up: MAR walk-in, overdue for 2 week f/u Patient reports he has been out of town for work, has been gone for last few weeks. Drove in today just for appointment. States he notified his physcian he did not want to continue Stanton, but prescription was sent anyway. States it was picked up by his without his knowledge. Denies taking. Reports since he started working, he has been having increased cravings and pain. Stretched medication due to being out of town. Medication Monitoring and Risk Mitigation U p-to-date on ASAM recommended lab testing? N o, P rescribed a buprenorphine product? Y es, H as patient had a buprenorphine and metabolite lab ordered/collected? N o, P rescription Drug Monitoring Program Review Y es. Concerns identified during review of PDMP. See notes. /HYDROCODONE BITARTRATE-[id number] MG-10 [id number] #[id number]/ VINICIO LEWIS P mary ellen to address any concerns identified: I ncreasing frequency of visits., In-office visits required at this time.. C ravings, Setbacks, Substance use, and Stressors C ravings since last visit: Y es. See notes., S etbacks since last visit? N o, patient denies setbacks since last visit., M isuse of substances since last visit: N o, patient denies., S tressors Y es, patient admits to stressors. See notes.. W ithdrawal and Intoxication Symptoms?Intoxication Symptoms: N o signs of intoxication are present during visit., W ithdrawal Symptoms: N o withdrawal signs are present during visit.. M ental Health, Support System, and Social Determinants M ental Health Status S table., S upport Systems Include: P ersonal support system (see notes)., C ourt System Involvement? 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 R ecommended Wellness and Prevention Follow-up R ecommended Wellness and Prevention reviewed: R ecommended Wellness and Prevention not reviewed during this visit (see notes):. O ther concerns: O ther Concerns? N o., N arcan need?No. Patient already has Narcan.. * ROS: B asic ROS: Denies S ubstance Abuse. * Medical History: * Surgical History: s houlder surgery (left) * Hospitalization/Major Diagno stic Procedure: d ouble pneumonia 04/2024 * Family History: F ather: . M other: alive. 3 brother(s) . 1 son(s) , 4 daughter(s) . . * Social History: P rimary Social History: L iving Arrangement L iving Arrangement: I ndependent Living, I s this a supportive environment? Y es. A lcohol Use A lcohol Use Frequency: N ever. I llicit Substance Usage I llicit Substance Usage: N o. 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 T obacco Use: T obacco Control (Standard) T obacco use: N onsmoker. D rug/Alcohol: A JANETT-C (Standard) D id you have a drink containing alcohol in the past year? N o,?Points 0 , I nterpretation N egative. * Medications: T akingBuprenorphine HCl-Naloxone HCl 4-1 MG Film 1 film under the tongue and allow to dissolve Sublingual four times per day Taking Buprenorphine HCl-Naloxone HCl 4-1 MG Film 1 film under the tongue and allow to dissolve Sublingual four times per day Pjo-BlrbaiTPXZHhtjizq-Riltxzoutsjhu 10-325 MG Tablet 1 tablet as needed Orally every 6 hrs Medication List reviewed and reconciled with the patientNot-Taking HYDROcodone-Acetaminophen 10-325 MG Tablet 1 tablet as needed Orally every 6 hrs Medication List reviewed and reconciled with the patient * Allergies: N .K.D.A.no[Allergies Verified] Objective: * Vitals: I nitials: cv, Wt:218 lb 4 oz, Ht: 72, BMI:29.6, BP:132/68, HR:94, Oxygen sat %:98, RR:18, Pain scale:5. * Examination: A [facility] Physical Assessment: Intoxication and Withdrawal signs I ntoxication signs N o signs of intoxication are present during examination.Withdrawal Signs N o withdrawal signs are present during examination.. Assessment: * Assessment: 1. N utritional counseling - Z71.3 2 . O pioid use disorder - F11.99 (Primary) Plan: * Treatment: Value Reference Range T HC neg * C OC neg * M OP (OPI) neg * A MP neg * M ET neg * B AR neg * B ZO neg * M DMA neg * M TD neg * O XY neg * P CP neg * B UP POS 2.?Others? Notes:Discussed MAR program expectations. Cannot continue to receive prescription for both buprenorphine and hydrocodone. Notifiy prescribing physician of decision to begin buprenorphine treatment. Cannot continue to fill prescriptions for hydrocodone or other opioids. Patient agrees to take medication as prescribed. Discussedmedication side effects, adverse effects,risks, benefits, as well asinteractions. Encouraged non-use of opioids and other illicit substances. Hasnaloxone. Discontinuing buprenorphine increases the risk of overdose uponreturn to illicit opioid use. Use of alcohol or benzodiazepines withbuprenorphine increases the risk of overdose anddeath. Education providedabout safe storage of medications. Encouragedparticipation in recovery groups/counseling services. Contact office withquestions or concerns. ?? Clinical Notes: Patient may self-administer their own medications or may self- administer their own oral medications per [place] Protocol.?? * Recommended Wellness and Pre vention Guidelines: * S tatus A lert L ast Done N ext Due A ction Taken N ONCOMPLIANT A lcohol use screening - 0 05/14/2024 - N ONCOMPLIANT C holesterol screen (genl pop) - 0 05/14/2024 - N ONCOMPLIANT C olorectal cancer screening - 0 05/14/2024 - N ONCOMPLIANT H IV screening - 0 05/14/2024 - N ONCOMPLIANT I nfluenza vaccine (over 50) - 0 05/14/2024 - * Procedure Codes: 9 9000 SPECIMEN [id number] BODY MASS INDEX [id number] MEDICAL NUTRITION, INDIV, [id number] TOBACCO NON-USER * Preventive Medicine: Counseling: C are goal follow-up plan: B OH management provided Y chris, Atif dee Normal BMI Follow-up L earline education regarding diet. * Follow Up: 2 Weeks (Reason: MAR f/u) * * RVISOR ROD PLACING Sign off status: Completed true * Provider: Cristy Huizar, MSN, PRESCHOOL ASSISTANT DIRECTOR, PMHNP-BC Date: 05/14/2024 Generated for Printing/Faxing/eTransmitting on: 0 06/08/2024 12:30 AM CDT History and Physical Notes * HPI (History of Present Illness) Category Sub-Category Detail Notes Category Not es Depression Screening PHQ-9 Little inte rest or pleasure in doing things: Not at all Feeling down, depressed, or hopeless: No t at all Trouble falling or staying asleep, or sl eeping too much: Not at all Feeling tired or having little energy: N ot at all Poor appetite or overeating: Not at all Feeling bad about yourself o r that you are a failure, or have let yourself or your family down: Not at all Trouble concentrating on thi ngs, such as reading the newspaper or watching television: Not at all Moving or speaking so slowly that other people could have noticed; or the opposite, being so fidgety or restless that you have been moving around a lot more than usual: Not at all Thoughts that you would be b krissy off or of hurting yourself in some way: Not at all Total Score: 0 Screening [place] Suicide Sev erity Rating Scale (LF) Do you want to initiate with: Screener form 1. Wish to be : Have you wished you were or wished you could go to sleep and not wake up?: No 2. Suicidal Thoughts: Have you actually had any thoughts of killing yourself?: No 6. Suicide Behavior Question: Have you ever done anything,started to do anything, or prepared to end your life?: No Interpretation:: Low Risk MAR follow-up Medication Monitorin g and Risk Mitigation Up-to-date on ASAM recommended lab testing?: No Prescribed a buprenorphine product?: Yes Has patient had a buprenorphine and metabolite lab ordered/collected?: No Prescription Drug Monitoring Program Review: Yes. Concerns identified during review of PDMP. See notes. 05/07/2024 05/07/2024 HYDROCODONE BITARTRATE-ACETAMINOPHE 325 MG-10 MG 120 30 0 [facility] #[id number]/ VINICIO FRANKLIN Plan to address any concerns identified:: Increasing frequency of visits., In-office visits required at this time. Cravings, Setbacks, Substanc e use, and Stressors Cravings since last visit:: Yes. See notes. Setbacks since last visit?: No, patient denies setbacks since last visit. Misuse of substances since last visit:: No, patient denies. Stressors: Yes, patient admits to stress ors. See notes. Withdrawal and Intoxication Symptoms Int oxication Symptoms:: No signs of intoxication are present during visit. Withdrawal Symptoms:: No withdrawal sign s are present during visit. Mental Health, Support Syste m, and Social Determinants Mental Health Status: Stable. Support Systems Include:: Personal suppo rt system (see notes). Court System Involvement?: No Housing Stability:: Stable and safe hous ing. 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 Referrals needed:: No referrals needed a t this time. Recommended Wellness and Pre vention Follow-up Recommended Wellness and Prevention reviewed:: Recommended Wellness and Prevention not reviewed during this visit (see notes): Other concerns: Other Concerns?: No. Narcan need: No. Patient already has Jack can. Preventative Health and Wellness follow-up Action Plans for Clinical Quality Measures: Colorectal Cancer Screening:: Not addressed during this visit. See notes for details. . HIV Screening:: Not addressed during thi s visit. See notes for details. CSSRS Interpretation and Follow Up Plan CSSRS Interpretation and Follow Up Plan CSSRS Screen documented using SF: Yes Risk Disposition from SF: Low - No Follo w Up Plan Required Follow Up Plan: No Follow Up Plan requir ed at this time. Examination Category Sub-Category Detail Notes Category Not es ASAM Physical Assessment Intoxication and Withdrawal signs Intoxication signs: No signs of intoxication are present during examination. Withdrawal Signs: No withdrawal signs ar e present during examination.
--- OUTSIDE RECORDS SUMMARY | 2024-06-08 00:30 | XMS_ITS | Patient Health Record ---
Author Organization [facility] Address [address] [place] [address] Care Team Providers Care M[employer] Name Role Phone Tara Germain Primary Care Provider Effie Sumit Unavailable [phone] Ronna Chew Unavailable Malika Huizar Unavailable [phone] Allergies No Known Allergies Results Component Value Reference Range Notes 12 Panel Urine Drug Screen Reviewed date:05/14/2024 02:53:49 PM Interpretation: Performing Lab: Notes/Report: THC neg TAMY neg MOP (OPI) neg AMP neg MET neg BAR neg BZO neg MDMA neg MTD neg OXY neg PCP neg BUP POS 12 Panel Urine Drug Screen Reviewed date:05/28/2024 03:34:18 PM Interpretation: Performing Lab: Notes/Report: THC neg TAMY neg MOP (OPI) POS AMP neg MET neg BAR neg BZO neg MDMA neg MTD neg OXY POS PCP neg BUP POS 12 Panel Urine Drug Screen Reviewed date:04/19/2024 01:49:23 PM Interpretation: Performing Lab: Notes/Report: THC POS TAMY neg MOP (OPI) POS AMP neg MET neg BAR neg BZO neg MDMA neg MTD neg OXY POS PCP neg BUP neg Reason For Referral No Information Medications Medication SIG (Take, Route, Frequency, Duration) Notes Start Date End Date Status Buprenorphine HCl-Naloxone HCl 8-2 MG 1 film under the tongue and allow to dissolve Sublingual Three times a day for 16 days 05/28/2024 Active Buprenorphine HCl-Naloxone HCl 4-1 MG 1 film under the tongue and allow to dissolve Sublingual Once a day for 16 days 05/28/2024 Active HYDROcodone-Acetaminophen 10-325 MG 1 tablet as needed Orally every 6 hrs Not-Taking Social History Tobacco Use: Social History Observation Description Date Details (start date - stop date) Never Smoker NA - NA Sex Assigned At : Social History Observation Description Sex Assigned At Male Tobacco Control (Standard) Question Answer Notes Tobacco use: Nonsmoker AUDIT-C (Standard) Question Answer Notes Did you have a drink containing alcohol in the p ast year? No Points 0 Interpretation Negative Problems Problem Type SNOMED Code ICD Code Onset Dates Problem Status W/U Status Risk Notes Problem Obesity (741556138) Obesity (BMI 30-39.9) (E66.9) Active confirmed Problem Tobacco use (520771647) Tobacco use disorder (F17.200) Active confirmed Problem Mental disorder caused by drug (623654961) Opioid use disorder (F11.99) Active confirmed Vital Signs Heart Rate 90 /min 05/28/2024 Temperature 98.0 degrees Fahrenheit 05/28/2024 Respiratory Rate 18 /min 05/14/2024 Blood pressure diastolic 74 mm Hg 05/28/2024 Oximetry 97 % 05/28/2024 Height 72 in in 05/28/2024 Blood pressure systolic 112 mm Hg 05/28/2024 Weight 218 lbs 05/28/2024 BMI 29.56 kg/m2 05/28/2024 Encounters Encounter Location Date Provider Diagnosis [address] [place] [address] 04/17/2024 Sumit Chou Opioid use disorder F11.99 ; Obesity (BMI 30-39.9) E66.9 and Tobacco use disorder F17.[address] [place] [address] 05/14/2024 Malika Huizar Opioid use disorder F11.99 and Nutritional counseling Z71.3 [facility] [address] [address] 05/28/2024 Ronna Chew Opioid use disorder F11.99 and Tobacco use disorder F17.200 Assessments Encounter Date Diagnosis (ICD Code) Assessment Notes Treatment Notes Treatment Clinical Notes Section Notes 04/17/2024 Opioid use disorder (ICD-10 - F11.99) 05/14/2024 Nutritional counseling (ICD-10 - Z71.3) 05/14/2024 Opioid use disorder (ICD-10 - F11.99) 05/28/2024 Tobacco use disorder (ICD-10 - F17.200) 05/28/2024 Opioid use disorder (ICD-10 - F11.99) 04/17/2024 Obesity (BMI 30-39.9) (ICD-10 - E66.9) 04/17/2024 Tobacco use disorder (ICD-10 - F17.200) 04/17/2024 Other Discussed medication side effects, adverse effects, risks, benefits, as well as interactions. Encouraged non-use of opioids. Has naloxone. Recommended participation in recovery groups/counseling services. Agrees to contact office with questions or concerns. 05/14/2024 Other Discussed MAR program expectations. Cannot [...] self-administe r their own oral medications per [facility] Protocol. 05/28/2024 Other Patient agrees to take medication as prescribed. Discussed medication side effects, adverse effects, risks, benefits, as well as interactions. Encouraged non-use of opioids. Encouraged participation in recovery groups. Patient may contact office with questions or concerns. Patient is agreeable to above treatment plan and or changes and verbalized understanding. Continue all medication as prescribed. Provided informed consent with understanding of side effects, adverse effects, risks and benefits as well as alternative treatments as previously discussed with the above recommended medication and other aspects of the treatment programs. Discussed off label uses of medication. Agrees to return sooner if symptoms worsen Client verbalized understanding of information and is agreeable to plan of care. Questions addressed. Education given to patient-Understand that discontinuing buprenorphine increased the risk of overdose upon return to illicit opioid use. Know that the use of alcohol or benzodiazepines with buprenorphine increases the risk of overdose and . Understand the importance of informing providers if they become or plan to become . Tell the provider if they are having a procedure that may require pain medications. Education gave about safe and locked storage of medications to avoid theft or inadvertent use, especially by children. Encouraged locking devices and avoiding storage in parts of the home frequented by visitors. Plan Of Treatment No Information Medical (General) History Medical History History ICD Code opioid use disorder Surgical History Surgery Date(Month/Year) shoulder surgery (left) Hospitalization History Reason Date(Month/Year) double pneumonia 04/2024
--- OUTSIDE RECORDS SUMMARY | 2024-06-08 00:30 | XMS_ITS | Continuity of Care Document ---
Author Organization [facility] Address [address] [place] [address] Phone Care Team Providers Care Fish Receiver Name Role Phone Samira Girard Unavailable Unavailabl [...] Au X-ray exam hand, 3+ views Office/outpatient visit,[facility] 2018 Advance Directives Directive Yes / No Effective Date File Name No Information Encounters Encounter Description Practice Location Reason(s) For Visit Diagnoses Date Provider Providers Copied on Encounter [facility], [address] [facility], [place], [place], [id number], [place] tel:[phone] [facility] Right thumb (chief complaint) Other specified complication of internal orthopedic graft, subsequent encounter [address] Bro[facility]. [address], [address], [place], [place], [id number], [place]. tel:[phone] [facility], [address], [place], [place], [address], [place] tel:[phone] [facility] [facility] No Information Elgin De León. [address] [facility], [address], [place], [place], [id number], [place]. tel:[phone] [facility], [address], [place], [place], [address], [place] tel:[phone] [facility] No Information Elgin De León. [address] [facility], [address], [place], [place], [address], [place]. tel:[phone] Office/outpat ient visit,[facility], [address], [place], [place], [address], [place] tel:[phone] [facility] right hand (chief complaint) Pain in right handOther specified complication of internal orthopedic implant, initial encounter Elgin De León. [address] [facility], [address], [place], [place], [id number], [place]. tel:[phone] Family History Family Member Type Diagnosis Age At Onset No Information Payers Payer name Insurance type Covered republican ID Cedricberto panchitojaneth(s) [facility] CI [id number] Social History Type Description Quantity Date [...]
--- OUTSIDE RECORDS SUMMARY | 2024-06-08 00:31 | XMS_ITS | Clinical Summary ---
Author Organization [facility] Medical Office Building B Address [address] [place] [address] Care Team Providers Care Chief Hospital Administrator Name Role Phone Unknown, Notinfile Primary Care Provider Unavail able Allergies No known active allergies Medications atorvastatin (LIPITOR) 10 mg tablet Take 1 tablet (10 mg total) by mouth daily Active naloxone (NARCAN) 4 mg/actuation spray,non-aeros ol Administer 1 spray into affected nostril(s) as needed for opioid reversal Call 911. Administer a single spray in one nostril. Repeat every 3 minutes as needed if no or minimal response. 2 each 1 1 Active albuterol HFA (PROVENTIL HFA,VENTOLIN HFA,PROAIR HFA) 90 [...] mouth daily 90 tablet 11 3 Active buprenorphine-n aloxone (SUBOXONE) 4-[address] 1 Film under the tongue daily Active Active Problems Problem Noted Date Diagnosed Date Multifocal pneumonia 04/24/2024 Rotator cuff syndrome of left shoulder 2 Chronic left shoulder pain 07/21/2021 Therapeutic opioid induced constipation 01/30/20 21 Medial epicondylitis of elbow, left 04/02/2020 Bilateral primary osteoarthritis of knee 020 Chronic pain of both knees 08/24/2019 Long-term current use of opiate analgesic 2019 Chronic right shoulder pain 08/24/2019 Encounters Date Type Department Care Team Description 04/24/2024 5:06 PM INTEGRATED LOGISTICS SUPPORT MANAGER - 04/27/2024 11:05 AM INTEGRATED LOGISTICS SUPPORT MANAGER Hospital Encounter [place] [id number] Med S[address] [place] [id number] John Dumont MD Mahasneh, Omar Ali Mohammed, MD Multifocal pneumonia (Primary Dx); Acute respiratory failure with hypoxia (HCC); Influenza A Discharge Disposition: Discharge to home or self care from Last 3 Months Immunizations Immunization Administration Dates Next Due Influenza, Trivalent, Preser vative Free, Intramuscular 04/27/2024(Deferred: - active flu and PNA) Surgical History Surgery Date Site/Laterality Comments ORIF [...] drink = 0.6 oz pur e alcohol) Book&Table Utilities Answer Date Recorded In the past 12 months has [employer], or water [employer] threatened to shut off services in your home? No 04/25/2024 Social Connection and Isolat ion Panel [NHANES] Answer Date Recorded In a typical week, how many times do you talk on the phone with family, friends, or neighbors? More than three times a week 04/25/2024 How often do you get togethe r with friends or relatives? More than three times a week 04/25/2024 How often do you attend [facility] or amish services? Never 04/25/2024 Do you belong to any clubs o r organizations such as taoism groups, unions, fraternal or athletic groups, or school groups? No 04/25/2024 How often do you attend meet ings of the clubs or organizations you belong to? Never 04/25/2024 Are you , , di vorced, , never , or living with a partner? 04/25/2024 Overall Financial Resource Strain (CARDIA) Answe r Date Recorded How hard is it for you to pa y for the very basics like food, housing, medical care, and heating? Not very hard 04/25/2024 Hunger Vital Sign Answer Date Recorded Within the past 12 months, y ou worried that your food would run out before you got the money to buy more. Never true 04/25/19 25 Within the past 12 months, t he food you bought just didn't last and you didn't have money to get more. Never true 04/25/2024 PRAPARE - Transportation Answer Date Re corded In the past 12 months, has l ack of transportation kept you from medical appointments or from getting medications? No 04/14 In the past 12 months, has l ack of transportation kept you from meetings, work, or from getting things needed for daily living? No 04/25/2024 Housing Stability Vital Sign Answer Donal e Recorded In the last 12 months, was t here a time when you were not able to pay the mortgage or rent on time? No 04/25/2024 In the past 12 months, how m any times have you moved where you were living? 0 04/25/2024 At any time in the past [address] [facility], were you homeless or living in a snf (including now)? No 04/25/2024 Personal Safety Answer Date Recorded Have you ever been in or are you currently in a harmful physical or emotional relationship or is someone making you feel afraid or unsafe? Denies 04/24/2024 Sex and Gender Information Value Date Recorded Sex Assigned at Not on file Legal Sex Male 8:49 AM INTEGRATED LOGISTICS SUPPORT MANAGER Gender Identity Not on file Sexual Orientation Not on file Obstetrics History Last Filed Vital Signs Vital Sign Reading Time Taken Comments Blood Pressure 128/80 04/27/2024 8:22 AM INTEGRATED LOGISTICS SUPPORT MANAGER Pulse 68 04/27/2024 8:22 AM INTEGRATED LOGISTICS SUPPORT MANAGER Temperature 36.3 C (97.3 F) 04/27/2024 8:22 AM INTEGRATED LOGISTICS SUPPORT MANAGER Respiratory Rate 16 04/27/2024 8:22 AM INTEGRATED LOGISTICS SUPPORT MANAGER Oxygen Saturation 92% 04/27/2024 8:22 AM INTEGRATED LOGISTICS SUPPORT MANAGER Inhaled Oxygen Concentration - - Weight 94.9 kg (209 lb 4.8 oz) 04/24/2024 8:43 P M INTEGRATED LOGISTICS SUPPORT MANAGER Height 185.4 cm (6' 1 ) 04/24/2024 8:43 PM INTEGRATED LOGISTICS SUPPORT MANAGER Body Mass Index 27.61 04/24/2024 8:43 PM INTEGRATED LOGISTICS SUPPORT MANAGER Plan of Treatment Health Maintenance Due Date Last Done Comments Colon Cancer Screening-Colonoscopy 1968 Depression Screening 1968 Hepatitis C Screening 1968 Prostate Cancer Screening-PSA 1968 Hepatitis B Screening 1986 Regular Well Visit/Exam 18-64 1986 Pneumococcal vaccine <65 (1 of 2 - PCV) 1987 Zoster Vaccine (1 of 2) 2018 Influenza Vaccine (#1) 2023 03/27/2018 DTaP/Tdap/Td Vaccine (2 - Td or Tdap) 03/27/2029 Procedures Procedure Name Priority Date/Time Associated Diagnosis Comments HOME O2 EVAL (DESATURATION SCREEN) Routine 04/27/2024 7:19 AM INTEGRATED LOGISTICS SUPPORT MANAGER MANUAL DIFFERENTIAL Routine 04/27/2024 4 :15 AM INTEGRATED LOGISTICS SUPPORT MANAGER EGFR Routine 04/27/2024 4:15 AM INTEGRATED LOGISTICS SUPPORT MANAGER DIFFERENTIAL AUTO Routine 04/27/2024 4:1 5 AM INTEGRATED LOGISTICS SUPPORT MANAGER MAGNESIUM Routine 04/27/2024 4:15 AM INTEGRATED LOGISTICS SUPPORT MANAGER PHOSPHORUS Routine 04/27/2024 4:15 AM INTEGRATED LOGISTICS SUPPORT MANAGER COMPREHENSIVE METABOLIC PANEL Routine 04/27/2024 4:15 AM INTEGRATED LOGISTICS SUPPORT MANAGER CBC WITH AUTO DIFFERENTIAL Routine 04/27/2024 4:15 AM INTEGRATED LOGISTICS SUPPORT MANAGER EGFR Routine 04/26/2024 4:10 AM INTEGRATED LOGISTICS SUPPORT MANAGER DIFFERENTIAL AUTO Routine 04/26/2024 4:1 0 AM INTEGRATED LOGISTICS SUPPORT MANAGER MAGNESIUM Routine 04/26/2024 4:10 AM INTEGRATED LOGISTICS SUPPORT MANAGER PHOSPHORUS Routine 04/26/2024 4:10 AM INTEGRATED LOGISTICS SUPPORT MANAGER COMPREHENSIVE METABOLIC PANEL Routine 04/26/2024 4:10 AM INTEGRATED LOGISTICS SUPPORT MANAGER CBC WITH AUTO DIFFERENTIAL Routine 04/26/2024 4:10 AM INTEGRATED LOGISTICS SUPPORT MANAGER LEGIONELLA ANTIGEN, URINE Routine 04/25/2024 7:40 AM INTEGRATED LOGISTICS SUPPORT MANAGER STREP PNEUMONIAE AG, URINE Routine 04/25/2024 7:40 AM INTEGRATED LOGISTICS SUPPORT MANAGER EGFR Routine 04/25/2024 6:19 AM INTEGRATED LOGISTICS SUPPORT MANAGER DIFFERENTIAL AUTO Routine 04/25/2024 6:1 9 AM INTEGRATED LOGISTICS SUPPORT MANAGER COMPREHENSIVE METABOLIC PANEL Routine 04/25/2024 6:19 AM INTEGRATED LOGISTICS SUPPORT MANAGER CBC WITH AUTO DIFFERENTIAL Routine 04/25/2024 6:19 AM INTEGRATED LOGISTICS SUPPORT MANAGER TROPONIN T HIGH-SENSITIVITY STAT 04/24/2024 3:02 PM INTEGRATED LOGISTICS SUPPORT MANAGER SEPSIS LACTATE WITH REFLEX Timed 04/24/2024 3:02 PM INTEGRATED LOGISTICS SUPPORT MANAGER BLOOD CULTURE STAT 04/24/2024 3:02 PM INTEGRATED LOGISTICS SUPPORT MANAGER BLOOD CULTURE STAT 04/24/2024 2:54 PM INTEGRATED LOGISTICS SUPPORT MANAGER CT CHEST PE W CONTRAST ED 2:00 PM INTEGRATED LOGISTICS SUPPORT MANAGER XR CHEST 1 VIEW ED 04/24/2024 12:43 PM INTEGRATED LOGISTICS SUPPORT MANAGER ECG 12-LEAD STAT 04/24/2024 12:34 PM INTEGRATED LOGISTICS SUPPORT MANAGER SEPSIS LACTATE WITH REFLEX Routine 04/24/2024 12:32 PM INTEGRATED LOGISTICS SUPPORT MANAGER EGFR STAT 04/24/2024 12:31 PM INTEGRATED LOGISTICS SUPPORT MANAGER DIFFERENTIAL AUTO STAT 04/24/2024 12: 31 PM INTEGRATED LOGISTICS SUPPORT MANAGER PRO B-TYPE NATRIURETIC PEPTIDE STAT 04/24/2024 12:31 PM INTEGRATED LOGISTICS SUPPORT MANAGER TROPONIN T HIGH-SENSITIVITY SERIES (BASELINE, 2HR, 4HR, 6HR) STAT 04/24/2024 12:31 PM INTEGRATED LOGISTICS SUPPORT MANAGER CBC WITH AUTO DIFFERENTIAL STAT 04/24/2024 12:31 PM INTEGRATED LOGISTICS SUPPORT MANAGER COMPREHENSIVE METABOLIC PANEL STAT 04/24/2024 12:31 PM INTEGRATED LOGISTICS SUPPORT MANAGER INFLUENZA A/B, RSV, AND COVID-19 PCR STAT 04/24/2024 12:31 PM INTEGRATED LOGISTICS SUPPORT MANAGER from Last 3 Months Results * eGFR (04/27/2024 4:15 AM INTEGRATED LOGISTICS SUPPORT MANAGER) eGFR >90 >=60 mL/min/1. 73 m2 Comment: Interpretive Data Reference Interval Normal >/= 90 mL/min/1.73m2 Mildly decreased* 60 - 89 mL/min/1.73m2 Mildly to moderately decreased 45 - 59 mL/min/1.73m2 Moderately to severely decreased 30 - 44 mL/min/1.73m2 Severely decreased 15 - 29 mL/min/1.73m2 Kidney Failure < 15 mL/min/1.73m2 *Relative to young adult level Estimated glomerular filtration rate is determined by the 2020 CKD-EPI equation recommended by the National Kidney Foundation (A Unifying Approach to GFR Estimation: Recommendations of the NKF-ASK Task Force on Reassessing the Inclusion of Race in Diagnosing Kidney Disease, JASN 202). The CKD-EPI equation should not be used for patients with unstable renal function and has not been validated in children and those over 70. Current interpretive data was last reviewed 2021. Testing performed by: [facility] [address] [place] [address]., [address] Blood 04/27/2024 4:15 AM INTEGRATED LOGISTICS SUPPORT MANAGER 04/27/2024 6:18 AM INTEGRATED LOGISTICS SUPPORT MANAGER us John Correa MD LAB BLOOD ORDERABLES Final Result ALICIA [address] [facility] [place] [address] * (ABNORMAL) Differential, auto (04/27/2024 4:15 AM INTEGRATED LOGISTICS SUPPORT MANAGER) Neutrophil abs 5.3 1.5 - 6.5 K/cumm Comment:Testing performed by : [address] [address] Imm gran abs 0.2(H) 0.0 - 0.1 K/cumm ALICIA Comment:Testing performed by : [address] [address] Lymphocyte abs 4.7(H) 0.8 - 3.3 K/cumm ALICIA Comment:Testing performed by : [address] [address] Monocyte abs 0.8 0.2 - 0.8 K/cumm ALICIA Comment:Testing performed by : [address] [address] Eosinophil abs 0.1 0.0 - 0.5 K/cumm ALICIA Comment:Testing performed by : [address] [address] Basophil abs 0.1 0.0 - 0.1 K/cumm ALICIA Comment:Testing performed by : [address] [address] Neutrophil pct 48.0 % ALICIA Comment: Interpretive Data Percent cell count reference ranges are not reported, since discordance with absolute values may lead to misinterpretation of CBC data. Current Interpretive Data was last revised on 2017. Testing performed by: [address] [address] Imm gran pct 1.4 % ALICIA Comment: Interpretive Data Percent cell count reference ranges are not reported, since discordance with absolute values may lead to misinterpretation of CBC data. Current Interpretive Data was last revised on 2017. Testing performed by: [address] [address] Lymphocyte pct 42.5 % [facility] Comment: Interpretive Data Percent cell count reference ranges are not reported, since discordance with absolute values may lead to misinterpretation of CBC data. Current Interpretive Data was last revised on 2017. Testing performed by: [address] [address] Monocyte pct 7.1 % [facility] Comment: Interpretive Data Percent cell count reference ranges are not reported, since discordance with absolute values may lead to misinterpretation of CBC data. Current Interpretive Data was last revised on 2017. Testing performed by: [address] [address] Eosinophil pct 0.5 % [facility] Comment: Interpretive Data Percent cell count reference ranges are not reported, since discordance with absolute values may lead to misinterpretation of CBC data. Current Interpretive Data was last revised on 2017. Testing performed by: [address] [address] Basophil pct 0.5 % [facility] Comment: Interpretive Data Percent cell count reference ranges are not reported, since discordance with absolute values may lead to misinterpretation of CBC data. Current Interpretive Data was last revised on 2017. Testing performed by: [address] [address] Blood 04/27/2024 4:15 AM INTEGRATED LOGISTICS SUPPORT MANAGER 04/27/2024 6:18 AM INTEGRATED LOGISTICS SUPPORT MANAGER us John Correa MD LAB BLOOD ORDERABLES Final Result [facility] [address] [facility] [place] [address] * (ABNORMAL) CBC with auto differential (04/27/2024 4:15 AM INTEGRATED LOGISTICS SUPPORT MANAGER) WBC 11.1(H) 3.8 - 9.9 K/cumm Comment:Testing performed by : [address] [address] Hgb 13.6 13.0 - 17.5 g/dL ALICIA Comment:Testing performed by : [address] [address] Hct 41.0 38.9 - 50.3 % ALICIA Comment:Testing performed by : [address] [address] Plt 340 150 - 400 K/cumm ALICIA Comment:Testing performed by : [address] [address] MPV 10.5 9.1 - 12.3 fL ALICIA Comment:Testing performed by : [address], [address] RBC 4.38 4.30 - 5.80 M/cumm ALICIA Comment:Testing performed by : [address], [address] MCV 93.6 81.3 - 96.4 fL ALICIA Comment:Testing performed by : [address], [address] MCH 31.1 27.1 - 33.3 pg ALICIA Comment:Testing performed by : [address], [address] MCHC 33.2 32.3 - 35.7 g/dL ALICIA Comment:Testing performed by : [address], [address] RDW CV 12.6 11.1 - 14.9 % ALICIA Comment:Testing performed by : [address], [address] RDW SD 43.3 35.7 - 48.1 fL ALICIA Comment:Testing performed by : [address], [address] NRBC abs 0.00 0.00 - 0.01 K/cumm ALICIA Comment:Testing performed by : [address] [address] Blood 04/27/2024 4:15 AM INTEGRATED LOGISTICS SUPPORT MANAGER 04/27/2024 6:18 AM INTEGRATED LOGISTICS SUPPORT MANAGER John Correa MD LAB BLOOD ORDERABLES Edited Result - Final Performing Organization Address City/[facility]/ZIP Co de Phone Number ALICIA [address] [address] * Manual Differential (04/27/2024 4:15 AM INTEGRATED LOGISTICS SUPPORT MANAGER) [facility] Differential Auto Comment:Testing performed by : [address] [address] RBC morphology Consistent with RBC Indicies ALICIA Comment:Testing performed by : [address] [address] Platelet estimate Automated Count Confirmed ALICIA BALLARD Comment:Testing performed by : [address] [address] Blood 04/27/2024 4:15 AM INTEGRATED LOGISTICS SUPPORT MANAGER 04/27/2024 6:18 AM INTEGRATED LOGISTICS SUPPORT MANAGER John Correa MD LAB BLOOD ORDERABLES Final Result Performing Organization Address [facility] Co de Phone Number ALICIA [address] [address] * Phosphorus (04/27/2024 4:15 AM INTEGRATED LOGISTICS SUPPORT MANAGER) [facility] Phosphorus, pl 3.6 2.3 - 4.5 mg/dL Comment:Testing performed by : [address] [address] Blood 04/27/2024 4:15 AM INTEGRATED LOGISTICS SUPPORT MANAGER 04/27/2024 6:18 AM INTEGRATED LOGISTICS SUPPORT MANAGER Tarun Whaley MD LAB BLOOD ORDERABL ES Final Result ALICIA [facility] [place] [address] * Magnesium (04/27/2024 4:15 AM INTEGRATED LOGISTICS SUPPORT MANAGER) [facility] Magnesium 2.0 1.4 - 2.5 mg/dL Comment:Testing performed by : [address] [address] Blood 04/27/2024 4:15 AM INTEGRATED LOGISTICS SUPPORT MANAGER 04/27/2024 6:18 AM INTEGRATED LOGISTICS SUPPORT MANAGER Tarun Whaley MD LAB BLOOD ORDERABL ES Final Result [facility] [address] [facility] Department [place] [address] * (ABNORMAL) Comprehensive metabolic panel (04/27/2024 4:15 AM INTEGRATED LOGISTICS SUPPORT MANAGER) Pathologist [facility] Sodium 138 135 - 145 mmol/L Comment:Testing performed by : [address] [address] Potassium, pl 4.0 3.3 - 4.9 mmol/L ALICIA Comment:Testing performed by : [address] [address] Chloride 101 97 - 110 mmol/L ALICIA Comment:Testing performed by : [address] [address] CO2 26 22 - 32 mmol/L ALICIA Comment:Testing performed by : [address] [address] Anion gap 11 2 - 15 mmol/L ALICIA Comment:Testing performed by : [address] [address] BUN 19 6 - 25 mg/dL ALICIA Comment:Testing performed by : [address] [address] Creatinine 0.80 0.80 - 1.30 mg/dL ALICIA Comment:Testing performed by : [address] [address] Glucose 77 70 - 199 mg/dL ALICIA Comment: Interpretive Data Fasting glucose >/= 126 mg/dl is diagnostic for diabetes. Fasting is defined as no caloric intake for at least 8 hours. Fasting glucose between 100 mg/dl to 125 mg/dl is diagnostic of prediabetes. In a patient with classic symptoms of hyperglycemia or hyperglycemic crisis, a random glucose >/= 200 mg/dl is diagnostic for diabetes. In the absence of unequivocal hyperglycemia, results should be confirmed by repeat testing. The classification and Diagnosis of Diabetes Diabetes Care 202; 46: S19-S40. Current interpretive data was last revised 2022. Testing performed by: [address] [address] Calcium 9.2 8.5 - 10.3 mg/dL ALICIA Comment:Testing performed by : [address] [address] Bilirubin, total 0.4 0.1 - 1.2 mg/dL ALICIA Comment:Testing performed by : [address] [address] Protein, pl 6.4(L) 6.5 - 8.5 g/dL ALICIA Comment:Testing performed by : [address] [address] Albumin 3.3(L) 3.5 - 5.0 g/dL ALICIA Comment:Testing performed by : [address] [address] Alk phos 67 40 - 130 Units/L ALICIA Comment:Testing performed by : [address] [address] ALT 129(H) 7 - 55 Units/L ALICIA Comment:Testing performed by : [address] [address] AST 52(H) 10 - 50 Units/L ALICIA Comment:Testing performed by : [address] [address] Blood 04/27/2024 4:15 AM INTEGRATED LOGISTICS SUPPORT MANAGER 04/27/2024 6:18 AM INTEGRATED LOGISTICS SUPPORT MANAGER us John Correa MD LAB BLOOD ORDERABLES Final Result ALICIA [address] [facility] Department of Laboratories [place], [place] [id number] * eGFR (04/26/2024 4:10 AM INTEGRATED LOGISTICS SUPPORT MANAGER) eGFR >90 >=60 mL/min/1. 73 m2 Comment: Interpretive Data Reference Interval Normal >/= 90 mL/min/1.73m2 Mildly decreased* 60 - 89 mL/min/1.73m2 Mildly to moderately decreased 45 - 59 mL/min/1.73m2 Moderately to severely decreased 30 - 44 mL/min/1.73m2 Severely decreased 15 - 29 mL/min/1.73m2 Kidney Failure < 15 mL/min/1.73m2 *Relative to young adult level Estimated glomerular filtration rate is determined by the 2020 CKD-EPI equation recommended by the National Kidney Foundation (A Unifying Approach to GFR Estimation: Recommendations of the NKF-ASK Task Force on Reassessing the Inclusion of Race in Diagnosing Kidney Disease, JASN 2020). The CKD-EPI equation should not be used for patients with unstable renal function and has not been validated in children and those over 70. Current interpretive data was last reviewed 2021. Testing performed by: [address] [address] Blood 04/26/2024 4:10 AM INTEGRATED LOGISTICS SUPPORT MANAGER 04/26/2024 5:15 AM INTEGRATED LOGISTICS SUPPORT MANAGER John Correa MD LAB BLOOD ORDERABLES Final Result [facility] [address] [facility] Department [place] [address] * (ABNORMAL) Differential, auto (04/26/2024 4:10 AM INTEGRATED LOGISTICS SUPPORT MANAGER) Neutrophil abs 8.1(H) 1.5 - 6.5 K/cumm Comment:Testing performed by : [address] [address] Imm gran abs 0.1 0.0 - 0.1 K/cumm ALICIA BALLARD Comment:Testing performed by : [address] [address] Lymphocyte abs 2.5 0.8 - 3.3 K/cumm ALICIA Comment:Testing performed by : [facility], [address] [place] [address]., [address] Monocyte abs 1.0(H) 0.2 - 0.8 K/cumm [facility] Comment:Testing performed by : [address], [place]., [address] Eosinophil abs 0.0 0.0 - 0.5 K/cumm [facility] Comment:Testing performed by : [address] [address] Basophil abs 0.0 0.0 - 0.1 K/cumm [facility] Comment:Testing performed by : [address] [address] Neutrophil pct 69.1 % [facility] Comment: Interpretive Data Percent cell count reference ranges are not reported, since discordance with absolute values may lead to misinterpretation of CBC data. Current Interpretive Data was last revised on 2017. Testing performed by: [address] [address] Imm gran pct 0.8 % [facility] Comment: Interpretive Data Percent cell count reference ranges are not reported, since discordance with absolute values may lead to misinterpretation of CBC data. Current Interpretive Data was last revised on 2017. Testing performed by: [address] [address] Lymphocyte pct 21.6 % [facility] Comment: Interpretive Data Percent cell count reference ranges are not reported, since discordance with absolute values may lead to misinterpretation of CBC data. Current Interpretive Data was last revised on 2017. Testing performed by: [address] [address] Monocyte pct 8.3 % [facility] Comment: Interpretive Data Percent cell count reference ranges are not reported, since discordance with absolute values may lead to misinterpretation of CBC data. Current Interpretive Data was last revised on 2017. Testing performed by: [address] [address] Eosinophil pct 0.0 % [facility] Comment: Interpretive Data Percent cell count reference ranges are not reported, since discordance with absolute values may lead to misinterpretation of CBC data. Current Interpretive Data was last revised on 2017. Testing performed by: [address] [address] Basophil pct 0.2 % ALICIA BALLARD Comment: Interpretive Data Percent cell count reference ranges are not reported, since discordance with absolute values may lead to misinterpretation of CBC data. Current Interpretive Data was last revised on 2017. Testing performed by: [address] [address] Blood 04/26/2024 4:10 AM INTEGRATED LOGISTICS SUPPORT MANAGER 04/26/2024 5:15 AM INTEGRATED LOGISTICS SUPPORT MANAGER John Correa MD LAB BLOOD ORDERABLES Final Result ALICIA [address] [facility] Department [place] [address] * (ABNORMAL) CBC with auto differential (04/26/2024 4:10 AM INTEGRATED LOGISTICS SUPPORT MANAGER) WBC 11.7(H) 3.8 - 9.9 K/cumm Comment:Testing performed by : [address] [address] Hgb 13.3 13.0 - 17.5 g/dL ALICIA BALLARD Comment:Testing performed by : [address] [address] Hct 38.8(L) 38.9 - 50.3 % ALICIA BALLARD Comment:Testing performed by : [address] [address] Plt 300 150 - 400 K/cumm ALICIA BALLARD Comment:Testing performed by : [address] [address] MPV 10.6 9.1 - 12.3 fL ALICIA BALLARD Comment:Testing performed by : [address] [address] RBC 4.25(L) 4.30 - 5.80 M/cumm ALICIA BALLARD Comment:Testing performed by : [address] [place]., [address] MCV 91.3 81.3 - 96.4 fL ALICIA BALLARD Comment:Testing performed by : [address] [address] MCH 31.3 27.1 - 33.3 pg ALICIA BALLARD Comment:Testing performed by : [address] [address] MCHC 34.3 32.3 - 35.7 g/dL ALICIA BALLARD Comment:Testing performed by : [address], [address] RDW CV 12.6 11.1 - 14.9 % ALICIA Comment:Testing performed by : [address], [address] RDW SD 41.6 35.7 - 48.1 fL ALICIA BALLARD Comment:Testing performed by : [address], [address] NRBC abs 0.00 0.00 - 0.01 K/cumm ALICIA Comment:Testing performed by : [address], [address] Blood 04/26/2024 4:10 AM INTEGRATED LOGISTICS SUPPORT MANAGER 04/26/2024 5:15 AM INTEGRATED LOGISTICS SUPPORT MANAGER us John Correa MD LAB BLOOD ORDERABLES Final Result [place] [id number] [facility] [place] [address] * Phosphorus (04/26/2024 4:10 AM INTEGRATED LOGISTICS SUPPORT MANAGER) Phosphorus, pl 2.9 2.3 - 4.5 mg/dL Comment:Testing performed by : [address] [address] Blood 04/26/2024 4:10 AM INTEGRATED LOGISTICS SUPPORT MANAGER 04/26/2024 5:15 AM INTEGRATED LOGISTICS SUPPORT MANAGER Tarun Whaley MD LAB BLOOD ORDERABL ES Final Result Performing Organization Address City/[facility] Co de Phone Number [address] [place] [address] * Magnesium (04/26/2024 4:10 AM INTEGRATED LOGISTICS SUPPORT MANAGER) [facility] Magnesium 2.5 1.4 - 2.5 mg/dL Comment:Testing performed by : [address] [address] Blood 04/26/2024 4:10 AM INTEGRATED LOGISTICS SUPPORT MANAGER 04/26/2024 5:15 AM INTEGRATED LOGISTICS SUPPORT MANAGER Tarun Whaley MD LAB BLOOD ORDERABL ES Final Result Performing Organization Address [facility] Co de Phone Number [address] [address] * (ABNORMAL) Comprehensive metabolic panel (04/26/2024 4:10 AM INTEGRATED LOGISTICS SUPPORT MANAGER) [facility] Sodium 135 135 - 145 mmol/L Comment:Testing performed by : [address] [address] Potassium, pl 4.0 3.3 - 4.9 mmol/L ALICIA Comment:Testing performed by : [address] [address] Chloride 98 97 - 110 mmol/L ALICIA Comment:Testing performed by : [address] [address] CO2 28 22 - 32 mmol/L ALICIA Comment:Testing performed by : [address] [address] Anion gap 9 2 - 15 mmol/L ALICIA Comment:Testing performed by : [address] [address] BUN 18 6 - 25 mg/dL ALICIA Comment:Testing performed by : [address] [address] Creatinine 0.73(L) 0.80 - 1.30 mg/dL ALICIA Comment:Testing performed by : [address] [address] Glucose 122 70 - 199 mg/dL ALICIA Comment: Interpretive Data Fasting glucose >/= 126 mg/dl is diagnostic for diabetes. Fasting is defined as no caloric intake for at least 8 hours. Fasting glucose between 100 mg/dl to 125 mg/dl is diagnostic of prediabetes. In a patient with classic symptoms of hyperglycemia or hyperglycemic crisis, a random glucose >/= 200 mg/dl is diagnostic for diabetes. In the absence of unequivocal hyperglycemia, results should be confirmed by repeat testing. The classification and Diagnosis of Diabetes Diabetes Care 2021; 46: S19-S40. Current interpretive data was last revised 2022. Testing performed by: [address] [address] Calcium 9.4 8.5 - 10.3 mg/dL ALICIA Comment:Testing performed by : [address] [address] Bilirubin, total 0.4 0.1 - 1.2 mg/dL ALICIA Comment:Testing performed by : [address] [address] Protein, pl 6.7 6.5 - 8.5 g/dL [facility] Comment:Testing performed by : [address] [address] Albumin 3.6 3.5 - 5.0 g/dL ALICIA Comment:Testing performed by : [address] [address] Alk phos 63 40 - 130 Units/L ALICIA Comment:Testing performed by : [address] [address] ALT 78(H) 7 - 55 Units/L ALICIA Comment:Testing performed by : [address] [address] AST 44 10 - 50 Units/L ALICIA Comment:Testing performed by : [address] [address] Blood 04/26/2024 4:10 AM INTEGRATED LOGISTICS SUPPORT MANAGER 04/26/2024 5:15 AM INTEGRATED LOGISTICS SUPPORT MANAGER John Correa MD LAB BLOOD ORDERABLES Final Result Performing Organization Address [facility] Co de Phone Number [address] [address] * (ABNORMAL) Strep pneumoniae antigen, urine Urine (04/25/2024 7:40 AM INTEGRATED LOGISTICS SUPPORT MANAGER) S. pneumoniae Ag Positive( A) Negative Comment: Interpretive Data A positive result is indicative of pneumococcal pneumonia in patients with severe CAP. Cross-reactivity with closely related Streptococcus bacteria may occur. A negative result suggests no current or recent pneumococcal infection but cannot rule out infection with S. pneumoniae. The results of this testing should be used in conjunction with clinical findings and other diagnostic testing, including microbiologic culture. Current Interpretive Data was last revised on 2022 Urine 04/25/2024 7:40 AM INTEGRATED LOGISTICS SUPPORT MANAGER 04/25/2024 8:20 AM INTEGRATED LOGISTICS SUPPORT MANAGER John hassan MD LAB MICROBIOLOGY - GENERAL ORDERABLES Final Result Performing Organization Address [facility] de Phone Number [address] [address] * Legionella antigen Urine (04/25/2024 7:40 AM INTEGRATED LOGISTICS SUPPORT MANAGER) Legionella Ag Negative Negative Comment: Interpretive Data This test detects only Legionella pneumophila serogroup 1 antigen. Testing performed by [facility] ([phone]). Current interpretive data was last revised on 2019. Testing performed by: [facility], [address] [facility], [place]., [address] Urine 04/25/2024 7:40 AM INTEGRATED LOGISTICS SUPPORT MANAGER 04/25/2024 11:16 AM INTEGRATED LOGISTICS SUPPORT MANAGER John hassan MD LAB MICROBIOLOGY - GENERAL ORDERABLES Final Result Performing Organization Address City/[facility] Co de Phone Number [address] [place] [address] * eGFR (04/25/2024 6:19 AM INTEGRATED LOGISTICS SUPPORT MANAGER) eGFR >90 >=60 mL/min/1. 73 m2 Comment: Interpretive Data Reference Interval Normal >/= 90 mL/min/1.73m2 Mildly decreased* 60 - 89 mL/min/1.73m2 Mildly to moderately decreased 45 - 59 mL/min/1.73m2 Moderately to severely decreased 30 - 44 mL/min/1.73m2 Severely decreased 15 - 29 mL/min/1.73m2 Kidney Failure < 15 mL/min/1.73m2 *Relative to young adult level Estimated glomerular filtration rate is determined by the 2020 CKD-EPI equation recommended by the National Kid[employer] (A Unifying Approach to GFR Estimation: Recommendations of the NKF-ASK Task Force on Reassessing the Inclusion of Race in Diagnosing Kidney Disease, JASN 2020). The CKD-EPI equation should not be used for patients with unstable renal function and has not been validated in children and those over 70. Current interpretive data was last reviewed 2021. Testing performed by: [address] [address] Blood 04/25/2024 6:19 AM INTEGRATED LOGISTICS SUPPORT MANAGER 04/25/2024 7:17 AM INTEGRATED LOGISTICS SUPPORT MANAGER John Correa MD LAB BLOOD ORDERABLES Final Result ALICIA [address] [facility] [place] [address] * (ABNORMAL) Differential, auto (04/25/2024 6:19 AM INTEGRATED LOGISTICS SUPPORT MANAGER) Pathologist [facility] Neutrophil abs 9.6(H) 1.5 - 6.5 K/cumm Comment:Testing performed by : [address] [address] Imm gran abs 0.0 0.0 - 0.1 K/cumm ALICIA Comment:Testing performed by : [address] [address] Lymphocyte abs 1.0 0.8 - 3.3 K/cumm [facility] Comment:Testing performed by : [address] [address] Monocyte abs 0.4 0.2 - 0.8 K/cumm [facility] Comment:Testing performed by : [address] [address] Eosinophil abs 0.0 0.0 - 0.5 K/cumm [facility] Comment:Testing performed by : [address] [address] Basophil abs 0.0 0.0 - 0.1 K/cumm [facility] Comment:Testing performed by : [address] [address] Neutrophil pct 86.7 % [facility] Comment: Interpretive Data Percent cell count reference ranges are not reported, since discordance with absolute values may lead to misinterpretation of CBC data. Current Interpretive Data was last revised on 2017. Testing performed by: [address] [address] Imm gran pct 0.4 % [facility] Comment: Interpretive Data Percent cell count reference ranges are not reported, since discordance with absolute values may lead to misinterpretation of CBC data. Current Interpretive Data was last revised on 2017. Testing performed by: [address] [address] Lymphocyte pct 8.8 % [facility] Comment: Interpretive Data Percent cell count reference ranges are not reported, since discordance with absolute values may lead to misinterpretation of CBC data. Current Interpretive Data was last revised on 2017. Testing performed by: [address] [address] Monocyte pct 3.9 % [facility] Comment: Interpretive Data Percent cell count reference ranges are not reported, since discordance with absolute values may lead to misinterpretation of CBC data. Current Interpretive Data was last revised on 2017. Testing performed by: [address] [address] Eosinophil pct 0.0 % [facility] Comment: Interpretive Data Percent cell count reference ranges are not reported, since discordance with absolute values may lead to misinterpretation of CBC data. Current Interpretive Data was last revised on 2017. Testing performed by: [address] [address] Basophil pct 0.2 % ALICIA BALLARD Comment: Interpretive Data Percent cell count reference ranges are not reported, since discordance with absolute values may lead to misinterpretation of CBC data. Current Interpretive Data was last revised on 2017. Testing performed by: [address] [address] Blood 04/25/2024 6:19 AM INTEGRATED LOGISTICS SUPPORT MANAGER 04/25/2024 7:19 AM INTEGRATED LOGISTICS SUPPORT MANAGER John Correa MD LAB BLOOD ORDERABLES Final Result ALICIA [address] [facility] [place] [address] * (ABNORMAL) CBC with auto differential (04/25/2024 6:19 AM INTEGRATED LOGISTICS SUPPORT MANAGER) WBC 11.0(H) 3.8 - 9.9 K/cumm Comment:Testing performed by : [address] [address] Hgb 13.8 13.0 - 17.5 g/dL ALICIA BALLARD Comment:Testing performed by : [address] [address] Hct 41.0 38.9 - 50.3 % ALICIA BALLARD Comment:Testing performed by : [address] [address] Plt 256 150 - 400 K/cumm ALICIA BALLARD Comment:Testing performed by : [address] [address] MPV 10.4 9.1 - 12.3 fL ALICIA BALLARD Comment:Testing performed by : [address] [address] RBC 4.54 4.30 - 5.80 M/cumm ALICIA BALLARD Comment:Testing performed by : [address] [address] MCV 90.3 81.3 - 96.4 fL ALICIA BALLARD Comment:Testing performed by : [address] [address] MCH 30.4 27.1 - 33.3 pg ALICIA BALLARD Comment:Testing performed by : [address] [address] MCHC 33.7 32.3 - 35.7 g/dL ALICIA BALLARD Comment:Testing performed by : [address] [address] RDW CV 12.4 11.1 - 14.9 % ALICIA BALLARD Comment:Testing performed by : [address] [address] RDW SD 40.8 35.7 - 48.1 fL ALICIA BALLARD Comment:Testing performed by : [address] [address] NRBC abs 0.00 0.00 - 0.01 K/cumm ALICIA BALLARD Comment:Testing performed by : [address] [address] Blood 04/25/2024 6:19 AM INTEGRATED LOGISTICS SUPPORT MANAGER 04/25/2024 7:19 AM INTEGRATED LOGISTICS SUPPORT MANAGER us John Correa MD LAB BLOOD ORDERABLES Final Result ALICIA [address] [facility] Department of Laboratories [place], [place] [id number] * (ABNORMAL) Comprehensive metabolic panel (04/25/2024 6:19 AM INTEGRATED LOGISTICS SUPPORT MANAGER) Sodium 135 135 - 145 mmol/L Comment:Testing performed by : [address] [address] Potassium, pl 4.3 3.3 - 4.9 mmol/L ALICIA BALLARD Comment:Testing performed by : [address] [address] Chloride 96(L) 97 - 110 mmol/L ALICIA BALLARD Comment:Testing performed by : [facility], [address] [place] [address]., [address] CO2 26 22 - 32 mmol/L ALICIA Comment:Testing performed by : [address] [address] Anion gap 13 2 - 15 mmol/L ALICIA Comment:Testing performed by : [address] [address] BUN 15 6 - 25 mg/dL ALICIA Comment:Testing performed by : [address], [place]., [address] Creatinine 0.70(L) 0.80 - 1.30 mg/dL ALICIA Comment:Testing performed by : [address] [address] Glucose 147 70 - 199 mg/dL ALICIA Comment: Interpretive Data Fasting glucose >/= 126 mg/dl is diagnostic for diabetes. Fasting is defined as no caloric intake for at least 8 hours. Fasting glucose between 100 mg/dl to 125 mg/dl is diagnostic of prediabetes. In a patient with classic symptoms of hyperglycemia or hyperglycemic crisis, a random glucose >/= 200 mg/dl is diagnostic for diabetes. In the absence of unequivocal hyperglycemia, results should be confirmed by repeat testing. The classification and Diagnosis of Diabetes Diabetes Care 202; 46: S19-S40. Current interpretive data was last revised 2022. Testing performed by: [address] [address] Calcium 9.4 8.5 - 10.3 mg/dL ALICIA Comment:Testing performed by : [address] [address] Bilirubin, total 0.4 0.1 - 1.2 mg/dL ALICIA Comment:Testing performed by : [address] [address] Protein, pl 7.2 6.5 - 8.5 g/dL ALICIA Comment:Testing performed by : [address] [address] Albumin 3.7 3.5 - 5.0 g/dL ALICIA Comment:Testing performed by : [address] [place]., [address] Alk phos 97 40 - 130 Units/L ALICIA Comment:Testing performed by : [address] [address] ALT 30 7 - 55 Units/L ALICIA Comment:Testing performed by : [address] [address] AST 18 10 - 50 Units/L ALICIA Comment:Testing performed by : [address] [address] Blood 04/25/2024 6:19 AM INTEGRATED LOGISTICS SUPPORT MANAGER 04/25/2024 7:17 AM INTEGRATED LOGISTICS SUPPORT MANAGER John Correa MD LAB BLOOD ORDERABLES Final Result Performing Organization Address [facility] de Phone Number [address] [place] [address] * Troponin T high-sensitivity (04/24/2024 3:02 PM INTEGRATED LOGISTICS SUPPORT MANAGER) Pathologist [facility] Trop T hs <6 <=22 ng/L Comment: Interpretive Data For further hscTnT resources including the diagnostic algorithm and an aid in interpretation, copy and paste this link: https://nrl.testcatalog.org/show/hsTrop Current Interpretive Data last revised 2020. Testing performed by: [address] [address] Blood 04/24/2024 3:02 PM INTEGRATED LOGISTICS SUPPORT MANAGER 04/24/2024 3:10 PM INTEGRATED LOGISTICS SUPPORT MANAGER John Correa MD LAB BLOOD ORDERABLES Final Result Performing Organization Address City/[facility] Co de Phone Number [address] [place] [address] * Sepsis Lactate w/ Reflex (04/24/2024 3:02 PM INTEGRATED LOGISTICS SUPPORT MANAGER) Pathologist [facility] Sepsis Lactate 1.3 0.7 - 2.0 mmol/L Comment:Testing performed by : [facility], [address] [facility], [place]., [address] Blood 04/24/2024 3:02 PM INTEGRATED LOGISTICS SUPPORT MANAGER 04/24/2024 3:10 PM INTEGRATED LOGISTICS SUPPORT MANAGER Stephane Gomes MD LAB BLOOD ORDERABLE S Final Result ALICIA [address] [facility] [place] [address] * Blood culture Blood (04/24/2024 3:02 PM INTEGRATED LOGISTICS SUPPORT MANAGER) Report Final Report: No growth Comment:Testing performed by : [facility], [address] [place]., [address] Blood 04/24/2024 3:02 PM INTEGRATED LOGISTICS SUPPORT MANAGER 04/24/2024 8:08 PM INTEGRATED LOGISTICS SUPPORT MANAGER Narrative ALICIA - 04/29/2024 7:00 AM INTEGRATED LOGISTICS SUPPORT MANAGER Collection->Peripheral 1. Blood cultures are incubated for 4 days on a continuously monitored blood culture system. The first report of a negative culture is issued within 24 hours of receipt of the specimen in the laboratory. 2. Positive culture results are reported as soon as they are detected. 3. The most important factor for detection of microbes in the setting of bloodstream infection is the volume of blood submitted for culture. Failure to collect an optimal blood volume can result in false negative blood cultures. 4. For pediatric patients, the recommended blood volume to collect follows a weight based strategy. See the electronic test catalog for collection instructions. 5. For positive blood cultures, a rapid molecular test may be performed for organism identification using the [employer]by ePlex blood culture identification panel for gram positive (BCID-GP) and gram negative (BCID-GN) organisms. This nucleic acid amplification test detects microbial DNA in positive blood culture broth. This assay has been cleared by the [place] Food and Drug Administration and its performance characteristics have been verified by the [facility]. For questions about this culture, contact the Microbiology Laboratory at [phone]. Interpretive data was last revised on 24. us Lyndsay BROWN LAB MICROBIOLOGY - GENERAL ORDE RABLES Final Result Performing Organization Address City/[facility]/ZIP Co de Phone Number ALICIA BALLARD [address] [facility] [place] [address] * Blood culture Blood (04/24/2024 2:54 PM INTEGRATED LOGISTICS SUPPORT MANAGER) Report Final Report: No growth Comment:Testing performed by : [facility], [address] [place]., [address] Blood 04/24/2024 2:54 PM INTEGRATED LOGISTICS SUPPORT MANAGER 04/24/2024 8:08 PM INTEGRATED LOGISTICS SUPPORT MANAGER Narrative [facility] - 04/29/2024 7:00 AM INTEGRATED LOGISTICS SUPPORT MANAGER Collection->Peripheral 1. Blood cultures are incubated for 4 days on a continuously monitored blood culture system. The first report of a negative culture is issued within 24 hours of receipt of the specimen in the laboratory. 2. Positive culture results are reported as soon as they are detected. 3. The most important factor for detection of microbes in the setting of bloodstream infection is the volume of blood submitted for culture. Failure to collect an optimal blood volume can result in false negative blood cultures. 4. For pediatric patients, the recommended blood volume to collect follows a weight based strategy. See the electronic test catalog for collection instructions. 5. For positive blood cultures, a rapid molecular test may be performed for organism identification using the [employer]by ePlex blood culture identification panel for gram positive (BCID-GP) and gram negative (BCID-GN) organisms. This nucleic acid amplification test detects microbial DNA in positive blood culture broth. This assay has been cleared by the [place] Food and Drug Administration and its performance characteristics have been verified by the [facility]. For questions about this culture, contact the Microbiology Laboratory at [phone]. Interpretive data was last revised on 24. Lyndsay BROWN LAB [facility]OLOGY - [facility]DE [facility] Final Result Performing Organization Address City/[facility]/ZIP Co de Phone Number ALICIA Brady0 [facility] [place] [address] * CT Chest PE (CTA) W Contrast (04/24/2024 2:00 PM INTEGRATED LOGISTICS SUPPORT MANAGER) Anatomical Region Laterality Modality Body N/A Computed Tomogra phy 04/24/2024 2:30 PM INTEGRATED LOGISTICS SUPPORT MANAGER Narrative 04/24/2024 2:38 PM INTEGRATED LOGISTICS SUPPORT MANAGER EXAM DESCRIPTION: CT CHEST PE (CTA) W CONTRAST REASON FOR STUDY: Pulmonary embolism (PE) suspected, high prob Pt presents to ED for report of dizziness, n/v/d, cough, and SOB x 6 days. Pt denies any fevers. Pt noted to be 88-91% on room air; pt placed on 2L NC. TECHNIQUE: CT angiogram of the chest performed with intravenous contrast using helical scanning technique with dynamic intravenous contrast injection. Reconstructed coronal and sagittal MPR images reviewed. All images stored on PACS. 3D MIP images rendered on scanning unit and reviewed at time of interpretation. Automated exposure control was used as a dose optimization technique for this examination. CONTRAST TYPE/DOSE: 100mL of IOVERSOL 350 MG IODINE/ML INTRAVENOUS SYRINGE injected via intravenous COMPARISON: Chest radiograph 04/24/2024 FINDINGS: VASCULATURE: No identified pulmonary emboli. LUNGS: Patent central airways. There is bilateral bronchial/bronchiolar wall thickening. Ground-glass opacity in the anteromedial left upper lobe and numerous bilateral tree-in-bud pulmonary nodules, greatest in the lower lung zones, consistent with infectious process. Subsegmental atelectasis in the right lower lobe. PLEURA: No effusion. No pneumothorax. MEDIASTINUM/ADONIS: 1.4 cm right hilar node (4/56) HEART: Heart size is normal with no pericardial effusion. AXILLA: No adenopathy. CHEST WALL: No masses. No subcutaneous air. HARDWARE/LINES/TUBES: None. UPPER ABDOMEN: No significant abnormality. MUSCULOSKELETAL: No significant abnormality. OTHER: No significant abnormality. IMPRESSION: No evidence of pulmonary embolism. Bilateral bronchial/bronchiolar wall thickening, ground-glass opacity in the anteromedial left upper lobe and numerous bilateral tree-in-bud pulmonary nodules, consistent with multifocal infectious process. Enlarged right hilar lymph node, likely reactive. THIS IS AN ELECTRONICALLY VERIFIED FINAL REPORT 04/24/2024 2:38 PM - Electronically signed by Lala Degroot M.D. FT: FT Report ID: [id number] Reading Location: [id number] Procedure Note Lala Orourke MD - 04/24/2024 EXAM DESCRIPTION: CT CHEST PE (CTA) W CONTRAST REASON FOR STUDY: Pulmonary embolism (PE) suspected, high prob Pt presents to ED for report of dizziness, n/v/d, cough, and SOB x 6 days.Pt denies any fevers. Pt noted to be 88-91% on room air; pt placed on 2LNC. TECHNIQUE: CT angiogram of the chest performed with intravenous contrastusing helical scanning technique with dynamic intravenous contrast injection. Reconstructed coronal and sagittal MPR images reviewed. All images storedon PACS. 3D MIP images rendered on scanning unit and reviewed at time of interpretation. Automated exposure control was used as a doseoptimization technique for this examination. CONTRAST TYPE/DOSE: 100mL of IOVERSOL 350 MG IODINE/ML INTRAVENOUSSYRINGE injected via intravenous COMPARISON: Chest radiograph 04/24/2024 FINDINGS: VASCULATURE: No identified pulmonary emboli. LUNGS: Patent central airways. There is bilateral bronchial/bronchiolar wall thickening. Ground-glass opacity in the anteromedial left upper lobe and numerous bilateral tree-in-bud pulmonary nodules, greatest in the lower lung zones, consistent with infectious process. Subsegmental atelectasis in the right lower lobe. PLEURA: No effusion. No pneumothorax. MEDIASTINUM/ADONIS: 1.4 cm right hilar node (4/56) HEART: Heart size is normal with no pericardial effusion. AXILLA: No adenopathy. CHEST WALL: No masses. No subcutaneous air. HARDWARE/LINES/TUBES: None. UPPER ABDOMEN: No significant abnormality. MUSCULOSKELETAL: No significant abnormality. OTHER: No significant abnormality. IMPRESSION: No evidence of pulmonary embolism. Bilateral bronchial/bronchiolar wall thickening, ground-glass opacity inthe anteromedial left upper lobe and numerous bilateral tree-in-bud pulmonary nodules, consistent with multifocal infectious process. Enlarged right hilar lymph node, likely reactive. THIS IS AN ELECTRONICALLY VERIFIED FINAL REPORT 04/24/2024 2:38 PM - Electronically signed by Lala Degroot M.D. FT: FT Report ID: [id number] Reading Location: [id number] Lyndsay Yousif [facility] PROCEDURES Final Result * XR Chest 1 Vw Portable (if patient condition/safety warrant portable) (04/24/2024 12:43 PM INTEGRATED LOGISTICS SUPPORT MANAGER) Anatomical Region Laterality Modality Body, Chest N/A Computed Radiogr aphy 04/24/2024 1:08 PM INTEGRATED LOGISTICS SUPPORT MANAGER Narrative 04/24/2024 1:09 PM INTEGRATED LOGISTICS SUPPORT MANAGER EXAM DESCRIPTION: XR CHEST 1 VIEW REASON FOR STUDY: Shortness of breath Pt presents to ED for report of dizziness, n/v/d, cough, and SOB x 6 days. Pt denies any fevers. Pt noted to be 88-91% on room air; pt placed on 2L NC TECHNIQUE: Single radiographic view of the chest. COMPARISON: None FINDINGS: Suboptimal examination due to patient positioning, rotation, and technique. Findings made within these confines. LINES/TUBES: None. LUNGS: Minimal peribronchial opacities of the bilateral lung bases. No focal consolidation. No pneumothorax. No pleural effusion. HEART/MEDIASTINUM: Cardiomediastinal contours are within normal limits. BONES/SOFT TISSUES: No acute osseous abnormality. IMPRESSION: Minimal peribronchial opacities of the bilateral lung bases may reflect atelectasis or early infection/aspiration. No focal consolidation. THIS IS AN ELECTRONICALLY VERIFIED FINAL REPORT 04/24/2024 1:09 PM - Electronically signed by Edenilson Oakes M.D. NS: NS Report ID: [id number] Reading Location: [id number] Procedure Note Edenilson Oakes MD - 04/24/2024 EXAM DESCRIPTION: XR CHEST 1 VIEW REASON FOR STUDY: Shortness of breath Pt presents to ED for report of dizziness, n/v/d, cough, and SOB x 6 days.Pt denies any fevers. Pt noted to be 88-91% on room air; pt placed on 2L NC TECHNIQUE: Single radiographic view of the chest. COMPARISON: None FINDINGS: Suboptimal examination due to patient positioning, rotation, andtechnique. Findings made within these confines. LINES/TUBES: None. LUNGS: Minimal peribronchial opacities of the bilateral lung bases. Nofocal consolidation. No pneumothorax. No pleural effusion. HEART/MEDIASTINUM: Cardiomediastinal contours are within normal limits. BONES/SOFT TISSUES: No acute osseous abnormality. IMPRESSION: Minimal peribronchial opacities of the bilateral lung basesmay reflect atelectasis or early infection/aspiration. No focalconsolidation. THIS IS AN ELECTRONICALLY VERIFIED FINAL REPORT 04/24/2024 1:09 PM - Electronically signed by Edenilson Oakes M.D. NS: NS Report ID: [id number] Reading Location: [place] [address] John Correa MD IMG XR SD OCEDURES Final Result * ECG 12 lead (04/24/2024 12:34 PM INTEGRATED LOGISTICS SUPPORT MANAGER) Ventricular Rate EKG/Min 97 BPM [facility] Atrial Rate 97 BPM [facility] SD-Interval (MSEC) 124 ms [facility] QRS-Interval (MSEC) 86 ms [facility] QT-Interval (MSEC) 340 ms [facility] QTc 431 ms [facility] P [place] 38 degrees [facility] R [place] -22 degrees [facility] T [place] 38 degrees [facility] Diagnosis Normal sinus rhythm Normal ECG No previous ECGs available Confirmed by ADRIANA APPLE M.D. ([id number]) on 04/24/2024 11:13:53 PM [facility] 04/24/2024 12:3 4 PM INTEGRATED LOGISTICS SUPPORT MANAGER 04/24/2024 11:13 PM INTEGRATED LOGISTICS SUPPORT MANAGER John Correa MD ECG ORDER ELISSA Final Result [facility] * (ABNORMAL) Sepsis Lactate w/ Reflex (04/24/2024 12:32 PM INTEGRATED LOGISTICS SUPPORT MANAGER) Pathologist [facility] Sepsis Lactate 2.3(C) 0.7 - 2.0 mmol/L Comment: Critical Result called to and read back by karri, DATE: 2024-04-24 13:23:24 BY: [id number] Testing performed by: [facility], [address] [place] [address]., [id number] Blood 04/24/2024 12:3 2 PM INTEGRATED LOGISTICS SUPPORT MANAGER 04/24/2024 12:38 PM INTEGRATED LOGISTICS SUPPORT MANAGER John Correa MD LAB BLOOD ORDERABLES Final Result Performing Organization Address [facility] Co de Phone Number ALICIA [address] [place] [address] * Troponin T high-sensitivity series (baseline, 2hr, 4hr, 6hr) (04/24/2024 12:31 PM INTEGRATED LOGISTICS SUPPORT MANAGER) [facility] Trop T hs <6 <=22 ng/L Comment: Interpretive Data For further hscTnT resources including the diagnostic algorithm and an aid in interpretation, copy and paste this link: https://nrl.testcatalog.org/show/hsTrop Current Interpretive Data last revised 2020. Testing performed by: [facility], [address] [place] [address]., [address] Blood 04/24/2024 12:3 1 PM INTEGRATED LOGISTICS SUPPORT MANAGER 04/24/2024 12:38 PM INTEGRATED LOGISTICS SUPPORT MANAGER John Correa MD LAB BLOOD ORDERABLES Final Result Performing Organization Address [facility] Co de Phone Number [id number] [place] [address] * (ABNORMAL) Influenza A/B, RSV, and COVID-19 PCR Nasopharyngeal (04/24/2024 12:31 PM INTEGRATED LOGISTICS SUPPORT MANAGER) [facility] COVID-19 RNA Negative Negative Comment:Testing performed by : [address] [address] Influenza A RNA Positive(A) Negative ALICIA Comment:Testing performed by : [address] [address] Influenza B RNA Negative Negative ALICIA Comment:Testing performed by : [address] [address] RSV RNA Negative Negative ALICIA Comment: Interpretive data: Testing performed by [facility]. This test is performed using the [employer] Xpert Xpress CoV-2/Flu/RSV plus assay. This is a multiplex, real-time reverse transcriptase PCR assay intended for the qualitative detection of nucleic acid from SARS-CoV-2, influenza A, influenza B, and respiratory syncytial virus. This assay has been cleared by the [place] Food and Drug administration. The performance characteristics have been verified by the [facility]. Results must be considered in the clinical context, and a negative result does not rule out infection. Interpretive Data last revised 2023 Testing performed by: [address] [address] Nasopharyngeal 04/24/2024 12 :31 PM INTEGRATED LOGISTICS SUPPORT MANAGER 04/24/2024 12:37 PM INTEGRATED LOGISTICS SUPPORT MANAGER Narrative ALICIA - 04/24/2024 1:21 PM INTEGRATED LOGISTICS SUPPORT MANAGER Is the Patient experiencing symptoms consistent with COVID?->Yes John hassan MD LAB MICROBIOLOGY - GENERAL ORDERABLES Final Result [facility] [address] [facility] [place] [address] * eGFR (04/24/2024 12:31 PM INTEGRATED LOGISTICS SUPPORT MANAGER) Pathologist [facility] eGFR >90 >=60 mL/min/1. 73 m2 Comment: Interpretive Data Reference Interval Normal >/= 90 mL/min/1.73m2 Mildly decreased* 60 - 89 mL/min/1.73m2 Mildly to moderately decreased 45 - 59 mL/min/1.73m2 Moderately to severely decreased 30 - 44 mL/min/1.73m2 Severely decreased 15 - 29 mL/min/1.73m2 Kidney Failure < 15 mL/min/1.73m2 *Relative to young adult level Estimated glomerular filtration rate is determined by the 2020 CKD-EPI equation recommended by the National Kidney Foundation (A Unifying Approach to GFR Estimation: Recommendations of the NKF-ASK Task Force on Reassessing the Inclusion of Race in Diagnosing Kidney Disease, JASN 2020). The CKD-EPI equation should not be used for patients with unstable renal function and has not been validated in children and those over 70. Current interpretive data was last reviewed 2021. Testing performed by: [address] [address] Blood 04/24/2024 12:3 1 PM INTEGRATED LOGISTICS SUPPORT MANAGER 04/24/2024 12:38 PM INTEGRATED LOGISTICS SUPPORT MANAGER us John Correa MD LAB BLOOD ORDERABLES Final Result ALICIA [facility] [place] [address] * (ABNORMAL) Differential, auto (04/24/2024 12:31 PM INTEGRATED LOGISTICS SUPPORT MANAGER) Neutrophil abs 11.5(H) 1.5 - 6.5 K/cumm Comment:Testing performed by : [address] [address] Imm gran abs 0.1 0.0 - 0.1 K/cumm ALICIA Comment:Testing performed by : [address] [address] Lymphocyte abs 1.2 0.8 - 3.3 K/cumm ALICIA Comment:Testing performed by : [address] [address] Monocyte abs 0.8 0.2 - 0.8 K/cumm ALICIA Comment:Testing performed by : [address] [address] Eosinophil abs 0.0 0.0 - 0.5 K/cumm ALICIA Comment:Testing performed by : [address] [address] Basophil abs 0.0 0.0 - 0.1 K/cumm ALICIA Comment:Testing performed by : [address] [address] Neutrophil pct 85.2 % [facility] Comment: Interpretive Data Percent cell count reference ranges are not reported, since discordance with absolute values may lead to misinterpretation of CBC data. Current Interpretive Data was last revised on 2017. Testing performed by: [address] [address] Imm gran pct 0.4 % [facility] Comment: Interpretive Data Percent cell count reference ranges are not reported, since discordance with absolute values may lead to misinterpretation of CBC data. Current Interpretive Data was last revised on 2017. Testing performed by: [address] [address] Lymphocyte pct 8.7 % [facility] Comment: Interpretive Data Percent cell count reference ranges are not reported, since discordance with absolute values may lead to misinterpretation of CBC data. Current Interpretive Data was last revised on 2017. Testing performed by: [address] [address] Monocyte pct 5.6 % [facility] Comment: Interpretive Data Percent cell count reference ranges are not reported, since discordance with absolute values may lead to misinterpretation of CBC data. Current Interpretive Data was last revised on 2017. Testing performed by: [address] [address] Eosinophil pct 0.0 % [facility] Comment: Interpretive Data Percent cell count reference ranges are not reported, since discordance with absolute values may lead to misinterpretation of CBC data. Current Interpretive Data was last revised on 2017. Testing performed by: [address] [address] Basophil pct 0.1 % [facility] Comment: Interpretive Data Percent cell count reference ranges are not reported, since discordance with absolute values may lead to misinterpretation of CBC data. Current Interpretive Data was last revised on 2017. Testing performed by: [address] [address] Blood 04/24/2024 12:3 1 PM INTEGRATED LOGISTICS SUPPORT MANAGER 04/24/2024 12:38 PM INTEGRATED LOGISTICS SUPPORT MANAGER John Correa MD LAB BLOOD ORDERABLES Final Result ALICIA [address] [facility] [place] [address] * Pro B-type natriuretic peptide (04/24/2024 12:31 PM INTEGRATED LOGISTICS SUPPORT MANAGER) NT-proBNP 116 <=300 pg/mL Comment: Interpretive Comments: A. Dyspnea in Acute Care Setting All Ages: < 300 pg/ml, acute heart failure unlikely. < 50 yrs: 300 - 450 pg/ml, further investigation warranted. > 450 pg/ml, acute heart failure likely. 50 - 74 yrs: 300 - 900 pg/ml, further investigation warranted. > 900 pg/ml, acute heart failure likely . > or = 75 yrs: 450 - 1800 pg/ml, further investigation warranted. > 1800 pg/ml, acute heart failure likely. B. Non-acute Setting < 75 yrs < 125 pg/ml, rules out heart failure. > or = 125 pg/ml, further investigation warranted. > or = 75 yrs < 450 pg/ml, rules out heart failure. > or = 450 pg/ml, further investigation warranted. - Knowledge of each individual patient's NT-proBNP range may be more useful than using similar cut-points for every patient. Please note that marked elevations in NT-proBNP levels may be observed in state other than Left Ventricular Congestive Failure, including: acute coronary syndromes, right heart strain/failure (including pulmonary embolism and cor pulmonale), critical illness, renal failure, as well as advanced age. - References: 1. Damion MARTINEZ et.al. Eur Heart J. 2006:27:330-337. 2. Elsy RW, Bandar HARPER. J. AM Juan Cardiol: Cardiovasc Imag. 2009;2: 216- 225. Interpretive Data Last Revised Date: 2017. Testing performed by: [facility], [address] [place] [address]., [address] Blood 04/24/2024 12:3 1 PM INTEGRATED LOGISTICS SUPPORT MANAGER 04/24/2024 12:38 PM INTEGRATED LOGISTICS SUPPORT MANAGER us John Correa MD LAB BLOOD ORDERABLES Final Result ALICIA [address] [facility] Department [place] [address] * (ABNORMAL) CBC with auto differential (04/24/2024 12:31 PM INTEGRATED LOGISTICS SUPPORT MANAGER) Pathologist [facility] WBC 13.5(H) 3.8 - 9.9 K/cumm Comment:Testing performed by : [address] [address] Hgb 15.0 13.0 - 17.5 g/dL ALICIA Comment:Testing performed by : [address] [address] Hct 44.4 38.9 - 50.3 % ALICIA Comment:Testing performed by : [address] [address] Plt 254 150 - 400 K/cumm ALICIA Comment:Testing performed by : [address] [address] MPV 9.8 9.1 - 12.3 fL ALICIA Comment:Testing performed by : [address] [address] RBC 4.85 4.30 - 5.80 M/cumm ALICIA Comment:Testing performed by : [address] [address] MCV 91.5 81.3 - 96.4 fL ALICIA Comment:Testing performed by : [address] [address] MCH 30.9 27.1 - 33.3 pg ALICIA BALLARD Comment:Testing performed by : [address] [address] MCHC 33.8 32.3 - 35.7 g/dL ALICIA Comment:Testing performed by : [address] [address] RDW CV 12.6 11.1 - 14.9 % ALICIA BALLARD Comment:Testing performed by : [address] [address] RDW SD 41.5 35.7 - 48.1 fL ALICIA BALLARD Comment:Testing performed by : [address] [address] NRBC abs 0.00 0.00 - 0.01 K/cumm ALICIA Comment:Testing performed by : [address] [address] Blood 04/24/2024 12:3 1 PM INTEGRATED LOGISTICS SUPPORT MANAGER 04/24/2024 12:38 PM INTEGRATED LOGISTICS SUPPORT MANAGER John Correa MD LAB BLOOD ORDERABLES Final Result ALICIA [facility] Department [place] [address] * (ABNORMAL) Comprehensive metabolic panel (04/24/2024 12:31 PM INTEGRATED LOGISTICS SUPPORT MANAGER) Sodium 135 135 - 145 mmol/L Comment:Testing performed by : [address] [address] Potassium, pl 4.0 3.3 - 4.9 mmol/L ALICIA BALLARD Comment:Testing performed by : [address] [address] Chloride 96(L) 97 - 110 mmol/L ALICIA Comment:Testing performed by : [address] [address] CO2 25 22 - 32 mmol/L ALICIA Comment:Testing performed by : [address] [address] Anion gap 14 2 - 15 mmol/L ALICIA Comment:Testing performed by : [address] [address] BUN 18 6 - 25 mg/dL ALICIA Comment:Testing performed by : [address] [address] Creatinine 0.95 0.80 - 1.30 mg/dL ALICIA Comment:Testing performed by : [address] [address] Glucose 188 70 - 199 mg/dL ALICIA Comment: Interpretive Data Fasting glucose >/= 126 mg/dl is diagnostic for diabetes. Fasting is defined as no caloric intake for at least 8 hours. Fasting glucose between 100 mg/dl to 125 mg/dl is diagnostic of prediabetes. In a patient with classic symptoms of hyperglycemia or hyperglycemic crisis, a random glucose >/= 200 mg/dl is diagnostic for diabetes. In the absence of unequivocal hyperglycemia, results should be confirmed by repeat testing. The classification and Diagnosis of Diabetes Diabetes Care 2021; 46: S19-S40. Current interpretive data was last revised 2022. Testing performed by: [address] [address] Calcium 9.5 8.5 - 10.3 mg/dL ALICIA Comment:Testing performed by : [address] [address] Bilirubin, total 0.5 0.1 - 1.2 mg/dL [facility] Comment:Testing performed by : [address] [address] Protein, pl 7.6 6.5 - 8.5 g/dL [facility] Comment:Testing performed by : [address] [address] Albumin 4.1 3.5 - 5.0 g/dL [facility] Comment:Testing performed by : [address] [address] Alk phos 74 40 - 130 Units/L ALICIA Comment:Testing performed by : [address] [address] ALT 29 7 - 55 Units/L ALICIA Comment:Testing performed by : [address] [address] AST 29 10 - 50 Units/L ALICIA Comment:Testing performed by : [address] [address] Blood 04/24/2024 12:3 1 PM INTEGRATED LOGISTICS SUPPORT MANAGER 04/24/2024 12:38 PM INTEGRATED LOGISTICS SUPPORT MANAGER us John Correa MD LAB BLOOD ORDERABLES Final Result [facility] [address] [facility] [place] [address] from Last 3 Months Insurance [facility]/PPO Address: [address] [address] [facility] H[facility]/PPO Address: [address] [place] [phone] Advance Directives For more information, please contact: [phone] * Full Code (Latest Code Status on File) Date Activated Date Inactivated Comments 04/24/2024 8:42 PM 04/27/2024 3:05 PM Care Teams Chief Hospital Administrator Relationship Specialty Start Date End Date Unknown, Notinfile PCP - General 08/08/19
--- OUTSIDE RECORDS SUMMARY | 2024-06-08 00:31 | XMS_ITS | Continuity of Care Document ---
Author Organization [facility] Address [address] [place] [address] Phone Care Team Providers Care Clinical Application Specialist Name Role Phone Conversion MD, Doctor Unavailable Unavailabl e Advance Directives Directive Yes / No Effective Date File Name No Information Encounters Encounter Description Practice Location Reason(s) For Visit Diagnoses Date Provider Providers Copied on Encounter [facility], [address], [place], [place], [id number], [place] tel:[phone] [place] SCRE[facility] LIPOID DISORDERSSYNCOPE AND COLLAPSELUMBAGO Jun-2 2-200 4 Conversion Doctor. [address] [place] [address], [address], . Family History Family Member Type Diagnosis Age At Onset No Information Payers Payer name Insurance type Covered libertarian ID Authoriza tion(s) No Information Social History [...]
--- OUTSIDE RECORDS SUMMARY | 2024-06-08 00:31 | XMS_ITS | Encounter Summary ---
Author Organization [facility] Address [address] [facility] [place] [address] Care Team Providers Care Tool Maintenance Worker Name Role Phone Hemal Grey MD Primary Care Provider [phone] Encounter Details Date Type Department Care Team (Late st Contact Info) Description 12/14/2021 Telephone [facility] [address] [place] [address] Jorje Jeffery MD Social History Tobacco Use [...] medication percocet. Send to [facility] in [facility]. documented in this encounter Plan of Treatment Not on file documented as of this encounter Visit Diagnoses Not on filedocumented in this encounter Care Teams Tool Maintenance Worker Relationship Specialty Start Date End Date Hemal Grey MD [address] [place] [address] PCP - General Family Medicine 09/03/21 documented as of this encounter
--- OUTSIDE RECORDS SUMMARY | 2024-06-08 00:31 | XMS_ITS ---
[facility] Address [address] [place] [address] Care Team Providers Care Criminal Research Specialist Name Role Phone Tara Germain Primary Care Provider Ronna Chew Unavailable Results Component Value Reference Range Notes 12 Panel Urine Drug Screen Reviewed date:05/28/2024 03:34:18 PM Interpretation: Performing Lab: Notes/Report: THC neg TAMY neg MOP (OPI) POS AMP neg MET neg BAR neg BZO neg MDMA neg MTD neg OXY POS PCP neg BUP POS REASON FOR VISIT Walk-In Medications Medication SIG (Take, Route, Frequency, Duration) [...] Orally every 6 hrs Not-Taking Social History Sex Assigned At : Social History Observation Description Sex Assigned At Male Vital Signs Weight 218 lbs 05/28/2024 BMI 29.56 kg/m2 05/28/2024 Heart Rate 90 /min 05/28/2024 Oximetry 97 % 05/28/2024 Temperature 98.0 degrees Fahrenheit 05/29/19 25 Blood pressure systolic 112 mm Hg 05/29/19 25 Blood pressure diastolic 74 mm Hg 025 Height 72 in in 05/28/2024 Encounters Encounter Location Date Provider Diagnosis [facility] [address] [address] 05/28/2024 Ronna Tanwangco Opioid use disorder F11.99 and Tobacco use disorder F17.200 Assessments Encounter Date Diagnosis (ICD Code) Assessment Notes Treatment Notes Treatment Clinical Notes Section Notes 05/28/2024 Opioid use disorder (ICD-10 - F11.99) 05/28/2024 Tobacco use disorder (ICD-10 - F17.200) 05/28/2024 Other Patient agrees to take medication [...] home frequented by visitors. Plan Of Treatment Medication Medication Name Sig Start Date Stop Date Notes Buprenorphine HCl-Naloxone H Cl 8-2 MG 1 film under the tongue and allow to dissolve Sublingual Three times a day for 16 days 05/28/2024 Buprenorphine HCl-Naloxone H Cl 4-1 MG 1 film under the tongue and allow to dissolve Sublingual Once a day for 16 days 05/28/2024 Treatment Notes Assessment Notes Other Patient agrees to take medication as [...] parts of the home frequented by visitors. Next Appt Details Follow Up: 2 Weeks, Reason: Progress Notes * Fernie CARRERODOB:1970 ([age] yo M)Acc No.[id number]:05/28/2024 Patient: Fernie SHORT Provider: Yaquelin Chew, MSN, AMMONIA NITRATE OPERATOR, MARKETING SALES CONSULTANT-BC, MARKETING SALES CONSULTANT-C :1970 A ge:54 Y S ex:Male Date:05/28/2024 Address:[address] [place], [place] [id number] Pcp:Tara Metzger Short Check In:02:58 PM QUALITY CONTROLLER Subjective: * Chief Complaints: * W alk-In * HPI: S creening: [place] Suicide Severity Rating Scale (LF) D o [...] SF Y es, R isk Disposition from L ow - No Follow Up Plan Required, F ollow Up Plan N o Follow Up Plan required at this time.. I nterim History: Emergency room visit N o. W as hospitalized N o.? D epression Screening: PHQ-9 L ittle interest [...] at all, T otal Score 0 . I ntervention D epression Screening Findings N egative. S ubstance use: MAR services MAR services. M AR follow-up: Appointmetnt via zoom Patient presents today for MAR 2 week follow-up. OUD, suboxone treatment. Reports use of VICODIN yesterday due to running out of films. Reports having to increase his dose to 3-4 times a day. Reports increase of cravings and pain. D iscussed importance of regular visit with dentist while on B UPRENORPHINE TREATMENT. No other acute concerns or questions. Medication Monitoring and Risk Mitigation U p-to-date on [facility] recommended lab testing? N o, P rescribed a buprenorphine product? Y es, H as patient had a buprenorphine and metabolite lab ordered/collected? N o, P rescription Drug Monitoring Program Review Y es. No concerns at this time., P mary ellen to address any concerns identified: I ncreasing frequency of visits., In-office visits required at this time.. C ravings, Setbacks, Substance use, and Stressors C ravings since last visit: Y es. See notes., S etbacks since last visit? N o, patient denies setbacks since last visit., M isuse of substances since last visit: Y es, patient admits. See notes., S tressors Y es, patient admits to stressors. See notes.. W ithdrawal and Intoxication Symptoms I ntoxication Symptoms: T elehealth visit. Unable to fully assess for signs of intoxication., W ithdrawal Symptoms: T elehealth visit. Unable to fully assess for withdrawal signs.. M ental Health, Support System, and Social Determinants M ental Health Status S table., S upport Systems Include: P ersonal support system (see notes)., C ourt System Involvement? 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 R ecommended Wellness and Prevention Follow-up R ecommended Wellness and Prevention reviewed: R ecommended Wellness and Prevention not reviewed during this visit (see notes):. O ther concerns: O ther Concerns? N o., N arcan need?No. Patient already has Narcan.. * ROS: B asic ROS: Denies C hills. A dmits S weats. A dmits C onstipation. I nsomnia D enies. * Medical History: * Surgical History: s [...] o. 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 M iscellaneous: M ethod of learning P referred method of learning: H earing. * Medications: T akingBuprenorphine HCl-Naloxone HCl 8-2 MG Film 1 film under the tongue and allow to dissolve Sublingual Three times a day Taking Buprenorphine HCl-Naloxone HCl 8-2 MG Film 1 film under the tongue and allow to dissolve Sublingual Three times a day Vge-[id number]-Qelpznjpncual 10-325 MG Tablet 1 tablet as needed Orally every 6 hrs Medication List reviewed and reconciled with the patientNot-Taking HYDROcodone-Acetaminophen 10-325 MG Tablet 1 tablet as needed Orally every 6 hrs Medication List reviewed and reconciled with the patient * Allergies: n o[Allergies Verified] Objective: * Vitals: I nitials: sle, Wt:218, Ht: 72 in, BMI:29.56, BP:112/74, HR:90, Oxygen sat %:97, Temp:98.0, Pain scale:3. * Examination: G eneral Examination: GENERAL APPEARANCE: A ppointment via ZOOM. PSYCH: a lert, oriented x4, speech clear, good eye contact, full range of affect/positive mood, judgement and insight good, thought process logical, goal directed. Assessment: * Assessment: 1. T obacco use disorder - F17.200 2 . O pioid use disorder - F11.99 (Primary) Plan: * Treatment: Value Reference Range T HC neg * C OC neg * M OP (OPI) POS * A MP neg * M ET neg * B AR neg * B ZO neg * M DMA neg * M TD neg * O XY POS * P CP neg * B UP POS 2.?Others? Notes: Patient agrees to take medication as prescribed. [...] alternative treatments as previously discussed with the aboverecommended medication and other aspects of the treatment [...] avoid theft or inadvertent use, especially by children.Encouraged locking devices and avoiding storage in parts of the home frequented by visitors. ?? * Recommended Wellness and Pre vention Guidelines: * S tatus A lert L ast Done N ext Due A ction Taken N ONCOMPLIANT C holesterol screen (genl pop) - 0 05/28/2024 - N ONCOMPLIANT C olonoscopy - 0 05/28/2024 - N ONCOMPLIANT C olorectal cancer screening - 0 05/28/2024 - N ONCOMPLIANT H IV screening - 0 05/28/2024 - N ONCOMPLIANT I FOBt - 0 05/28/2024 - N ONCOMPLIANT I nfluenza vaccine (over 50) - 0 05/28/2024 - N ONCOMPLIANT T etanus - 0 05/28/2024 - N ONCOMPLIANT T etanus and Pertussi - 0 05/28/2024 - * Procedure Codes: 9 9000 SPECIMEN [id number] BODY MASS INDEX [id number] BODY MASS INDEX [id number] MEDICAL NUTRITION, INDIV, [id number] MEDICAL NUTRITION, INDIV, [id number] BEHAV CHNG SMOKING 3-10 [id number] BEHAV CHNG SMOKING 3-10 MIN * Preventive Medicine: Counseling: C are goal follow-up plan: B RI management provided Atif Sosa Normal BMI Follow-up L ifestyle education regarding diet. S MOKING: P atient counselled on the dangers of tobacco use and urged to quit. . . * Follow Up: 2 Weeks * * Sign off status: Completed true * Provider: Yaquelin Chew, MSN, AMMONIA NITRATE OPERATOR, MARKETING SALES CONSULTANT-BC, MARKETING SALES CONSULTANT-C Date: 0 05/28/2024 Generated for Printing/Faxing/eTransmitting on: 0 06/08/2024 12:30 AM CDT History and Physical Notes * HPI (History of Present Illness) Category Sub-Category Detail Notes Category Not es Interim History Was hospitalized No Emergency room visit No Depression Screening PHQ-9 Little inte rest or [...] way: Not at all Total Score: 0 Intervention Depression Screening Findings: N egative Screening [place] Suicide Sev erity Rating Scale (LF) Do [...] lab ordered/collected?: No Prescription Drug Monitoring Program Rev iew: Yes. No concerns at this time. Plan to address any concerns identified:: Increasing frequency of visits., In-office visits required at this time. Cravings, Setbacks, Substanc e use, and Stressors Cravings since last visit:: Yes. See notes. Setbacks since last visit?: No, patient denies setbacks since last visit. Misuse of substances since last visit:: Yes, patient admits. See notes. Stressors: Yes, patient admits to stress ors. See notes. Withdrawal and Intoxication Symptoms Int oxication Symptoms:: Telehealth visit. Unable to fully assess for signs of intoxication. Withdrawal Symptoms:: Telehe alth visit. Unable to fully assess for withdrawal signs. Mental Health, Support Syste m, and Social Determinants Mental Health Status: Stable. Support Systems Include:: Personal suppo rt system (see notes). Court System Involvement?: No Housing Stability:: Stable and safe hous ing. 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 Referrals needed:: No referrals needed a t this time. Recommended Wellness and Pre vention Follow-up Recommended Wellness and Prevention reviewed:: Recommended Wellness and Prevention not reviewed during this visit (see notes): Other concerns: Other Concerns?: No. Narcan need: No. Patient already has Jack can. CSSRS Interpretation and Follow Up Plan CSSRS Interpretation and Follow Up Plan CSSRS Screen documented using SF: Yes Risk Disposition from SF: Low - No Follo w Up Plan Required Follow Up Plan: No Follow Up Plan requir ed at this time. Examination Category Sub-Category Detail Notes Category Not es General Examination GENERAL APPEARANCE: Appointment vi a ZOOM PSYCH: alert, oriented x4, speech clear, good eye contact, full range of affect/positive mood, judgement and insight good, thought process logical, goal directed
--- OUTSIDE RECORDS SUMMARY | 2024-06-08 00:31 | XMS_ITS | Referral Summary ---
Author Organization [facility] Address [address] [place] [address] Care Team Providers Care Fireworks Assembler Name Role Phone Unknown, Notinfile Primary Care Provider Unavail able Encounters Date Type Department Care Team Description 04/24/2024 5:06 PM ANTHROPOLOGY INSTRUCTOR - 04/27/2024 11:05 AM ANTHROPOLOGY INSTRUCTOR Hospital Encounter [place] [id number] Med [address] [place] [address] [phone] [facility] Multifocal pneumonia (Primary Dx); Acute respiratory failure with hypoxia (HCC); Influenza A Discharge Disposition: Discharge to home or self care from Last 3 Months Allergies No known active allergies Medications atorvastatin [...] analgesic 2019 Chronic right shoulder pain 08/24/2019 Immunizations Immunization Administration Dates Next Due Influenza, Trivalent, Preser vative Free, Intramuscular 04/27/2024(Deferred: - active flu and PNA) Social History Tobacco Use Types Packs/Day Years Used Date Smoking Tobacco: Every Day Cigarettes 1 35 Smokeless Tobacco: Never Tobacco Cessation:Ready to Q uit: Not Asked; Counseling Given: Not Answered Comments:already trying Alcohol Use Standard Drinks/Week Comments Yes 0 (1 standard drink = 0.6 oz pur e alcohol) [facility] Utilities Answer Date Recorded In the past 12 months has e [employer], gas, oil, or water [employer] threatened to shut off services in your [...] week 04/25/2024 How often do you attend chur ch or restorationist services? Never 04/25/2024 Do you belong to any clubs o r organizations such as adventism groups, unions, fraternal or athletic groups, or [...] any time in the past 12 m [facility], were you homeless or living in a fdc (including now)? No 04/25/2024 Personal Safety Answer Date Recorded Have you ever been in or are you currently in a harmful physical or emotional relationship or is someone making you feel afraid or unsafe? Denies 04/24/2024 Sex and Gender Information Value Date Recorded Sex Assigned at Not on file Legal Sex Male 8:49 AM ANTHROPOLOGY INSTRUCTOR Gender Identity Not on file Sexual Orientation Not on file Last Filed Vital Signs Vital Sign Reading Time Taken Comments Blood Pressure 128/80 04/27/2024 8:22 AM ANTHROPOLOGY INSTRUCTOR Pulse 68 04/27/2024 8:22 AM ANTHROPOLOGY INSTRUCTOR Temperature 36.3 C (97.3 F) 04/27/2024 8:22 AM ANTHROPOLOGY INSTRUCTOR Respiratory Rate 16 04/27/2024 8:22 AM ANTHROPOLOGY INSTRUCTOR Oxygen Saturation 92% 04/27/2024 8:22 AM ANTHROPOLOGY INSTRUCTOR Inhaled Oxygen Concentration - - Weight 94.9 kg (209 lb 4.8 oz) 04/24/2024 8:43 P M ANTHROPOLOGY INSTRUCTOR Height 185.4 cm (6' 1 ) 04/24/2024 8:43 PM ANTHROPOLOGY INSTRUCTOR Body Mass Index 27.61 04/24/2024 8:43 PM ANTHROPOLOGY INSTRUCTOR Plan of Treatment Not on file Procedures Procedure Name Priority Date/Time Associated Diagnosis Comments HOME O2 EVAL (DESATURATION SCREEN) Routine 04/27/2024 7:19 AM ANTHROPOLOGY INSTRUCTOR MANUAL DIFFERENTIAL Routine 04/27/2024 4 :15 AM ANTHROPOLOGY INSTRUCTOR EGFR Routine 04/27/2024 4:15 AM ANTHROPOLOGY INSTRUCTOR DIFFERENTIAL AUTO Routine 04/27/2024 4:1 5 AM ANTHROPOLOGY INSTRUCTOR MAGNESIUM Routine 04/27/2024 4:15 AM ANTHROPOLOGY INSTRUCTOR PHOSPHORUS Routine 04/27/2024 4:15 AM ANTHROPOLOGY INSTRUCTOR COMPREHENSIVE METABOLIC PANEL Routine 04/27/2024 4:15 AM ANTHROPOLOGY INSTRUCTOR CBC WITH AUTO DIFFERENTIAL Routine 04/27/2024 4:15 AM ANTHROPOLOGY INSTRUCTOR EGFR Routine 04/26/2024 4:10 AM ANTHROPOLOGY INSTRUCTOR DIFFERENTIAL AUTO Routine 04/26/2024 4:1 0 AM ANTHROPOLOGY INSTRUCTOR MAGNESIUM Routine 04/26/2024 4:10 AM ANTHROPOLOGY INSTRUCTOR PHOSPHORUS Routine 04/26/2024 4:10 AM ANTHROPOLOGY INSTRUCTOR COMPREHENSIVE METABOLIC PANEL Routine 04/26/2024 4:10 AM ANTHROPOLOGY INSTRUCTOR CBC WITH AUTO DIFFERENTIAL Routine 04/26/2024 4:10 AM ANTHROPOLOGY INSTRUCTOR LEGIONELLA ANTIGEN, URINE Routine 04/25/2024 7:40 AM ANTHROPOLOGY INSTRUCTOR STREP PNEUMONIAE AG, URINE Routine 04/25/2024 7:40 AM ANTHROPOLOGY INSTRUCTOR EGFR Routine 04/25/2024 6:19 AM ANTHROPOLOGY INSTRUCTOR DIFFERENTIAL AUTO Routine 04/25/2024 6:1 9 AM ANTHROPOLOGY INSTRUCTOR COMPREHENSIVE METABOLIC PANEL Routine 04/25/2024 6:19 AM ANTHROPOLOGY INSTRUCTOR CBC WITH AUTO DIFFERENTIAL Routine 04/25/2024 6:19 AM ANTHROPOLOGY INSTRUCTOR TROPONIN T HIGH-SENSITIVITY STAT 04/24/2024 3:02 PM ANTHROPOLOGY INSTRUCTOR SEPSIS LACTATE WITH REFLEX Timed 04/24/2024 3:02 PM ANTHROPOLOGY INSTRUCTOR BLOOD CULTURE STAT 04/24/2024 3:02 PM ANTHROPOLOGY INSTRUCTOR BLOOD CULTURE STAT 04/24/2024 2:[address] CHEST PE W CONTRAST ED 2:00 PM ANTHROPOLOGY INSTRUCTOR XR CHEST 1 VIEW ED 04/24/2024 12:43 PM ANTHROPOLOGY INSTRUCTOR ECG 12-LEAD STAT 04/24/2024 12:34 PM ANTHROPOLOGY INSTRUCTOR SEPSIS LACTATE WITH REFLEX Routine 04/24/2024 12:32 PM ANTHROPOLOGY INSTRUCTOR EGFR STAT 04/24/2024 12:31 PM ANTHROPOLOGY INSTRUCTOR DIFFERENTIAL AUTO STAT 04/24/2024 12: 31 PM ANTHROPOLOGY INSTRUCTOR PRO B-TYPE NATRIURETIC PEPTIDE STAT 04/24/2024 12:31 PM ANTHROPOLOGY INSTRUCTOR TROPONIN T HIGH-SENSITIVITY SERIES (BASELINE, 2HR, 4HR, 6HR) STAT 04/24/2024 12:31 PM ANTHROPOLOGY INSTRUCTOR CBC WITH AUTO DIFFERENTIAL STAT 04/24/2024 12:31 PM ANTHROPOLOGY INSTRUCTOR COMPREHENSIVE METABOLIC PANEL STAT 04/24/2024 12:31 PM ANTHROPOLOGY INSTRUCTOR INFLUENZA A/B, RSV, AND COVID-19 PCR STAT 04/24/2024 12:31 PM ANTHROPOLOGY INSTRUCTOR from Last 3 Months Results * eGFR (04/27/2024 4:15 AM ANTHROPOLOGY INSTRUCTOR) eGFR >90 >=60 mL/min/1. 73 m2 Comment: [...] was last reviewed 2021. Testing performed by: [address] [address] Blood 04/27/2024 4:15 AM ANTHROPOLOGY INSTRUCTOR 04/27/2024 6:18 AM ANTHROPOLOGY INSTRUCTOR John Correa MD LAB BLOOD ORDERABLES Final Result ALICIA 4792 [facility] Department [place] [address] * (ABNORMAL) Differential, auto (04/27/2024 4:15 AM ANTHROPOLOGY INSTRUCTOR) Pathologist [facility] Neutrophil abs 5.3 1.5 - 6.5 K/cumm Comment:Testing performed by : [address] [address] Imm gran abs 0.2(H) 0.0 - 0.1 K/cumm ALICIA BALLARD Comment:Testing performed by : [address], [place]., [address] Lymphocyte abs 4.7(H) 0.8 - 3.3 K/cumm ALICIA Comment:Testing performed by : [address], [place]., [address] Monocyte abs 0.8 0.2 - 0.8 K/cumm ALICIA Comment:Testing performed by : [address], [place]., [address] Eosinophil abs 0.1 0.0 - 0.5 K/cumm [facility] Comment:Testing performed by : [address], [place]., [address] Basophil abs 0.1 0.0 - 0.1 K/cumm [facility] Comment:Testing performed by : [address] [address] Neutrophil pct 48.0 % [facility] Comment: Interpretive Data Percent cell count reference ranges are not reported, since discordance with absolute values may lead to misinterpretation of CBC data. Current Interpretive Data was last revised on 2017. Testing performed by: [address] [address] Imm gran pct 1.4 % [facility] Comment: Interpretive Data Percent cell count reference ranges are not reported, since discordance with absolute values may lead to misinterpretation of CBC data. Current Interpretive Data was last revised on 2017. Testing performed by: [address] [address] Lymphocyte pct 42.5 % [facility] Comment: Interpretive Data Percent cell count reference ranges are not reported, since discordance with absolute values may lead to misinterpretation of CBC data. Current Interpretive Data was last revised on 2017. Testing performed by: [address] [address] Monocyte pct 7.1 % [facility] Comment: Interpretive Data Percent cell count reference ranges are not reported, since discordance with absolute values may lead to misinterpretation of CBC data. Current Interpretive Data was last revised on 2017. Testing performed by: [address] [address] Eosinophil pct 0.5 % ALICIA BALLARD Comment: Interpretive Data Percent cell count reference ranges are not reported, since discordance with absolute values may lead to misinterpretation of CBC data. Current Interpretive Data was last revised on 2017. Testing performed by: [address] [address] Basophil pct 0.5 % ALICIA BALLARD Comment: Interpretive Data Percent cell count reference ranges are not reported, since discordance with absolute values may lead to misinterpretation of CBC data. Current Interpretive Data was last revised on 2017. Testing performed by: [address] [address] Blood 04/27/2024 4:15 AM ANTHROPOLOGY INSTRUCTOR 04/27/2024 6:18 AM ANTHROPOLOGY INSTRUCTOR us John Correa MD LAB BLOOD ORDERABLES Final Result ALICIA [address] Department [place] [address] * (ABNORMAL) CBC with auto differential (04/27/2024 4:15 AM ANTHROPOLOGY INSTRUCTOR) WBC 11.1(H) 3.8 - 9.9 K/cumm Comment:Testing performed by : [address] [address] Hgb 13.6 13.0 - 17.5 g/dL ALICIA BALLARD Comment:Testing performed by : [address] [address] Hct 41.0 38.9 - 50.3 % ALICIA BALLARD Comment:Testing performed by : [address] [address] Plt 340 150 - 400 K/cumm ALICIA BALLARD Comment:Testing performed by : [address] [address] MPV 10.5 9.1 - 12.3 fL ALICIA BALLARD Comment:Testing performed by : [address] [address] RBC 4.38 4.30 - 5.80 M/cumm ALICIA BALLARD Comment:Testing performed by : [address] [address] MCV 93.6 81.3 - 96.4 fL ALICIA BALLARD Comment:Testing performed by : [address] [address] MCH 31.1 27.1 - 33.3 pg ALICIA BALLARD Comment:Testing performed by : [address] [address] MCHC 33.2 32.3 - 35.7 g/dL ALICIA BALLARD Comment:Testing performed by : [address] [address] RDW CV 12.6 11.1 - 14.9 % ALICIA BALLARD Comment:Testing performed by : [address] [address] RDW SD 43.3 35.7 - 48.1 fL ALICIA BALLARD Comment:Testing performed by : [address] [address] NRBC abs 0.00 0.00 - 0.01 K/cumm ALICIA BALLARD Comment:Testing performed by : [address] [address] Blood 04/27/2024 4:15 AM ANTHROPOLOGY INSTRUCTOR 04/27/2024 6:18 AM ANTHROPOLOGY INSTRUCTOR John Correa MD LAB BLOOD ORDERABLES Edited Result - Final ALICIA 84[address] [facility] Department of Laboratories [place], [place] [id number] * Manual Differential (04/27/2024 4:15 AM ANTHROPOLOGY INSTRUCTOR) Differential Auto Comment:Testing performed by : [address] [address] RBC morphology Consistent with RBC Indicies ALICIA BALLARD Comment:Testing performed by : [address] [address] Platelet estimate Automated Count Confirmed ALICIA BALLARD Comment:Testing performed by : [address] [address] Blood 04/27/2024 4:15 AM ANTHROPOLOGY INSTRUCTOR 04/27/2024 6:18 AM ANTHROPOLOGY INSTRUCTOR John Correa MD LAB BLOOD ORDERABLES Final Result [address] [employer] [place] [address] * Phosphorus (04/27/2024 4:15 AM ANTHROPOLOGY INSTRUCTOR) Phosphorus, pl 3.6 2.3 - 4.5 mg/dL Comment:Testing performed by : [address] [address] Blood 04/27/2024 4:15 AM ANTHROPOLOGY INSTRUCTOR 04/27/2024 6:18 AM ANTHROPOLOGY INSTRUCTOR Tarun Whaley MD LAB BLOOD ORDERABL ES Final Result Performing Organization Address [facility] Co de Phone Number [address] [address] * Magnesium (04/27/2024 4:15 AM ANTHROPOLOGY INSTRUCTOR) Magnesium 2.0 1.4 - 2.5 mg/dL Comment:Testing performed by : [address] [address] Blood 04/27/2024 4:15 AM ANTHROPOLOGY INSTRUCTOR 04/27/2024 6:18 AM ANTHROPOLOGY INSTRUCTOR Tarun Whaley MD LAB BLOOD ORDERABL ES Final Result Performing Organization Address City/[facility] Co de Phone Number [address] [address] * (ABNORMAL) Comprehensive metabolic panel (04/27/2024 4:15 AM ANTHROPOLOGY INSTRUCTOR) Sodium 138 135 - 145 mmol/L Comment:Testing performed by : [address], [place]., [address] Potassium, pl 4.0 3.3 - 4.9 mmol/L ALICIA Comment:Testing performed by : [address], [place]., [address] Chloride 101 97 - 110 mmol/L ALICIA Comment:Testing performed by : [address], [place]., [address] CO2 26 22 - 32 mmol/L ALICIA Comment:Testing performed by : [address], [place]., [address] Anion gap 11 2 - 15 mmol/L ALICIA Comment:Testing performed by : [address], [place]., [address] BUN 19 6 - 25 mg/dL [facility] Comment:Testing performed by : [address], [place]., [address] Creatinine 0.80 0.80 - 1.30 mg/dL ALICIA Comment:Testing performed by : [address], [place]., [address] Glucose 77 70 - 199 mg/dL [facility] Comment: Interpretive Data Fasting glucose >/= 126 [...] was last revised 2022. Testing performed by: [address] [address] Calcium 9.2 8.5 - 10.3 mg/dL ALICIA Comment:Testing performed by : [address], [place]., [address] Bilirubin, total 0.4 0.1 - 1.2 mg/dL ALICIA Comment:Testing performed by : [address], [place]., [address] Protein, pl 6.4(L) 6.5 - 8.5 g/dL ALICIA Comment:Testing performed by : [address] [address] Albumin 3.3(L) 3.5 - 5.0 g/dL ALICIA BALLARD Comment:Testing performed by : [address], [address] Alk phos 67 40 - 130 Units/L ALICIA Comment:Testing performed by : [address] [address] ALT 129(H) 7 - 55 Units/L ALICIA Comment:Testing performed by : [address], [address] AST 52(H) 10 - 50 Units/L ALICIA Comment:Testing performed by : [address] [address] Blood 04/27/2024 4:15 AM ANTHROPOLOGY INSTRUCTOR 04/27/2024 6:18 AM ANTHROPOLOGY INSTRUCTOR us John Correa MD LAB BLOOD ORDERABLES Final Result ALICIA 5[address] [facility] Department [place] [address] * eGFR (04/26/2024 4:10 AM ANTHROPOLOGY INSTRUCTOR) eGFR >90 >=60 mL/min/1. 73 m2 Comment: [...] was last reviewed 2021. Testing performed by: [address] [address] Blood 04/26/2024 4:10 AM ANTHROPOLOGY INSTRUCTOR 04/26/2024 5:15 AM ANTHROPOLOGY INSTRUCTOR us John Correa MD LAB BLOOD ORDERABLES Final Result ALICIA 4500 [facility] Department [place] [address] * (ABNORMAL) Differential, auto (04/26/2024 4:10 AM ANTHROPOLOGY INSTRUCTOR) Neutrophil abs 8.1(H) 1.5 - 6.5 K/cumm Comment:Testing performed by : [address] [address] Imm gran abs 0.1 0.0 - 0.1 K/cumm ALICIA Comment:Testing performed by : [address] [address] Lymphocyte abs 2.5 0.8 - 3.3 K/cumm ALICIA Comment:Testing performed by : [address] [address] Monocyte abs 1.0(H) 0.2 - 0.8 K/cumm ALICIA Comment:Testing performed by : [address] [address] Eosinophil abs 0.0 0.0 - 0.5 K/cumm ALICIA Comment:Testing performed by : [address] [address] Basophil abs 0.0 0.0 - 0.1 K/cumm ALICIA Comment:Testing performed by : [address] [address] Neutrophil pct 69.1 % ALICIA Comment: Interpretive Data Percent cell count reference ranges are not reported, since discordance with absolute values may lead to misinterpretation of CBC data. Current Interpretive Data was last revised on 2017. Testing performed by: [address] [address] Imm gran pct 0.8 % [facility] Comment: Interpretive Data Percent cell count reference ranges are not reported, since discordance with absolute values may lead to misinterpretation of CBC data. Current Interpretive Data was last revised on 2017. Testing performed by: [address] [address] Lymphocyte pct 21.6 % [facility] Comment: Interpretive Data Percent cell count reference ranges are not reported, since discordance with absolute values may lead to misinterpretation of CBC data. Current Interpretive Data was last revised on 2017. Testing performed by: [address] [address] Monocyte pct 8.3 % [facility] Comment: Interpretive Data Percent cell count reference ranges are not reported, since discordance with absolute values may lead to misinterpretation of CBC data. Current Interpretive Data was last revised on 2017. Testing performed by: [address] [address] Eosinophil pct 0.0 % [facility] Comment: Interpretive Data Percent cell count reference ranges are not reported, since discordance with absolute values may lead to misinterpretation of CBC data. Current Interpretive Data was last revised on 2017. Testing performed by: [address] [address] Basophil pct 0.2 % [facility] Comment: Interpretive Data Percent cell count reference ranges are not reported, since discordance with absolute values may lead to misinterpretation of CBC data. Current Interpretive Data was last revised on 2017. Testing performed by: [address] [address] Blood 04/26/2024 4:10 AM ANTHROPOLOGY INSTRUCTOR 04/26/2024 5:15 AM ANTHROPOLOGY INSTRUCTOR John Correa MD LAB BLOOD ORDERABLES Final Result [facility] [address] [facility] Department [place] [address] * (ABNORMAL) CBC with auto differential (04/26/2024 4:10 AM ANTHROPOLOGY INSTRUCTOR) [facility] Signature WBC 11.7(H) 3.8 - 9.9 K/cumm Comment:Testing performed by : [address] [address] Hgb 13.3 13.0 - 17.5 g/dL ALICIA Comment:Testing performed by : [address] [address] Hct 38.8(L) 38.9 - 50.3 % ALICIA Comment:Testing performed by : [address] [address] Plt 300 150 - 400 K/cumm ALICIA Comment:Testing performed by : [address], [address] MPV 10.6 9.1 - 12.3 fL ALICIA Comment:Testing performed by : [address] [address] RBC 4.25(L) 4.30 - 5.80 M/cumm ALICIA Comment:Testing performed by : [address] [address] MCV 91.3 81.3 - 96.4 fL ALICIA Comment:Testing performed by : [address] [address] MCH 31.3 27.1 - 33.3 pg ALICIA Comment:Testing performed by : [address] [address] MCHC 34.3 32.3 - 35.7 g/dL ALICIA Comment:Testing performed by : [address] [address] RDW CV 12.6 11.1 - 14.9 % ALICIA Comment:Testing performed by : [address], [address] RDW SD 41.6 35.7 - 48.1 fL ALICIA BALLARD Comment:Testing performed by : [address] [address] NRBC abs 0.00 0.00 - 0.01 K/cumm ALICIA BALLARD Comment:Testing performed by : [address] [address] Blood 04/26/2024 4:10 AM ANTHROPOLOGY INSTRUCTOR 04/26/2024 5:15 AM ANTHROPOLOGY INSTRUCTOR John Correa MD LAB BLOOD ORDERABLES Final Result Performing Organization Address City/[facility]/ZIP Co de Phone Number [address] [employer] [place] [address] * Phosphorus (04/26/2024 4:10 AM ANTHROPOLOGY INSTRUCTOR) Phosphorus, pl 2.9 2.3 - 4.5 mg/dL Comment:Testing performed by : [address], [address] Blood 04/26/2024 4:10 AM ANTHROPOLOGY INSTRUCTOR 04/26/2024 5:15 AM ANTHROPOLOGY INSTRUCTOR Tarun Whaley MD LAB BLOOD ORDERABL ES Final Result Performing Organization Address [facility] Co de Phone Number [address] [address] * Magnesium (04/26/2024 4:10 AM ANTHROPOLOGY INSTRUCTOR) Magnesium 2.5 1.4 - 2.5 mg/dL Comment:Testing performed by : [address] [address] Blood 04/26/2024 4:10 AM ANTHROPOLOGY INSTRUCTOR 04/26/2024 5:15 AM ANTHROPOLOGY INSTRUCTOR Tarun Whaley MD LAB BLOOD ORDERABL ES Final Result Performing Organization Address City/[facility]/ZIP Co de Phone Number [place] [address] [facility] Department [place] [address] * (ABNORMAL) Comprehensive metabolic panel (04/26/2024 4:10 AM ANTHROPOLOGY INSTRUCTOR) Sodium 135 135 - 145 mmol/L Comment:Testing performed by : [address] [address] Potassium, pl 4.0 3.3 - 4.9 mmol/L ALICIA Comment:Testing performed by : [address], [place]., [address] Chloride 98 97 - 110 mmol/L ALICIA Comment:Testing performed by : [address], [place]., [address] CO2 28 22 - 32 mmol/L ALICIA Comment:Testing performed by : [address], [place]., [address] Anion gap 9 2 - 15 mmol/L ALICIA Comment:Testing performed by : [address] [address] BUN 18 6 - 25 mg/dL ALICIA Comment:Testing performed by : [address], [place]., [address] Creatinine 0.73(L) 0.80 - 1.30 mg/dL ALICIA Comment:Testing performed by : [address], [place]., [address] Glucose 122 70 - 199 mg/dL ALICIA [...] was last revised 2022. Testing performed by: [address], [place]., [address] Calcium 9.4 8.5 - 10.3 mg/dL ALICIA Comment:Testing performed by : [facility], [address] [place] [address]., [address] Bilirubin, total 0.4 0.1 - 1.2 mg/dL ALICIA Comment:Testing performed by : [address] [address] Protein, pl 6.7 6.5 - 8.5 g/dL ALICIA Comment:Testing performed by : [address] [address] Albumin 3.6 3.5 - 5.0 g/dL ALICIA Comment:Testing performed by : [address] [address] Alk phos 63 40 - 130 Units/L ALICIA Comment:Testing performed by : [address] [address] ALT 78(H) 7 - 55 Units/L ALICIA Comment:Testing performed by : [address] [address] AST 44 10 - 50 Units/L ALICIA Comment:Testing performed by : [address] [address] Blood 04/26/2024 4:10 AM ANTHROPOLOGY INSTRUCTOR 04/26/2024 5:15 AM ANTHROPOLOGY INSTRUCTOR John Correa MD LAB BLOOD ORDERABLES Final Result Performing Organization Address City/State/[facility] Co de Phone Number ALICIA [address] [facility] Department [place] [address] * (ABNORMAL) Strep pneumoniae antigen, urine Urine (04/25/2024 7:40 AM ANTHROPOLOGY INSTRUCTOR) S. pneumoniae Ag Positive( A) Negative Comment: [...] revised on 2022 Urine 04/25/2024 7:40 AM ANTHROPOLOGY INSTRUCTOR 04/25/2024 8:20 AM ANTHROPOLOGY INSTRUCTOR John hassan MD LAB MICROBIOLOGY - GENERAL ORDERABLES Final Result Performing Organization Address [facility] Co de Phone Number [address] [address] * Legionella antigen Urine (04/25/2024 7:40 AM ANTHROPOLOGY INSTRUCTOR) Legionella Ag Negative Negative Comment: Interpretive Data This test detects only Legionella pneumophila serogroup 1 antigen. Testing performed by [facility] ([phone]). Current interpretive data was last revised on 2019. Testing performed by: [facility], [address] [place]., [address] Urine 04/25/2024 7:40 AM ANTHROPOLOGY INSTRUCTOR 04/25/2024 11:16 AM ANTHROPOLOGY INSTRUCTOR John hassan MD LAB MICROBIOLOGY - GENERAL ORDERABLES Final Result Performing Organization Address City/[facility] Co de Phone Number [address] [address] * eGFR (04/25/2024 6:19 AM ANTHROPOLOGY INSTRUCTOR) eGFR >90 >=60 mL/min/1. 73 m2 Comment: [...] was last reviewed 2021. Testing performed by: [facility], [address] [place] [address]., [address] Blood 04/25/2024 6:19 AM ANTHROPOLOGY INSTRUCTOR 04/25/2024 7:17 AM ANTHROPOLOGY INSTRUCTOR John Correa MD LAB BLOOD ORDERABLES Final Result ALICIA [address] Department [place] [address] * (ABNORMAL) Differential, auto (04/25/2024 6:19 AM ANTHROPOLOGY INSTRUCTOR) Neutrophil abs 9.6(H) 1.5 - 6.5 K/cumm Comment:Testing performed by : [address] [address] Imm gran abs 0.0 0.0 - 0.1 K/cumm ALICIA Comment:Testing performed by : [address] [address] Lymphocyte abs 1.0 0.8 - 3.3 K/cumm ALICIA Comment:Testing performed by : [address] [address] Monocyte abs 0.4 0.2 - 0.8 K/cumm ALICIA Comment:Testing performed by : [address] [address] Eosinophil abs 0.0 0.0 - 0.5 K/cumm ALICIA Comment:Testing performed by : [address] [address] Basophil abs 0.0 0.0 - 0.1 K/cumm ALICIA Comment:Testing performed by : [address] [address] Neutrophil pct 86.7 % [facility] Comment: Interpretive Data Percent cell count reference ranges are not reported, since discordance with absolute values may lead to misinterpretation of CBC data. Current Interpretive Data was last revised on 2017. Testing performed by: [address] [address] Imm gran pct 0.4 % [facility] Comment: Interpretive Data Percent cell count reference ranges are not reported, since discordance with absolute values may lead to misinterpretation of CBC data. Current Interpretive Data was last revised on 2017. Testing performed by: [address] [address] Lymphocyte pct 8.8 % [facility] Comment: Interpretive Data Percent cell count reference ranges are not reported, since discordance with absolute values may lead to misinterpretation of CBC data. Current Interpretive Data was last revised on 2017. Testing performed by: [address] [address] Monocyte pct 3.9 % [facility] Comment: Interpretive Data Percent cell count reference ranges are not reported, since discordance with absolute values may lead to misinterpretation of CBC data. Current Interpretive Data was last revised on 2017. Testing performed by: [address] [address] Eosinophil pct 0.0 % [facility] Comment: Interpretive Data Percent cell count reference ranges are not reported, since discordance with absolute values may lead to misinterpretation of CBC data. Current Interpretive Data was last revised on 2017. Testing performed by: [address] [address] Basophil pct 0.2 % [facility] Comment: Interpretive Data Percent cell count reference ranges are not reported, since discordance with absolute values may lead to misinterpretation of CBC data. Current Interpretive Data was last revised on 2017. Testing performed by: [address] [address] Blood 04/25/2024 6:19 AM ANTHROPOLOGY INSTRUCTOR 04/25/2024 7:19 AM ANTHROPOLOGY INSTRUCTOR John Correa MD LAB BLOOD ORDERABLES Final Result [facility] [address] [facility] Department [place] [address] * (ABNORMAL) CBC with auto differential (04/25/2024 6:19 AM ANTHROPOLOGY INSTRUCTOR) WBC 11.0(H) 3.8 - 9.9 K/cumm Comment:Testing performed by : [address] [address] Hgb 13.8 13.0 - 17.5 g/dL ALICIA Comment:Testing performed by : [address] [address] Hct 41.0 38.9 - 50.3 % ALICIA Comment:Testing performed by : [address] [address] Plt 256 150 - 400 K/cumm ALICIA Comment:Testing performed by : [address] [address] MPV 10.4 9.1 - 12.3 fL ALICIA Comment:Testing performed by : [address] [address] RBC 4.54 4.30 - 5.80 M/cumm ALICIA Comment:Testing performed by : [address] [address] MCV 90.3 81.3 - 96.4 fL ALICIA Comment:Testing performed by : [address] [address] MCH 30.4 27.1 - 33.3 pg ALICIA Comment:Testing performed by : [address] [address] MCHC 33.7 32.3 - 35.7 g/dL ALICIA Comment:Testing performed by : [address], [address] RDW CV 12.4 11.1 - 14.9 % ALICIA Comment:Testing performed by : [address], [address] RDW SD 40.8 35.7 - 48.1 fL ALICIA BALLARD Comment:Testing performed by : [address] [address] NRBC abs 0.00 0.00 - 0.01 K/cumm ALICIA BALLARD Comment:Testing performed by : [address] [address] Blood 04/25/2024 6:19 AM ANTHROPOLOGY INSTRUCTOR 04/25/2024 7:19 AM ANTHROPOLOGY INSTRUCTOR us John Correa MD LAB BLOOD ORDERABLES Final Result ALICIA BALLARD [address] [facility] Department [place] [address] * (ABNORMAL) Comprehensive metabolic panel (04/25/2024 6:19 AM ANTHROPOLOGY INSTRUCTOR) Sodium 135 135 - 145 mmol/L Comment:Testing performed by : [address] [address] Potassium, pl 4.3 3.3 - 4.9 mmol/L ALICIA BALLARD Comment:Testing performed by : [address] [address] Chloride 96(L) 97 - 110 mmol/L ALICIA Comment:Testing performed by : [address] [address] CO2 26 22 - 32 mmol/L ALICIA Comment:Testing performed by : [address] [address] Anion gap 13 2 - 15 mmol/L ALICIA Comment:Testing performed by : [address] [address] BUN 15 6 - 25 mg/dL ALICIA Comment:Testing performed by : [address] [address] Creatinine 0.70(L) 0.80 - 1.30 mg/dL ALICIA Comment:Testing performed by : [address] [address] Glucose 147 70 - 199 mg/dL ALICIA [...] was last revised 2022. Testing performed by: [address] [address] Calcium 9.4 8.5 - 10.3 mg/dL ALICIA Comment:Testing performed by : [address] [address] Bilirubin, total 0.4 0.1 - 1.2 mg/dL ALICIA Comment:Testing performed by : [address] [address] Protein, pl 7.2 6.5 - 8.5 g/dL [facility] Comment:Testing performed by : [address] [address] Albumin 3.7 3.5 - 5.0 g/dL ALICIA Comment:Testing performed by : [address] [address] Alk phos 97 40 - 130 Units/L ALICIA Comment:Testing performed by : [address] [address] ALT 30 7 - 55 Units/L [facility] Comment:Testing performed by : [address] [address] AST 18 10 - 50 Units/L ALICIA Comment:Testing performed by : [address] [address] Blood 04/25/2024 6:19 AM ANTHROPOLOGY INSTRUCTOR 04/25/2024 7:17 AM ANTHROPOLOGY INSTRUCTOR us John Correa MD LAB BLOOD ORDERABLES Final Result Performing Organization Address City/[facility]/ZIP Co de Phone Number ALICIA [facility] [place] [address] * Troponin T high-sensitivity (04/24/2024 3:02 PM ANTHROPOLOGY INSTRUCTOR) Pathologist [facility] Trop T hs <6 <=22 ng/L Comment: Interpretive Data For further hscTnT resources including the diagnostic algorithm and an aid in interpretation, copy and paste this link: https://nrl.testcatalog.org/show/hsTrop Current Interpretive Data last revised 2020. Testing performed by: [facility], [address] [place] [address]., [address] Blood 04/24/2024 3:02 PM ANTHROPOLOGY INSTRUCTOR 04/24/2024 3:10 PM ANTHROPOLOGY INSTRUCTOR us John Correa MD LAB BLOOD ORDERABLES Final Result Performing Organization Address [facility]/ZIP Co de Phone Number [id number] [place] [address] * Sepsis Lactate w/ Reflex (04/24/2024 3:02 PM ANTHROPOLOGY INSTRUCTOR) [facility] Sepsis Lactate 1.3 0.7 - 2.0 mmol/L Comment:Testing performed by : [facility], [address] [place] [address]., [address] Blood 04/24/2024 3:02 PM ANTHROPOLOGY INSTRUCTOR 04/24/2024 3:10 PM ANTHROPOLOGY INSTRUCTOR us Stephane Gomes MD LAB BLOOD ORDERABLE S Final Result Performing Organization Address City/[facility]/ZIP Co de Phone Number [place] [id number] [facility] [place] [address] * Blood culture Blood (04/24/2024 3:02 PM ANTHROPOLOGY INSTRUCTOR) Pathologist [facility] Report Final Report: No growth Comment:Testing performed by : [facility], [address] [place] [address] Blood 04/24/2024 3:02 PM ANTHROPOLOGY INSTRUCTOR 04/24/2024 8:08 PM ANTHROPOLOGY INSTRUCTOR Narrative ALICIA - 04/29/2024 7:00 AM ANTHROPOLOGY INSTRUCTOR Collection->Peripheral 1. Blood cultures are incubated for [...] performance characteristics have been verified by the [facility]. For questions about this culture, contact the Microbiology Laboratory at [phone]. Interpretive data was last revised on 24. Lyndsay BROWN LAB MICROBIOLOGY - GENERAL NICO TRIMBLE Final Result ALICIA [address] [facility] Department [place] [address] * Blood culture Blood (04/24/2024 2:54 PM ANTHROPOLOGY INSTRUCTOR) Report Final Report: No growth Comment:Testing performed by : [facility], [address] [place] [address] Blood 04/24/2024 2:54 PM ANTHROPOLOGY INSTRUCTOR 04/24/2024 8:08 PM ANTHROPOLOGY INSTRUCTOR Narrative ALICIA - 04/29/2024 7:00 AM ANTHROPOLOGY INSTRUCTOR Collection->Peripheral 1. Blood cultures are incubated for [...] performance characteristics have been verified by the [facility]. For questions about this culture, contact the Microbiology Laboratory at [phone]. Interpretive data was last revised on 24. Lyndsay BROWN LAB MICROBIOLOGY - GENERAL NICO TRIMBLE Final Result [facility] [address] [facility] Department [place] [address] * CT Chest PE (CTA) W Contrast (04/24/2024 2:00 PM ANTHROPOLOGY INSTRUCTOR) Anatomical Region Laterality Modality Body N/A Computed Tomogra phy 04/24/2024 2:30 PM ANTHROPOLOGY INSTRUCTOR Narrative 04/24/2024 2:38 PM ANTHROPOLOGY INSTRUCTOR EXAM DESCRIPTION: CT CHEST PE (CTA) W [...] Lala Degroot M.D. FT: FT Report ID: [id number] Reading Location: [place] [address] Procedure Note Lala Orourke MD - 04/24/2024 [...] Lala Degroot M.D. FT: FT Report ID: [id number] Reading Location: [place] [address] PROCEDURES Final Result * XR Chest 1 Vw Portable (if patient condition/safety warrant portable) (04/24/2024 12:43 PM ANTHROPOLOGY INSTRUCTOR) Anatomical Region Laterality Modality Body, Chest N/A Computed Radiogr aphy 04/24/2024 1:08 PM ANTHROPOLOGY INSTRUCTOR Narrative 04/24/2024 1:09 PM ANTHROPOLOGY INSTRUCTOR EXAM DESCRIPTION: XR CHEST 1 VIEW REASON [...] Edenilson Oakes M.D. NS: NS Report ID: [id number] Reading Location: [place] [address] Procedure Note Edenilson Oakes MD - 04/24/2024 [...] Edenilson Oakes M.D. NS: NS Report ID: [id number] Reading Location: [id number] us John Correa MD IMG XR MI OCEDURES Final Result * ECG 12 lead (04/24/2024 12:34 PM ANTHROPOLOGY INSTRUCTOR) Ventricular Rate EKG/Min 97 BPM [facility] Atrial Rate 97 BPM [facility] MI-Interval (MSEC) 124 ms [facility] QRS-Interval (MSEC) 86 ms [facility] QT-Interval (MSEC) 340 ms [facility] QTc 431 ms [facility] P [place] 38 degrees [facility] R [place] -22 degrees [facility] T [place] 38 degrees [facility] Diagnosis Normal sinus rhythm Normal ECG No previous ECGs available Confirmed by ADRIANA APPLE M.D. ([id number]) on 04/24/2024 11:13:53 PM [facility] 04/24/2024 12:3 4 PM ANTHROPOLOGY INSTRUCTOR 04/24/2024 11:13 PM ANTHROPOLOGY INSTRUCTOR us John Correa MD ECG ORDER ELISSA Final Result [facility] * (ABNORMAL) Sepsis Lactate w/ Reflex (04/24/2024 12:32 PM ANTHROPOLOGY INSTRUCTOR) Pathologist [facility] Sepsis Lactate 2.3(C) 0.7 - 2.0 mmol/L Comment: Critical Result called to and read back by [email or web address], DATE: 2024-04-24 13:23:24 BY: [id number] Testing performed by: [facility], [address] [place] [address]., [address] Blood 04/24/2024 12:3 2 PM ANTHROPOLOGY INSTRUCTOR 04/24/2024 12:38 PM ANTHROPOLOGY INSTRUCTOR us John Correa MD LAB BLOOD ORDERABLES Final Result ALICIA [address] [facility] [place] [address] * Troponin T high-sensitivity series (baseline, 2hr, 4hr, 6hr) (04/24/2024 12:31 PM ANTHROPOLOGY INSTRUCTOR) [facility] Trop T hs <6 <=22 ng/L Comment: Interpretive Data For further hscTnT resources including the diagnostic algorithm and an aid in interpretation, copy and paste this link: https://nrl.testcatalog.org/show/hsTrop Current Interpretive Data last revised 2020. Testing performed by: [address] [address] Blood 04/24/2024 12:3 1 PM ANTHROPOLOGY INSTRUCTOR 04/24/2024 12:38 PM ANTHROPOLOGY INSTRUCTOR John Correa MD LAB BLOOD ORDERABLES Final Result ALICIA [address] [facility] Department [place] [address] * (ABNORMAL) Influenza A/B, RSV, and COVID-19 PCR Nasopharyngeal (04/24/2024 12:31 PM ANTHROPOLOGY INSTRUCTOR) [facility] COVID-19 RNA Negative Negative Comment:Testing performed by : [address] [address] Influenza A RNA Positive(A) Negative ALICIA Comment:Testing performed by : [address] [address] Influenza B RNA Negative Negative [facility] Comment:Testing performed by : [address] [address] RSV RNA Negative Negative [facility] Comment: Interpretive data: Testing performed by [facility]. This test is performed using the [employer] Xpert Xpress CoV-2/Flu/RSV plus assay. This is a multiplex, real-time reverse transcriptase PCR assay intended for the qualitative detection of nucleic acid from SARS-CoV-2, influenza A, influenza B, and respiratory syncytial virus. This assay has been cleared by the [place] Food and Drug administration. The performance characteristics have been verified by the [facility]. Results must be considered in the clinical context, and a negative result does not rule out infection. Interpretive Data last revised 2023 Testing performed by: [facility], [address] [place] [address]., [address] Nasopharyngeal 04/24/2024 12 :31 PM ANTHROPOLOGY INSTRUCTOR 04/24/2024 12:37 PM ANTHROPOLOGY INSTRUCTOR Narrative ALICIA - 04/24/2024 1:21 PM ANTHROPOLOGY INSTRUCTOR Is the Patient experiencing symptoms consistent with COVID?->Yes John hassan MD LAB MICROBIOLOGY - GENERAL ORDERABLES Final Result ALICIA [address] [facility] Department [place] [address] * eGFR (04/24/2024 12:31 PM ANTHROPOLOGY INSTRUCTOR) Pathologist [facility] eGFR >90 >=60 mL/min/1. 73 m2 Comment: [...] was last reviewed 2021. Testing performed by: [facility], [address] [place] [address]., [address] Blood 04/24/2024 12:3 1 PM ANTHROPOLOGY INSTRUCTOR 04/24/2024 12:38 PM ANTHROPOLOGY INSTRUCTOR us John Correa MD LAB BLOOD ORDERABLES Final Result ALICIA [address] [facility] Department [place] [address] * (ABNORMAL) Differential, auto (04/24/2024 12:31 PM ANTHROPOLOGY INSTRUCTOR) Neutrophil abs 11.5(H) 1.5 - 6.5 K/cumm Comment:Testing performed by : [address] [address] Imm gran abs 0.1 0.0 - 0.1 K/cumm ALICIA Comment:Testing performed by : [address] [address] Lymphocyte abs 1.2 0.8 - 3.3 K/cumm ALICIA Comment:Testing performed by : [address] [address] Monocyte abs 0.8 0.2 - 0.8 K/cumm AILCIA Comment:Testing performed by : [address] [address] Eosinophil abs 0.0 0.0 - 0.5 K/cumm ALICIA Comment:Testing performed by : [address] [address] Basophil abs 0.0 0.0 - 0.1 K/cumm ALICIA Comment:Testing performed by : [address] [address] Neutrophil pct 85.2 % ALICIA Comment: Interpretive Data Percent cell count reference ranges are not reported, since discordance with absolute values may lead to misinterpretation of CBC data. Current Interpretive Data was last revised on 2017. Testing performed by: [address] [address] Imm gran pct 0.4 % ALICIA Comment: Interpretive Data Percent cell count reference ranges are not reported, since discordance with absolute values may lead to misinterpretation of CBC data. Current Interpretive Data was last revised on 2017. Testing performed by: [address] [address] Lymphocyte pct 8.7 % [facility] Comment: Interpretive Data Percent cell count reference ranges are not reported, since discordance with absolute values may lead to misinterpretation of CBC data. Current Interpretive Data was last revised on 2017. Testing performed by: [address] [address] Monocyte pct 5.6 % [facility] Comment: Interpretive Data Percent cell count reference ranges are not reported, since discordance with absolute values may lead to misinterpretation of CBC data. Current Interpretive Data was last revised on 2017. Testing performed by: [address] [address] Eosinophil pct 0.0 % [facility] Comment: Interpretive Data Percent cell count reference ranges are not reported, since discordance with absolute values may lead to misinterpretation of CBC data. Current Interpretive Data was last revised on 2017. Testing performed by: [address] [address] Basophil pct 0.1 % [facility] Comment: Interpretive Data Percent cell count reference ranges are not reported, since discordance with absolute values may lead to misinterpretation of CBC data. Current Interpretive Data was last revised on 2017. Testing performed by: [address] [address] Blood 04/24/2024 12:3 1 PM ANTHROPOLOGY INSTRUCTOR 04/24/2024 12:38 PM ANTHROPOLOGY INSTRUCTOR us John Correa MD LAB BLOOD ORDERABLES Final Result [facility] [address] [facility] Department [place] [address] * Pro B-type natriuretic peptide (04/24/2024 12:31 PM ANTHROPOLOGY INSTRUCTOR) NT-proBNP 116 <=300 pg/mL Comment: Interpretive Comments: [...] Last Revised Date: 2017. Testing performed by: [address] [address] Blood 04/24/2024 12:3 1 PM ANTHROPOLOGY INSTRUCTOR 04/24/2024 12:38 PM ANTHROPOLOGY INSTRUCTOR John Correa MD LAB BLOOD ORDERABLES Final Result [facility] [address] [facility] Department [place] [address] * (ABNORMAL) CBC with auto differential (04/24/2024 12:31 PM ANTHROPOLOGY INSTRUCTOR) [facility] WBC 13.5(H) 3.8 - 9.9 K/cumm Comment:Testing performed by : [address] [address] Hgb 15.0 13.0 - 17.5 g/dL ALICIA Comment:Testing performed by : [address], [address] Hct 44.4 38.9 - 50.3 % ALICIA Comment:Testing performed by : [address] [address] Plt 254 150 - 400 K/cumm ALICIA Comment:Testing performed by : [address] [address] MPV 9.8 9.1 - 12.3 fL ALICIA Comment:Testing performed by : [address] [address] RBC 4.85 4.30 - 5.80 M/cumm ALICIA Comment:Testing performed by : [address] [address] MCV 91.5 81.3 - 96.4 fL ALICIA Comment:Testing performed by : [address] [address] MCH 30.9 27.1 - 33.3 pg ALICIA Comment:Testing performed by : [address] [address] MCHC 33.8 32.3 - 35.7 g/dL ALICIA Comment:Testing performed by : [address] [address] RDW CV 12.6 11.1 - 14.9 % ALICIA Comment:Testing performed by : [address] [address] RDW SD 41.5 35.7 - 48.1 fL ALICIA Comment:Testing performed by : [address] [address] NRBC abs 0.00 0.00 - 0.01 K/cumm ALICIA Comment:Testing performed by : [address] [address] Blood 04/24/2024 12:3 1 PM ANTHROPOLOGY INSTRUCTOR 04/24/2024 12:38 PM ANTHROPOLOGY INSTRUCTOR us Nilupa Nik Correa MD LAB BLOOD ORDERABLES Final Result ALICIA [address] [facility] Department of Laboratories [place], [place] [id number] * (ABNORMAL) Comprehensive metabolic panel (04/24/2024 12:31 PM ANTHROPOLOGY INSTRUCTOR) Sodium 135 135 - 145 mmol/L Comment:Testing performed by : [address] [address] Potassium, pl 4.0 3.3 - 4.9 mmol/L ALICIA Comment:Testing performed by : [address] [address] Chloride 96(L) 97 - 110 mmol/L ALICIA Comment:Testing performed by : [address] [address] CO2 25 22 - 32 mmol/L ALICIA Comment:Testing performed by : [address] [address] Anion gap 14 2 - 15 mmol/L ALICIA Comment:Testing performed by : [address] [address] BUN 18 6 - 25 mg/dL ALICIA Comment:Testing performed by : [address] [address] Creatinine 0.95 0.80 - 1.30 mg/dL ALICIA Comment:Testing performed by : [address] [address] Glucose 188 70 - 199 mg/dL ALICIA [...] was last revised 2022. Testing performed by: [facility], [address] [place] [address]., [address] Calcium 9.5 8.5 - 10.3 mg/dL ALICIA Comment:Testing performed by : [address] [address] Bilirubin, total 0.5 0.1 - 1.2 mg/dL ALICIA Comment:Testing performed by : [address] [address] Protein, pl 7.6 6.5 - 8.5 g/dL ALICIA Comment:Testing performed by : [address] [address] Albumin 4.1 3.5 - 5.0 g/dL ALICIA Comment:Testing performed by : [address] [address] Alk phos 74 40 - 130 Units/L ALICIA Comment:Testing performed by : [address] [address] ALT 29 7 - 55 Units/L ALICIA Comment:Testing performed by : [address] [address] AST 29 10 - 50 Units/L ALICIA Comment:Testing performed by : [address] [address] Blood 04/24/2024 12:3 1 PM ANTHROPOLOGY INSTRUCTOR 04/24/2024 12:38 PM ANTHROPOLOGY INSTRUCTOR John Correa MD LAB BLOOD ORDERABLES Final Result ALICIA [address] [facility] Department [place] [address] from Last 3 Months Insurance [facility] Advance Directives For more information, please contact: [phone] * Full Code (Latest Code Status on File) Date Activated Date Inactivated Comments 04/24/2024 8:42 PM 04/27/2024 3:05 PM Care Teams Fireworks Assembler Relationship Specialty Start Date End Date Unknown, Notinfile PCP - General 08/08/19
--- OUTSIDE RECORDS SUMMARY | 2024-06-08 00:31 | XMS_ITS | Clinical Summary ---
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 Gender Identity Not on file Sexual Orientation Not on file Plan of Treatment Health Maintenance Due Date Last Done Comments Hepatitis C Virus (HCV) Screening 1970 Hepatitis B Immunization (1 of 3 - 19+ 3-dose series) 1987 Colonoscopy 2013 Colorectal Cancer Screening 2013 Cologuard 2018 Immunochemical Fecal Occult Blood 2018 Pneumococcal Immunization (5 0+ years) (1 of 1 - PCV) 2018 Zoster Immunization (1 of 2) 2018 PSA Discussion 2023 Influenza Immunization (#1) 2023 092 05/2019, 03/27/2018 SARS-COV-2 Immunization ( season) 2023 Respiratory Syncytial Virus (RSV) Immunization (Adult) (1 - 1-dose 75+ series) 2043 DTaP/Tdap/Td Immunization Discontinued 03/27/2019 TdaP Immunization Completed 03/27/2019 Meningococcal Immunization (ACWY) Aged Out No longer eligible based on patient's age to complete this topic Pneumococcal Immunization Combined Aged Out No longer eligible based on patient's age to complete this topic Rotavirus Immunization Aged Out No lo nger eligible based on patient's age to complete this topic
--- OUTSIDE RECORDS SUMMARY | 2024-06-08 00:31 | XMS_ITS ---
Author Organization [facility] Address [address] [place] [address] Care Team Providers Care Mortgage Closer Name Role Phone Tara Germain Primary Care Provider Sumit Chou [phone] REASON FOR VISIT mat f/u-r/s from 05/01 Social History Sex Assigned At : Social History Observation Description Sex Assigned At Male Encounters Encounter Location Date Provider Diagnosis [place] [address] [address] [facility] [address] 05/08/2024 Sumit Chou Plan Of Treatment No Information Progress Notes * Fernie CARRERODOB:1970 ([age] yo M)Acc No.[id number]:05/08/2024 UNLOCKED PROGRESS NOTE Patient: Fernie SHORT Provider: Cristy Chou, MSN, SENIOR APPLICATIONS DEVELOPER, TRAILER RENTAL CLERK-C :1970 A ge:54 Y S ex:Male Date:05/08/2024 Address:[address] [place], [place] [id number] Pcp:Tara Germain Subjective: * Chief Complaints: * 1 . Mat f/u-r/s from 05/01. * Medical History: Objective: * Vitals: Assessment: Plan: * Treatment: * Care Plan Details* * Electronic signature of Marybel Chou APRN, [id number] on 06/08/2024 at 12:30 AM CDT Sign off status: Pending * Provider: Cristy Chou, MSN, SENIOR APPLICATIONS DEVELOPER, TRAILER RENTAL CLERK-C Date: 0 05/08/2024 Generated for Nancy curtis/Maulik/eTransmitting on: 0 06/08/2024 12:30 AM CDT
[2024-06-08 08:13] VITALS: BP 137/69; PULSE 79; RESP 16; TEMP 36.6; O2SAT 99
[2024-06-08] MEDS: LACTATED RINGERS 1,000 ML 150 ML IV CONT (08:21)
--- NOTE | 2024-06-08 08:28 | P.PNAN_ITS ---
Anes - Initial Pre Proc Eval Procedure: Operation Date: 06/08/24 09:30 Proposed Procedures p Colonoscopy - Ed Alegre MD Date/Time: 06/08/24 08:28 Surgeon: Ed Alegre MD Pre Op Diagnosis: hx of colon polyps Patient Data Age: 54 Gender: M Height: 1.85 m Weight: 94.7 kg Last Vital Signs Temp 36.6 C 06/08/24 08:13 Pulse 79 06/08/24 08:13 Resp 16 06/08/24 08:13 BP 137/69 06/08/24 08:13 Pulse Ox 99 06/08/24 08:13 O2 Del Method Room Air 06/08/24 08:13 Allergies Allergy/AdvReac Type Severity Reaction Status Date / Time No Known Allergies Allergy Unknown Verified 06/08/24 08:11 Home Medications ?Medication ?Instructions ?Recorded ?Confirmed ?Type albuterol sulfate 90 mcg/actuation 2 puff inhalation QID PRN 04/21/24 05/31/24 Rx aerosol inhaler (Ventolin HFA) shortness of breath or wheezing #8.5 grams buprenorphine 8 mg-naloxone 2 mg 1 film sublingual TID 05/31/24 06/08/24 History sublingual film Patient hx anesthesia problems: none Family hx anesthesia problems: none Results Review: All pre-operative results and documents have been reviewed as part of the pre- operative evaluation. [facility] Past Medical History Medical History Nicotine dependence, cigarettes, with unspecified nicotine-induced disorders Atherosclerotic heart disease of [place] coronary artery without angina pectoris Simple chronic bronchitis Personal history of colonic polyps Hyperlipidemia Surgical History Surgical History History of repair of left rotator cuff October, History of orthopedic surgery bilateral knees surgery,right hand Hx of tonsillectomy Family History Family History Father Patient's father is Social History Social History Smoking packs per day: 1 Smoking cigarettes per day: 20.0 Smoking status: Current every day smoker Tobacco type: cigarettes Alcohol intake: current Substance use: former Substance use type: prescription drug Lack of Transportation: No Lack of Food: Never True Current Housing: I Have Housing Concerned About Future Housing: No Difficulty Paying Gas/Electric Bills: No Difficulty Paying for Meds: No Currently Unemployed: No Education: High School Diploma/GED Difficulty w/ Childcare or Family Care: No Living arrangements: with family Occupation/Education: occupation Gender identity (if verbalized by the patient): Male Sexual Orientation (if Verbalized by the Patient): Straight or Heterosexual Anes - Eval Final PreProcedure Day of Procedure 06/08/24 08:28 Patient weight: overweight Heart: regular rate and rhythm Lungs: clear to auscultation Airway: Mallampati scale class II Neurological: alert and oriented Last oral intake: >/= 8 hours ASA classification: II Emergent: no Anesthetic plan: proceed Anesthesia type and monitoring: general GIVS and standard monitoring Results Review: All pre-operative results and documents have been reviewed as part of the pre- operative evaluation. Informed Consent: The patient's anesthetic plan and its attendant risks and benefits were discussed with the patient/family/POA. Questions were solicited and answers provided to the satisfaction of the patient/family/POA.
--- NOTE | 2024-06-08 09:12 | P.HP_ITS ---
History of Present Illness History of Present Illness Consent: Risks, benefits, and alternatives have been discussed and questions answered. Patient agrees to proceed with procedure. Chief complaint: hx of colon polyps Narrative: Fernie Rees is a 54 year old male with colon polyp in 2019 Review of Systems Review of Systems: All systems reviewed & are unremarkable except as noted in HPI and below PMFSH Past Medical History Medical History Nicotine dependence, cigarettes, with unspecified nicotine-induced disorders Atherosclerotic heart disease of [place] coronary artery without angina pectoris Simple chronic bronchitis Personal history of colonic polyps Hyperlipidemia Surgical History Surgical History History of repair of left rotator cuff October, History of orthopedic surgery bilateral knees surgery,right hand Hx of tonsillectomy Family History Family History Father Patient's father is Social History Social History Smoking packs per day: 1 Smoking cigarettes per day: 20.0 Smoking status: Current every day smoker Tobacco type: cigarettes Alcohol intake: current Substance use: former Substance use type: prescription drug Lack of Transportation: No Lack of Food: Never True Current Housing: I Have Housing Concerned About Future Housing: No Difficulty Paying Gas/Electric Bills: No Difficulty Paying for Meds: No Currently Unemployed: No Education: High School Diploma/GED Difficulty w/ Childcare or Family Care: No Living arrangements: with family Occupation/Education: occupation Gender identity (if verbalized by the patient): Male Sexual Orientation (if Verbalized by the Patient): Straight or Heterosexual Meds Home Medications and Allergies Home Medications ?Medication ?Instructions ?Recorded ?Confirmed ?Type albuterol sulfate 90 mcg/actuation 2 puff inhalation QID PRN 04/21/24 05/31/24 Rx aerosol inhaler (Ventolin HFA) shortness of breath or wheezing #8.5 grams buprenorphine 8 mg-naloxone 2 mg 1 film sublingual TID 05/31/24 06/08/24 History sublingual film Allergies Allergy/AdvReac Type Severity Reaction Status Date / Time No Known Allergies Allergy Unknown Verified 06/08/24 08:11 Vital Signs Vital Signs - 24 hr 06/08/24 08:13 Temperature 97.8 F Pulse Rate 79 Respiratory Rate 16 Blood Pressure 137/69 Pulse Oximetry 99 Oxygen Delivery Room Air Exam Const: General: comfortable and no acute distress HENMT: Face/Nose/Sinus: Normal nares present Eyes: General: appearance normal, both eyes and all related structures Neck: Neck: no JVD Resp: Auscultation: clear to auscultation bilaterally Cardio: Rate: regular rate Rhythm: regular rhythm GI: Inspection: non-distended GI Palp: Yes Soft to palpation Skin: General skin exam: normal color Neuro: General: gait normal Speech: normal speech Extrem: General: normal to inspection Psych: Mental Status: mental status grossly normal Assessment and Plan Assessment and plan (1) Personal history of colonic polyps: Code(s): Z86.010 - Personal history of colon polyps Status: Acute Assessment and Plan: colonoscopy
[2024-06-08 09:29] VITALS: BP 110/64; PULSE 66; RESP 18; O2SAT 99
[2024-06-08 09:39] VITALS: BP 120/88; PULSE 80; RESP 18; O2SAT 100
[2024-06-08 09:49] VITALS: BP 116/74; PULSE 72; RESP 18; O2SAT 100
== END 2024-06-08 09:54 | disposition home or self-care (01) ==
PROVIDERS: PCP Family Medicine; Referring Provider Family Medicine; Visit Provider Internal Medicine Gastroenterology
PROC: 0DJD8ZZ Inspection of Lower Intestinal Tract, Via Natural or Artificial Opening Endoscopic (ICD-10-PCS; CPT 45378; principal; 2024-06-08 09:30)
DX: Z12.11 Encounter for screening for malignant neoplasm of colon (principal); D12.2 Benign neoplasm of ascending colon; K63.5 Polyp of colon; K64.8 Other hemorrhoids; E78.5 Hyperlipidemia, unspecified; I25.10 Atherosclerotic heart disease of native coronary artery without angina pectoris; J41.0 Simple chronic bronchitis; F17.210 Nicotine dependence, cigarettes, uncomplicated; Z79.51 Long term (current) use of inhaled steroids; Z98.890 Other specified postprocedural states
CPT/HCPCS: 45380; 45385; 88305; J2704; J7120